=== PATIENT | female | born 1945 | race Caucasian/White ===

== ENCOUNTER → 2023-06-01 11:02 | Outpatient (REF) | payer MEDICARE, SELFPAY ==
[2023-06-01 12:25] LABS: Glycohemoglobin (HgbA1c) 6.4 % (4.0-5.6)
[2023-06-01 12:42] LABS: Microalbumin, Random Urine 5.7 mg/dl (0.6-1.7); Microalbumin/creatinine Ratio 25.1 mg/g
== END ==
LOC: REG 11:02
PROVIDERS: ATTENDING PHYSICIAN Family Medicine
DX: E11.59 Type 2 diabetes mellitus with other circulatory complications (principal)
CPT/HCPCS: 36415; 82043; 82570; 83036

== ENCOUNTER 2023-11-19 11:55 | Inpatient (IN) | payer MEDICARE, SELFPAY ==
[2023-11-16 18:50] VITALS: BP 131/74
[2023-11-16 19:30] LABS: % Basophils 0.7 % (0-2); % Eosinophils 1.2 % (0-6); % Immature Granulocytes 0.3 % (0-0.5); % Lymphocytes 21.2 % (20.5-51.1); % Monocytes 9.8 % (1.7-9.3); % Neutrophils 66.8 % (42.2-75.2); Absolute Basophils 0.1 10^3/uL (0-0.2); Absolute Eosinophils 0.2 10^3/uL (0-0.7); Absolute Lymphocytes 2.6 10^3/uL (1.2-3.4); Absolute Monocytes 1.2 10^3/uL (0.1-0.6); Absolute Neutrophils 8.3 10^3/uL (1.4-6.5); Hematocrit 36.8 % (37.0-47.0); Hemoglobin 12.3 g/dL (12.0-16.0); Mean Corp Hgb Conc. 33.4 g/dL (33.0-37.0); Mean Corpuscular Hgb 27.4 pg (27.0-31.0); Mean Platelet Volume 9.5 fL (7.4-10.4); Nucleated Red Blood Cells % 0 %; Platelet Count 359 10^3/uL (130-400); Red Blood Cell Count 4.49 10^6/uL (4.20-5.40); Red Cell Dist. Width 13.9 % (11.5-14.5); White Blood Cell Count 12.5 10^3/uL (4.8-10.8)
[2023-11-16 19:41] LABS: ALT (SGPT) 20 U/L (0-35); AST (SGOT) 29 U/L (14-36); Albumin 4.6 g/dl (3.5-5.0); Alkaline Phosphatase 91 U/L (38-126); Blood Urea Nitrogen 20 mg/dl (7-17); Calcium 9.8 mg/dl (8.4-10.2); Carbon Dioxide 22 mmol/L (22-30); Chloride 99 mmol/L (98-107); Glucose 183 mg/dl (70-99); Potassium 4.1 mmol/L (3.5-5.1); Sodium 139 mmol/L (135-145); Total Bilirubin 1.1 mg/dl (0.2-1.3); Total Protein 7.7 g/dl (6.3-8.2); eGFR 46.33
[2023-11-16 19:48] LABS: COVID-19 Antigen Negative (Negative)
--- NOTE | 2023-11-16 21:14 | ED.GENMED ---
History of Present Illness
General
Chief Complaint: Weakness
Source: patient and family (Daughter)
Exam Limitations: none
Time Seen by Provider: 11/16/23 21:13
History of Present Illness
History of Present Illness:
Frequent falls the last 4 to 5 days. General weakness. Lied in bed all day today. Unable to get out secondary to weakness. No other specific complaints. Decreased p.o. intake today
Past History
Past History
ED Past Medical History: HTN, Hypercholesterolemia, NIDDM and Other (Parkinson's disease)
ED Past Surgical History: Gynecological
Social History
Tobacco: Former smoker
Alcohol: None
Drug: None
Personal:
Living: with family
Employment: Retired
Family History
Family History: Other
Review of Systems
Review of Systems
All Other Systems: Not applicable
Constitutional: Denies fever or chills
Respiratory: Reports no symptoms
Cardiac: Reports no symptoms
Phy Exam
Physical Exam
Physical Exam:
GENERAL: Alert and oriented in no apparent distress
EYE: Orbits normal.
NECK: Supple, no significant adenopathy.
ENT: Pharynx without erythema
CARDIAC: Regular rate and rhythm without any obvious murmurs.
LUNGS: Clear breath sounds,normal
ABDOMEN: Soft, without focal tenderness or distention
NEUROLOGICAL: Alert and oriented , grossly non-focal. Generally weak. Significant weakness bilateral lower extremities. Able to barely straight leg raise. Patellar reflexes intact but diminished bilaterally.
SKIN: Warm and dry, no rash or lesion, no discoloration, skin intact.
MUSCULOSKELETAL: No edema,no deformity.Good color
PSYCH: Normal and appropriate interaction.
Course
Orders/Labs/Results
Orders:
Orders
11/16/23 18:57
Electrocardiogram (*1) Urgent
Reason for Study: Other
Other Reason for Exam: neck pain
EKG- Treatment ONCE
11/16/23 19:07
COVID-19 Antigen Urgent
Source: Nasal Swab
Complete Blood Count/With Diff Urgent
Comprehensive Metabolic Panel Urgent
TSH Reflex To Free T4 Urgent
Comment: ADDON
11/16/23 21:31
Add On- LAB Urgent
Tests Added?: tsh reflex t4
CT Cervical Spine W/o Iv Contr Urgent
Comment:
Reason For Exam: trauma
CT Head W/o Iv Contrast Urgent
Comment:
Reason For Exam: trauma
Cardiac Monitoring- Treatment ONCE
Straight cath- Treatment ONCE
11/16/23 21:35
CXR2 [CR Chest - 2 Views ] Urgent
Comment:
Reason For Exam: Frequent falls/upper back pain
11/16/23 22:25
Urinalysis Reflex To Culture Urgent
Date Specimen was Collected: 11/16/23
Time Specimen was Collected: 18:56
Urine Microscopic Reflex Cult Urgent
Urine Culture Urgent
DARWIN Source: U
Specimen Description:
Date Specimen was Collected: 11/16/23
Time Specimen was Collected: 18:56
11/16/23 23:39
0.9% Sodium Chloride 500 ml [Nss] 500 ml IV BOLUS
11/17/23 00:10
Admit/Transfer Patient As Directed
Co-Sign Provider:
Level of Care: Observation services
Assign to:: Telemetry
Physician / Group: Timoteo
Diagnosis: Weakness, Falls
Reason for Telemetry: Syncope
Date to Stop Telemetry: 11/19/23
Time to Stop Telemetry: 11:00
PRN Pain Medication Management As Directed
May give lesser potent ordered pain med per pt: Yes
preference::
Protocol:: Medication orders for pain may be administered in a
manner that supports deferring to patient preference
when the pt is:
- Requesting an ordered lesser potent pain medication.
Least to most potent pain medications are defined
as: acetaminophen < NSAID < tramadol < opioids
(morphine, oxycodone, hydromorphone).
- Requesting a lesser dose of the same medication IF
ORDERED.
- Requesting a less intrusive route of administration
if both routes are prescribed by the provider (PO <
IV).
11/17/23 00:12
Code Status As Directed
Resuscitation Status: Do not resuscitate
Reached after discussion with pt or family/Healthcare POA: Yes
11/17/23 00:13
DNR Bracelet Application ONCE
11/17/23 00:40
0.9% Sodium Chloride 1000 ml [Nss] 1,000 ml IV 80 mls/hr
Acetaminophen [Tylenol] 650 mg PO Q4HPRN PRN
Albuterol Nebs [Ventolin Nebules] 2.5 mg INH R Q4HPRN PRN
Dextrose 50%-Water [Dextrose 50% Syringe] 12.5 grams IV [id number] PRN
Glucagon [GlucaGen] 1 mg IM PRN PRN
11/17/23 00:40
Activity As Directed
Activity Level: Ambulate
With Assistance
Bedside Glucose Monitoring As Directed
Frequency: AC&HS
Additional Instructions:: Change to q6h if pt on TPN, tube feeding or not eating
I/O [Intake/ Output] As Directed
Frequency: Per unit guidelines
Neurological Checks As Directed
Frequency: q4h
Orthostatic Vital Signs As Directed
Orthostatic VS Frequency: BID
Pneumatic Compression Sleeves As Directed
Type: Knee high
Vital Signs As Directed
Frequency: Per unit guidelines
Oxygen Therapy [O2 Therapy] [RESP] Routine
Titrate/Wean O2 to maintain O2 sat greater than (%): 94
Ot Eval And Treat Routine
PT Consult [Pt Eval And Treat] Routine
Activity Level: Ambulate
With Assistance
Speech Therapy Eval & Treat Routine
DX Deep Vein Thrombosis Video Routine
11/17/23 Breakfast
2000 calorie (17 carb) Diabetic
At Your Request: Limited, Turnaround Planner Required
Basic Metabolic Panel IN AM
Complete Blood Count/No Diff IN AM
Glycohemoglobin (HgbA1c) IN AM
11/17/23 07:30
Insulin Aspart Corrective Low [Novolog Flexpen-Low Resistance] See Protocol SC AC
11/17/23 08:00
Aspirin Chewable [Low Strength Aspirin] 81 mg PO DAILY
Atorvastatin [Lipitor] 10 mg PO DAILY
Pantoprazole [Protonix] 40 mg PO DAILY
Sertraline HCl [Zoloft] 25 mg PO DAILY
11/19/23 11:00
DC Protocol for Telemetry ONCE
Abnormal Lab Results
11/16/23 11/16/23
19:07 22:25
WBC 12.5 H 10^3/uL
(4.8-10.8)
Hct 36.8 L %
(37.0-47.0)
Absolute Neuts (auto) 8.3 H 10^3/uL
(1.4-6.5)
Absolute Monos (auto) 1.2 H 10^3/uL
(0.1-0.6)
Monocytes % 9.8 H %
(1.7-9.3)
BUN 20 H mg/dl
(7-17)
Creatinine 1.2 H mg/dL
(0.6-1.0)
Glucose 183 H mg/dl
(70-99)
Urine Ketones 3+ A
(Negative)
Urine Nitrite (Reflex) Positive A
(Negative)
Urine Bacteria (Reflex) Moderate A
(Negative)
11/16/23 19:07
11/16/23 19:07
Vital Signs
Initial and Last Documented VS:
Initial Vital Signs
Temp Pulse Resp BP Pulse Ox
97.7 F 93 18 131/74 97
11/16/23 18:50 11/16/23 18:50 11/16/23 18:50 11/16/23 18:50 11/16/23 18:50
Last Documented Vital Signs
Temp Pulse Resp BP Pulse Ox
97.7 F 81 19 140/57 96
11/16/23 18:50 11/17/23 02:15 11/17/23 02:15 11/17/23 02:00 11/17/23 02:15
MDM/Problems Addressed
Differential Diagnosis Includes:
Patient with general weakness petite. Nonfocal. No obvious trauma but with the frequent falls get a head CT and cervical spine. No focal neurologic symptoms. Electrolyte issue infection Parkinson's all in the differential.
*Pulse Oximetry
Patient hypoxic: no
*EKG
Interpreted by ED Provider?: Yes
Interpretation: abnormal
Comparison EKG: no changes
Heart Rate: 100
Rate: tachycardiac
Rhythm: sinus
[place]: normal axis
Interval: normal interval
QRS Pattern: normal QRS
Ischemia: non-specific ST changes
*Critical Care Note
Total Time (30-74mins, 75-104mins- exclusive of procedures): Not Applicable
ED Attending Note
-
Portions of this chart may have been created with voice recognition software.� Occasional wrong word or��sound alike� substitutions may have occurred due to the inherent limitations of voice recognition software.
Discharge Plan
Departure
Patient Disposition: Admit
Date of Disposition: 11/17/23
Time of Disposition: 00:09
Presentation/result/management discussed w/ accepting MD/DO: Hospitalist
Discharge Problem:
General weakness/frequent falls, History of Parkinson's disease, Possible UTI
Interventions
Interventions:
*Risk Screen - Suicide Last Done: 11/16/23 18:50
*General Assessment Last Done: 11/16/23 23:27
*Neglect/Abuse Screening Last Done: 11/16/23 22:33
*ED COVID-19 Vaccine History Last Done: 11/16/23 22:33
ED- Cardiac Assessment Last Done: 11/16/23 22:35
ED- Neurological Assessment Last Done: 11/16/23 22:35
ED- Pulmonary Assessment Last Done: 11/16/23 22:35
[2023-11-16 22:43] LABS: TSH Reflex To Free T4 0.87 uIU/ml (0.47-4.68)
[2023-11-16 22:50] LABS: Urine Albumin Trace (Neg - Trace); Urine Bilirubin Negative (Negative); Urine Character Clear (Clear); Urine Color Yellow; Urine Glucose Negative (Negative); Urine Ketone 3+ (Negative); Urine Leukocyte Negative (Negative); Urine Nitrite Positive (Negative); Urine Occult Blood Negative (Negative); Urine Specific Gravity 1.025 (<1.030); Urine Urobilinogen Negative (Neg - 1+)
[2023-11-16 23:16] LABS: Urine Squamous Cell >30 /LPF (Few)
[2023-11-16 23:17] LABS: Urine Bacteria Moderate (Negative)
[2023-11-16 23:43] VITALS: BMI 24.2
[2023-11-16] MEDS: NSS 500 IV (23:49)
[2023-11-16 23:52] VITALS: BP 133/73
[2023-11-17] VITALS (32 sets, daily range): BP systolic 111–158; BP diastolic 53–106; PULSE 80–104; O2SAT 95–96
--- NOTE | 2023-11-17 00:17 | HPS.HSE ---
Family Physician
-
Family Physician: Keyshawn Torres
Chief Complaint
-
Weakness
History of Present Illness
Patient is a 78y F with PMH significant for Parkinson's disease and DM-II who presents to ED complaining of weakness. Patient states that she had falls on and Wednesday of last week. She describes her legs 'giving out' on and she
fell into the wall. She cannot clearly state whether or not she had syncope / LOC. Patient does state that she was dizzy prior to the fall and notes that she has dizzy spells fairly often. On Wednesday evening, she fell from bed and woke on the
floor. She was able to get back into bed and had no issues thereafter.
Today, patient woke this AM with numbness and tingling in the legs. She felt very weak and was unable to get OOB at all.
She stayed in bed all day until her daughter came to check on her this evening and she was brought to the hospital for evaluation.
Patient complains of L neck stiffness and discomfort and headache posterior / left side of the head.
Patient reports chronic cough. She notes cough / emesis that occurs intermittently with eating / drinking.
Medical History
Past Medical History
Past Medical History: Reports Other
Additional Past Medical History:
Parkinson's Disease
Hypertension
DM-II
Urinary Incontinence
Psoriasis
GERD / Gastric Ulcers
Depression
Past Surgical History: Reports Other
Additional Past Surgical History:
Tubal Ligation
Facial Reconstruction (trauma)
Left Forearm ORIF
Social History
Tobacco: Former Smoker (Quit smoking 10 years ago. Approx 40 pack years total use.)
Alcohol: None
Drug: None
Family History
Family History: Not pertinent
Allergies / Home Medications
Allergies reflects when Allergies were last updated in [employer].
Home Medications with original date entered in [employer]
Allergy/Medication List:
Patient does not know her current medications / doses.
Family will bring in meds / list in the AM.
If medication reconciliation has not been performed, why?: Medication List N/A
Review of Systems
-
History Source: Patient
A 12 point ROS was completed and negative except as noted: Yes
Constitutional: Reports Fatigue; Denies Fever or Chills
EENT: Denies Sore Throat
Respiratory: Reports Cough; Denies Hemoptysis or Trouble Breathing
Cardiac: Denies Chest Pain or Palpitations
Abdomen/GI: Reports Nausea and Vomiting; Denies Abdominal Pain, Diarrhea, Constipated or Anorexia
: Reports Incontinence; Denies Dysuria, Frequency or Flank Pain
Musculoskeletal: Reports Other (Neck Pain); Denies Joint Pain or Edema
Neurological: Reports Dizzy, Headache, Weakness and Numbness
Psych: Denies Depression or Anxiety
Physical Exam
Vital Signs
Vital Signs
Temp Pulse Resp BP Pulse Ox
97.7 F 88 21 133/73 93
11/16/23 18:50 11/16/23 23:45 11/16/23 23:45 11/16/23 23:52 11/16/23 23:45
Physical Exam
General: Other (78y F in no acute distress.)
HEENT: Moist mucous membranes and PERRLA
Respiratory: Clear; No Wheezes, Rales or Rhonchi
Cardiac: S1/S2 and Regular Rhythm; No Murmur
GI: Soft, Non Tender, Non Distended and Normal Bowel Sounds
Musculoskeletal: No Clubbing, No Cyanosis and No Edema
Neuro: Nonfocal/grossly intact and Other (Sensation is intact and symmetric in the LEs. Global weakness, but no appreciated focal deficits.)
Laboratory Results
-
11/16/23 19:07
11/16/23 19:07
Laboratory Results
Total Bilirubin 1.1 mg/dl (0.2-1.3) 11/16/23 19:07
AST 29 U/L (14-36) 11/16/23 19:07
ALT 20 U/L (0-35) 11/16/23 19:07
Alkaline Phosphatase 91 U/L (38-126) 11/16/23 19:07
Impression/Plan
-
A/P: Patient is a 78y F with PMH significant for Parkinson's disease and DM-II who presents to ED complaining of recent weakness, falls, etc.
Generalized Weakness
Falls at Home
- Observe overnight for further evaluation and treatment.
- No objective findings on exam.
- Work-up thus far unremarkable including CT head and cervical spine.
- PT / OT evaluations.
- Follow for any new / worsening symptoms.
Parkinson's Disease
- ? if current symptoms are related to Parkinson's / meds / etc.
- Patient is not aware of her current medications - including any Parkinson's meds.
- Reconcile meds in the AM and restart any Sinemet, etc.
- PT / OT as noted above.
- Follow for any new symptoms.
DM-II
- Stable. Hold PO meds acutely (pt does not know meds in any event).
- Follow glucose and cover with SSI.
- Update A1C.
CKD III
- Stable. SCr is at / near known baseline.
- Follow for any changes.
DVT Prophylaxis: SCDs
Code Status: DNR
[2023-11-17] MEDS: NSS 1000 IV ×2 (02:07→15:42)
[2023-11-17 06:40] LABS: Hematocrit 33.3 % (37.0-47.0); Hemoglobin 11.3 g/dL (12.0-16.0); Mean Corp Hgb Conc. 33.9 g/dL (33.0-37.0); Mean Corpuscular Hgb 28.4 pg (27.0-31.0); Mean Corpuscular Volume 83.7 fL (81.0-99.0); Mean Platelet Volume 9.7 fL (7.4-10.4); Platelet Count 303 10^3/uL (130-400); Red Blood Cell Count 3.98 10^6/uL (4.20-5.40); Red Cell Dist. Width 13.8 % (11.5-14.5); White Blood Cell Count 10.8 10^3/uL (4.8-10.8)
[2023-11-17 06:57] LABS: Blood Urea Nitrogen 19 mg/dl (7-17); Calcium 9.3 mg/dl (8.4-10.2); Carbon Dioxide 20 mmol/L (22-30); Chloride 104 mmol/L (98-107); Estimated Creatinine Clearance 42 ml/min; Glucose 132 mg/dl (70-99); Potassium 3.9 mmol/L (3.5-5.1); Sodium 141 mmol/L (135-145); eGFR 57.66
[2023-11-17 07:34] LABS: Glucose - Point of Care 149 mg/dl (70-99)
[2023-11-17 08:15] LABS: Glycohemoglobin (HgbA1c) 5.9 % (4.0-5.6)
[2023-11-17] MEDS: NOVOLOG FLEXPEN-LOW RESISTANCE SC (08:27)
[2023-11-17] MEDS: LIPITOR 10 MG PO (08:39)
[2023-11-17] MEDS: PROTONIX 40 MG PO (08:39)
[2023-11-17] MEDS: LOW STRENGTH ASPIRIN 81 MG PO (08:39)
[2023-11-17] MEDS: ZOLOFT 25 MG PO (08:40)
--- NOTE | 2023-11-17 08:43 | EDRN ---
Speech is in room to assess patient
[2023-11-17 10:00] LABS: Iron 28 ug/dl (37-170)
[2023-11-17 10:11] LABS: Percent Saturation 8 % (20-50); Total Iron Binding Capacity 332 ug/dl (265-497)
[2023-11-17 10:52] LABS: Ferritin 24.1 ng/ml (11.1-264.0)
--- NOTE | 2023-11-17 10:59 | PTOTSP ---
Speech Therapy Assessment
Oral/pharyngeal swallow deemed within functional limits without gross signs of aspiration or pharygneal stasis during bedside assessment. No esophageal symptoms this date but report of previous emesis with intake this may be related to history of
reflux.
Recommend
1. Continue regular solids and thin liquds
2. Meds with liquid
3. Upright with intake.
4. Reflux precautions.
Skilled ST not indicated.
[2023-11-17 11:24] LABS: Folate > 20.0 ng/ml (2.76-20); Vitamin B12 > 1000 pg/ml (239-931)
--- NOTE | 2023-11-17 12:53 | W.PN.HOSP.TC ---
Addendum entered and electronically signed by Douglas Myrick MD 11/17/23 16:04:
Called daughter, left voicemail
Original Note:
Today's Communication/Plan
-
monitor vitals
see plan
start IV iron
PT/OT
Assessment / Plan
Assessment / Plan
General: Other (78y F in no acute distress.)
HEENT: Moist mucous membranes and PERRLA
Respiratory: Clear; No Wheezes, Rales or Rhonchi
Cardiac: S1/S2 and Regular Rhythm; No Murmur
GI: Soft, Non Tender, Non Distended and Normal Bowel Sounds
Musculoskeletal: No Clubbing, No Cyanosis and No Edema
Neuro: Nonfocal/grossly intact
Generalized Weakness
Falls at Home
- Work-up thus far unremarkable including CT head and cervical spine.
- PT / OT evaluations rec SNF
- Follow for any new / worsening symptoms.
Parkinson's Disease
- ? if current symptoms are related to Parkinson's / meds / etc.
- Patient is not aware of her current medications - including any Parkinson's meds.
not on any parkinson's med
- PT / OT as noted above.
Iron deficiency Anemia
no theresa bleeding
start IV iron
DM-II
- Stable. Hold PO meds acutely (pt does not know meds in any event).
- Follow glucose and cover with SSI.
- A1C 5.9
CKD III
- Stable. SCr is at / near known baseline.
- Follow for any changes.
DVT Prophylaxis: SCDs,lovenox
Code Status: DNR
Anticipated Discharge: Within 24 hours
Subjective/Interval History
-
Date of Service: November 17, 2023
denies pain
Objective Data
-
Labs:
Laboratory Results
11/17/23 11/17/23
06:12 06:13
WBC 10.8
Hgb 11.3 L
Hct 33.3 L
Plt Count 303
Sodium 141
Potassium 3.9
Chloride 104
Carbon Dioxide 20 L
BUN 19 H
Creatinine 1.0
Glucose 132 H
Calcium 9.3
Vital Signs:
Vital Signs
Temp Pulse Resp BP Pulse Ox
98.4 F 78 15 131/72 94
11/17/23 12:05 11/17/23 12:05 11/17/23 12:05 11/17/23 12:05 11/17/23 12:05
[2023-11-17 13:10] LABS: Glucose - Point of Care 196 mg/dl (70-99)
[2023-11-17] MEDS: FERRLECIT 110 MG IV (14:17)
[2023-11-17] MEDS: NOVOLOG FLEXPEN-LOW RESISTANCE 1 UNITS SC (14:17)
--- NOTE | 2023-11-17 15:18 | CM ---
Addendum entered by Sravani Luis RN 11/17/23 15:59:
Patient is agreeable to [facility] and [facility]. Referral sent via [facility].
Original Note:
CM reviewed medical records. Patient lives alone in single floor apartment. Patient has had a history of placement at [facility]. Patient stated that she did not like [facility]. Daughter stated that she believes patient is 'mixing up' facilities and she
actually did like [facility]. Patient is agreeable to placement.
Daughter is arriving to the hospital. CM will discuss further with daughter SNF options.
[2023-11-17] MEDS: NOVOLOG FLEXPEN-LOW RESISTANCE 2 UNITS SC (18:17)
[2023-11-17 18:18] LABS: Glucose - Point of Care 242 mg/dl (70-99)
[2023-11-17] MEDS: LOVENOX 40 MG SC (18:18)
[2023-11-18] VITALS (23 sets, daily range): BP systolic 104–139; BP diastolic 47–107; BMI 24.3
[2023-11-18 05:24] LABS: % Basophils 0.7 % (0-2); % Eosinophils 1.9 % (0-6); % Immature Granulocytes 0.4 % (0-0.5); % Lymphocytes 29.7 % (20.5-51.1); % Monocytes 13.5 % (1.7-9.3); % Neutrophils 53.8 % (42.2-75.2); Absolute Basophils 0.1 10^3/uL (0-0.2); Absolute Eosinophils 0.2 10^3/uL (0-0.7); Absolute Lymphocytes 3.1 10^3/uL (1.2-3.4); Absolute Monocytes 1.4 10^3/uL (0.1-0.6); Absolute Neutrophils 5.7 10^3/uL (1.4-6.5); Hematocrit 29.6 % (37.0-47.0); Hemoglobin 10.2 g/dL (12.0-16.0); Mean Corp Hgb Conc. 34.5 g/dL (33.0-37.0); Mean Corpuscular Hgb 27.9 pg (27.0-31.0); Mean Corpuscular Volume 80.9 fL (81.0-99.0); Mean Platelet Volume 9.4 fL (7.4-10.4); Nucleated Red Blood Cells % 0 %; Platelet Count 280 10^3/uL (130-400); Red Blood Cell Count 3.66 10^6/uL (4.20-5.40); Red Cell Dist. Width 13.9 % (11.5-14.5); White Blood Cell Count 10.6 10^3/uL (4.8-10.8)
[2023-11-18 06:20] LABS: Blood Urea Nitrogen 14 mg/dl (7-17); Carbon Dioxide 21 mmol/L (22-30); Chloride 107 mmol/L (98-107); Estimated Creatinine Clearance 46 ml/min; Glucose 150 mg/dl (70-99); Potassium 3.6 mmol/L (3.5-5.1); Sodium 139 mmol/L (135-145); eGFR > 60.00
[2023-11-18] MEDS: ZOLOFT 25 MG PO (07:53)
[2023-11-18] MEDS: LOW STRENGTH ASPIRIN 81 MG PO (07:53)
[2023-11-18] MEDS: LIPITOR 10 MG PO (07:53)
[2023-11-18] MEDS: PROTONIX 40 MG PO (07:53)
[2023-11-18 07:58] LABS: Glucose - Point of Care 155 mg/dl (70-99)
[2023-11-18] MEDS: NSS IV (09:48)
[2023-11-18] MEDS: NOVOLOG FLEXPEN-LOW RESISTANCE SC ×2 (11:35→17:58)
[2023-11-18 11:40] LABS: Glucose - Point of Care 169 mg/dl (70-99)
[2023-11-18] MEDS: NOVOLOG FLEXPEN-LOW RESISTANCE 1 UNITS SC (11:42)
--- NOTE | 2023-11-18 12:29 | W.PN.HOSP.TC ---
Addendum entered and electronically signed by Douglas Myrick MD 11/18/23 14:25:
urine cx with ecoli; giving her symptoms now will start abx
Original Note:
Today's Communication/Plan
-
monitor vitals
see plan
cw IV iron
dc planning
pt/ot
Assessment / Plan
Assessment / Plan
General: Other (78y F in no acute distress.)
HEENT: Moist mucous membranes and PERRLA
Respiratory: Clear; No Wheezes, Rales or Rhonchi
Cardiac: S1/S2 and Regular Rhythm; No Murmur
GI: Soft, Non Tender, Non Distended and Normal Bowel Sounds
Musculoskeletal: No Clubbing, No Cyanosis and No Edema
Neuro: Nonfocal/grossly intact
Generalized Weakness
Falls at Home
- Work-up thus far unremarkable including CT head and cervical spine.
- PT / OT evaluations rec SNF
- Follow for any new / worsening symptoms.
Parkinson's Disease
- ? if current symptoms are related to Parkinson's / meds / etc.
- Patient is not aware of her current medications - including any Parkinson's meds.
not on any parkinson's med
- PT / OT as noted above.
Iron deficiency Anemia
no theresa bleeding
started IV iron
DM-II
- Stable. Hold PO meds acutely (pt does not know meds in any event).
- Follow glucose and cover with SSI.
- A1C 5.9
CKD III
- Stable. SCr is at / near known baseline.
- Follow for any changes.
DVT Prophylaxis: SCDs,lovenox
Code Status: DNR
Anticipated Discharge: Within 24 hours
Subjective/Interval History
-
Date of Service: November 18, 2023
denies pain
Objective Data
-
Labs:
Laboratory Results
11/18/23
05:05
WBC 10.6
Hgb 10.2 L
Hct 29.6 L
Plt Count 280
Sodium 139
Potassium 3.6
Chloride 107
Carbon Dioxide 21 L
BUN 14
Creatinine 0.9
Glucose 150 H
Calcium 9.0
Vital Signs:
Vital Signs
Temp Pulse Resp BP Pulse Ox
98.7 F 65 18 128/62 94
11/18/23 05:08 11/18/23 08:31 11/18/23 08:31 11/18/23 08:01 11/18/23 08:01
I&O
11/17/23 11/18/23 11/19/23
06:59 06:59 06:59
Intake Total 960 / 960
Balance 960 / 960
[2023-11-18] MEDS: FERRLECIT 110 MG IV (13:31)
--- NOTE | 2023-11-18 13:44 | PTCARENOTE ---
pt drowsy, disoriented to place- states she thought she was at home. incontinent of urine- bed changed. pt did not eat breakfast or lunch, reports poor appetite. hospitalist notified.
[2023-11-18] MEDS: ROCEPHIN 1000 MG IV (14:51)
[2023-11-18] MEDS: STERILE WATER FOR INJECTION 10 ML IV (14:51)
[2023-11-18] MEDS: LOVENOX 40 MG SC (17:53)
[2023-11-18 17:57] LABS: Glucose - Point of Care 134 mg/dl (70-99)
[2023-11-18 19:11] LABS: Transferrin 256 mg/dL (200-360)
[2023-11-18 21:42] LABS: Glucose - Point of Care 239 mg/dl (70-99)
[2023-11-19] VITALS (11 sets, daily range): BP systolic 107–148; BP diastolic 43–62; PULSE 71; O2SAT 99
[2023-11-19 06:37] LABS: % Basophils 0.5 % (0-2); % Eosinophils 1.7 % (0-6); % Immature Granulocytes 0.2 % (0-0.5); % Lymphocytes 15.9 % (20.5-51.1); % Monocytes 11.2 % (1.7-9.3); % Neutrophils 70.5 % (42.2-75.2); Absolute Basophils 0.1 10^3/uL (0-0.2); Absolute Eosinophils 0.2 10^3/uL (0-0.7); Absolute Monocytes 1.4 10^3/uL (0.1-0.6); Hematocrit 31.8 % (37.0-47.0); Hemoglobin 10.9 g/dL (12.0-16.0); Mean Corp Hgb Conc. 34.3 g/dL (33.0-37.0); Mean Corpuscular Volume 81.7 fL (81.0-99.0); Mean Platelet Volume 9.4 fL (7.4-10.4); Nucleated Red Blood Cells % 0 %; Platelet Count 294 10^3/uL (130-400); Red Blood Cell Count 3.89 10^6/uL (4.20-5.40); Red Cell Dist. Width 14.1 % (11.5-14.5); White Blood Cell Count 12.8 10^3/uL (4.8-10.8)
[2023-11-19 07:02] LABS: Blood Urea Nitrogen 14 mg/dl (7-17); Calcium 9.4 mg/dl (8.4-10.2); Carbon Dioxide 21 mmol/L (22-30); Chloride 106 mmol/L (98-107); Estimated Creatinine Clearance 42 ml/min; Glucose 180 mg/dl (70-99); Potassium 3.6 mmol/L (3.5-5.1); Sodium 142 mmol/L (135-145); eGFR 57.66
[2023-11-19] MEDS: ZOLOFT 25 MG PO (08:14)
[2023-11-19] MEDS: LOW STRENGTH ASPIRIN 81 MG PO (08:14)
[2023-11-19] MEDS: LIPITOR 10 MG PO (08:14)
[2023-11-19] MEDS: PROTONIX 40 MG PO (08:15)
[2023-11-19 08:22] LABS: Glucose - Point of Care 168 mg/dl (70-99)
[2023-11-19] MEDS: NOVOLOG FLEXPEN-LOW RESISTANCE 1 UNITS SC (08:22)
--- NOTE | 2023-11-19 11:37 | W.PN.HOSP.TC ---
Today's Communication/Plan
-
Monitor vital signs see plan
Consult neurology
Switch antibiotics to cefdinir
Daughter updated over the phone
Assessment / Plan
Assessment / Plan
General: Other (78y F in no acute distress.)
HEENT: Moist mucous membranes and PERRLA
Respiratory: Clear; No Wheezes, Rales or Rhonchi
Cardiac: S1/S2 and Regular Rhythm; No Murmur
GI: Soft, Non Tender, Non Distended and Normal Bowel Sounds
Musculoskeletal: No Clubbing, No Cyanosis and No Edema
Neuro: Nonfocal/grossly intact
Generalized Weakness
Falls at Home
- Work-up thus far unremarkable including CT head and cervical spine. 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 Patient will follow-up with neurology outpatient. Also suspecting cognitive impairment. Will need full
neurocognitive testing with neurology. Daughter aware
- PT / OT evaluations rec SNF. patient and daughter agreeable
- Follow for any new / worsening symptoms.
Parkinson's Disease
- ? if current symptoms are related to Parkinson's
- Patient is not aware of her current medications - including any Parkinson's meds.
not on any parkinson's med. consult neurology
- PT / OT as noted above.
UTI
pansensitive ecoli; switch to cefdinir
Iron deficiency Anemia
no theresa bleeding
started IV iron
DM-II
- Stable. Hold PO meds acutely (pt does not know meds in any event).
- Follow glucose and cover with SSI.
- A1C 5.9
CKD III
- Stable. SCr is at / near known baseline.
- Follow for any changes.
DVT Prophylaxis: SCDs,lovenox
Code Status: DNR
Anticipated Discharge: 24 - 48 hours
Subjective/Interval History
-
Date of Service: November 19, 2023
denies pain
Objective Data
-
Labs:
Laboratory Results
11/19/23
06:29
WBC 12.8 H
Hgb 10.9 L
Hct 31.8 L
Plt Count 294
Sodium 142
Potassium 3.6
Chloride 106
Carbon Dioxide 21 L
BUN 14
Creatinine 1.0
Glucose 180 H
Calcium 9.4
Vital Signs:
Vital Signs
Temp Pulse Resp BP Pulse Ox
98.2 F 73 15 110/44 96
11/19/23 08:13 11/19/23 08:13 11/19/23 08:13 11/19/23 08:13 11/19/23 09:39
I&O
11/18/23 11/19/23 11/20/23
06:59 06:59 06:59
Intake Total 960 / 960
Balance 960 / 960
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
[2023-11-19 11:59] LABS: Glucose - Point of Care 222 mg/dl (70-99)
[2023-11-19] MEDS: OMNICEF 300 MG PO ×2 (12:36→20:33)
[2023-11-19] MEDS: NOVOLOG FLEXPEN-LOW RESISTANCE 2 UNITS SC ×2 (12:36→18:02)
[2023-11-19] MEDS: FERRLECIT 110 MG IV (14:57)
[2023-11-19 17:46] LABS: Glucose - Point of Care 218 mg/dl (70-99)
[2023-11-19] MEDS: LOVENOX 40 MG SC (18:02)
[2023-11-19 21:36] LABS: Glucose - Point of Care 225 mg/dl (70-99)
[2023-11-20 03:29] VITALS: BP 116/51
[2023-11-20 06:17] VITALS: BMI 23.4
[2023-11-20 07:00] VITALS: BP 120/54
[2023-11-20 08:56] LABS: Glucose - Point of Care 208 mg/dl (70-99)
[2023-11-20] MEDS: NOVOLOG FLEXPEN-LOW RESISTANCE 2 UNITS SC (08:57)
[2023-11-20] MEDS: OMNICEF 300 MG PO ×2 (08:57→20:57)
[2023-11-20] MEDS: PROTONIX 40 MG PO (08:57)
[2023-11-20] MEDS: ZOLOFT 25 MG PO (08:57)
[2023-11-20] MEDS: LIPITOR 10 MG PO (08:58)
[2023-11-20] MEDS: LOW STRENGTH ASPIRIN 81 MG PO (08:58)
[2023-11-20 10:02] LABS: % Basophils 0.8 % (0-2); % Eosinophils 4.5 % (0-6); % Immature Granulocytes 0.4 % (0-0.5); % Lymphocytes 19.3 % (20.5-51.1); % Monocytes 11.7 % (1.7-9.3); % Neutrophils 63.3 % (42.2-75.2); Absolute Basophils 0.1 10^3/uL (0-0.2); Absolute Eosinophils 0.5 10^3/uL (0-0.7); Absolute Monocytes 1.2 10^3/uL (0.1-0.6); Absolute Neutrophils 6.6 10^3/uL (1.4-6.5); Hematocrit 33.1 % (37.0-47.0); Mean Corp Hgb Conc. 33.2 g/dL (33.0-37.0); Mean Corpuscular Hgb 27.4 pg (27.0-31.0); Mean Corpuscular Volume 82.3 fL (81.0-99.0); Mean Platelet Volume 9.8 fL (7.4-10.4); Nucleated Red Blood Cells % 0 %; Platelet Count 297 10^3/uL (130-400); Red Blood Cell Count 4.02 10^6/uL (4.20-5.40); White Blood Cell Count 10.5 10^3/uL (4.8-10.8)
[2023-11-20 10:29] LABS: Blood Urea Nitrogen 15 mg/dl (7-17); Calcium 9.2 mg/dl (8.4-10.2); Carbon Dioxide 21 mmol/L (22-30); Chloride 103 mmol/L (98-107); Estimated Creatinine Clearance 42 ml/min; Glucose 192 mg/dl (70-99); Potassium 3.7 mmol/L (3.5-5.1); Sodium 139 mmol/L (135-145); eGFR 57.66
[2023-11-20 11:00] VITALS: BP 115/82
--- NOTE | 2023-11-20 12:06 | W.PN.HOSP.TC ---
Today's Communication/Plan
-
Monitor vital signs see plan
PT/OT
MRI pending
PT/OT
Continue with aspirin
Neurology following
Assessment / Plan
Assessment / Plan
General: Other (78y F in no acute distress.)
HEENT: Moist mucous membranes and PERRLA
Respiratory: Clear; No Wheezes, Rales or Rhonchi
Cardiac: S1/S2 and Regular Rhythm; No Murmur
GI: Soft, Non Tender, Non Distended and Normal Bowel Sounds
Musculoskeletal: No Clubbing, No Cyanosis and No Edema
Neuro: Nonfocal/grossly intact
Generalized Weakness
Falls at Home
- Work-up thus far unremarkable including CT head and cervical spine. 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 Patient will follow-up with neurology outpatient. Also suspecting cognitive impairment. Will need full
neurocognitive testing with neurology. Daughter aware
- PT / OT evaluations rec SNF. patient and daughter agreeable
- Follow for any new / worsening symptoms.
neurology involved; concerning for extrapyramidal syndrome.MRI pending. Head and neck CTA with no significant vascular occlusion, aneurysm or dissection
Parkinson's Disease
- ? if current symptoms are related to Parkinson's
- Patient is not aware of her current medications - including any Parkinson's meds.
not on any parkinson's med. Neurology following
- PT / OT as noted above.
UTI
pansensitive ecoli; switch to cefdinir to complete course
Iron deficiency Anemia
no theresa bleeding
started IV iron
DM-II
- Stable. Hold PO meds acutely (pt does not know meds in any event).
- Follow glucose and cover with SSI.
- A1C 5.9
CKD III
- Stable. SCr is at / near known baseline.
- Follow for any changes.
DVT Prophylaxis: SCDs,lovenox
Code Status: DNR
Anticipated Discharge: Within 24 hours
Subjective/Interval History
-
Date of Service: November 20, 2023
denies headache
Objective Data
-
Labs:
Laboratory Results
11/20/23
08:03
WBC 10.5
Hgb 11.0 L
Hct 33.1 L
Plt Count 297
Sodium 139
Potassium 3.7
Chloride 103
Carbon Dioxide 21 L
BUN 15
Creatinine 1.0
Glucose 192 H
Calcium 9.2
Vital Signs:
Vital Signs
Temp Pulse Resp BP Pulse Ox
97.8 F 68 12 120/54 97
11/20/23 07:00 11/20/23 07:00 11/20/23 07:00 11/20/23 07:00 11/20/23 07:00
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
[2023-11-20 12:41] LABS: Glucose - Point of Care 162 mg/dl (70-99)
[2023-11-20] MEDS: NOVOLOG FLEXPEN-LOW RESISTANCE 1 UNITS SC ×2 (12:41→17:13)
[2023-11-20] MEDS: FERRLECIT 110 MG IV (13:38)
[2023-11-20 15:00] VITALS: BP 138/56
[2023-11-20 17:11] LABS: Glucose - Point of Care 196 mg/dl (70-99)
[2023-11-20] MEDS: LOVENOX 40 MG SC (17:13)
[2023-11-20] MEDS: ANTIVERT 25 MG PO (17:13)
--- NOTE | 2023-11-20 21:01 | PTCARENOTE ---
Pt refusing BP and glucose checks. She is adamant about leaving AMA, and saying 'I will leave in the AM w/ or w/o getting the MRI done'. RN talked pt into staying the night and at least getting her MRI done tomorrow.
[2023-11-21] MEDS: RISPERDAL M-TAB (ORALLY DISINTEGRATING) 0.5 MG PO (04:25)
[2023-11-21 04:33] LABS: % Basophils 0.9 % (0-2); % Immature Granulocytes 0.6 % (0-0.5); % Lymphocytes 37.1 % (20.5-51.1); % Monocytes 10.9 % (1.7-9.3); % Neutrophils 45.5 % (42.2-75.2); Absolute Basophils 0.1 10^3/uL (0-0.2); Absolute Eosinophils 0.6 10^3/uL (0-0.7); Absolute Immature Granulocytes 0.1 10^3/uL (0-0.05); Absolute Lymphocytes 4.4 10^3/uL (1.2-3.4); Absolute Monocytes 1.3 10^3/uL (0.1-0.6); Absolute Neutrophils 5.4 10^3/uL (1.4-6.5); Hematocrit 35.8 % (37.0-47.0); Hemoglobin 12.1 g/dL (12.0-16.0); Mean Corp Hgb Conc. 33.8 g/dL (33.0-37.0); Mean Corpuscular Hgb 27.9 pg (27.0-31.0); Mean Corpuscular Volume 82.5 fL (81.0-99.0); Mean Platelet Volume 9.6 fL (7.4-10.4); Nucleated Red Blood Cells % 0 %; Platelet Count 395 10^3/uL (130-400); Red Blood Cell Count 4.34 10^6/uL (4.20-5.40)
[2023-11-21 04:54] LABS: Blood Urea Nitrogen 13 mg/dl (7-17); Calcium 9.9 mg/dl (8.4-10.2); Carbon Dioxide 22 mmol/L (22-30); Chloride 103 mmol/L (98-107); Estimated Creatinine Clearance 38 ml/min; Glucose 218 mg/dl (70-99); Potassium 3.5 mmol/L (3.5-5.1); Sodium 143 mmol/L (135-145); eGFR 51.43
[2023-11-21 07:00] VITALS: BP 144/68
[2023-11-21 08:11] LABS: Glucose - Point of Care 249 mg/dl (70-99)
[2023-11-21] MEDS: NOVOLOG FLEXPEN-LOW RESISTANCE 2 UNITS SC ×2 (08:29→14:08)
[2023-11-21] MEDS: PROTONIX 40 MG PO (08:30)
[2023-11-21] MEDS: LOW STRENGTH ASPIRIN 81 MG PO (08:30)
[2023-11-21] MEDS: ZOLOFT 25 MG PO (08:30)
[2023-11-21] MEDS: LIPITOR 10 MG PO (08:30)
[2023-11-21 11:00] VITALS: BP 136/63
--- NOTE | 2023-11-21 11:31 | W.PN.HOSP.TC ---
Today's Communication/Plan
-
monitor vitals
see plan
MRI brain pending
no vertigo complaint by patient
neurology following
pt/ot ; needs SNF
Assessment / Plan
Assessment / Plan
General: Other (78y F in no acute distress.)
HEENT: Moist mucous membranes and PERRLA
Respiratory: Clear; No Wheezes, Rales or Rhonchi
Cardiac: S1/S2 and Regular Rhythm; No Murmur
GI: Soft, Non Tender, Non Distended and Normal Bowel Sounds
Musculoskeletal: No Clubbing, No Cyanosis and No Edema
Neuro: Nonfocal/grossly intact
Generalized Weakness
Falls at Home
- Work-up thus far unremarkable including CT head and cervical spine. 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 Patient will follow-up with neurology outpatient. Also suspecting cognitive impairment. Will need full
neurocognitive testing with neurology. Daughter aware
- PT / OT evaluations rec SNF. patient and daughter agreeable
- Follow for any new / worsening symptoms.
neurology involved; concerning for extrapyramidal syndrome.MRI pending. Head and neck CTA with no significant vascular occlusion, aneurysm or dissection
no signs or complaint of vertigo by patient
Parkinson's Disease
- ? if current symptoms are related to Parkinson's
- Patient is not aware of her current medications - including any Parkinson's meds.
not on any parkinson's med. Neurology following
- PT / OT as noted above.
appears to have agitated overnight and responded well to risperidone; very caml this morning. monitor
UTI
pansensitive ecoli; switch to cefdinir to complete course
Iron deficiency Anemia
no theresa bleeding
started IV iron
DM-II
- Stable. Hold PO meds acutely (pt does not know meds in any event).
- Follow glucose and cover with SSI.
- A1C 5.9
CKD III
- Stable. SCr is at / near known baseline.
- Follow for any changes.
DVT Prophylaxis: SCDs,lovenox
Code Status: DNR
Anticipated Discharge: Within 24 hours
Subjective/Interval History
-
Date of Service: November 21, 2023
denies pain
Objective Data
-
Labs:
Laboratory Results
11/21/23
04:17
WBC 12.0 H
Hgb 12.1
Hct 35.8 L
Plt Count 395 D
Sodium 143
Potassium 3.5
Chloride 103
Carbon Dioxide 22
BUN 13
Creatinine 1.1 H
Glucose 218 H
Calcium 9.9
Vital Signs:
Vital Signs
Temp Pulse Resp BP Pulse Ox
98 F 95 16 144/68 96
11/21/23 07:00 11/21/23 07:00 11/21/23 07:00 11/21/23 07:00 11/21/23 07:00
I&O
11/20/23 11/21/23 11/22/23
06:59 06:59 06:59
Intake Total 480 / 480
Balance 480 / 480
[2023-11-21 14:07] LABS: Glucose - Point of Care 242 mg/dl (70-99)
[2023-11-21] MEDS: FERRLECIT 110 MG IV (14:07)
[2023-11-21] MEDS: ZYPREXA ZYDIS (ORALLY DISINTEGRATING) 5 MG PO (14:07)
[2023-11-21 15:00] VITALS: BP 132/56
[2023-11-21 18:03] LABS: Glucose - Point of Care 291 mg/dl (70-99)
[2023-11-21] MEDS: NOVOLOG FLEXPEN-LOW RESISTANCE 3 UNITS SC (18:03)
[2023-11-21] MEDS: LOVENOX 40 MG SC (18:03)
[2023-11-21 19:45] VITALS: BP 119/66
[2023-11-21] MEDS: AMBIEN 10 MG PO (20:02)
[2023-11-21 21:47] LABS: Glucose - Point of Care 207 mg/dl (70-99)
[2023-11-21 22:41] VITALS: BP 105/51
[2023-11-22 07:00] VITALS: BP 132/58
[2023-11-22 08:14] LABS: Glucose - Point of Care 171 mg/dl (70-99)
[2023-11-22] MEDS: LOW STRENGTH ASPIRIN 81 MG PO (08:16)
[2023-11-22] MEDS: PROTONIX 40 MG PO (08:16)
[2023-11-22] MEDS: ATIVAN 0.5 MG PO (08:16)
[2023-11-22] MEDS: LIPITOR 10 MG PO (08:16)
[2023-11-22] MEDS: ZOLOFT 25 MG PO (08:16)
[2023-11-22] MEDS: NOVOLOG FLEXPEN-LOW RESISTANCE 1 UNITS SC (10:25)
[2023-11-22 10:28] LABS: Glucose - Point of Care 202 mg/dl (70-99)
[2023-11-22 11:22] LABS: Blood Urea Nitrogen 15 mg/dl (7-17); Calcium 9.9 mg/dl (8.4-10.2); Carbon Dioxide 21 mmol/L (22-30); Chloride 107 mmol/L (98-107); Estimated Creatinine Clearance 38 ml/min; Glucose 187 mg/dl (70-99); Potassium 3.9 mmol/L (3.5-5.1); Sodium 142 mmol/L (135-145); eGFR 51.43
[2023-11-22 11:26] LABS: % Basophils 1.3 % (0-2); % Eosinophils 6.1 % (0-6); % Immature Granulocytes 0.4 % (0-0.5); % Lymphocytes 27.8 % (20.5-51.1); % Monocytes 11.3 % (1.7-9.3); % Neutrophils 53.1 % (42.2-75.2); Absolute Basophils 0.1 10^3/uL (0-0.2); Absolute Eosinophils 0.5 10^3/uL (0-0.7); Absolute Lymphocytes 2.2 10^3/uL (1.2-3.4); Absolute Monocytes 0.9 10^3/uL (0.1-0.6); Absolute Neutrophils 4.2 10^3/uL (1.4-6.5); Hematocrit 35.6 % (37.0-47.0); Hemoglobin 12.2 g/dL (12.0-16.0); Mean Corp Hgb Conc. 34.3 g/dL (33.0-37.0); Mean Corpuscular Hgb 27.8 pg (27.0-31.0); Mean Corpuscular Volume 81.1 fL (81.0-99.0); Nucleated Red Blood Cells % 0 %; Red Blood Cell Count 4.39 10^6/uL (4.20-5.40); Red Cell Dist. Width 14.4 % (11.5-14.5); White Blood Cell Count 7.9 10^3/uL (4.8-10.8)
--- NOTE | 2023-11-22 12:01 | W.PN.HOSP.TC ---
Today's Communication/Plan
-
monitor vitals
see plan
neurology to see today
MRI noted
needs SNF on dc; CM aware
daughter updated over the phone
Assessment / Plan
Assessment / Plan
General: Other (78y F in no acute distress.)
HEENT: Moist mucous membranes and PERRLA
Respiratory: Clear; No Wheezes, Rales or Rhonchi
Cardiac: S1/S2 and Regular Rhythm; No Murmur
GI: Soft, Non Tender, Non Distended and Normal Bowel Sounds
Musculoskeletal: Edema
Neuro: Nonfocal/grossly intact
Generalized Weakness
Falls at Home
- Work-up thus far unremarkable including CT head and cervical spine. 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 Patient will follow-up with neurology outpatient. Also suspecting cognitive impairment. Will need full
neurocognitive testing with neurology. Daughter aware
- PT / OT evaluations rec SNF. patient and daughter agreeable
- Follow for any new / worsening symptoms.
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 C4/C5 disc herniation with mild compression.. Head and neck CTA with no significant
vascular occlusion, aneurysm or dissection
no signs or complaint of vertigo by patient
spoke with neurology and they will decide if needed to be started on parkinson's meds or not; then we can start looking for placement
Parkinson's Disease
- ? if current symptoms are related to Parkinson's
- Patient is not aware of her current medications - including any Parkinson's meds.
not on any parkinson's med. Neurology following
- PT / OT as noted above.
appears to have agitated overnight and responded well to risperidone; very caml this morning. monitor
UTI
pansensitive ecoli; switch to cefdinir to complete course; finished abx
Iron deficiency Anemia
no theresa bleeding
started IV iron; finished
DM-II
- Stable. Hold PO meds acutely (pt does not know meds in any event).
- Follow glucose and cover with SSI.
- A1C 5.9
CKD III
- Stable. SCr is at / near known baseline.
- Follow for any changes.
DVT Prophylaxis: SCDs,lovenox
Code Status: DNR
Anticipated Discharge: Within 24 hours
Subjective/Interval History
-
Date of Service: November 22, 2023
denies pain
Objective Data
-
Labs:
Laboratory Results
11/22/23
10:32
WBC 7.9
Hgb 12.2
Hct 35.6 L
Plt Count Pending
Sodium 142
Potassium 3.9
Chloride 107
Carbon Dioxide 21 L
BUN 15
Creatinine 1.1 H
Glucose 187 H
Calcium 9.9
Vital Signs:
Vital Signs
Temp Pulse Resp BP Pulse Ox
97.5 F 52 16 132/58 95
11/22/23 07:00 11/22/23 07:00 11/22/23 07:00 11/22/23 07:00 11/22/23 07:00
I&O
11/21/23 11/22/23 11/23/23
06:59 06:59 06:59
Intake Total 480 / 480 1080 / 1080
Balance 480 / 480 1080 / 1080
[2023-11-22 12:58] VITALS: BP 127/59; PULSE 84; O2SAT 96
[2023-11-22 13:25] LABS: Glucose - Point of Care 270 mg/dl (70-99)
[2023-11-22] MEDS: NOVOLOG FLEXPEN-LOW RESISTANCE 3 UNITS SC (13:27)
[2023-11-22 15:00] VITALS: BP 138/71
--- NOTE | 2023-11-22 15:56 | CM ---
Reviewed chart, [facility] has offered acceptance through [facility]. Placed a call to Kianna in admissions at [place] who confirmed acceptance for patient upon medical clearance.
NPIs for auth [facility] [id number] Dr[facility] [id number]
Will initiate auth in anticipation of discharge.
Plan: Case management will continue to follow and assist with discharge planning. Tentative SNF pending Auth.
[2023-11-22 16:46] LABS: Glucose - Point of Care 216 mg/dl (70-99)
[2023-11-22] MEDS: LOVENOX 40 MG SC (17:39)
[2023-11-22] MEDS: NOVOLOG FLEXPEN-LOW RESISTANCE 2 UNITS SC (17:40)
[2023-11-22] MEDS: AMBIEN 10 MG PO (21:06)
[2023-11-22 22:45] VITALS: BP 131/69
[2023-11-23 05:19] LABS: Glucose - Point of Care 225 mg/dl (70-99)
[2023-11-23 07:08] LABS: Glucose - Point of Care 214 mg/dl (70-99)
[2023-11-23 07:09] VITALS: BP 140/60
[2023-11-23] MEDS: LIPITOR 10 MG PO (07:37)
[2023-11-23] MEDS: PROTONIX 40 MG PO (07:37)
[2023-11-23] MEDS: LOW STRENGTH ASPIRIN 81 MG PO (07:37)
[2023-11-23] MEDS: NOVOLOG FLEXPEN-LOW RESISTANCE 2 UNITS SC ×2 (07:37→17:01)
[2023-11-23 07:38] LABS: Blood Urea Nitrogen 22 mg/dl (7-17); Calcium 9.4 mg/dl (8.4-10.2); Carbon Dioxide 23 mmol/L (22-30); Chloride 103 mmol/L (98-107); Estimated Creatinine Clearance 35 ml/min; Glucose 225 mg/dl (70-99); Potassium 3.4 mmol/L (3.5-5.1); Sodium 141 mmol/L (135-145); eGFR 46.33
[2023-11-23] MEDS: ZOLOFT 25 MG PO (07:38)
[2023-11-23 07:47] LABS: % Basophils 0.7 % (0-2); % Eosinophils 3.8 % (0-6); % Immature Granulocytes 0.3 % (0-0.5); % Lymphocytes 32.4 % (20.5-51.1); % Neutrophils 52.8 % (42.2-75.2); Absolute Basophils 0.1 10^3/uL (0-0.2); Absolute Eosinophils 0.4 10^3/uL (0-0.7); Absolute Lymphocytes 3.4 10^3/uL (1.2-3.4); Absolute Monocytes 1.1 10^3/uL (0.1-0.6); Absolute Neutrophils 5.5 10^3/uL (1.4-6.5); Hematocrit 33.8 % (37.0-47.0); Hemoglobin 11.5 g/dL (12.0-16.0); Mean Corpuscular Volume 85.1 fL (81.0-99.0); Mean Platelet Volume 9.8 fL (7.4-10.4); Nucleated Red Blood Cells % 0 %; Platelet Count 329 10^3/uL (130-400); Red Blood Cell Count 3.97 10^6/uL (4.20-5.40); Red Cell Dist. Width 14.2 % (11.5-14.5); White Blood Cell Count 10.5 10^3/uL (4.8-10.8)
[2023-11-23 08:05] LABS: Magnesium 1.7 mg/dl (1.6-2.3)
[2023-11-23] MEDS: KCL 40 MEQ PO (08:37)
[2023-11-23] MEDS: MAGNESIUM SULFATE 50 IV (09:58)
--- NOTE | 2023-11-23 10:44 | W.PN.NEURO.1 ---
Today's Communication / Plan
-
Transfer to rehab once bed is available
Neuro Assessment/Plan
Assessment
70-year-old lady with history of diabetes hypertension psoriasis renal insufficiency and recurrent falls most likely secondary to peripheral neuropathy. There is no evidence for parkinsonism
Plan
Continue current medical therapies. Continue blood sugar management. Physical therapy/Occupational Therapy. May transfer to rehab
Subjective/Objective
Subjective Data
Date of Service: November 22, 2023
Patient is doing well able to move all 4 extremities without deficit without weakness. No evidence for parkinsonism
Objective Data
Vital Signs
Vital Signs
Temp Pulse Resp BP Pulse Ox
97.5 F 52 16 132/58 95
11/22/23 07:00 11/22/23 07:00 11/22/23 07:00 11/22/23 07:00 11/22/23 07:00
Lab Results
11/23/23 07:02
11/23/23 07:02
Sodium 141 mmol/L (135-145) 11/23/23 07:02
Potassium 3.4 mmol/L (3.5-5.1) L 11/23/23 07:02
BUN 22 mg/dl (7-17) H 11/23/23 07:02
Glucose 225 mg/dl (70-99) H 11/23/23 07:02
Calcium 9.4 mg/dl (8.4-10.2) 11/23/23 07:02
Vitamin B12 > 1000 pg/ml (239-931) H 11/17/23 06:13
Patient Allergies
egg Allergy (Verified 11/16/23 18:49)
Vomiting
Physical Exam
-
General: Well Developed, Well Nourished and No Apparent Distress
Eyes: Able to visualize OU
HEENT: Normocephalic, Atraumatic and Anicteric
Neck: Full Range of Motion
Psych: Unremarkable
Extended Neurological Exam
Mood & Affect: Mood Unremarkable and Affect Unremarkable
Attention Span & Concentration: Awake, Alert, Interactive and No Difficulty with 2 Step Request
Memory: Unremarkable and Able to Recall
Tremor: Hand Tremor Absent and Head Tremor Absent
Involuntary Movement: None
Speech: Quality Unremarkable and Quantity Unremarkable
Cranial Nerve II: Left Eye: Pupillary Reactivity Unremarkable, Pupillary Size Unremarkable and Visual Way Grossly Intact
Cranial Nerve II: Right Eye: Pupillary Reactivity Unremarkable, Pupillary Size Unremarkable and Visual Way Grossly Intact
Cranial Nerves III, IV, : Extraocular Movement: Extraocular Movement Full in all Directions
Cranial Nerve V: Facial Sensation: Intact to Light Touch
Cranial Nerve VII: Facial Symmetry: Normal Facial Symmetry
Cranial Nerve VIII: Hearing: Unremarkable Hearing to Normal Conversational Volume
Cranial Nerves IX, X: Palate Movement: Palate Elevation Symmetric
Cranial Nerve XI: Shoulder Shrug: Unremarkable
Cranial Nerve XII: Tongue Protusion: Midline
Muscle Strength, Overall: Full Throughout
Muscle Bulk & Tone: Bulk Unremarkable and Tone Unremarkable
Pronator Drift: No Drift in Upper Extremities and No Drift in Lower Extremities
Deep Tendon Reflexes: Unremarkable Throughout
Cold Sensation: Unremarkable
Vibration Sensation: Unremarkable
Touch Sensation: Unremarkable
Coordination: Qfcgey-mbdy-mggnpi Testing Unremarkable
Babinski Sign: Absent Bilaterally
Gait & Station: Up from Seated Without Problem
--- NOTE | 2023-11-23 11:15 | CM ---
Placed a call to [facility] to obtain hopeful auth in anticipation of patient getting close to discharge. Spoke with a pharmacy services representative named, Adriana Tapia who stated to fax all clinical to, .
Faxed all clinical requested.
Will f/u for updates.
Plan: Case management will continue to follow and assist with discharge planning. [place] when stable/when auth is received.
[2023-11-23 11:17] LABS: Glucose - Point of Care 262 mg/dl (70-99)
[2023-11-23] MEDS: NOVOLOG FLEXPEN-LOW RESISTANCE 3 UNITS SC (12:38)
--- NOTE | 2023-11-23 13:36 | W.PN.HOSP.TC ---
Today's Communication/Plan
-
for D/C
Assessment / Plan
Assessment / Plan
78yo F with PMHx DM, HTN, peripheral neuropathy came with falls. As per neurology - most likely 2/2 neuropathy. MRI brain showed no acute findings, similar in size menoingiooma. Neurology suggested that there is no signs of Parkinsons, so
nomedication needed. CTA head without significant LVO or carotid stenosis. ALso found cystitis and completed inpatient 5 days of Abx. Ambien stopped as it can precipitate falls Medically stable for d/c
A/P:
#Falls 2/2 neuropathy
#Parkinsons ruled out
Neurology followed: PT/OT
Fall precautions
TSH WNL
#UTI
completed 5 days cephalosporins
#VIKRAM
#DM type 2 with neuropathy
#CKD stage 3
#HLD
#CAD, stable
#GERD
#Insomnia
DM diet, Accuchecks, insulin SS
Stop ambien (can precipitate falls)
#Hypokalemia
#hypomagnesemia
repleted
DVT ppx lovenox
DNR/DNI
I have spent at least 38min reviewing chart, test results, communication with consultants and direct patient care
Anticipated Discharge: Within 24 hours
Subjective/Interval History
-
Date of Service: November 23, 2023
Objective Data
-
Labs:
Laboratory Results
11/23/23
07:02
WBC 10.5
Hgb 11.5 L
Hct 33.8 L
Plt Count 329
Sodium 141
Potassium 3.4 L
Chloride 103
Carbon Dioxide 23
BUN 22 H
Creatinine 1.2 H
Glucose 225 H
Calcium 9.4
Vital Signs:
Vital Signs
Temp Pulse Resp BP Pulse Ox
99.6 F 82 18 140/60 94
11/23/23 07:09 11/23/23 07:09 11/23/23 07:09 11/23/23 07:09 11/23/23 07:09
I&O
11/22/23 11/23/23 11/24/23
06:59 06:59 06:59
Intake Total 1080 / 1080 840 / 840
Balance 1080 / 1080 840 / 840
Review of Systems
-
History Source: Patient
All other systems: Reviewed and negative
Physical Exam
-
General: No Apparent Distress
HEENT: Normocephalic and Atraumatic
Respiratory: Clear to Auscultation
Cardiac: Regular Rhythm
GI: Soft, Nontender and Nondistended
Neuro: Awake, Alert, Oriented and AO x 3
Psych: Calm
--- NOTE | 2023-11-23 13:38 | W.DCSUMMARY ---
Addendum entered and electronically signed by Chris Abbasi MD 11/25/23 11:36:
#Unspecified dementia
#VIKRAM
Date of d/c - 11/25/23
Original Note:
Discharge Summary
Discharge Data
Date of Admission: 11/19/23
Date of Discharge: 11/23/23
-
Pending Results: No
Hospital Course
78yo F with PMHx DM, HTN, peripheral neuropathy came with falls. As per neurology - most likely 2/2 neuropathy. MRI brain showed no acute findings, similar in size menoingiooma. Neurology suggested that there is no signs of Parkinsons, so no
medication needed. CTA head without significant LVO or carotid stenosis. ALso found cystitis and completed inpatient 5 days of Abx. Ambien stopped as it can precipitate falls Medically stable for d/c
I have spent at least 38min discharging the patient
Patient was managed for:
#Falls 2/2 neuropathy
#Parkinsons ruled out
#UTI
#VIKRAM
#DM type 2 with neuropathy
#CKD stage 3
#HLD
#CAD, stable
#GERD
#Insomnia
#Stable small meningioma
#Hypokalemia
#hypomagnesemia
Discharge Plan
-
Patient Disposition: [facility]ci/SNF
Discharge Diagnosis/Procedures: UTI
Diet: Diabetic, Carb Controlled
Activity: No restrictions
Driving Restrictions: As prior to admission
Other Services: PT and OT
Referrals:
Keyshawn Torres DO [Family Provider] -
Eric Buckner MD [Active] - in three to four weeks
Prescriptions:
Continued
cholecalciferol (vitamin D3) [Vitamin D3] 50 mcg (2,000 unit) Tablet
50 mcg PO DAILY
aspirin 81 mg Tablet,Chewable
81 mg PO DAILY
sertraline 25 mg Tablet
25 mg PO DAILY Qty: 30 0RF
glipizide 10 mg Tablet Extended Release 24hr
10 mg PO DAILY
simvastatin [Zocor] 20 mg Tablet
20 mg PO DAILY
omega 7-clq-dql-fish oil [Fish Oil] 1,000 (120-180) mg Capsule
2 cap PO DAILY
acetaminophen [Pain Relief ES (acetaminophen)] 500 mg tablet
1,000 mg PO Q8HPRN PRN (Reason: mild pain)
mirabegron [Myrbetriq] 50 mg Tablet Extended Release 24 Hr
50 mg PO DAILY
metformin 1,000 mg Tablet
1,000 mg PO BID
Discontinued
zolpidem [Ambien] 10 mg Tablet
10 mg PO HS
Discharge Orders:
Discharge Patient (As Directed); Ordered 11/23/23
Ordered By: Chris Abbasi
Discharge Date and Time
Print Language: CHADIAN
[2023-11-23 15:39] VITALS: BP 140/64
[2023-11-23 16:24] LABS: Glucose - Point of Care 223 mg/dl (70-99)
[2023-11-23] MEDS: LOVENOX 40 MG SC (17:02)
[2023-11-23] MEDS: GLUCOTROL XL (EXTENDED RELEASE) 10 MG PO (17:03)
[2023-11-23 21:59] LABS: Glucose - Point of Care 278 mg/dl (70-99)
[2023-11-23 23:22] VITALS: BP 146/66
--- NOTE | 2023-11-24 04:47 | DOWNTIME ---
There was a [employer] Client Derrick Boat Captain Downtime on 11/24/2023 from 0100 to 11/24/2023 at 0355. Downtime documentation of patient's care, including medication administrations, has been reconciled in the electronic record per guidelines. Refer to the
patient's paper chart under the miscellaneous tab to see printed paper medication records and downtime forms.
--- NOTE | 2023-11-24 04:49 | DOWNTIME ---
There was a [employer] Client Sccm Administrator Downtime on 11/24/2023 from 0100 to 11/24/2023 at 0355. Downtime documentation of patient's care, including medication administrations, has been reconciled in the electronic record per guidelines. Refer to the
patient's paper chart under the miscellaneous tab to see printed paper medication records and downtime forms.
[2023-11-24 08:21] VITALS: BP 144/79
[2023-11-24 08:42] LABS: Glucose - Point of Care 237 mg/dl (70-99)
[2023-11-24] MEDS: NOVOLOG FLEXPEN-LOW RESISTANCE 2 UNITS SC ×3 (09:02→18:28)
[2023-11-24] MEDS: LOW STRENGTH ASPIRIN 81 MG PO (09:11)
[2023-11-24] MEDS: GLUCOTROL XL (EXTENDED RELEASE) 10 MG PO (09:11)
[2023-11-24] MEDS: ZOLOFT 25 MG PO (09:11)
[2023-11-24] MEDS: LIPITOR 10 MG PO (09:11)
[2023-11-24] MEDS: PROTONIX 40 MG PO (09:11)
[2023-11-24 09:15] VITALS: O2SAT 96
[2023-11-24 10:22] VITALS: O2SAT 98
--- NOTE | 2023-11-24 10:46 | CM ---
Addendum entered by CONCHITA Olivarez 11/24/23 15:49:
Placed a call to [facility] and spoke with a policy services representative named, Mary who stated that [facility] is having difficulty with their 'system' and instructed to call back.
Original Note:
Placed a call to [facility] and spoke to policy services representative named, Joceline who stated that the request for auth is still pending Ref number [id number]. She requested updated clinical. Faxed to [phone]. Will await determination.
Plan: Case management will continue to follow and assist with discharge planning. SNF when auth is received,
[2023-11-24 12:01] LABS: Glucose - Point of Care 232 mg/dl (70-99)
--- NOTE | 2023-11-24 12:26 | W.PN.HOSP.TC ---
Today's Communication/Plan
-
remains medically stable for d/c pending auth as per CM
Assessment / Plan
Assessment / Plan
78yo F with PMHx DM, HTN, peripheral neuropathy came with falls. As per neurology - most likely 2/2 neuropathy. MRI brain showed no acute findings, similar in size menoingiooma. Neurology suggested that there is no signs of Parkinsons, so no
medication needed. CTA head without significant LVO or carotid stenosis. ALso found cystitis and completed inpatient 5 days of Abx. Ambien stopped as it can precipitate falls Medically stable for d/c
A/P:
#Falls 2/2 neuropathy
#Parkinsons ruled out
Neurology followed: PT/OT
Fall precautions
TSH WNL
#UTI
completed 5 days cephalosporins
#VIKRAM
#DM type 2 with neuropathy
#CKD stage 3
#HLD
#CAD, stable
#GERD
#Insomnia
DM diet, Accuchecks, insulin SS
Stop ambien (can precipitate falls)
#Hypokalemia
#hypomagnesemia
repleted
DVT ppx lovenox
DNR/DNI
I have spent at least 38min reviewing chart, test results, communication with consultants and direct patient care
Anticipated Discharge: Within 24 hours
Subjective/Interval History
-
Date of Service: November 24, 2023
Objective Data
-
Vital Signs:
Vital Signs
Temp Pulse Resp BP Pulse Ox
97.8 F 93 18 144/79 97
11/24/23 08:21 11/24/23 08:21 11/24/23 08:21 11/24/23 08:21 11/24/23 08:21
I&O
11/23/23 11/24/23 11/25/23
06:59 06:59 06:59
Intake Total 840 / 840 720 / 720
Balance 840 / 840 720 / 720
Review of Systems
-
History Source: Patient
All other systems: Reviewed and negative
Physical Exam
-
General: No Apparent Distress
HEENT: Normocephalic
Cardiac: Regular Rhythm
GI: Soft, Nontender and Nondistended
Neuro: Awake, Alert and Oriented
Psych: Apparent Dementia
[2023-11-24] MEDS: ZYPREXA 2.5 MG PO (15:06)
[2023-11-24 15:43] VITALS: BP 116/71
[2023-11-24 18:18] LABS: Glucose - Point of Care 210 mg/dl (70-99)
[2023-11-24] MEDS: LOVENOX 40 MG SC (18:28)
[2023-11-24 23:37] LABS: Glucose - Point of Care 95 mg/dl (70-99)
[2023-11-24 23:56] VITALS: BP 125/54
[2023-11-25 07:40] VITALS: BP 122/50
[2023-11-25 07:55] LABS: Glucose - Point of Care 169 mg/dl (70-99)
[2023-11-25] MEDS: LIPITOR 10 MG PO (09:11)
[2023-11-25] MEDS: GLUCOTROL XL (EXTENDED RELEASE) 10 MG PO (09:11)
[2023-11-25] MEDS: ZOLOFT 25 MG PO (09:12)
[2023-11-25] MEDS: PROTONIX 40 MG PO (09:12)
[2023-11-25] MEDS: LOW STRENGTH ASPIRIN 81 MG PO (09:12)
[2023-11-25] MEDS: NOVOLOG FLEXPEN-LOW RESISTANCE 1 UNITS SC ×2 (09:14→13:35)
--- NOTE | 2023-11-25 10:07 | PN.CDI ---
CDI
- -
CDI:
Physician Documentation Request
Admit Date: 11/19/23 11:55
Dear Doctor Elroy,
Patient admitted with UTI.
ED note, 'Alert and oriented in no apparent distress.'
11/17 PCN ,'...disoriented to place- states she thought she was at home.'
11/19 PCN, 'Pt refusing BP and glucose checks. She is adamant about leaving AMA ,and saying 'I will leave in the AM w/ or w/o getting the MRI done'.'
11/20 PN, 'appears to have agitated overnight and responded well to risperidone; very calm this morning. monitor.'
Based on the above, please clarify in your note which is the most likely etiology of the altered mental status:
Metabolic encephalopathy
Toxic metabolic encephalopathy
Other
Use of terms such as suspected, likely, concern for, or probable (associated with a specific diagnosis that is being evaluated, monitored, or treated as if it exists) are acceptable and can be coded in the inpatient setting, when documented at the
time of discharge.
Thank you,
Judith HOBBS,RN,CCDS
CDI Specialist
Available via tiger text
Please use your independent medical judgment in providing your response.
--- NOTE | 2023-11-25 11:14 | W.PN.HOSP.TC ---
Today's Communication/Plan
-
Discussed with daughter, ok with DC
Assessment / Plan
Assessment / Plan
78yo F with PMHx DM, HTN, peripheral neuropathy came with falls. As per neurology - most likely 2/2 neuropathy. MRI brain showed no acute findings, similar in size menoingiooma. Neurology suggested that there is no signs of Parkinsons, so no
medication needed. CTA head without significant LVO or carotid stenosis. ALso found cystitis and completed inpatient 5 days of Abx. Ambien stopped as it can precipitate falls Remains. medically stable for d/c
A/P:
#Falls 2/2 neuropathy
#Parkinsons ruled out
#Advanced dementia, unspecified
#
Neurology followed: neuropathy-related
PT/OT
MRI brain without acute findings
Fall precautions
TSH WNL
#UTI
completed 5 days cephalosporins
#VIKRAM
#DM type 2 with neuropathy
#CKD stage 3
#HLD
#CAD, stable
#GERD
#Insomnia
DM diet, Accuchecks, insulin SS
Stop ambien (can precipitate falls)
#Hypokalemia
#hypomagnesemia
repleted
DVT ppx lovenox
DNR/DNI
I have spent at least 38min reviewing chart, test results, communication with consultants and direct patient care
Anticipated Discharge: Today
Subjective/Interval History
-
Date of Service: November 25, 2023
Objective Data
-
Vital Signs:
Vital Signs
Temp Pulse Resp BP Pulse Ox
98.1 F 59 17 122/50 97
11/25/23 07:40 11/25/23 07:40 11/25/23 07:40 11/25/23 07:40 11/25/23 07:40
I&O
11/24/23 11/25/23 11/26/23
06:59 06:59 06:59
Intake Total 720 / 720 960 / 960
Balance 720 / 720 960 / 960
Review of Systems
-
Unable to obtain full review of systems at this time due to: Dementia
History Source: Patient
Physical Exam
-
General: No Apparent Distress
HEENT: Normocephalic
Respiratory: Clear to Auscultation
Cardiac: Regular Rhythm
Neuro: Awake, Alert and Oriented (not to tiime)
Psych: Calm and Apparent Dementia
--- NOTE | 2023-11-25 11:52 | PTCARENOTE ---
patient has been cooperative so far this shift, refused breakfast, turning self in bed, vss, will continue to monitor.
--- NOTE | 2023-11-25 11:57 | CM ---
Addendum entered by Amy Mercado 11/25/23 12:18:
CM called [facility] to update auth to reflect [facility]. [facility] for [facility]rea, who was able to update auth and change start date to today, 11/24 with NRD of 11/28
Approved auth # [id number]
Will need ambulance transport. Transport forms on chart.
Transport at 1630
Daughter, hospitalist, Kianna/Kenneth made aware of changes and transport time
IMM reviewed, pt given copy, Copy placed in chart.
Updated clinicals sent to facility via [facility]
[place]
Report #: [phone]

Plan: [place] SNF via
Original Note:
CM called [facility] to receive updates on SNF auth status.
CM spoke w/ Clyde Beyer who confirmed auth has been approved beginning 11/23
Auth # [id number]
CM confirmed w/ hospitalist that pt can d/c today to [facility], however, pt can be accepted @ [place] then transfer to [facility] once bed is available if family approves.
CM called pt daughter re d/c to SNF. Daughter stated she was under the impression pt was being considered for [facility].
CM informed daughter that [facility] was unable to accept, [facility] is willing to accept pending bed availability @ d/c. Daughter requested for CM to check w/ [facility] first and if unable to accept then pt can go to [place].
Daughter requested hospitalist to give her a call. CM made hospitalist aware via TT
CM spoke with Tresa/[facility] who confirmed there are no beds
CM spoke w/ daughter informing [facility] does not have any beds. Daughter agreeable to [place] and transfer to [facility] once bed is available.
CM made Kianna/LIZZN aware daughter is agreeable to [place]
Auth will need to be updated
Kenneth
Report #: [phone]

Plan: [place] SN[facility] via ambulance transport
[2023-11-25 13:20] LABS: Glucose - Point of Care 188 mg/dl (70-99)
[2023-11-25 16:01] VITALS: BP 136/53
== END 2023-11-25 17:07 | DRG 74 ==
LOC: 3 WEST ACU 11:55
PROVIDERS: Emergency Medicine; Internal Medicine; ADMITTING PHYSICIAN Hospitalist; ATTENDING PHYSICIAN Internal Medicine; CONSULT PHYSICIAN Psychiatry & Neurology Neurology; EMERGENCY PHYSICIAN Emergency Medicine; FAMILY PHYSICIAN Family Medicine
DX: E11.42 Type 2 diabetes mellitus with diabetic polyneuropathy (principal); F03.93 Unspecified dementia, unspecified severity, with mood disturbance; N30.90 Cystitis, unspecified without hematuria; E78.00 Pure hypercholesterolemia, unspecified; Z66 Do not resuscitate; N18.30 Chronic kidney disease, stage 3 unspecified; E11.22 Type 2 diabetes mellitus with diabetic chronic kidney disease; I12.9 Hypertensive chronic kidney disease with stage 1 through stage 4 chronic kidney disease, or unspecified chronic kidney disease; N39.498 Other specified urinary incontinence; K21.9 Gastro-esophageal reflux disease without esophagitis; L40.9 Psoriasis, unspecified; D50.9 Iron deficiency anemia, unspecified; B96.20 Unspecified Escherichia coli [E. coli] as the cause of diseases classified elsewhere; R42 Dizziness and giddiness; D32.0 Benign neoplasm of cerebral meninges; M47.892 Other spondylosis, cervical region; R29.6 Repeated falls; E83.42 Hypomagnesemia; E87.6 Hypokalemia; G47.00 Insomnia, unspecified; I25.10 Atherosclerotic heart disease of native coronary artery without angina pectoris; Z87.891 Personal history of nicotine dependence; Z79.82 Long term (current) use of aspirin; Z79.84 Long term (current) use of oral hypoglycemic drugs; Z11.52 Encounter for screening for COVID-19
CPT/HCPCS: 70450; 70496; 70498; 70551; 71046; 72125; 80048; 80053; 81003; 81015; 82607; 82728; 82746; 82962; 83036; 83540; 83550; 83735; 84443; 84466; 85025; 85027; 87077; 87086; 87186; 87811; 92610; 93005; 97116; 97163; 97167; 97530; 97535; J2916; Q9967

== ENCOUNTER 2023-12-23 08:09 | Observation (INO) | payer MEDICARE, SELFPAY ==
[2023-12-23] VITALS (11 sets, daily range): BP systolic 89–115; BP diastolic 45–86; BMI 20.4
--- NOTE | 2023-12-23 06:47 | ED.GENMED ---
History of Present Illness
General
Chief Complaint: Blood Sugar Problem
Source: patient and records
Exam Limitations: none
Time Seen by Provider: 12/23/23 06:40
Nursing documentation reviewed up to this point in time: agreed with
History of Present Illness
History of Present Illness:
Patient is a 78-year-old female who presents to the emergency department via EMS from home with hypoglycemia. Patient's blood sugar was found to be below 40 and was given glucagon and came up to 46. Patient is feeling better now. Patient is
unsure what happened but knows that her daughter called EMS. Patient denies any recent illnesses or injuries. Patient denies chest pain, shortness of breath or palpitations. Patient denies any upper respiratory type symptoms. Patient denies any
GI or symptoms. Patient denies headache or any extremity pain. Patient is on glyburide and metformin. Patient was hospitalized in November for weakness.
Past History
Past History
ED Past Medical History: HTN, Hypercholesterolemia, NIDDM and Other (Parkinson's disease)
ED Past Surgical History: Gynecological
Social History
Tobacco: Former smoker
Alcohol: None
Drug: None
Personal:
Living: with family
Employment: Retired
Family History
Family History: Other
Review of Systems
Review of Systems
All Other Systems: ROS reviewed and negative except as documented in HPI and ROS
Constitutional: Denies fever
EENT: Reports no symptoms
Respiratory: Reports no symptoms
Cardiac: Reports no symptoms
ABD/GI: Reports no symptoms
: Reports no symptoms
Musculoskeletal: Reports no symptoms
Skin: Reports no symptoms
Neurological: Reports no symptoms
Hematologic/Lymphatic: Reports no symptoms
Phy Exam
Physical Exam
Physical Exam:
Physical Exam
General: No apparent distress, alert and appropriate, elderly and frail, dry mucous membranes
HENT: Normocephalic, supple with no lymphadenopathy, no thyromegaly
Eyes: Clear sclera, conjuctiva without injection
Heart: Regular rhythm and rate. No S3, S4. No murmur. No NVD
Lungs: No respiratory distress, no stridor, lung sounds clear and equal bilaterally
Abdomen: Soft, nontender, no organomegaly, BS good
Neuro: Alert and oriented x 3, CN II - XII intact, no motor focality, no cerebellar dysfunction
Skin: no rash
Psychiatric: well kept. interactive and cooperative
Extremities: No edema, cyanosis, tenderness
Course
Orders/Labs/Results
Orders:
Orders
12/23/23 06:56
Electrocardiogram (*1) Urgent
Reason for Study: Fatigue / Weakness
EKG- Treatment ONCE
12/23/23 07:00
Dextrose 5%/0.45%Sodchl 500 ml [D5/0.45%NaCl] 500 ml IV 150 mls/hr
12/23/23 07:12
Complete Blood Count/With Diff Urgent
Comprehensive Metabolic Panel Urgent
Magnesium Urgent
Comment: ADD ON
12/23/23 07:49
Admit/Transfer Patient As Directed
Co-Sign Provider:
Level of Care: Observation services
Assign to:: Medical/Surgical
Physician / Group: Vince
Diagnosis: Hypoglycemia
12/23/23 07:50
PRN Pain Medication Management As Directed
May give lesser potent ordered pain med per pt: Yes
preference::
Protocol:: Medication orders for pain may be administered in a
manner that supports deferring to patient preference
when the pt is:
- Requesting an ordered lesser potent pain medication.
Least to most potent pain medications are defined
as: acetaminophen < NSAID < tramadol < opioids
(morphine, oxycodone, hydromorphone).
- Requesting a lesser dose of the same medication IF
ORDERED.
- Requesting a less intrusive route of administration
if both routes are prescribed by the provider (PO <
IV).
12/23/23 07:53
Code Status As Directed
Resuscitation Status: Do not resuscitate
Reached after discussion with pt or family/Healthcare POA: Yes
DNR Bracelet Application ONCE
12/23/23 07:56
Add On- LAB Routine
Tests Added?: magnesium
Potassium Chloride [KCl] 40 meq PO NOW STA
Abnormal Lab Results
12/23/23 12/23/23
06:52 07:12
RDW 15.4 H %
(11.5-14.5)
Potassium 3.1 L mmol/L
(3.5-5.1)
BUN 27 H mg/dl
(7-17)
Creatinine 1.4 H mg/dL
(0.6-1.0)
Glucose 108 H mg/dl
(70-99)
Magnesium 1.2 L mg/dl
(1.6-2.3)
POC Glucose 106 H mg/dl
(70-99)
12/23/23 07:12
12/23/23 07:12
Vital Signs
Initial and Last Documented VS:
Initial Vital Signs
Temp Pulse Resp BP Pulse Ox
97.6 F 73 18 105/61 97
12/23/23 06:37 12/23/23 06:37 12/23/23 06:37 12/23/23 06:37 12/23/23 06:37
Last Documented Vital Signs
Temp Pulse Resp BP Pulse Ox
97.6 F 80 17 98/68 97
12/23/23 06:37 12/23/23 10:00 12/23/23 09:30 12/23/23 10:00 12/23/23 09:30
*Pulse Oximetry
Patient hypoxic: no
*EKG
Interpreted by ED Provider?: Yes
EKG Intrepretation Date: 12/23/23
EKG Intrepretation Time: 10:38
Interpretation: normal
Comparison EKG: no changes
Heart Rate: 72
Rate: normal
Rhythm: sinus
Wadley: normal axis
Interval: normal interval
QRS Pattern: normal QRS
Ischemia: no ischemia
*Information Technology Security Manager Interpretation
Rate: normal
Interpretation: normal
Heart Rate: 72
Rhythm: sinus
*Critical Care Note
Total Time (30-74mins, 75-104mins- exclusive of procedures): Not Applicable
ED Attending Note
-
Portions of this chart may have been created with voice recognition software.� Occasional wrong word or��sound alike� substitutions may have occurred due to the inherent limitations of voice recognition software.
Discharge Plan
Departure
Patient Disposition: Admit
Date of Disposition: 12/23/23
Time of Disposition: 06:56
Admit to: Telemetry
Admit to doctor: Hospitalist
Presentation/result/management discussed w/ accepting MD/DO: Hospitalist
Condition: Fair
Covid-19: Not Applicable
Discharge Problem:
Hypoglycemia secondary to sulfonylurea
Interventions
Interventions:
*Risk Screen - Suicide Last Done: 12/23/23 06:37
*General Assessment Last Done: 12/23/23 06:37
*Neglect/Abuse Screening Last Done: 12/23/23 06:37
ED- Neurological Assessment Last Done: 12/23/23 07:36
[2023-12-23 06:54] LABS: Glucose - Point of Care 106 mg/dl (70-99)
[2023-12-23] MEDS: D5/0.45%NACL 500 IV ×3 (07:17→17:54)
[2023-12-23 07:29] LABS: % Basophils 0.5 % (0-2); % Eosinophils 3.6 % (0-6); % Immature Granulocytes 0.4 % (0-0.5); % Lymphocytes 28.8 % (20.5-51.1); % Monocytes 6.6 % (1.7-9.3); % Neutrophils 60.1 % (42.2-75.2); Absolute Basophils 0.1 10^3/uL (0-0.2); Absolute Eosinophils 0.3 10^3/uL (0-0.7); Absolute Lymphocytes 2.7 10^3/uL (1.2-3.4); Absolute Monocytes 0.6 10^3/uL (0.1-0.6); Absolute Neutrophils 5.6 10^3/uL (1.4-6.5); Hematocrit 40.2 % (37.0-47.0); Hemoglobin 13.9 g/dL (12.0-16.0); Mean Corp Hgb Conc. 34.6 g/dL (33.0-37.0); Mean Corpuscular Hgb 28.7 pg (27.0-31.0); Mean Corpuscular Volume 83.1 fL (81.0-99.0); Mean Platelet Volume 10.1 fL (7.4-10.4); Nucleated Red Blood Cells % 0 %; Platelet Count 251 10^3/uL (130-400); Red Blood Cell Count 4.84 10^6/uL (4.20-5.40); Red Cell Dist. Width 15.4 % (11.5-14.5); White Blood Cell Count 9.2 10^3/uL (4.8-10.8)
[2023-12-23 07:33] LABS: ALT (SGPT) 23 U/L (0-35); AST (SGOT) 33 U/L (14-36); Albumin 4.1 g/dl (3.5-5.0); Alkaline Phosphatase 82 U/L (38-126); Blood Urea Nitrogen 27 mg/dl (7-17); Calcium 9.4 mg/dl (8.4-10.2); Carbon Dioxide 26 mmol/L (22-30); Chloride 101 mmol/L (98-107); Glucose 108 mg/dl (70-99); Potassium 3.1 mmol/L (3.5-5.1); Sodium 140 mmol/L (135-145); Total Bilirubin 0.5 mg/dl (0.2-1.3); Total Protein 7.1 g/dl (6.3-8.2); eGFR 38.51
--- NOTE | 2023-12-23 07:57 | HPS.HSE ---
Addendum entered and electronically signed by Chris Clarke DO 12/23/23 08:25:
Spoke with daughter on the phone.
She admits to 20 pound weight loss over the past 3 to 4 months.
Daughter admits that her mother only eats about 2 meals a day, usually skips breakfast. Obviously this will contribute to her hypoglycemia.
Discussed with daughter that plan moving forward will be to discharge off all diabetes medications and follow-up closely with primary care doctor. I would rather have her run high sugars than low sugars. No need to routinely check glucoses at home
moving forward given the fact that we will discontinue diabetes meds on discharge.
Original Note:
Family Physician
-
Family Physician: Keyshawn Torres
Chief Complaint
-
Hypoglycemia
History of Present Illness
78-year-old female with multiple medical problems including dementia who presents to the hospital with hypoglycemia from home. She lives with her daughter.
Patient herself is confused and cannot provide history. Tried to reach daughter on phone but got voicemail. Apparently EMS was called for hypoglycemia.
Medical History
Past Medical History
Past Medical History: Reports Other
Additional Past Medical History:
DM2
Diabetic peripheral neuropathy
Ambulatory dysfunction
Dementia
CKD 3A
Meningioma
CAD
hyperlipidemia
Past Surgical History: Reports Other
Additional Past Surgical History:
Tubal ligation
Facial reconstruction
Left forearm ORIF
Social History
Tobacco: Former Smoker
Alcohol: None
Drug: None
Living: With Family
Employment: Not Employed
Family History
Family History: Not pertinent
Allergies / Home Medications
Allergies reflects when Allergies were last updated in [facility].
Home Medications with original date entered in [facility]
Allergy/Medication List:
Allergies
Allergy/AdvReac Type Severity Reaction Status Date / Time
egg Allergy Vomiting Verified 11/16/23 18:49
Home Medications
aspirin 81 mg chewable tablet 81 mg PO DAILY Blood clot prevention/tx 02/15/22
cholecalciferol (vitamin D3) 50 mcg (2,000 unit) tablet (Vitamin D3) 50 mcg PO DAILY Supplement 02/15/22
sertraline 25 mg tablet 25 mg PO DAILY Depression #30 tabs 07/07/22
acetaminophen 500 mg tablet (Pain Relief Extra Strength (acetaminophen)) 1,000 mg PO Q8HPRN PRN mild pain 11/17/23
glipizide 10 mg tablet, extended release 24 hr 10 mg PO DAILY Diabetes 11/17/23
metformin 1,000 mg tablet 1,000 mg PO BID Diabetes 11/17/23
mirabegron 50 mg tablet,extended release 24 hr (Myrbetriq) 50 mg PO DAILY Urinary Issue 11/17/23
omega 1-azx-cfx-fish oil 1,000 mg (120 mg-180 mg) capsule (Fish Oil) 2 cap PO DAILY Supplement 11/17/23
simvastatin 20 mg tablet (Zocor) 20 mg PO DAILY High Cholesterol 11/17/23
ferrous sulfate 325 mg (65 mg iron) tablet,delayed release 325 mg PO DAILY #30 tabs 11/25/23
Review of Systems
-
History Source: Patient
A 12 point ROS was completed and negative except as noted: Yes
Physical Exam
Vital Signs
Vital Signs
Temp Pulse Resp BP Pulse Ox
97.6 F 69 12 103/52 96
12/23/23 06:37 12/23/23 07:00 12/23/23 07:00 12/23/23 07:00 12/23/23 07:00
Physical Exam
General: Well Developed, Well Nourished, No Apparent Distress and Comfortable
HEENT: NormoCephalic and Anicteric; No Moist mucous membranes
Respiratory: Clear
Cardiac: S1/S2 and Regular Rhythm
Breast: Deferred by me
GI: Soft, Non Tender and Non Distended
Genito-urinary: Deferred by me
Musculoskeletal: No Clubbing, No Cyanosis and No Edema
Skin: Warm and Dry
Neuro: Awake and Alert
Hematologic/Lymphatic: No Lymphadenopathy
Psych: Calm
Laboratory Results
-
12/23/23 07:12
12/23/23 07:12
Laboratory Results
Total Bilirubin 0.5 mg/dl (0.2-1.3) 12/23/23 07:12
AST 33 U/L (14-36) 12/23/23 07:12
ALT 23 U/L (0-35) 12/23/23 07:12
Alkaline Phosphatase 82 U/L (38-126) 12/23/23 07:12
Impression/Plan
-
Medication induced hypoglycemia -she denies anorexia but does admit to 40 to 50 pound weight loss over the past year. Unable to verify if this is accurate. She complains about her daughter's cooking, daughter is a vegetarian.
Will permanently discontinue glipizide. Renal function is tenuous and would likely discontinue metformin as well.
Admit to MedSurg for observation overnight, anticipate discharge tomorrow. Glucoses are improving. Currently on IV dextrose.
DM2 with hypoglycemia -hemoglobin A1c 5.9% last month. Not good candidate for sulfonylurea, not good candidate for metformin with tenuous renal function. Recommend dietary modification, prefer to discharge off diabetes meds in light of her high
risk for hypoglycemia due to her age, frailty, renal insufficiency, and dementia.
CKD 3a -stable.
Hypokalemia -check magnesium, replete.
Dementia -likely Alzheimer's type.
Essential hypertension -stable.
Diabetic peripheral neuropathy
Hyperlipidemia -on simvastatin.
DNR
Left a voicemail for patient's daughter Hanny to call me back.
[2023-12-23 08:26] LABS: Magnesium 1.2 mg/dl (1.6-2.3)
[2023-12-23] MEDS: KCL 40 MEQ PO (08:34)
--- NOTE | 2023-12-23 11:48 | CM ---
CM reviewed chart. Patient is here for hypokalemia. K+ is 3.1. Patient lives with her daughter. Her other daughter provides her with transportation. CM explained TOM and patient verbalized understanding and signed. Copy given to patient. She is
independent with a walker. She lives in a multi-level home. 1 step to enter. She has an active PCP and uses the [facility] in [place].
ANTICIPATED DISCHARGE DISPO: Discharge to home with daughter when medically cleared.
[2023-12-23] MEDS: D5/0.45%NACL IV ×2 (15:30→22:28)
[2023-12-23] MEDS: ZOLOFT 25 MG PO (16:15)
[2023-12-23] MEDS: LIPITOR 10 MG PO (16:15)
[2023-12-23] MEDS: HEPARIN 5000 UNITS SC ×2 (16:15→20:01)
[2023-12-23] MEDS: LOW STRENGTH ASPIRIN 81 MG PO (16:15)
--- NOTE | 2023-12-23 16:34 | PTCARENOTE ---
pt presents from ED via stretcher. pt is AAO*2 dis to time. pt denies any pain. pt w/ n&v at arrival on the unit. MD made aware. pt is oriented to the room. call cabrera within the reach. daughter at the bedside update. plan of care ongoing.
[2023-12-23] MEDS: DESENEX/MITRAZOL/ZEASORB 1 APPLIC TOPICAL (20:01)
[2023-12-23] MEDS: KCL 20 MEQ PO (20:02)
[2023-12-23] MEDS: D5/0.45%NACL 1000 IV (22:30)
[2023-12-24 07:23] LABS: Blood Urea Nitrogen 16 mg/dl (7-17); Calcium 8.6 mg/dl (8.4-10.2); Carbon Dioxide 19 mmol/L (22-30); Chloride 104 mmol/L (98-107); Estimated Creatinine Clearance 37 ml/min; Glucose 214 mg/dl (70-99); Potassium 3.8 mmol/L (3.5-5.1); Sodium 137 mmol/L (135-145); eGFR 51.43
[2023-12-24 07:55] VITALS: BP 149/83
[2023-12-24] MEDS: DESENEX/MITRAZOL/ZEASORB 1 APPLIC TOPICAL (08:06)
[2023-12-24] MEDS: D5/0.45%NACL 1000 IV (08:06)
[2023-12-24] MEDS: HEPARIN 5000 UNITS SC (08:07)
[2023-12-24] MEDS: LOW STRENGTH ASPIRIN 81 MG PO (08:08)
[2023-12-24] MEDS: KCL 20 MEQ PO (08:08)
[2023-12-24] MEDS: LIPITOR 10 MG PO (08:08)
[2023-12-24] MEDS: ZOLOFT 25 MG PO (08:08)
[2023-12-24 08:18] LABS: Hepatitis C Antibody Negative (Negative)
--- NOTE | 2023-12-24 08:41 | W.PN.HOSP.TC ---
Today's Communication/Plan
-
Discharge
Assessment / Plan
Assessment / Plan
Gen-awake, alert, NAD
HEENT-NC, AT, anicteric, clear oral mm
Neck-supple
CV-reg, no M, +S1/S2
Lungs-clear B/L
Abd-soft, NT, ND
Ext-no edema
Musculoskeletal-no cyanosis, clubbing
Skin-warm and dry
Neuro-grossly non-focal
Psych-calm, cooperative
Medication induced hypoglycemia -suspect related to glipizide use as well as decreased oral intake. Hypoglycemia resolved.
DM2 with hypoglycemia -hemoglobin A1c 5.9% last month. Permanently stop glipizide as above. Renal function improved, can resume metformin if family wants. Discussed with daughter. Close follow-up with PCP next week in the office.
CKD 3a -stable.
Hypokalemia -improved.
Hypomagnesemia -recheck levels today.
Dementia -likely Alzheimer's type.
Essential hypertension -stable.
Diabetic peripheral neuropathy
Hyperlipidemia -on simvastatin.
DNR
Dispo -medically stable for discharge home today. Discussed with daughter on the phone. Patient already has home PT set up. Follow-up with PCP next week.
33 minutes spent in discharge process.
Anticipated Discharge: Today
Subjective/Interval History
-
Date of Service: December 24, 2023
Patient seen and examined. No complaints currently. Eager to go home.
Objective Data
-
Labs:
Laboratory Results
12/24/23
06:36
Sodium 137
Potassium 3.8
Chloride 104
Carbon Dioxide 19 L
BUN 16
Creatinine 1.1 H
Glucose 214 H
Calcium 8.6
Vital Signs:
Vital Signs
Temp Pulse Resp BP Pulse Ox
98 F 77 18 149/83 97
12/24/23 07:55 12/24/23 07:55 12/24/23 07:55 12/24/23 07:55 12/24/23 07:55
I&O
12/23/23 12/24/23 12/25/23
06:59 06:59 06:59
Intake Total 240 / 240
Balance 240 / 240
Review of Systems
-
History Source: Patient
All other systems: Reviewed and negative
--- NOTE | 2023-12-24 08:50 | W.DS.TRANS ---
DC Summary - Roofing Contractor
-
Discharge Instructions:
Discharge Diagnosis/Procedures Hypoglycemia
Diet Diabetic, Carb Controlled
Activity As tolerated
Driving Restrictions No driving
Bathing Restrictions None
Instructions:
Stand-Alone Forms:
Changes to Home Medications: Yes
Discharge Medications:
DC Medications w/original date entered in [facility]
aspirin 81 mg chewable tablet 81 mg PO DAILY Blood clot prevention/tx 02/15/22
metformin 1,000 mg tablet 1,000 mg PO BID Diabetes 11/17/23
mirabegron 50 mg tablet,extended release 24 hr (Myrbetriq) 50 mg PO DAILY Urinary Issue 11/17/23
omega 8-nka-igs-fish oil 1,000 mg (120 mg-180 mg) capsule (Fish Oil) 2 cap PO DAILY Supplement 11/17/23
simvastatin 20 mg tablet (Zocor) 20 mg PO DAILY High Cholesterol 11/17/23
biotin 10,000 mcg chewable tablet (Hair, Skin and Nails (biotin)) 5,000 mcg PO Q48H Supplement 12/23/23
cholecalciferol (vitamin D3) 25 mcg (1,000 unit) tablet 25 mcg PO DAILY Supplement 12/23/23
cyanocobalamin (vitamin B-12) 500 mcg tablet 500 mcg PO DAILY Supplement 12/23/23
mirtazapine 15 mg tablet 15 mg PO HS insomnia 12/23/23
ondansetron HCl 4 mg tablet 4 mg PO TIDPRN PRN nausea 12/23/23
pantoprazole 20 mg tablet,delayed release 20 mg PO DAILY Gastrointestinal Issue 12/23/23
sertraline 25 mg tablet 25 mg PO DAILY Depression/anxiety 12/23/23
Home Medication Changes
Stop glipizide
Pending Results: No
[2023-12-24 08:53] LABS: Magnesium 1.2 mg/dl (1.6-2.3)
--- NOTE | 2023-12-24 09:48 | VNURNOTE ---
Chart reviewed.� Patient is current with [facility] nursing.� Will continue to follow hospital course and DC plans.
--- NOTE | 2023-12-24 10:39 | CM ---
Patient seen at bedside. Patient is current with [facility] and requested restart of care. CM updated liaison Stephanie Mackey and patient stated that she is for discharge today and daughter is on her way to transport. Patient stated that she had no other concern
at this time. CM will continue to follow for discharge planning needs.
Plan; home with daughter; [facility] to follow
--- NOTE | 2023-12-24 12:46 | PTCARENOTE ---
D/C instructions reviewed with patient. Patient is forgetful. Teach back done, patient verbalized she is to stop Glipizide. 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
[2023-12-24 12:53] VITALS: BP 147/88
== END 2023-12-24 14:20 | disposition home health service (06) ==
LOC: 4 EAST ACU 08:09
PROVIDERS: ADMITTING PHYSICIAN Hospitalist; EMERGENCY PHYSICIAN Emergency Medicine; FAMILY PHYSICIAN Family Medicine
DX: E11.649 Type 2 diabetes mellitus with hypoglycemia without coma (principal); E78.00 Pure hypercholesterolemia, unspecified; N18.31 Chronic kidney disease, stage 3a; I12.9 Hypertensive chronic kidney disease with stage 1 through stage 4 chronic kidney disease, or unspecified chronic kidney disease; G20.A1 Parkinson's disease without dyskinesia, without mention of fluctuations; F02.80 Dementia in other diseases classified elsewhere, unspecified severity, without behavioral disturbance, psychotic disturbance, mood disturbance, and anxiety; E11.22 Type 2 diabetes mellitus with diabetic chronic kidney disease; E11.42 Type 2 diabetes mellitus with diabetic polyneuropathy; R53.1 Weakness; T38.3X5A Adverse effect of insulin and oral hypoglycemic [antidiabetic] drugs, initial encounter; I25.10 Atherosclerotic heart disease of native coronary artery without angina pectoris; E87.6 Hypokalemia; E83.42 Hypomagnesemia; Z66 Do not resuscitate; Z98.51 Tubal ligation status; Z91.012 Allergy to eggs; Z79.84 Long term (current) use of oral hypoglycemic drugs; Z87.891 Personal history of nicotine dependence
CPT/HCPCS: 80048; 80053; 82962; 83735; 85025; 86803; 93005; 99285; G0378

== ENCOUNTER 2024-04-04 18:48 | Inpatient (IN) | payer MEDICARE, SELFPAY ==
[2024-04-04] VITALS (14 sets, daily range): BP systolic 109–140; BP diastolic 52–70; O2SAT 92; BMI 24.0
--- NOTE | 2024-04-04 13:49 | ED.MUSCINJ ---
HPI-Injury
General
Chief Complaint: Fall
Source: patient and family (Daughter at bedside)
Exam Limitations: none
Time Seen by Provider: 04/04/24 13:12
Nursing documentation reviewed up to this point in time: agreed with
History of Present Illness-Injury
Initial Injury comments:
79-year-old female presents with swelling and bruising right orbit, right shoulder pain, multiple abrasions of hands after a fall at 1045 this morning when she was outside to seed cone picker a can off of the sidewalk she bent down, lost her balance and fell
forward striking the orbit on the ground and injuring her right shoulder. She is unsure of her last tetanus immunization. Denies LOC, denies neck pain. Denies headache. Denies change in vision. Denies N/V. Denies chest pain or trouble
breathing, denies abdominal pain.
Past History
Past History
ED Past Medical History: HTN, Hypercholesterolemia, NIDDM and Other (Parkinson's disease)
ED Past Surgical History: Gynecological
Social History
Tobacco: Former smoker
Alcohol: None
Drug: None
Personal:
Living: with family
Employment: Retired
Family History
Family History: Other
Review of Systems
Review of Systems
Allergies reviewed?: Yes
All Other Systems: ROS reviewed and negative except as documented in HPI and ROS
Constitutional: Denies fever or fatigue
EENT: Reports other (Swelling out to her upper right orbit, denies change in vision)
Respiratory: Reports no symptoms
Cardiac: Reports no symptoms
ABD/GI: Denies abdominal pain, nausea, vomiting or diarrhea
: Denies dysuria, frequency, incontinence or difficulty voiding
Musculoskeletal: Reports other (Right shoulder pain); Denies neck pain or back pain
Skin: Reports other (Multiple small deep clean abrasions of hands)
Neurological: Reports no symptoms
Phy Exam
Physical Exam
Physical Exam:
GENERAL: No acute distress. A&Ox3.
CONSTITUTIONAL: Afebrile.
EYES: clear, conjunctivae normal, EOMs intact. Right lateral supraorbital area is tender, ecchymotic and moderately swollen.
ENMT: moist mucus membranes, Pharynx nl
RESPIRATORY: Regular respirations, nonlabored, lungs clear.
CARDIOVASCULAR: Regular rate and rhythm, no murmurs, no rubs.
GI: Soft, nontender, normal BS
MUSCULOSKELETAL: Pain about the right shoulder, distal neurovascular intact. The rest of extremities are moving well with no pain. Moves with ease. Well perfused.
SKIN: Warm, dry, pink, multiple superficial to deep small to tiny abrasions of the hands.
PSYCH: Normal mood and affect. Well kept, interactive and appropriate
NEUROLOGIC: Awake, alert and oriented. Speech clear. Cranial nerves II through XII intact. No focal neurological deficits
Injury Course
Orders/Labs/Results
Orders:
Orders
04/04/24 12:16
CR Shoulder, Trauma - Right Urgent
Comment:
Reason For Exam: pain/fall
04/04/24 13:45
Morphine Sulfate 4 mg IM NOW STA
04/04/24 13:46
Shoulder Immobilizer Right- Tx ONCE
Physical Therapy Consult [Pt Eval And Treat] Urgent
Treatment: ambulate w walker
Activity Level: As Tolerated
04/04/24 13:48
CT Orbits W/o Iv Contrast Urgent
Comment:
Reason For Exam: R orbit injury, fall
04/04/24 13:50
Tetanus/Diphth/Acelpertussis [Adacel] 0.5 ml IM .ONCE ONE
04/04/24 14:08
CT Head W/o Iv Contrast Urgent
Comment:
Reason For Exam: Fall facial injury, not anticoag
04/04/24 14:56
Case Management Consult ONCE
Case Management Consult: Discharge Planning
Comment: Fall, fx humerus, P/T in and pt unsafe to ambulate, need rehab. Labs pending
04/04/24 14:57
Ondansetron Injectable [Zofran] 4 mg IV NOW STA
04/04/24 Dinner
Regular
At Your Request: Limited Participation
Does patient need a safe tray?: No
04/04/24 15:21
Complete Blood Count/With Diff Urgent
Comprehensive Metabolic Panel Urgent
04/04/24 16:35
Electrocardiogram (*1) Urgent
Reason for Study: Chest Pain
EKG- Treatment ONCE
04/04/24 16:47
CR Chest - 2 Views Urgent
Comment:
Reason For Exam: chest pain
04/04/24 16:53
Troponin I Urgent
04/04/24 17:52
Admit/Transfer Patient As Directed
Co-Sign Provider:
Level of Care: Inpatient admission
Assign to:: Medical/Surgical
Physician / Group: gabrielle martinez
Diagnosis: mech fall right humerus fx, hand abrasions, dm hyperglycemia
Reason for Hospitalization: mech fall right humerus fx, hand abrasions, dm hyperglycemia
Expected length of stay greater than two midnights?: Yes
ELOS- Estimated Length of Stay in days: 3
I certify the patient meets the requirements for IP care: Yes
Code Status As Directed
Resuscitation Status: Full Code
04/04/24 17:57
PRN Pain Medication Management As Directed
May give lesser potent ordered pain med per pt: Yes
preference::
Protocol:: Medication orders for pain may be administered in a
manner that supports deferring to patient preference
when the pt is:
- Requesting an ordered lesser potent pain medication.
Least to most potent pain medications are defined
as: acetaminophen < NSAID < tramadol < opioids
(morphine, oxycodone, hydromorphone).
- Requesting a lesser dose of the same medication IF
ORDERED.
- Requesting a less intrusive route of administration
if both routes are prescribed by the provider (PO <
IV).
04/04/24 18:29
Ondansetron Injectable [Zofran] 4 mg IV Q6HPRN PRN
04/04/24 20:34
Acetaminophen [Tylenol] 650 mg PO Q6HPRN PRN
Bisacodyl [Dulcolax] 10 mg RECTAL [id number] PRN
Dextrose 50%-Water [Dextrose 50% Syringe] 12.5 grams IV [id number] PRN
Docusate W/Senna [Senokot-S] 1 tablet PO BIDPRN PRN
Glucagon [GlucaGen] 1 mg IM PRN PRN
HYDROmorphone [Dilaudid] 0.5 mg IV Q4HPRN PRN
Heparin 5,000 units SC Q12
Morphine Sulfate 4 mg IV Q4HPRN PRN
Oxycodone/Acetaminophen [Percocet 5/325] 1 tablet PO Q4HPRN PRN
Polyethylene Glycol Powder [Miralax] 17 grams PO DAILYPRN PRN
04/04/24 20:34
Case Management Consult ONCE
Case Management Consult: Discharge Planning
Comment: snf for Right humerus fx lives alone
Activity As Directed
Activity Level: With Assistance
Bedside Glucose Monitoring As Directed
Frequency: AC&HS
Additional Instructions:: Change to q6h if pt on TPN, tube feeding or not eating
Ice Application [Cold Application] As Directed
Location: right orbit, right humerus
Frequency: Intermittent q2h
Duration of Application: No longer than 20 minutes
Method of Delivery: Ice packs
Precautions As Directed
Type of Precautions: Other
Comment: fall
Vital Signs As Directed
Frequency: Per unit guidelines
Pt Eval And Treat Routine
Activity Level: As Tolerated
DX Deep Vein Thrombosis Video Routine
04/04/24 22:00
Mirtazapine [Remeron] 15 mg PO HS
04/04/24 22:29
Urinalysis Reflex To Culture Urgent
Date Specimen was Collected: 04/04/24
Time Specimen was Collected: 15:03
Urine Microscopic Reflex Cult Urgent
04/04/24 22:34
Troponin I Urgent
04/05/24 05:55
Complete Blood Count/With Diff IN AM
Comprehensive Metabolic Panel IN AM
Glycohemoglobin (HgbA1c) IN AM
04/05/24 07:30
Insulin Aspart Corrective Low [Novolog Flexpen-Low Resistance] See Protocol SC AC
04/05/24 08:00
Aspirin Chewable [Low Strength Aspirin] 81 mg PO DAILY
Atorvastatin [Lipitor] 10 mg PO DAILY
Cholecalciferol (Vitamin D3) [VITAMIN D3 (cholecalciferol)] 25 mcg PO DAILY
Cyanocobalamin [Vitamin B-12] 500 mcg PO DAILY
Mirabegron Extended Release [Myrbetriq Extended Release] 50 mg PO DAILY
Pantoprazole [Protonix] 20 mg PO DAILY
Sertraline HCl [Zoloft] 25 mg PO DAILY
04/06/24 06:30
Complete Blood Count/With Diff IN AM
Comprehensive Metabolic Panel IN AM
04/07/24 07:37
Complete Blood Count/With Diff IN AM
Comprehensive Metabolic Panel IN AM
Abnormal Lab Results
04/04/24
15:21
WBC 16.3 H 10^3/uL
(4.8-10.8)
RBC 3.82 L 10^6/uL
(4.20-5.40)
Hgb 11.0 L g/dL
(12.0-16.0)
Hct 32.5 L %
(37.0-47.0)
Abs Immat Gran (auto) 0.1 H 10^3/uL
(0-0.05)
Absolute Neuts (auto) 14.1 H 10^3/uL
(1.4-6.5)
Absolute Monos (auto) 0.8 H 10^3/uL
(0.1-0.6)
Neutrophils % 86.9 H %
(42.2-75.2)
Lymphocytes % 7.2 L %
(20.5-51.1)
Sodium 131 L mmol/L
(135-145)
Carbon Dioxide 20 L mmol/L
(22-30)
BUN 24 H mg/dl
(7-17)
Creatinine 1.1 H mg/dL
(0.6-1.0)
Glucose 381 H mg/dl
(70-99)
Alkaline Phosphatase 131 H U/L
(38-126)
04/04/24 15:21
04/04/24 15:21
MDM/Problems Addressed
MDM/Problems Addressed:
79-year-old female presents with swelling and bruising right orbit, right shoulder pain, multiple abrasions of hands after a fall at 1045 this morning when she was outside to seed cone picker a can off of the sidewalk she bent down, lost her balance and fell
forward striking the orbit on the ground and injuring her right shoulder. She is unsure of her last tetanus immunization. Denies LOC, denies neck pain. Denies headache. Denies change in vision. Denies N/V. Denies chest pain or trouble
breathing, denies abdominal pain.
2:45 PM:
Physical therapy and and deemed patient unsafe to go home. She needs rehab
Case management consulted
Labs pending
4:10 p.m.
CBC: WBC 16.3 with elevated Neutrophils adn absolute neuts (likely due to trauma)
CMP: Glucose 381 BUN/creat 24/1.1
U/A pending
P/T evaluated, deems pt not safe to go home, too much risk of fall.
Case management cannot get placement today. Will admit.
Hospitalist notified of admission.
Dx: Fall, Fracture right humerus, ambulatory dysfunction
4:30 PM:
Patient complaining of mid nonradiating chest pain
EKG: NSR
Troponin pending
Troponin #2 ordered
CXR pending
Hospitalist notified
Chronic conditions affecting care: HTN
*Critical Care Note
Total Time (30-74mins, 75-104mins- exclusive of procedures): Not Applicable
ED Attending Note
-
Portions of this chart may have been created with voice recognition software.� Occasional wrong word or��sound alike� substitutions may have occurred due to the inherent limitations of voice recognition software.
Discharge Plan
Departure
Patient Disposition: Admit
Date of Disposition: 04/04/24
Time of Disposition: 16:18
Admit to: Med/Surg
Presentation/result/management discussed w/ accepting MD/DO: Hospitalist
Condition: Fair
Discharge Problem:
Fracture of right shoulder, Fall from slip, trip, or stumble, Contusion of right orbit, Ambulatory dysfunction
Interventions
Interventions:
*Risk Screen - Suicide Last Done: 04/04/24 12:12
*General Assessment Last Done: 04/04/24 12:12
*Neglect/Abuse Screening Last Done: 04/04/24 12:12
*ED COVID-19 Vaccine History Last Done: 04/04/24 22:02
*Nursing Disposition Last Done: 04/04/24 20:36
ED-Musculoskeletal Assessment Last Done: 04/04/24 12:30
ED- Neurological Assessment Last Done: 04/04/24 12:30
ED-Skin Assessment Last Done: 04/04/24 12:30
Discharge Date and Time
Discharge Date/Time: 04/04/24 20:37
[2024-04-04] MEDS: MORPHINE SULFATE 4 MG IM (14:02)
[2024-04-04] MEDS: ADACEL 0.5 ML IM (14:04)
[2024-04-04 15:40] LABS: % Basophils 0.4 % (0-2); % Eosinophils 0.1 % (0-6); % Immature Granulocytes 0.4 % (0-0.5); % Lymphocytes 7.2 % (20.5-51.1); % Neutrophils 86.9 % (42.2-75.2); Absolute Basophils 0.1 10^3/uL (0-0.2); Absolute Immature Granulocytes 0.1 10^3/uL (0-0.05); Absolute Lymphocytes 1.2 10^3/uL (1.2-3.4); Absolute Monocytes 0.8 10^3/uL (0.1-0.6); Absolute Neutrophils 14.1 10^3/uL (1.4-6.5); Hematocrit 32.5 % (37.0-47.0); Mean Corp Hgb Conc. 33.8 g/dL (33.0-37.0); Mean Corpuscular Hgb 28.8 pg (27.0-31.0); Mean Corpuscular Volume 85.1 fL (81.0-99.0); Mean Platelet Volume 10.4 fL (7.4-10.4); Nucleated Red Blood Cells % 0 %; Platelet Count 242 10^3/uL (130-400); Red Blood Cell Count 3.82 10^6/uL (4.20-5.40); Red Cell Dist. Width 12.9 % (11.5-14.5); White Blood Cell Count 16.3 10^3/uL (4.8-10.8)
--- NOTE | 2024-04-04 16:01 | CM ---
ED CM consulted for SNF placement
Bedside meeting with pt and dtr/Hanyn (CHAN)
Pt resides with her other dtr/Ann-Marie in a 1st floor apartment, 3STE from parking lot to sidewalk and 1 threshold step
Dtr works out of home during the day and pt is independent with ambulation with use of a WW as she is home alone during the day
Able to self care for her needs throughout the day, dtr assists with bathing and dressing when home
Pt denies financial insecurities
PCP- Keyshawn Torres
Rx- [facility]
PT eval with SNF recs
SNF choices reviewed and [facility] choices
PASRR completed and wide net of referrals sent via [facility] and pending
Pt will require C auth and OT eval
Discharge Disposition- SNF pending auth
[2024-04-04 16:03] LABS: ALT (SGPT) 20 U/L (0-35); AST (SGOT) 28 U/L (14-36); Alkaline Phosphatase 131 U/L (38-126); Blood Urea Nitrogen 24 mg/dl (7-17); Calcium 9.4 mg/dl (8.4-10.2); Carbon Dioxide 20 mmol/L (22-30); Chloride 102 mmol/L (98-107); Glucose 381 mg/dl (70-99); Potassium 4.5 mmol/L (3.5-5.1); Sodium 131 mmol/L (135-145); Total Bilirubin 0.7 mg/dl (0.2-1.3); eGFR 51.11
[2024-04-04 17:23] LABS: Troponin I < 0.012 ng/ml
--- NOTE | 2024-04-04 17:40 | HPS.HSE ---
Addendum entered and electronically signed by SILVER Villa 04/04/24 19:51:
DVT prophylaxis
Subcu heparin not subcu Lovenox
Original Note:
Family Physician
-
Family Physician: Keyshawn Torres
Chief Complaint
-
Fall, contusion right orbit, abrasions right hand at base of second MCP and fifth MCP, right upper humerus pain
History of Present Illness
79-year-old female who was bending down to olive picker a can of the sidewalk when she lost her balance falling forward striking her face/right orbit, right shoulder and hands on the ground. She has a contusion right orbit, abrasions right hand at base
of second MCP and fifth MCP, right upper humerus pain. She currently has a sling in place on her right arm
She denies loss of consciousness, neck pain, headache, blurred vision, nausea, vomiting, chest pain, palpitations, cough, shortness of breath. She was noted to have a fracture of her right humerus in the ER. She lives at her house with her
daughter living nearby daughter is gone the entire day at work. She was evaluated by PT in the ER and is unsafe to ambulate and return to her home at current time she will require SNF. After morphine she has vomited twice in the ER. After
discussion with her and daughter she has tolerated Dilaudid in the past and possibly Percocet. She has history of Parkinson's disease with ambulatory dysfunction, HTN, HLD, DM2, diabetic neuropathy, former smoker, , CKD 3 A, CAD, HLD, meningioma
Medical History
Past Medical History
Past Medical History: Reports Other
Additional Past Medical History:
DM2
Diabetic peripheral neuropathy
Ambulatory dysfunction
Dementia
CKD 3A
Meningioma
CAD
hyperlipidemia
Anxiety
GERD
Insomnia
Past Surgical History: Reports Other
Additional Past Surgical History:
Tubal ligation
Facial reconstruction
Left forearm ORIF
Social History
Tobacco: Former Smoker
Alcohol: None
Drug: None
Living: With Family
Employment: Not Employed
Family History
Family History: Not pertinent
Allergies / Home Medications
Allergies reflects when Allergies were last updated in [facility].
Home Medications with original date entered in [facility]
Allergy/Medication List:
Allergies
Allergy/AdvReac Type Severity Reaction Status Date / Time
egg Allergy Vomiting Verified 04/04/24 12:16
Home Medications
aspirin 81 mg chewable tablet 81 mg PO DAILY Blood clot prevention/tx 02/15/22
mirabegron 50 mg tablet,extended release 24 hr (Myrbetriq) 50 mg PO DAILY Urinary Issue 11/17/23
omega 4-raj-air-fish oil 1,000 mg (120 mg-180 mg) capsule (Fish Oil) 2 cap PO DAILY Supplement 11/17/23
simvastatin 20 mg tablet (Zocor) 20 mg PO DAILY High Cholesterol 11/17/23
biotin 10,000 mcg chewable tablet (Hair, Skin and Nails (biotin)) 5,000 mcg PO Q48H Supplement 12/23/23
cholecalciferol (vitamin D3) 25 mcg (1,000 unit) tablet 25 mcg PO DAILY Supplement 12/23/23
cyanocobalamin (vitamin B-12) 500 mcg tablet 500 mcg PO DAILY Supplement 12/23/23
mirtazapine 15 mg tablet 15 mg PO HS insomnia 12/23/23
ondansetron HCl 4 mg tablet 4 mg PO TIDPRN PRN nausea 12/23/23
pantoprazole 20 mg tablet,delayed release 20 mg PO DAILY Gastrointestinal Issue 12/23/23
sertraline 25 mg tablet 25 mg PO DAILY Depression/anxiety 12/23/23
Review of Systems
-
History Source: Patient and Family (Daughter at bedside)
A 12 point ROS was completed and negative except as noted: Yes
Constitutional: Denies Fever or Fatigue
EENT: Reports Other (Contusion over right orbit); Denies Sore Throat or Runny Nose
Respiratory: Denies Cough or Trouble Breathing
Cardiac: Denies Chest Pain, Diaphoresis, Palpitations or Syncope
Abdomen/GI: Denies Abdominal Pain, Nausea, Vomiting, Diarrhea, Constipated, Bloody Stools or Black Stools
: Denies Dysuria, Frequency, Flank Pain, Incontinence, Difficulty Voiding or Urgency
Musculoskeletal: Reports Joint Swelling (Right upper humerus swelling, tenderness, limited range of motion secondary to fracture); Denies Joint Pain
Skin: Reports Other (Abrasions right hand at base of second finger MCP and fifth finger MCP); Denies Itching or Rash
Neurological: Denies Dizzy, Headache or Weakness
Endocrine: Reports No Symptoms
Hematologic/Lymphatic: Reports No Symptoms
Psych: Reports Calm
Physical Exam
Vital Signs
Vital Signs
Temp Pulse Resp BP Pulse Ox
97.5 F 78 20 124/58 96
04/04/24 12:12 04/04/24 16:35 04/04/24 12:12 04/04/24 16:35 04/04/24 16:35
Physical Exam
General: Comfortable and Conversant; No Fever or Chills
HEENT: NormoCephalic, Anicteric, Moist mucous membranes, PERRLA, [place] Conjunctivae, Neck Nontender and Other (Contusion over right orbit)
Respiratory: Clear; No Wheezes, Rales or Rhonchi
Cardiac: S1/S2 and Regular Rhythm; No Murmur, Rub, Gallop or Peripheral Edema
Breast: Deferred by me
GI: Soft, Non Tender, Non Distended, Normal Bowel Sounds and No Hepatosplenomegaly
Rectal: Deferred by Provider
Genito-urinary: Deferred by me
Musculoskeletal: No Clubbing, No Cyanosis and Edema, Right Upper Extremity (Right upper humerus swelling, tenderness, limited range of motion secondary to fracture); No Edema, Left Upper Extremity, Edema, Left Lower Extremity or Edema, Right Lower
Extremity
Skin: Warm, Dry and Other (Abrasions right hand at base of second finger MCP and fifth finger MCP); No Rash
Neuro: AO x 3, Cranial Nerves Intact, No Sensory Deficits and Other (Right upper humerus swelling, tenderness, limited range of motion secondary to fracture); No Slurred Speech, Facial Droop, Tremors or Sedated
Psych: Calm
Laboratory Results
-
04/04/24 15:21
04/04/24 15:21
Laboratory Results
Total Bilirubin 0.7 mg/dl (0.2-1.3) 04/04/24 15:21
AST 28 U/L (14-36) 04/04/24 15:21
ALT 20 U/L (0-35) 04/04/24 15:21
Alkaline Phosphatase 131 U/L (38-126) H 04/04/24 15:21
Troponin I < 0.012 ng/ml 04/04/24 16:53
Data Reviewed
-
CT Scan: Report Reviewed by me
Lab Data: Labs Reviewed by me
Impression/Plan
-
Impression/plan:
Admit to MedSurg
#Mechanical fall with RIGHT humerus fracture
-Tylenol as needed, oxycodone moderate pain, Dilaudid severe pain , Bowel regimen
-Patient vomited with morphine but has tolerated Dilaudid in the past
- ice
-Sling
-Fall precautions
Troponin <0.012
PT/OT/case management for SNF placement as patient home alone during the day until daughter gets home from work
Shoulder x-ray right: Mildly displaced fracture of the proximal humerus which extends to the greater tuberosity
CXR: No acute cardiopulmonary process
#Mechanical fall with right orbit contusion/bilateral hand abrasions
-Soap and water daily to hand abrasions may wrap with nonstick dressing
-May apply ice to right orbit for pain
-Tylenol as needed pain
-Tetanus diphtheria shot given in ER for bilateral hand abrasions
CT head: No acute intracranial abnormality.
Stable appearance 1 cm known meningioma.
No acute orbital fracture
#Chronic ambulatory dysfunction secondary to Parkinson's/diabetic peripheral neuropathy
-Consult PT/OT
--Fall precautions
#Acute leukocytosis likely reactive due to fall
Afebrile no obvious infectious source, nontoxic-appearing
Will follow CBC
#DM2 uncontrolled with current hyperglycemia
Diabetic peripheral neuropathy
NO MEDS listed in MAR
BS 381
-Accu-Cheks with SSI, check HgbA1c
#CKD 3A
Creat 1.1 appears baseline for patient
-Follow BMP
#CAD
Continue aspirin 81 mg daily, Zocor 20 mg daily
#GERD
-Continue Protonix 20 mg daily
#HLD
-Continue Zocor 20 mg daily
#Vitamin B12 deficiency
-Continue vitamin B12 500 mcg p.o. daily
#Vitamin D3 deficiency
Continue vitamin D3 25 mcg p.o. daily
#Insomnia
-Continue mirtazapine 15 mg at bedtime
#Anxiety
-Continue Zoloft 25 mg daily
Other PMH:
Meningioma
DVT prophylaxis
Subcu Lovenox
Full code
[2024-04-04] MEDS: ZOFRAN 4 MG IV (18:33)
--- NOTE | 2024-04-04 19:55 | W.PN.UPDATE ---
Update Note
Progress Note Update
This is an addendum to the H&P written by Inna Valero on 04/04/2024.� Patient seen examined independent with [employer].
History 79-year-old female past medical history of diabetes, diabetic neuropathy, chronic amatory dysfunction, CKD 3A, meningioma, CAD, hyperlipidemia, anxiety, GERD, insomnia presenting with losing her balance striking her face/right orbit and
right shoulder.� She has periorbital ecchymosis.
Chest x-ray shows no acute process.� CT head shows no acute abnormality apart from prominent right periorbital soft tissue swelling 9 mm soft tissue hematoma.� Shoulder x-ray shows mildly displaced fracture of the proximal humerus which extends to
the greater tuberosity.
Labs show leukocytosis.
Sling placed.� PT/OT, case management.� Monitor hemoglobin.� Leukocytosis seems to be reactive.� UA pending.
She had�chest pain in the ER with improvement with morphine no pain now.� EKG shows normal sinus rhythm.� Troponin negative, second troponin pending.
--- NOTE | 2024-04-04 21:30 | PTCARENOTE ---
Received patient from ED via stretcher. Patient pulled over from stretcher to bed with assistance. Sling to R shoulder intact. AAOx2, patient forgetful with dates. Oriented patient to room and placed call cabrera within reach.
[2024-04-04 21:39] LABS: Glucose - Point of Care 343 mg/dl (70-99)
[2024-04-04] MEDS: HEPARIN 5000 UNITS SC (22:30)
[2024-04-04] MEDS: REMERON 15 MG PO (22:33)
[2024-04-04] MEDS: NOVOLOG FLEXPEN 4 UNITS SC (22:42)
[2024-04-04 22:47] LABS: Urine Albumin 2+ (Neg - Trace); Urine Bilirubin Negative (Negative); Urine Character Clear (Clear); Urine Color Yellow; Urine Glucose 4+ (Negative); Urine Ketone 2+ (Negative); Urine Leukocyte Negative (Negative); Urine Nitrite Negative (Negative); Urine Occult Blood Negative (Negative); Urine Specific Gravity 1.015 (<1.030); Urine Urobilinogen Negative (Neg - 1+)
[2024-04-04 22:57] LABS: Urine Red Blood Cell 0-2 /HPF (0-2); Urine Squamous Cell 0-2 /LPF (Few)
[2024-04-04 22:58] LABS: Urine Bacteria Few (Negative); Urine White Cell 0-2 /HPF (0-5)
[2024-04-04 23:10] LABS: Troponin I < 0.012 ng/ml
[2024-04-05 00:50] LABS: Glucose - Point of Care 283 mg/dl (70-99)
[2024-04-05] MEDS: DILAUDID 0.5 MG IV (05:43)
[2024-04-05 07:00] VITALS: BP 120/59
[2024-04-05 07:00] LABS: % Basophils 0.4 % (0-2); % Immature Granulocytes 0.4 % (0-0.5); % Lymphocytes 11.7 % (20.5-51.1); % Monocytes 9.3 % (1.7-9.3); % Neutrophils 78.2 % (42.2-75.2); Absolute Basophils 0.1 10^3/uL (0-0.2); Absolute Immature Granulocytes 0.1 10^3/uL (0-0.05); Absolute Lymphocytes 1.6 10^3/uL (1.2-3.4); Absolute Monocytes 1.3 10^3/uL (0.1-0.6); Absolute Neutrophils 10.8 10^3/uL (1.4-6.5); Hematocrit 32.4 % (37.0-47.0); Hemoglobin 10.8 g/dL (12.0-16.0); Mean Corp Hgb Conc. 33.3 g/dL (33.0-37.0); Mean Corpuscular Hgb 28.8 pg (27.0-31.0); Mean Corpuscular Volume 86.4 fL (81.0-99.0); Mean Platelet Volume 10.5 fL (7.4-10.4); Nucleated Red Blood Cells % 0 %; Platelet Count 277 10^3/uL (130-400); Red Blood Cell Count 3.75 10^6/uL (4.20-5.40); Red Cell Dist. Width 12.8 % (11.5-14.5); White Blood Cell Count 13.8 10^3/uL (4.8-10.8)
[2024-04-05 07:25] LABS: ALT (SGPT) 19 U/L (0-35); AST (SGOT) 22 U/L (14-36); Alkaline Phosphatase 119 U/L (38-126); Blood Urea Nitrogen 24 mg/dl (7-17); Calcium 9.3 mg/dl (8.4-10.2); Carbon Dioxide 19 mmol/L (22-30); Chloride 102 mmol/L (98-107); Estimated Creatinine Clearance 35 ml/min; Glucose 310 mg/dl (70-99); Potassium 4.5 mmol/L (3.5-5.1); Sodium 135 mmol/L (135-145); Total Bilirubin 1.1 mg/dl (0.2-1.3); Total Protein 7.1 g/dl (6.3-8.2); eGFR 46.05
[2024-04-05 07:54] LABS: Glucose - Point of Care 313 mg/dl (70-99)
[2024-04-05] MEDS: LOW STRENGTH ASPIRIN 81 MG PO (09:31)
[2024-04-05] MEDS: MYRBETRIQ EXTENDED RELEASE 50 MG PO (09:31)
[2024-04-05] MEDS: NOVOLOG FLEXPEN-LOW RESISTANCE 4 UNITS SC (09:31)
[2024-04-05] MEDS: VITAMIN B-12 500 MCG PO (09:32)
[2024-04-05] MEDS: HEPARIN 5000 UNITS SC ×2 (09:32→19:40)
[2024-04-05] MEDS: VITAMIN D3 (cholecalciferol) 25 MCG PO (09:32)
[2024-04-05] MEDS: LIPITOR 10 MG PO (09:32)
[2024-04-05] MEDS: PROTONIX 20 MG PO (09:32)
[2024-04-05] MEDS: ZOLOFT 25 MG PO (09:32)
--- NOTE | 2024-04-05 10:49 | CM ---
CM following re: discharge planning.
Reviewed pt's chart.
Per CM note, SNF level of care recommended and pt preferred [facility] where pt was in the past.
CM spoke to [facility] liaison and she confirmed that pt is accepted for admission to [facility] based on bed availability on the day of discharge. per liaison, there is no bed available today and she advised to check on bed
availability on a daily basis.
D/C plan: [facility] SNF for a short term rehab based on bed availability on the day of discharge.
CM will follow to assist pt with discharger to [facility]F
[2024-04-05 12:18] LABS: Glucose - Point of Care 291 mg/dl (70-99)
--- NOTE | 2024-04-05 12:41 | CON.ORTHO ---
Consultation
-
Date/Time Consultation Requested: Apr 04
Date/Time Consultation Performed: Apr 04
Requesting Provider: Jacy
Performing Provider: Jan for [facility]
Reason for Consultation: Right proximal humerus fracture
Consultation - Orthopedics
History
History of Present Illness-Injury:
79-year-old female presents with swelling and bruising right orbit, right shoulder pain, multiple abrasions of hands after a fall at 1045 the morning of Apr 04. She reports she went outside to shredder picker a can off of the sidewalk she bent down, lost
her balance and fell forward striking the orbit on the ground and injuring her right shoulder. Denies LOC or headstrike. No prodrome. Denies any previous issues with her shoulder. CT of the head was negative. We have been requesting consultation
with regards to her x-ray confirmed proximal humerus fracture. She is currently in a sling.
Past Medical History:
ED Past Medical History: HTN, Hypercholesterolemia, NIDDM and Other (Parkinson's disease)
ED Past Surgical History: Gynecological
Social History
Tobacco: Former smoker
Alcohol: None
Drug: None
Personal:
Living: with family
Employment: Retired
Family History
Not pertinent
Review of Systems:
12 point negative except for those mentioned in the HPI
Allergies / Home Medications
Allergy/AdvReac Type Severity Reaction Status Date / Time
egg Allergy Vomiting Verified 04/04/24 12:16
�Medication �Instructions �Recorded
aspirin 81 mg chewable tablet 81 mg PO DAILY Blood clot 02/15/22
prevention/tx
mirabegron 50 mg tablet,extended 50 mg PO DAILY Urinary Issue 11/17/23
release 24 hr (Myrbetriq)
omega 6-rtk-mhi-fish oil 1,000 mg 2 cap PO DAILY Supplement 11/17/23
(120 mg-180 mg) capsule (Fish Oil)
simvastatin 20 mg tablet (Zocor) 20 mg PO DAILY High Cholesterol 11/17/23
biotin 10,000 mcg chewable tablet 5,000 mcg PO Q48H Supplement 12/23/23
(Hair, Skin and Nails (biotin))
cholecalciferol (vitamin D3) 25 25 mcg PO DAILY Supplement 12/23/23
mcg (1,000 unit) tablet
cyanocobalamin (vitamin B-12) 500 500 mcg PO DAILY Supplement 12/23/23
mcg tablet
mirtazapine 15 mg tablet 15 mg PO HS insomnia 12/23/23
ondansetron HCl 4 mg tablet 4 mg PO TIDPRN PRN nausea 12/23/23
pantoprazole 20 mg tablet,delayed 20 mg PO DAILY Gastrointestinal 12/23/23
release Issue
sertraline 25 mg tablet 25 mg PO DAILY Depression/anxiety 12/23/23
Vital Signs / Lab Results
Temp Pulse Resp BP Pulse Ox
98.3 F 79 16 120/59 88
04/05/24 07:00 04/05/24 07:00 04/05/24 07:00 04/05/24 07:00 04/05/24 07:00
04/05/24 05:55
04/05/24 05:55
Assessment / Plan
PE: In bed. Sling to RUE. significant ecchymosis of the right orbit. Focused exam of the right shoulder reveals skin intact. No obvious or palpable deformities. Some mild edema without ecchymosis. Generalized pain to palpation about the right
proximal humerus. Deferred range of motion due to known fracture. Elbow, wrist, hand all move well. Neurovascularly intact. Is currently in her sling.
Xrays: Minimally displaced right proximal humerus fracture
Impression: PORTER
Plan: I discussed with the patient bedside. Attempted to touch base with her daughter, Hanny, as well, unsuccessfully. Left a message with plan. Patient was a little groggy, but answers questions appropriately. Fortunately her proximal humerus
fracture is minimally displaced and can be managed nonoperatively. Continue with the sling to the RUE. no lifting or weightbearing through the extremity. Gentle elbow, wrist, and hand motion okay by me. Ice to the shoulder for pain control. Pain
medicine as needed. Follow-up outpatient in our office in 1 week for position check x-rays. As long as things heal appropriately will look to initiate some gentle PT in 4 weeks. Any significant displacement may necessitate a surgical discussion,
but I believe we we will avoid that. Discharge plan updated. Orthopaedics To sign off for now. Please reengage with any additional pertinent questions, as necessary
[2024-04-05] MEDS: NOVOLOG FLEXPEN-LOW RESISTANCE 3 UNITS SC ×2 (12:47→23:56)
[2024-04-05 14:12] LABS: Hepatitis C Antibody Negative (Negative)
[2024-04-05 15:34] VITALS: BP 126/61; PULSE 77; O2SAT 97
[2024-04-05 15:37] VITALS: BP 126/81; PULSE 78; O2SAT 96
[2024-04-05 15:50] VITALS: BP 121/48
--- NOTE | 2024-04-05 16:06 | W.PN.HOSP.TC ---
Today's Communication/Plan
-
Assessment / Plan
Assessment / Plan
Gen-somnolent but arousable, NAD
HEENT-large area of ecchymosis right periorbital region, moist mucous membranes
Neck-supple
CV-reg, no M, +S1/S2
Lungs-clear B/L
Abd-soft, NT, ND
Musculoskeletal-no edema, right arm in sling
Skin-warm and dry
Neuro-grossly non-focal, no tremor, somnolent but arousable
Psych-calm, cooperative
Ms. Marie is a 79-year-old female with medical history of ambulatory dysfunction, CKD stage IIIa, meningioma, CAD, and GERD who presented following a mechanical fall with head strike. She landed on her right side hitting the right side of her face
and her right shoulder on the ground. She sustained a right proximal humerus fracture and has a contusion in the right periorbital region with no acute intracranial abnormalities. She is unable to ambulate safely and will require SNF placement.
She has been admitted for further management.
Acute right proximal humerus fracture:
-Nonoperative management as fracture is only minimally displaced
-Ortho recommends immobilization with sling, no lifting or weightbearing
-Ice to shoulder and pain medications as needed, will schedule high-dose Tylenol in order to try and avoid opiate pain medications associated lethargy which could worsen ambulatory dysfunction
-Outpatient Ortho follow-up in 1 week for repeat chest x-rays
Ambulatory dysfunction:
-Chronic with recent fall during which she sustained right humeral fracture
-PT/OT, will need skilled rehab
GERD:
-Continue pantoprazole
CKD stage IIIa:
-Appears to be at baseline renal function
-Will monitor
CODE STATUS: Full code
Anticipated Discharge: 24 - 48 hours
Subjective/Interval History
-
Date of Service: April 05, 2024
Patient was seen and examined at bedside this morning. She is somnolent likely due to pain medications. Remains in right arm sling for acute humeral fracture. Complains of right shoulder pain.
Objective Data
-
Labs:
Laboratory Results
04/05/24
05:55
WBC 13.8 H
Hgb 10.8 L
Hct 32.4 L
Plt Count 277
Sodium 135
Potassium 4.5
Chloride 102
Carbon Dioxide 19 L
BUN 24 H
Creatinine 1.2 H
Glucose 310 H
Calcium 9.3
Total Bilirubin 1.1
AST 22
ALT 19
Alkaline Phosphatase 119
Vital Signs:
Vital Signs
Temp Pulse Resp BP Pulse Ox
98.3 F 79 16 120/59 96
04/05/24 07:00 04/05/24 07:00 04/05/24 07:00 04/05/24 07:00 04/05/24 12:46
Review of Systems
-
History Source: Patient
All other systems: Reviewed and negative
Musculoskeletal: Reports Joint Pain (Right shoulder pain) and Other (Right periorbital pain)
Physical Exam
-
General: No Apparent Distress and Pain
[2024-04-05 16:47] LABS: Glucose - Point of Care 246 mg/dl (70-99)
[2024-04-05] MEDS: NOVOLOG FLEXPEN-LOW RESISTANCE SC (16:52)
[2024-04-05] MEDS: NOVOLOG FLEXPEN-LOW RESISTANCE 2 UNITS SC (16:54)
[2024-04-05] MEDS: D5/0.45%NACL 1000 IV (18:38)
[2024-04-05] MEDS: TYLENOL PO (19:40)
[2024-04-05] MEDS: REMERON PO (21:17)
[2024-04-05 23:12] VITALS: BP 126/55
[2024-04-05 23:55] LABS: Glucose - Point of Care 292 mg/dl (70-99)
[2024-04-06 03:25] VITALS: BP 116/53
[2024-04-06 05:26] LABS: Glucose - Point of Care 280 mg/dl (70-99)
[2024-04-06] MEDS: NOVOLOG FLEXPEN-LOW RESISTANCE 3 UNITS SC (05:29)
[2024-04-06] MEDS: D5/0.45%NACL 1000 IV ×2 (06:14→20:27)
[2024-04-06 07:30] VITALS: BP 126/60
[2024-04-06 07:31] LABS: % Basophils 0.6 % (0-2); % Eosinophils 0.8 % (0-6); % Immature Granulocytes 0.4 % (0-0.5); % Monocytes 12.2 % (1.7-9.3); Absolute Basophils 0.1 10^3/uL (0-0.2); Absolute Eosinophils 0.1 10^3/uL (0-0.7); Absolute Immature Granulocytes 0.1 10^3/uL (0-0.05); Absolute Lymphocytes 2.3 10^3/uL (1.2-3.4); Absolute Monocytes 1.5 10^3/uL (0.1-0.6); Absolute Neutrophils 8.6 10^3/uL (1.4-6.5); Hematocrit 30.4 % (37.0-47.0); Mean Corp Hgb Conc. 32.9 g/dL (33.0-37.0); Mean Corpuscular Hgb 29.2 pg (27.0-31.0); Mean Corpuscular Volume 88.6 fL (81.0-99.0); Mean Platelet Volume 10.6 fL (7.4-10.4); Nucleated Red Blood Cells % 0 %; Platelet Count 233 10^3/uL (130-400); Red Blood Cell Count 3.43 10^6/uL (4.20-5.40); White Blood Cell Count 12.6 10^3/uL (4.8-10.8)
[2024-04-06 08:54] LABS: ALT (SGPT) 16 U/L (0-35); AST (SGOT) 21 U/L (14-36); Albumin 3.6 g/dl (3.5-5.0); Alkaline Phosphatase 97 U/L (38-126); Blood Urea Nitrogen 26 mg/dl (7-17); Carbon Dioxide 22 mmol/L (22-30); Chloride 102 mmol/L (98-107); Estimated Creatinine Clearance 35 ml/min; Glucose 282 mg/dl (70-99); Sodium 134 mmol/L (135-145); Total Protein 6.5 g/dl (6.3-8.2); eGFR 46.05
[2024-04-06] MEDS: HEPARIN 5000 UNITS SC ×2 (10:49→20:44)
--- NOTE | 2024-04-06 11:20 | PTOTSP ---
ST Acute Care Evaluation
Pt exhibits clinical signs of mild oropharyngeal dysphagia characterized by prolonged mastication and reduced bolus formation with solid consistencies, as well as occasional throat clearing and eructation s/p ingestion of thin liquids.
Recommendations:
- Initiate PO diet of soft bite sized solids, thin liquids, meds crushed in puree.
- Aspiration and reflux precautions: HOB upright for all PO intake and for at least 60 minutes after PO intake; small bites/sips; slow intake rate; over-chew foods.
- HUMIDIFIER ATTENDANT to f/u re: diet tolerance, use of compensatory strategies, and to determine if pt would benefit from instrumental swallow study.
[2024-04-06 11:43] LABS: Glucose - Point of Care 322 mg/dl (70-99)
--- NOTE | 2024-04-06 12:14 | PN.CDI ---
CDI
- -
CDI:
Physician Documentation Request
Admit Date: 04/04/24 18:48
Dear Doctor Jacy,
Clinical Indicators:
Patient admitted with Acute right proximal humerus fracture:
PMH includes CKD stage IIIa
Serum bicarbonate levels:
04/04/24 04/05/24
15:21 05:55
Carbon Dioxide 20 L 19 L
Based on the above, could you clarify in the progress notes, the appropriate diagnosis, if significant, that supports the above abnormalities and additional evaluation, monitoring and/or treatment rendered:
Metabolic acidosis
Abnormal lab values, clinically insignificant
Other, please specify
Use of terms such as suspected, likely, concern for, or probable (associated with a specific diagnosis that is being evaluated, monitored, or treated as if it exists) are acceptable and can be coded in the inpatient setting, when documented at the
time of discharge.
Thank you,
Rae Shipley RN BSN
CDI Specialist
available via tiger text
Please use your independent medical judgment in providing your response.
[2024-04-06] MEDS: PROTONIX 20 MG PO (12:55)
[2024-04-06] MEDS: ZOLOFT 25 MG PO (12:55)
[2024-04-06] MEDS: LOW STRENGTH ASPIRIN 81 MG PO (12:55)
[2024-04-06] MEDS: MYRBETRIQ EXTENDED RELEASE 50 MG PO (12:55)
[2024-04-06] MEDS: VITAMIN D3 (cholecalciferol) 25 MCG PO (12:56)
[2024-04-06] MEDS: LIPITOR 10 MG PO (12:56)
[2024-04-06] MEDS: TYLENOL 1000 MG PO ×2 (13:06→20:44)
[2024-04-06] MEDS: NOVOLOG FLEXPEN-LOW RESISTANCE 4 UNITS SC ×2 (13:07→18:18)
[2024-04-06] MEDS: VITAMIN B-12 500 MCG PO (13:10)
[2024-04-06] MEDS: NOVOLOG FLEXPEN-LOW RESISTANCE SC (13:11)
--- NOTE | 2024-04-06 14:15 | CM ---
Addendum entered by Mimi Webster 04/06/24 14:23:
correction; [facility] NPI # [id number]
Original Note:
CM spoke with patient's daughter via phone; explained that pending AUTH approval, [facility] has a bed and accepted SNF referral
[facility] NPI # [id number]
Physician Name and NPI: Augie Menendez # [id number]
[facility] Report # [phone] [id number]
[2024-04-06 14:33] LABS: Glucose - Point of Care 288 mg/dl (70-99)
--- NOTE | 2024-04-06 14:38 | CM ---
Request for skilled rehab initiated with [facility]
Clinicals faxed to [phone]
Pended reference# [id number]
[2024-04-06 15:19] VITALS: BP 119/62; PULSE 86; O2SAT 96
[2024-04-06 15:56] VITALS: BP 119/62; PULSE 86; O2SAT 95
--- NOTE | 2024-04-06 16:18 | W.PN.HOSP.TC ---
Addendum entered and electronically signed by Hernando Louie DO 04/07/24 15:10:
Patient serum bicarb abnormalities were clinically insignificant, do not feel this represents metabolic acidosis.
Her somnolence was likely due to pain medications, do not feel she meets criteria for metabolic encephalopathy.
Original Note:
Today's Communication/Plan
-
Assessment / Plan
Assessment / Plan
Gen-somnolent but arousable, NAD
HEENT-large area of ecchymosis right periorbital region, moist mucous membranes
Neck-supple
CV-reg, no M, +S1/S2
Lungs-clear B/L
Abd-soft, NT, ND
Musculoskeletal-no edema, right arm in sling
Skin-warm and dry
Neuro-grossly non-focal, no tremor, somnolent but arousable
Psych-calm, cooperative
Ms. Marie is a 79-year-old female with medical history of ambulatory dysfunction, CKD stage IIIa, meningioma, CAD, and GERD who presented following a mechanical fall with head strike. She landed on her right side hitting the right side of her face
and her right shoulder on the ground. She sustained a right proximal humerus fracture and has a contusion in the right periorbital region with no acute intracranial abnormalities. She is unable to ambulate safely and will require SNF placement.
She has been admitted for further management.
Acute right proximal humerus fracture:
-Nonoperative management as fracture is only minimally displaced
-Ortho recommends immobilization with sling, no lifting or weightbearing
-Ice to shoulder and pain medications as needed, will schedule high-dose Tylenol in order to try and avoid opiate pain medications associated lethargy which could worsen ambulatory dysfunction
-Outpatient Ortho follow-up in 1 week for repeat chest x-rays
-Medically stable for discharge
Ambulatory dysfunction:
-Chronic with recent fall during which she sustained right humeral fracture
-PT/OT, will need skilled rehab, placement pending
GERD:
-Continue pantoprazole
CKD stage IIIa:
-Appears to be at baseline renal function
-Will monitor
CODE STATUS: Full code
Anticipated Discharge: 24 - 48 hours
Subjective/Interval History
-
Date of Service: April 06, 2024
Patient was seen and examined at bedside this morning. She feels much better today, less pain in her arm and right eye.
Objective Data
-
Labs:
Laboratory Results
04/06/24
06:30
WBC 12.6 H
Hgb 10.0 L
Hct 30.4 L
Plt Count 233
Sodium 134 L
Potassium 4.0
Chloride 102
Carbon Dioxide 22
BUN 26 H
Creatinine 1.2 H
Glucose 282 H
Calcium 9.0
Total Bilirubin 1.0
AST 21
ALT 16
Alkaline Phosphatase 97
Vital Signs:
Vital Signs
Temp Pulse Resp BP Pulse Ox
98.6 F 77 20 126/60 94
04/06/24 07:30 04/06/24 07:30 04/06/24 07:30 04/06/24 07:30 04/06/24 07:30
I&O
04/05/24 04/06/24 04/07/24
06:59 06:59 06:59
Intake Total 900 / 900
Output Total 200 / 200
Balance 700 / 700
Review of Systems
-
History Source: Patient
All other systems: Reviewed and negative
Musculoskeletal: Reports Other (Right shoulder pain)
Physical Exam
-
General: No Apparent Distress
[2024-04-06 18:04] LABS: Glucose - Point of Care 345 mg/dl (70-99)
[2024-04-06] MEDS: REMERON 15 MG PO (20:44)
[2024-04-06 21:26] LABS: Glucose - Point of Care 202 mg/dl (70-99)
[2024-04-06 23:01] VITALS: BP 132/59
[2024-04-07 07:30] VITALS: BP 144/65
[2024-04-07 08:05] LABS: % Basophils 0.9 % (0-2); % Eosinophils 4.6 % (0-6); % Immature Granulocytes 0.4 % (0-0.5); % Lymphocytes 23.1 % (20.5-51.1); % Monocytes 10.9 % (1.7-9.3); % Neutrophils 60.1 % (42.2-75.2); Absolute Basophils 0.1 10^3/uL (0-0.2); Absolute Eosinophils 0.5 10^3/uL (0-0.7); Absolute Lymphocytes 2.3 10^3/uL (1.2-3.4); Absolute Monocytes 1.1 10^3/uL (0.1-0.6); Absolute Neutrophils 6.1 10^3/uL (1.4-6.5); Hematocrit 30.1 % (37.0-47.0); Mean Corp Hgb Conc. 33.2 g/dL (33.0-37.0); Mean Corpuscular Hgb 28.5 pg (27.0-31.0); Mean Corpuscular Volume 85.8 fL (81.0-99.0); Mean Platelet Volume 10.2 fL (7.4-10.4); Nucleated Red Blood Cells % 0 %; Platelet Count 227 10^3/uL (130-400); Red Blood Cell Count 3.51 10^6/uL (4.20-5.40); Red Cell Dist. Width 12.8 % (11.5-14.5); White Blood Cell Count 10.1 10^3/uL (4.8-10.8)
[2024-04-07 08:09] LABS: Glucose - Point of Care 331 mg/dl (70-99)
[2024-04-07 08:43] LABS: ALT (SGPT) 15 U/L (0-35); AST (SGOT) 19 U/L (14-36); Albumin 3.8 g/dl (3.5-5.0); Alkaline Phosphatase 99 U/L (38-126); Blood Urea Nitrogen 21 mg/dl (7-17); Calcium 9.2 mg/dl (8.4-10.2); Carbon Dioxide 21 mmol/L (22-30); Chloride 103 mmol/L (98-107); Estimated Creatinine Clearance 35 ml/min; Glucose 326 mg/dl (70-99); Sodium 134 mmol/L (135-145); Total Bilirubin 1.1 mg/dl (0.2-1.3); Total Protein 6.5 g/dl (6.3-8.2); eGFR 46.05
[2024-04-07] MEDS: NOVOLOG FLEXPEN-LOW RESISTANCE 4 UNITS SC (09:13)
[2024-04-07] MEDS: TYLENOL 1000 MG PO (09:14)
[2024-04-07] MEDS: MYRBETRIQ EXTENDED RELEASE 50 MG PO (09:14)
[2024-04-07] MEDS: VITAMIN D3 (cholecalciferol) 25 MCG PO (09:14)
[2024-04-07] MEDS: PROTONIX 20 MG PO (09:14)
[2024-04-07] MEDS: VITAMIN B-12 500 MCG PO (09:14)
[2024-04-07] MEDS: ZOLOFT 25 MG PO (09:14)
[2024-04-07] MEDS: LOW STRENGTH ASPIRIN 81 MG PO (09:14)
[2024-04-07] MEDS: HEPARIN 5000 UNITS SC (09:15)
[2024-04-07] MEDS: LIPITOR 10 MG PO (09:15)
--- NOTE | 2024-04-07 09:33 | CM ---
Addendum entered by Gris Frederick, BOB 04/07/24 11:34:
Auth information given to Laisha at [facility] . Pt accepted today .
Spoke with dgfunmilayo Gamino she agrees with Dc To SNF and IMM . She requested update for MD . TT request.
Dgt requested ambulance . Medical nec form completed.
[facility]
Report [phone] [id number]

PLAN To [facility] today
Original Note:
TC from Drea at [facility], re skilled authorization request.
Patient approved skilled rehab at [facility]
Reference number [id number],(auth number has not generated yet)
Start date 04/07/24, NRD 04/11/24
[employer] will be Drea cK, fax# [phone]
--- NOTE | 2024-04-07 10:35 | PN.DE.MGMTRT ---
Insulin Management
- -
04/07/2024: Diabetes Management Consult
79 year old female well know to me from prior hospitalization where she was discharged home on basal/bolus insulin.
PMH: HTN T2DM, Ambulatory dysfunction, CKD stage IIIa, meningioma, CAD, and GERD who presented following a mechanical fall with head strike, resulting in an Acute right proximal humerus fracture. A1C 11%, Cr 1.2, eGFR 46.05.
Pt awake, alert, oriented, sitting up in bed, RUE in arm sling, large facial bruise to Right eye, c/o Right wrist pain, able to discuss diabetes management
She is currently not on any diabetes Medications, states her PCP stopped all her diabetes Medications last year when her A1C improved to 5.9%
Pt is noted for hyperglycemia, glucose was 381(V) on admission. 04/06 premeal 288 to 345, requiring 4 units of corrective insulin w/meals. FBG 236(V), 331 POC this AM.
Will start basal/bolus insulin. Start Lantus 12 units in AM, 1st dose NOW. AC NovoLog 4 units, 1st dose with lunch. Change to low corrective AC.
Change diet from 2000 frances to 1800 frances ADA diet
Patient states she has a glucose monitor but cant test because of her RUE injury and Parkinson.
Pt will need diabetes education for Instruction on steps to take insulin, so she can self inject at meals, now is not an ideal time for diabetes education due to the degree of her discomfort. Will attempt to provide diabetes Monitor and insulin
instructions on Wednesday.
Discussed with Nurse and Hospitalist.
Diabetes History
- -
Type of Diabetes: 2 requiring insulin
Pre-Admission Diabetes Regimen
04/07/24
07:37
Creatinine 1.2 H
Lab Results
Hemoglobin A1c 11.0 % (4.0-5.6) H 04/05/24 05:55
Insulin Pump Settings
IP Diabetes Regimen
04/06/24 04/06/24 04/06/24
11:40 14:28 18:02
Glucose
POC Glucose 322 H 288 H 345 H
04/06/24 04/07/24 04/07/24
21:25 07:37 08:05
Glucose 326 H
POC Glucose 202 H 331 H
Meal type: Dinner
Amount consumed: 50%
Patient Education
[2024-04-07 11:48] LABS: Glucose - Point of Care 258 mg/dl (70-99)
[2024-04-07] MEDS: NOVOLOG FLEXPEN-LOW RESISTANCE 3 UNITS SC (12:02)
[2024-04-07] MEDS: NOVOLOG FLEXPEN 5 UNITS SC (12:03)
[2024-04-07] MEDS: LANTUS 0.12 UNITS SC (12:03)
--- NOTE | 2024-04-07 14:53 | PN.CDI ---
CDI
- -
CDI:
Physician Documentation Request
Admit Date: 04/04/24 18:48
Dear Doctor Jacy,
Clinical Indicators:
Patient admitted with acute right proximal humerus fracture
04/04 H &P, Physical Exam Neuro: AO x 3
04/05 PN, 'She is somnolent likely due to pain medications'
Based on the above, which, if any of the following, is the most likely etiology of the confusion/altered mental status.
Toxic metabolic Encephalopathy
Somnolence only
Other
Use of terms such as suspected, likely, concern for, or probable (associated with a specific diagnosis that is being evaluated, monitored, or treated as if it exists) are acceptable and can be coded in the inpatient setting, when documented at the
time of discharge.
Thank you,
Rae Shipley RN BSN
CDI Specialist
available via tiger text
Please use your independent medical judgment in providing your response.
[2024-04-07 15:11] VITALS: BP 128/54
--- NOTE | 2024-04-07 15:25 | W.DCSUMMARY ---
Discharge Summary
Discharge Data
Date of Admission: 04/04/24
Date of Discharge: 04/07/24
-
Pending Results: No
Hospital Course
Ms. Marie is a 79-year-old female with medical history of ambulatory dysfunction, CKD stage IIIa, meningioma, NIDDM, CAD, and GERD who presented following a mechanical fall with head strike. She landed on her right side hitting the right side of
her face and her right shoulder on the ground. She sustained a right proximal humerus fracture and has a contusion in the right periorbital region with no acute intracranial abnormalities. She is unable to ambulate safely and will require SNF
placement. She was admitted for further management of her humeral fracture and ambulatory dysfunction.
She was evaluated by orthopedics who recommended nonoperative management. She should keep her arm immobilized in a sling with no weightbearing to her right upper extremity. She will need outpatient Ortho follow-up in 1 week for repeat x-rays to
monitor for appropriate healing of her humeral fracture. Her right wrist was severely painful after fall however x-ray imaging showed no evidence of fracture but did show subcutaneous edema, severe peripheral atherosclerotic disease, and mild
polyarticular osteoarthritis. She was prescribed diclofenac gel for pain control. She should use a wrist splint for comfort.
She was evaluated by physical therapy and Occupational Therapy who recommended skilled rehab placement after hospital discharge for ongoing therapy.
Of note, she had previously been on metformin for treatment of her diabetes but it had been discontinued by her medical provider due to well-controlled blood sugars. During this hospitalization, her blood glucose became uncontrolled requiring
initiation of an insulin regimen. She was evaluated by our inpatient diabetes management nurse practitioner, and her insulin regimen once adjusted appropriately. She will need ongoing monitoring after discharge of her blood glucose and adjustments
to her diabetic regimen as needed.
She remained hemodynamically stable throughout her hospitalization. She still has significant right periorbital ecchymosis although the swelling and discomfort has dramatically improved. She will be discharged to SNF. She will need close
follow-up with her primary care physician and will also need to follow-up with orthopedics for ongoing management of her humeral fracture and right wrist pain.
Gen-awake and alert, NAD
HEENT-large area of ecchymosis right periorbital region, moist mucous membranes
Neck-supple
CV-reg, no M, +S1/S2
Lungs-clear B/L
Abd-soft, NT, ND
Musculoskeletal-no edema, right arm in sling, significant right wrist TTP
Skin-warm and dry
Neuro-grossly non-focal, no tremor, awake and alert
Psych-calm, cooperative
Discharge Plan
-
Patient Disposition: Skilled Nursing/SNF
Discharge Diagnosis/Procedures: Right humeral fracture, ambulatory dysfunction, hyperglycemia
Diet: Diabetic, Carb Controlled
Activity: Other activity
Additional Activity: Sling to remain RUE. No lifting or WB RUE
Driving Restrictions: No driving
Activity Restrictions/Additional Instructions:
Ms. Marie is a 79-year-old female with medical history of ambulatory dysfunction, CKD stage IIIa, meningioma, NIDDM, CAD, and GERD who presented following a mechanical fall with head strike. She landed on her right side hitting the right side of
her face and her right shoulder on the ground. She sustained a right proximal humerus fracture and has a contusion in the right periorbital region with no acute intracranial abnormalities. She is unable to ambulate safely and will require SNF
placement. She was admitted for further management of her humeral fracture and ambulatory dysfunction.
She was evaluated by orthopedics who recommended nonoperative management. She should keep her arm immobilized in a sling with no weightbearing to her right upper extremity. She will need outpatient Ortho follow-up in 1 week for repeat x-rays to
monitor for appropriate healing of her humeral fracture. Her right wrist was severely painful after fall however x-ray imaging showed no evidence of fracture but did show subcutaneous edema, severe peripheral atherosclerotic disease, and mild
polyarticular osteoarthritis. She was prescribed diclofenac gel for pain control. She should use a wrist splint for comfort.
She was evaluated by physical therapy and Occupational Therapy who recommended skilled rehab placement after hospital discharge for ongoing therapy.
Of note, she had previously been on metformin for treatment of her diabetes but it had been discontinued by her medical provider due to well-controlled blood sugars. During this hospitalization, her blood glucose became uncontrolled requiring
initiation of an insulin regimen. She was evaluated by our inpatient diabetes management nurse practitioner, and her insulin regimen once adjusted appropriately. She will need ongoing monitoring after discharge of her blood glucose and adjustments
to her diabetic regimen as needed.
She remained hemodynamically stable throughout her hospitalization. She still has significant right periorbital ecchymosis although the swelling and discomfort has dramatically improved. She will be discharged to SNF. She will need close
follow-up with her primary care physician and will also need to follow-up with orthopedics for ongoing management of her humeral fracture and right wrist pain.
Referrals:
Marco Montoya PA-C [Specified Professional Personl] - in one week
Keyshawn Torres DO [Family Provider] -
Prescriptions:
New
insulin aspart U-100 100 unit/mL (3 mL) Insulin Pen
5 unit SC AC 30 Days Qty: 4.5 0RF
Insulin Glargine Lantus [Lantus] 12 UNITS
Subcutaneous Insulin Syringe [Syringe-Insulin] 0 UNIT
As Directed mls/hr SC DAILY
Ordered By: Hernando Louie DO
Last Taken: 04/07/24 12:03 0.12 mls
insulin aspart U-100 100 unit/mL (3 mL) insulin pen
1 sliding scale dose SC AC 30 Days Qty: 15 0RF
acetaminophen [Tylenol Extra Strength] 500 mg Tablet
1,000 mg PO Q12 3 Days Qty: 12 0RF
diclofenac sodium 1 % Gel
0 g topical QID 5 Days Qty: 5 0RF
Continued
aspirin 81 mg Tablet,Chewable
81 mg PO DAILY
simvastatin [Zocor] 20 mg Tablet
20 mg PO DAILY
omega 9-iqx-xrw-fish oil [Fish Oil] 1,000 (120-180) mg Capsule
2 cap PO DAILY
mirabegron [Myrbetriq] 50 mg Tablet Extended Release 24 Hr
50 mg PO DAILY
ondansetron HCl 4 mg Tablet
4 mg PO TIDPRN PRN (Reason: nausea)
pantoprazole 20 mg Tablet,Delayed Release (Dr/Ec)
20 mg PO DAILY
cyanocobalamin (vitamin B-12) 500 mcg Tablet
500 mcg PO DAILY
mirtazapine 15 mg Tablet
15 mg PO HS
cholecalciferol (vitamin D3) 25 mcg (1,000 unit) Tablet
25 mcg PO DAILY
Hair, Skin and Nails (biotin) 10,000 mcg Tablet,Chewable
5,000 mcg PO Q48H
sertraline 25 mg tablet
25 mg PO DAILY
Discharge Orders:
Discharge Patient (As Directed); Ordered 04/07/24
Ordered By: Hernando Louie
Discharge Date and Time
Print Language: GUINEAN
[2024-04-07] MEDS: SENOKOT-S 1 TABLET PO (16:26)
[2024-04-07] MEDS: MIRALAX 17 GRAMS PO (16:26)
== END 2024-04-07 16:50 | DRG 563 ==
LOC: 4 EAST ACU 18:48
PROVIDERS: Clinical Nurse Specialist Family Health; Registered Nurse; ADMITTING PHYSICIAN Hospitalist; ATTENDING PHYSICIAN Internal Medicine; CONSULT PHYSICIAN Specialist; EMERGENCY PHYSICIAN Student in an Organized Health Care Education/Training Program; FAMILY PHYSICIAN Family Medicine
DX: S42.201A Unspecified fracture of upper end of right humerus, initial encounter for closed fracture (principal); F02.84 Dementia in other diseases classified elsewhere, unspecified severity, with anxiety; F02.818 Dementia in other diseases classified elsewhere, unspecified severity, with other behavioral disturbance; S00.11XA Contusion of right eyelid and periocular area, initial encounter; W01.0XXA Fall on same level from slipping, tripping and stumbling without subsequent striking against object, initial encounter; I12.9 Hypertensive chronic kidney disease with stage 1 through stage 4 chronic kidney disease, or unspecified chronic kidney disease; E11.22 Type 2 diabetes mellitus with diabetic chronic kidney disease; N18.31 Chronic kidney disease, stage 3a; Z86.011 Personal history of benign neoplasm of the brain; I25.10 Atherosclerotic heart disease of native coronary artery without angina pectoris; K21.9 Gastro-esophageal reflux disease without esophagitis; S60.511A Abrasion of right hand, initial encounter; S60.512A Abrasion of left hand, initial encounter; E78.00 Pure hypercholesterolemia, unspecified; E11.42 Type 2 diabetes mellitus with diabetic polyneuropathy; Z87.891 Personal history of nicotine dependence; G20.A1 Parkinson's disease without dyskinesia, without mention of fluctuations; G47.00 Insomnia, unspecified; Z79.82 Long term (current) use of aspirin; E53.8 Deficiency of other specified B group vitamins; E11.65 Type 2 diabetes mellitus with hyperglycemia; M15.9 Polyosteoarthritis, unspecified; Z79.899 Other long term (current) drug therapy
CPT/HCPCS: 70450; 70480; 71046; 73030; 73110; 80053; 81003; 81015; 82962; 83036; 84484; 85025; 86803; 87070; 90715; 92610; 93005; 97167; 97530; 97535

== ENCOUNTER 2024-07-03 05:23 | Inpatient (IN) | payer MEDICARE, SELFPAY ==
[2024-07-03] VITALS (18 sets, daily range): BP systolic 115–151; BP diastolic 49–75; PULSE 78; O2SAT 96; BMI 24.0
--- NOTE | 2024-07-03 02:42 | ED.MUSCINJ ---
HPI-Injury
<LINH Tadeo - Last Filed: 07/03/24 02:53>
General
Chief Complaint: Fall
Source: patient
Exam Limitations: none
Time Seen by Provider: 07/03/24 02:44
Nursing documentation reviewed up to this point in time: agreed with
History of Present Illness-Injury
Is this injury a work related problem?: No
Is pt an associate of [facility]?: No
Initial Injury comments:
Pt is a 79 yo F with PMH of dementia, HTN, T2DM, ARF, Parkinson's, HLD, GERD, depression, and ambulatory dysfunction who presents to the ER s/p fall c/o r hip pain. Patient explains that she was laying on her couch and had started to nod off. She
figured she should turn off the tv and go to bed, but forgot that she was on the sofa and rolled onto the floor. She complains now of 10/10 pain in the right inguinal region wrapping around to the buttock. She denies hitting her head, denies
dizziness, LOC, nausea, vomiting, vision changes, chest pain, abdominal pain, neck pain, CORTES, or other associated symptoms.
Past History
<LINH Tadeo - Last Filed: 07/03/24 02:53>
Past History
ED Past Medical History: HTN, Hypercholesterolemia, NIDDM and Other (Parkinson's disease)
ED Past Surgical History: Gynecological
Social History
Tobacco: Former smoker
Alcohol: None
Drug: None
Personal:
Living: with family
Employment: Retired
Family History
Family History: Other
Review of Systems
<LINH Tadeo - Last Filed: 07/03/24 02:53>
Review of Systems
All Other Systems: ROS reviewed and negative except as documented in HPI and ROS
Phy Exam
<Matilde Tamez, [facility] - Last Filed: 07/03/24 02:53>
General Physical Exam
General Presentation: mild distress
General age: appears stated age
General Skin: warm and dry
General Habitus: normal
General Mental: alert
Cardiovascular Exam
Cardiovascular Exam: regular rate/rhythm
Heart Sounds: normal
Pulmonary Exam
Pulmonary Exam: lungs clear
Gastrointestinal Exam
Gastrointestinal Exam: normal bowel sounds and non tender
Injury Course
<Matilde Tamez [facility] - Last Filed: 07/03/24 02:53>
Orders/Labs/Results
Orders:
Orders
07/03/24 02:15
ECG [Electrocardiogram (*1)] Urgent
Reason for Study: Other
Other Reason for Exam: fall
07/03/24 02:16
EKG- Treatment ONCE
07/03/24 02:29
Complete Blood Count/With Diff Urgent
Comprehensive Metabolic Panel Urgent
Creatine Phosphokinase Urgent
Comment: ADD ON
07/03/24 02:48
Hip, Right 2-3 Views [CR Hip - RT w/wo Pel 2-3 Vw*] Urgent
Comment:
Reason For Exam: fall right hip pain
Include a pelvis x-ray?: Yes
07/03/24 02:49
CT Head W/o Iv Contrast Urgent
Comment:
Reason For Exam: fall at home confusion
07/03/24 02:52
Morphine Sulfate 2 mg .ROUTE .STK-MED ONE
Morphine Sulfate 2 mg IV NOW STA
07/03/24 03:00
Ondansetron Injectable [Zofran] 4 mg .ROUTE .STK-MED ONE
07/03/24 03:02
Ondansetron Injectable [Zofran] 4 mg IV NOW STA
07/03/24 03:49
Add On- LAB Urgent
Tests Added?: CPK
07/03/24 04:08
Morphine Sulfate 2 mg IV NOW STA
07/03/24 05:00
Flush (0.9% Sodium Chloride) [Flush (Nss)] See Dose Instructions IV PER PROTOCOL
Abnormal Lab Results
07/03/24
02:29
WBC 15.4 H 10^3/uL
(4.8-10.8)
RBC 4.15 L 10^6/uL
(4.20-5.40)
Hgb 11.8 L g/dL
(12.0-16.0)
Hct 35.0 L %
(37.0-47.0)
Abs Immat Gran (auto) 0.1 H 10^3/uL
(0-0.05)
Absolute Neuts (auto) 11.6 H 10^3/uL
(1.4-6.5)
Absolute Monos (auto) 1.1 H 10^3/uL
(0.1-0.6)
Lymphocytes % 14.6 L %
(20.5-51.1)
Carbon Dioxide 20 L mmol/L
(22-30)
BUN 29 H mg/dl
(7-17)
Creatinine 1.1 H mg/dL
(0.6-1.0)
Glucose 310 H mg/dl
(70-99)
Alkaline Phosphatase 155 H U/L
(38-126)
07/03/24 02:29
07/03/24 02:29
Lailalt;Suzette Demarco, DO - Last Filed: 07/03/24 05:04>
Orders/Labs/Results
Orders:
Orders
07/03/24 02:15
ECG [Electrocardiogram (*1)] Urgent
Reason for Study: Other
Other Reason for Exam: fall
07/03/24 02:16
EKG- Treatment ONCE
07/03/24 02:29
Complete Blood Count/With Diff Urgent
Comprehensive Metabolic Panel Urgent
Creatine Phosphokinase Urgent
Comment: ADD ON
07/03/24 02:48
Hip, Right 2-3 Views [CR Hip - RT w/wo Pel 2-3 Vw*] Urgent
Comment:
Reason For Exam: fall right hip pain
Include a pelvis x-ray?: Yes
07/03/24 02:49
CT Head W/o Iv Contrast Urgent
Comment:
Reason For Exam: fall at home confusion
07/03/24 02:52
Morphine Sulfate 2 mg .ROUTE .STK-MED ONE
Morphine Sulfate 2 mg IV NOW STA
07/03/24 03:00
Ondansetron Injectable [Zofran] 4 mg .ROUTE .STK-MED ONE
07/03/24 03:02
Ondansetron Injectable [Zofran] 4 mg IV NOW STA
07/03/24 03:49
Add On- LAB Urgent
Tests Added?: CPK
07/03/24 04:08
Morphine Sulfate 2 mg IV NOW STA
07/03/24 05:00
Flush (0.9% Sodium Chloride) [Flush (Nss)] See Dose Instructions IV PER PROTOCOL
Abnormal Lab Results
07/03/24
02:29
WBC 15.4 H 10^3/uL
(4.8-10.8)
RBC 4.15 L 10^6/uL
(4.20-5.40)
Hgb 11.8 L g/dL
(12.0-16.0)
Hct 35.0 L %
(37.0-47.0)
Abs Immat Gran (auto) 0.1 H 10^3/uL
(0-0.05)
Absolute Neuts (auto) 11.6 H 10^3/uL
(1.4-6.5)
Absolute Monos (auto) 1.1 H 10^3/uL
(0.1-0.6)
Lymphocytes % 14.6 L %
(20.5-51.1)
Carbon Dioxide 20 L mmol/L
(22-30)
BUN 29 H mg/dl
(7-17)
Creatinine 1.1 H mg/dL
(0.6-1.0)
Glucose 310 H mg/dl
(70-99)
Alkaline Phosphatase 155 H U/L
(38-126)
07/03/24 02:29
07/03/24 02:29
<Suzette Demarco DO - Last Filed: 07/03/24 05:04>
*Radiology
Radiology exam reviewed: preliminary read by ED provider (X-ray shows impacted basi-cervical right hip fracture.) and radiology read reviewed
*Pulse Oximetry
Patient hypoxic: no
*EKG
Interpreted by ED Provider?: Yes
Interpretation: normal
Comparison EKG: no changes (Unchanged from previous April 04, 2024)
Rate: normal
Rhythm: sinus
[place]: normal axis
Interval: normal interval
QRS Pattern: normal QRS
Ischemia: no ischemia
*Critical Care Note
Total Time (30-74mins, 75-104mins- exclusive of procedures): Not Applicable
ED Attending Note
<LINH Tadeo - Last Filed: 07/03/24 02:53>
-
Portions of this chart may have been created with voice recognition software.� Occasional wrong word or��sound alike� substitutions may have occurred due to the inherent limitations of voice recognition software.
<DO Maryellen Butler Last Filed: 07/03/24 05:04>
ED Attending Note
Patient seen and examined by attending physician: Yes
I performed the substantive portion of visit, reviewed & personally made and approve the management plan that is documented in note by myself or KINGSLEY.: Yes
ED Attending Note:
This is a 79-year-old woman with history of dementia, Parkinson's disease, hypertension, hyperlipidemia, diabetes who was recently hospitalized March of this year after suffering a mechanical fall with right proximal humerus fracture. Due to
hyperglycemia, was started on insulin at that time but since discharge, insulin has been discontinued due to pt's inability to coordinate accu-checks and self-administration of insulin. Unclear if metformin resumed.
She resides at home with one of her daughter's and patient reports attempting to get up off of the couch, lost her balance and fell and presents via EMS with complaints of right hip pain.
She denies head injury nor loss of consciousness but fall was not witnessed by the daughter who was upstairs asleep.
She takes no anticoagulants save for low-dose aspirin.
She denies neck nor back pain. Denies dizziness nor lightheadedness.
Right lower extremity noted to be slightly shortened and externally rotated as per EMS.
TRAUMA EXAM:
VITAL SIGNS: Vital signs reviewed, cooperative
DISTRESS: Mild distress related to right hip pain. Pleasant and cooperative.
EYES: Pupils reactive, no orbital trauma. The head is normocephalic, atraumatic.
NOSE: No deformity or epistaxis
FACE AND SCALP: No scalp or facial trauma, external canals no blood
NECK: Supple nontender, full range of motion without difficulty nor pain.
BACK: Back nontender, pelvis stable to compression
RESPIRATORY: No distress, breath sounds normal, no tender chest wall
CARDIAC: No murmur, pulses equal and strong
ABDOMEN: Soft nontender bowel sounds normal
SKIN: Skin intact no bleeding, color normal
EXTREMITIES: Right lower extremity is mildly shortened and externally rotated. Moderate tenderness about the right hip, proximal thigh with markedly limited range of motion of right hip related to pain. There is no tenderness to the knee nor lower
leg. Distal pulses are full and equal bilaterally. Distal sensation and strength intact.
NEUROLOGICAL: Alert, oriented, no motor deficits
PSYCH: Mood affect normal
Concern for right hip fracture/right proximal femur fracture.
Due to history of dementia, questionable reliability regarding specifics of fall, concern for occult head injury thus will check CT of the head.
Will medicate for pain with morphine prior to imaging.
Will check labs, EKG.
Patient has history of diabetes, according to records, chronically poorly controlled diabetes. Nothing in history to suggest hypoglycemia and patient currently not on insulin nor sulfonylurea.
Patient's daughter who does not reside with her is now at bedside. There is concern that patient may have been lying on the floor for several hours prior to notifying family. Thus we will check CPK, assess for potential rhabdomyolysis.
04:20
Right hip x-ray shows impacted basicervical fracture.
Awaiting CT result but preliminarily reviewed by myself, no evidence of traumatic findings.
Labs are remarkable for mildly elevated white blood cell count, similar sporadic elevations noted previously.
Moderately elevated random glucose of 310, similar elevations noted during most recent hospitalization in March. No evidence of acidosis. Chronic kidney disease with creatinine of 1.1, similar and unchanged from previous.
CPK is pending.
Case discussed with hospitalist. Will admit to hospitalist service.
Orthopedics notified as well. Hip images sent to orthopedist, Dr Sapp, via [place] text.
Discharge Plan
Departure
Patient Disposition: Admit
Date of Disposition: 07/03/24
Time of Disposition: 04:18
Admit to: Med/Surg
Admit to doctor: Gavin
Presentation/result/management discussed w/ accepting MD/DO: Hospitalist
Condition: Fair
Discharge Problem:
Closed fracture of right hip, Poorly controlled type 2 diabetes mellitus
Prescriptions:
No Action
aspirin 81 mg Tablet,Chewable
81 mg PO DAILY
simvastatin [Zocor] 20 mg Tablet
20 mg PO DAILY
omega 1-qfg-aip-fish oil [Fish Oil] 1,000 (120-180) mg Capsule
2 cap PO DAILY
mirabegron [Myrbetriq] 50 mg Tablet Extended Release 24 Hr
50 mg PO DAILY
ondansetron HCl 4 mg Tablet
4 mg PO TIDPRN PRN (Reason: nausea)
pantoprazole 20 mg Tablet,Delayed Release (Dr/Ec)
20 mg PO DAILY
cyanocobalamin (vitamin B-12) 500 mcg Tablet
500 mcg PO DAILY
mirtazapine 15 mg Tablet
15 mg PO HS
cholecalciferol (vitamin D3) 25 mcg (1,000 unit) Tablet
25 mcg PO DAILY
Hair, Skin and Nails (biotin) 10,000 mcg Tablet,Chewable
5,000 mcg PO Q48H
sertraline 25 mg tablet
25 mg PO DAILY
acetaminophen [Tylenol Extra Strength] 500 mg Tablet
1,000 mg PO Q12 3 Days Qty: 12 0RF
Referrals:
Keyshawn Torres, DO [Family Provider] -
Interventions
Interventions:
*Risk Screen - Suicide Last Done: 07/03/24 02:07
*General Assessment Last Done: 07/03/24 02:07
*Neglect/Abuse Screening Last Done: 07/03/24 02:07
*ED- Fall Risk Assessment Last Done: 07/03/24 02:07
*ED COVID-19 Vaccine History Last Done: 07/03/24 02:25
ED-Musculoskeletal Assessment Last Done: 07/03/24 02:25
ED- Neurological Assessment Last Done: 07/03/24 02:25
ED-Skin Assessment Last Done: 07/03/24 02:25
Discharge Date and Time
Print Language: ESTONIAN
[2024-07-03] MEDS: MORPHINE SULFATE 2 MG IV ×4 (02:54→20:53)
[2024-07-03 02:57] LABS: % Basophils 0.6 % (0-2); % Immature Granulocytes 0.5 % (0-0.5); % Lymphocytes 14.6 % (20.5-51.1); % Monocytes 7.2 % (1.7-9.3); % Neutrophils 75.1 % (42.2-75.2); Absolute Basophils 0.1 10^3/uL (0-0.2); Absolute Eosinophils 0.3 10^3/uL (0-0.7); Absolute Immature Granulocytes 0.1 10^3/uL (0-0.05); Absolute Lymphocytes 2.2 10^3/uL (1.2-3.4); Absolute Monocytes 1.1 10^3/uL (0.1-0.6); Absolute Neutrophils 11.6 10^3/uL (1.4-6.5); Hemoglobin 11.8 g/dL (12.0-16.0); Mean Corp Hgb Conc. 33.7 g/dL (33.0-37.0); Mean Corpuscular Hgb 28.4 pg (27.0-31.0); Mean Corpuscular Volume 84.3 fL (81.0-99.0); Mean Platelet Volume 10.2 fL (7.4-10.4); Nucleated Red Blood Cells % 0 %; Platelet Count 270 10^3/uL (130-400); Red Blood Cell Count 4.15 10^6/uL (4.20-5.40); Red Cell Dist. Width 12.9 % (11.5-14.5); White Blood Cell Count 15.4 10^3/uL (4.8-10.8)
[2024-07-03] MEDS: ZOFRAN 4 MG IV ×3 (03:03→15:25)
[2024-07-03 03:23] LABS: ALT (SGPT) 23 U/L (0-35); AST (SGOT) 31 U/L (14-36); Albumin 4.4 g/dl (3.5-5.0); Alkaline Phosphatase 155 U/L (38-126); Blood Urea Nitrogen 29 mg/dl (7-17); Calcium 9.3 mg/dl (8.4-10.2); Carbon Dioxide 20 mmol/L (22-30); Chloride 105 mmol/L (98-107); Estimated Creatinine Clearance 37 ml/min; Glucose 310 mg/dl (70-99); Potassium 4.6 mmol/L (3.5-5.1); Sodium 136 mmol/L (135-145); Total Bilirubin 0.6 mg/dl (0.2-1.3); Total Protein 7.7 g/dl (6.3-8.2); eGFR 51.11
--- NOTE | 2024-07-03 04:16 | HPS.HSE ---
Family Physician
-
Family Physician: Keyshawn Torres
Chief Complaint
-
Fall
History of Present Illness
This is a 79-year-old female with past medical history significant for dementia, CAD, diabetes, recent mildly displaced fracture of the proximal humerus forearm fracture status post ORIF presenting to the Emergency Department after mechanical fall.
She denied any loss of consciousness. She stated that she was laying on the sofa watching TV when she dozed off. When she arose she rolled off the sofa around fell on the floor. She immediately suffered severe pain as she was laying on the floor.
She was on the floor for about 3 hours. Eventually family members called EMS who brought her to the emergency department.
Patient has ambulatory dysfunction at baseline and family actually thought she fell from a standing height rather than from the sofa. Otherwise patient reports no chest pain, palpitations lightheadedness or dizziness. She denied hitting her head.
She is not on any thinners. In the ED she was found to have right-sided hip fracture.
Patient reports that she has been compliant with metformin 1000 mg twice daily although this was not on her last list of medications. She was discharged on insulin Lantus and aspart. Patient did not take the insulin while she was at rehab but on
arrival home she had trouble with checking blood glucose levels and eventually her PMD transition her to metformin 1000 mg twice daily. A1c was 11 in march.
In the emergency department, she was afebrile, blood pressure was 150/62 with a pulse of 75 satting 98% on room air.
White count was 15.4, hemoglobin and platelets were normal. Electrolytes BUN/creatinine were normal. Glucose was elevated at 310. X-ray of the hip shows right hip fracture. CT of the head was negative for any acute intracranial process.
Medical History
Past Medical History
Past Medical History: Reports Other
Additional Past Medical History:
DM2
Diabetic peripheral neuropathy
Ambulatory dysfunction
Dementia
CKD 3A
Meningioma
CAD
hyperlipidemia
Anxiety
GERD
Insomnia
Past Surgical History: Reports Other
Additional Past Surgical History:
Tubal ligation
Facial reconstruction
Left forearm ORIF
Social History
Tobacco: Former Smoker
Alcohol: None
Drug: None
Living: With Family
Employment: Not Employed
Family History
Family History: Not pertinent
Allergies / Home Medications
Allergies reflects when Allergies were last updated in [facility].
Home Medications with original date entered in [facility]
Allergy/Medication List:
Allergies
Allergy/AdvReac Type Severity Reaction Status Date / Time
egg Allergy Vomiting Verified 04/04/24 12:16
Home Medications
aspirin 81 mg chewable tablet 81 mg PO DAILY Blood clot prevention/tx 02/15/22
mirabegron 50 mg tablet,extended release 24 hr (Myrbetriq) 50 mg PO DAILY Urinary Issue 11/17/23
omega 4-zxl-wcp-fish oil 1,000 mg (120 mg-180 mg) capsule (Fish Oil) 2 cap PO DAILY Supplement 11/17/23
simvastatin 20 mg tablet (Zocor) 20 mg PO DAILY High Cholesterol 11/17/23
biotin 10,000 mcg chewable tablet (Hair, Skin and Nails (biotin)) 5,000 mcg PO Q48H Supplement 12/23/23
cholecalciferol (vitamin D3) 25 mcg (1,000 unit) tablet 25 mcg PO DAILY Supplement 12/23/23
cyanocobalamin (vitamin B-12) 500 mcg tablet 500 mcg PO DAILY Supplement 12/23/23
mirtazapine 15 mg tablet 15 mg PO HS insomnia 12/23/23
ondansetron HCl 4 mg tablet 4 mg PO TIDPRN PRN nausea 12/23/23
pantoprazole 20 mg tablet,delayed release 20 mg PO DAILY Gastrointestinal Issue 12/23/23
sertraline 25 mg tablet 25 mg PO DAILY Depression/anxiety 12/23/23
Review of Systems
-
History Source: Patient and Family (Daughter at bedside)
A 12 point ROS was completed and negative except as noted: Yes
Constitutional: Denies Fever or Fatigue
EENT: Reports Other (Contusion over right orbit); Denies Sore Throat or Runny Nose
Respiratory: Denies Cough or Trouble Breathing
Cardiac: Denies Chest Pain, Diaphoresis, Palpitations or Syncope
Abdomen/GI: Denies Abdominal Pain, Nausea, Vomiting, Diarrhea, Constipated, Bloody Stools or Black Stools
: Denies Dysuria, Frequency, Flank Pain, Incontinence, Difficulty Voiding or Urgency
Musculoskeletal: Reports Joint Pain
Skin: Reports Other (Abrasions right hand at base of second finger MCP and fifth finger MCP); Denies Itching or Rash
Neurological: Denies Dizzy, Headache or Weakness
Endocrine: Reports No Symptoms
Hematologic/Lymphatic: Reports No Symptoms
Psych: Reports Calm
Physical Exam
Vital Signs
Vital Signs
Temp Pulse Resp BP Pulse Ox
98.3 F 75 20 151/62 98
07/03/24 02:07 07/03/24 04:08 07/03/24 04:08 07/03/24 04:08 07/03/24 04:08
Physical Exam
General: Well Developed; No Fever or Chills
HEENT: NormoCephalic, Anicteric, Moist mucous membranes, PERRLA, [place] Conjunctivae, Neck Nontender and Other (Contusion over right orbit)
Respiratory: Clear; No Wheezes, Rales or Rhonchi
Cardiac: S1/S2 and Regular Rhythm; No Murmur, Rub, Gallop or Peripheral Edema
Breast: Deferred by me
GI: Soft, Non Tender, Non Distended, Normal Bowel Sounds and No Hepatosplenomegaly
Rectal: Deferred by Provider
Genito-urinary: Deferred by me
Musculoskeletal: No Clubbing and No Cyanosis
Skin: Warm and Dry; No Rash
Neuro: AO x 3, Cranial Nerves Intact and No Sensory Deficits; No Slurred Speech, Facial Droop, Tremors or Sedated
Psych: Calm
Laboratory Results
-
07/03/24 02:29
07/03/24 02:
Laboratory Results
Total Bilirubin 0.6 mg/dl (0.2-1.3) 07/03/24 02:
AST 31 U/L (14-36) 07/03/24 02:
ALT 23 U/L (0-35) 07/03/24 02:
Alkaline Phosphatase 155 U/L (38-126) H 07/03/24 02:29
Data Reviewed
-
Diagnostic Radiology: Image Personally Visualized and interpreted
CT Scan: Report Reviewed by me
Lab Data: Labs Reviewed by me
Old Records: Reviewed
Impression/Plan
-
IMPRESSION:
79 y.o with mild dementia, diabetes, ambulatory dysfunction, recent humerus fracture s/p ORIF who presents to ED with acute R femoral neck fracture following a mechanical fall. No LOC and fall appears to be from standing or sitting height. Labs
notable for hyperglycemia but otherwise unremarkable.
PLAN:
Right Hip Fracture - Femoral neck fracture, no thinners
- admit to med/surg
- no weight bearing for now
- pain control
- no anticoagulants for now
- ortho notified and patient for OR in am
- npo except meds
Uncontrolled DM II - A1c 11, was on insulin lantus and aspart but now only on metformin and compliance unclear
- npo for now
- sliding scale insulin while npo
- restart insulin lantus with sliding scale therapy which can be continued at rehab but management at home challenging due to dementia and dexterity.
DVT PPX - SCD pending surgery
Code Status - DNR
[2024-07-03 06:00] LABS: Creatine Phosphokinase 27 U/L (30-135)
[2024-07-03] MEDS: FLUSH (NSS) 1 FLUSH IV (06:02)
[2024-07-03] MEDS: NOVOLOG FLEXPEN-LOW RESISTANCE SC (07:04)
--- NOTE | 2024-07-03 07:31 | CON.ORTHO ---
Consultation
-
Date/Time Consultation Requested: July 02
Date/Time Consultation Performed: July 02
Requesting Provider: Gavin
Performing Provider: Jan andrea Sekou
Reason for Consultation: Right hip fracture
Consultation - Orthopedics
History
History of Present Illness:
This is a 79-year-old female with PMH significant for dementia, CAD, diabetes, recent mildly displaced fracture of the proximal humerus forearm fracture status post ORIF presenting to the Emergency Department after mechanical fall. She denies LOC or
headstrike. She stated that she was laying on the sofa watching TV when she dozed off. When she arose, she thought she was in bed, and rolled off the sofa to the floor. She immediately suffered severe pain as she was laying on the floor. She was
on the floor for about 3 hours. Eventually family members called EMS who brought her to the emergency department. She does not take blood thinners. Xrays reveal a right hip fracture, therefore we have been consulted for the consideration of
surgical correction.
Of note, patient reports that she has been compliant with metformin 1000 mg twice daily although this was not on her last list of medications. She was discharged on insulin Lantus and aspart. Patient did not take the insulin while she was at rehab
but on arrival home she had trouble with checking blood glucose levels and eventually her PMD transition her to metformin 1000 mg twice daily. A1c was 11 in March
Past Medical History:
DM2
Diabetic peripheral neuropathy
Ambulatory dysfunction
Dementia
CKD 3A
Meningioma
CAD
hyperlipidemia
Anxiety
GERD
Insomnia
Past Surgical History:
Tubal ligation
Facial reconstruction
Left forearm ORIF
Social History:
Tobacco: Former Smoker
Alcohol: None
Drug: None
Living: With Family
Employment: Not Employed
Family History:
Family History: Not pertinent
Allergies / Home Medications
Allergy/AdvReac Type Severity Reaction Status Date / Time
egg Allergy Vomiting Verified 04/04/24 12:16
�Medication �Instructions �Recorded
aspirin 81 mg chewable tablet 81 mg PO DAILY Blood clot 02/15/22
prevention/tx
mirabegron 50 mg tablet,extended 50 mg PO DAILY Urinary Issue 11/17/23
release 24 hr (Myrbetriq)
omega 3-umr-jqz-fish oil 1,000 mg 2 cap PO DAILY Supplement 11/17/23
(120 mg-180 mg) capsule (Fish Oil)
simvastatin 20 mg tablet (Zocor) 20 mg PO DAILY High Cholesterol 11/17/23
biotin 10,000 mcg chewable tablet 5,000 mcg PO Q48H Supplement 12/23/23
(Hair, Skin and Nails (biotin))
cholecalciferol (vitamin D3) 25 25 mcg PO DAILY Supplement 12/23/23
mcg (1,000 unit) tablet
cyanocobalamin (vitamin B-12) 500 500 mcg PO DAILY Supplement 12/23/23
mcg tablet
mirtazapine 15 mg tablet 15 mg PO HS insomnia 12/23/23
ondansetron HCl 4 mg tablet 4 mg PO TIDPRN PRN nausea 12/23/23
pantoprazole 20 mg tablet,delayed 20 mg PO DAILY Gastrointestinal 12/23/23
release Issue
sertraline 25 mg tablet 25 mg PO DAILY Depression/anxiety 12/23/23
acetaminophen 500 mg tablet 1,000 mg (2 x 500 mg) PO Q12 3 04/07/24
(Tylenol Extra Strength) days #12 tabs
Vital Signs / Lab Results
Temp Pulse Resp BP Pulse Ox
98.3 F 82 16 151/61 95
07/03/24 02:07 07/03/24 07:15 07/03/24 07:15 07/03/24 07:00 07/03/24 07:15
07/03/24 02:29
07/03/24 02:29
Assessment / Plan
PE: ED2. Right hip skin intact. RLE short and ER. Generalized pain to palpation right hip. Deferred ROM due to know fracture. + logroll RLE. Knee nontender. Calf soft, nontender. DNVI RLE
Xrays: RIGHT hip fracture
Impression: PORTER
Plan: Discussed with the patient bedside, as well as her daughter, Hanny via phone. Although history of dementia, patient showed no signs of it this AM on exam. Patient aware that she broke her right hip. We discussed all nonoperative and
operative management, including all the RBAs of each. After accepting all the proposed risks of surgery, she has elected to proceed. We discussed the semi-urgent nature of fixing her hip, but also the fact she is at increased risk overall with her
current diabetic control. Accucheck in ED 310. A1C in March was 11. She understands there is an increased risk of infection, wound healing complications, etc. We will cover her with extra ABX post-op, and possibly po upon D/c. Tentative plan for
surgery will be this AM under the direction of Dr. Sapp for RIGHT hip hemiarthroplasty. Surgical and blood consents have been signed and placed to the patient's chart. Operative site has been marked as the RIGHT hip. Patient is NPO. T&S requested.
ABX and irrigation products are conveyancer. Discussed the post-op course and will appreciate CM assistance with disposition. Again, we will be proceeding shortly to the OR. Will follow.
[2024-07-03] MEDS: TYLENOL PO ×3 (08:00→15:44)
[2024-07-03] MEDS: MYRBETRIQ EXTENDED RELEASE PO (08:00)
[2024-07-03 10:05] LABS: Glucose - Point of Care 414 mg/dl (70-99)
[2024-07-03 10:38] LABS: Glucose 411 mg/dl (70-99)
[2024-07-03] MEDS: NOVOLOG vial 11 UNITS SC (10:44)
[2024-07-03] MEDS: NSS 1000 IV ×2 (11:05→21:38)
--- NOTE | 2024-07-03 11:05 | PTCARENOTE ---
Received patient from PACU, patient s/p R Hip hemiarthroplasty after fall at home. Patient somnolent, arousable to voice. Answers questions briefly before falling back asleep. R Hip dressing with small spot of drainage otherwise CDI. + Pedal Pulse,
Wiggles Toes. Called daughter, Hanny, for assistance in completing admission questions.
[2024-07-03 11:59] LABS: Glucose - Point of Care 446 mg/dl (70-99)
[2024-07-03 12:51] LABS: Blood Urea Nitrogen 27 mg/dl (7-17); Calcium 8.5 mg/dl (8.4-10.2); Carbon Dioxide 21 mmol/L (22-30); Chloride 102 mmol/L (98-107); Estimated Creatinine Clearance 37 ml/min; Glucose 435 mg/dl (70-99); Potassium 5.8 mmol/L (3.5-5.1); Sodium 133 mmol/L (135-145); eGFR 51.11
[2024-07-03] MEDS: NOVOLOG FLEXPEN-LOW RESISTANCE 6 UNITS SC (13:43)
--- NOTE | 2024-07-03 13:45 | PTCARENOTE ---
Patient's fingerstick glucose ran HI (AG&P reads 446). STAT Glucose/BMP drawn. K 5.8, Glucose 435. Dr. Plaza made aware. Okay to continue with low-dose sliding scale at this time, patient will receive 6 Units Aspart. to consider
lantus/recheck of BMP.
--- NOTE | 2024-07-03 14:00 | PTCARENOTE ---
Patient was initially too drowsy to complete swallowing screen. More alert at this time. Passed swallow screen.
--- NOTE | 2024-07-03 15:11 | W.PN.HOSP.TC ---
Today's Communication/Plan
-
recheck labs
start low dose Lantus
Assessment / Plan
Assessment / Plan
79 y.o with mild dementia, diabetes, ambulatory dysfunction, recent humerus fracture s/p ORIF who presents to ED with acute R femoral neck fracture following a mechanical fall. No LOC and fall appears to be from standing or sitting height. Labs
notable for hyperglycemia but otherwise unremarkable.
PLAN:
Right Hip Fracture - Femoral neck fracture, no thinners
- admit to med/surg
- no weight bearing for now
- pain control
- no anticoagulants for now
- patient now post op
- npo until awake
Uncontrolled DM II - A1c 11, was on insulin lantus and aspart but now only on metformin and compliance unclear
- npo for now
- sliding scale insulin while npo
- restart low dose lantus with sliding scale therapy which can be continued at rehab but management at home challenging due to dementia and dexterity.
Hyperkalemia
K went from 4.6 to 5.8 since this morning with no rise in Creat. IVF to be continued, will recheck level. ?hemolysis
consider Kayexelate enema if repeat confirms
DVT PPX - SCD pending surgery
Code Status - DNR
Anticipated Discharge: > 48 hours
Subjective/Interval History
-
Date of Service: July 03, 2024
Patient seen post operative, very lethargic
Objective Data
-
Labs:
Laboratory Results
07/03/24 07/03/24 07/03/24
02:29 10:10 12:16
Sodium 136 133 L
Potassium 4.6 5.8 H D
Chloride 105 102
Carbon Dioxide 20 L 21 L
BUN 29 H 27 H
Creatinine 1.1 H 1.1 H
Glucose 310 H 411 H 435 H
Calcium 9.3 8.5
Total Bilirubin 0.6
AST 31
ALT 23
Alkaline Phosphatase 155 H
Vital Signs:
Vital Signs
Temp Pulse Resp BP Pulse Ox
98.5 F 83 18 145/75 97
07/03/24 13:55 07/03/24 13:55 07/03/24 13:55 07/03/24 13:55 07/03/24 13:55
I&O
07/02/24 07/03/24 07/04/24
06:59 06:59 06:59
Intake Total 100 / 100
Balance 100 / 100
Review of Systems
-
History Source: Coordinated Provider
Constitutional: Denies Fever
EENT: Reports No Symptoms Reported
Respiratory: Reports No Symptoms
Abdomen/GI: Reports No Symptoms
Physical Exam
-
General: Well Developed, Well Nourished, No Apparent Distress, Comfortable and Other (lethargic)
HEENT: Normocephalic, Atraumatic and Moist Mucous Membranes
Respiratory: Clear to Auscultation; Negative Wheezes, Rales or Rhonchi
Cardiac: Regular Rhythm and S1/S2
GI: Soft, Nontender and Nondistended
Musculoskeletal: No Clubbing, No Cyanosis and No Edema
Skin: Warm, Dry and Rash
Neuro: Negative Alert (lethargic)
[2024-07-03] MEDS: ANCEF 5 IV ×2 (15:26→23:23)
[2024-07-03 17:12] LABS: Glucose - Point of Care 306 mg/dl (70-99)
[2024-07-03] MEDS: ASPIRIN 325 MG PO (17:22)
[2024-07-03] MEDS: LIPITOR 10 MG PO (17:22)
[2024-07-03] MEDS: NOVOLOG FLEXPEN-LOW RESISTANCE 4 UNITS SC (17:22)
[2024-07-03 17:57] LABS: Blood Urea Nitrogen 23 mg/dl (7-17); Calcium 6.4 mg/dl (8.4-10.2); Carbon Dioxide 19 mmol/L (22-30); Chloride 114 mmol/L (98-107); Estimated Creatinine Clearance 46 ml/min; Glucose 227 mg/dl (70-99); Potassium 4.1 mmol/L (3.5-5.1); Sodium 140 mmol/L (135-145); eGFR > 60.00
--- NOTE | 2024-07-03 18:20 | PTCARENOTE ---
Repeat BMP with Critical Calcium 6.4. Notified Dr. Plaza via TT. Dr. Plaza called RN and had conversation over phone and relayed verbal order for 4mg IV Clacium Gluconate x 1 over one hour now.
[2024-07-03] MEDS: CALCIUM GLUCONATE 10% INJECTION 290 MG IV (18:46)
[2024-07-03] MEDS: TYLENOL 650 MG PO ×2 (19:39→23:23)
[2024-07-03] MEDS: SENOKOT 17.2 MG PO (19:39)
[2024-07-03] MEDS: COLACE 100 MG PO (19:39)
[2024-07-03 20:10] LABS: Glucose - Point of Care 222 mg/dl (70-99)
[2024-07-03] MEDS: REMERON 15 MG PO (21:37)
[2024-07-03] MEDS: LANTUS 0.1 UNITS SC (21:38)
[2024-07-03 23:27] LABS: Glucose - Point of Care 239 mg/dl (70-99)
[2024-07-03] MEDS: NOVOLOG FLEXPEN-LOW RESISTANCE 2 UNITS SC (23:27)
[2024-07-04 03:05] VITALS: BP 126/52
[2024-07-04] MEDS: MORPHINE SULFATE 2 MG IV ×2 (03:13→08:49)
[2024-07-04] MEDS: TYLENOL 650 MG PO ×6 (04:10→23:14)
[2024-07-04 06:20] LABS: Glucose - Point of Care 201 mg/dl (70-99)
[2024-07-04] MEDS: NOVOLOG FLEXPEN-LOW RESISTANCE 2 UNITS SC (06:22)
[2024-07-04] MEDS: ZOFRAN 4 MG IV ×2 (06:36→21:47)
--- NOTE | 2024-07-04 06:52 | W.PN.ORTHO ---
Today's Communication / Plan
-
PT/OT
Weightbearing as tolerated with walker
Aspirin for DVT prophylaxis
Posterior hip precautions
Cefadroxil 500 mg twice daily for 7 days
Skin clip removal 2 weeks postop
Follow-up orthopedics 4 weeks postop
[facility] facility once medically stable
Assessment
.
Distal Motor Intact: Yes
Dressing:
Clean, dry and intact.
Plan
.
Surgery / Date: R hip hemiarthroplasty 07/03 [facility]
DVT Prophylaxis: Aspirin
Activity:
Out of bed.
PT/OT
Discharge Plan: SNF
Subjective
.
.:
Patient resting comfortably.
Vital Signs and Labs
.
Vital Signs and Labs:
Lab Results
07/03/24 02:29
Temp Pulse Resp BP Pulse Ox
98.2 F 94 17 126/52 98
07/04/24 03:05 07/04/24 03:05 07/04/24 03:05 07/04/24 03:05 07/04/24 03:05
Non-invasive Hgb result: 11.6
[2024-07-04 07:35] VITALS: BP 110/44
[2024-07-04 08:17] LABS: Blood Urea Nitrogen 28 mg/dl (7-17); Carbon Dioxide 21 mmol/L (22-30); Chloride 108 mmol/L (98-107); Estimated Creatinine Clearance 32 ml/min; Glucose 191 mg/dl (70-99); Potassium 4.3 mmol/L (3.5-5.1); Sodium 137 mmol/L (135-145); eGFR 41.83
[2024-07-04] MEDS: COLACE 100 MG PO ×2 (08:20→20:02)
[2024-07-04] MEDS: ASPIRIN 325 MG PO (08:20)
[2024-07-04] MEDS: ZOLOFT 25 MG PO (08:20)
[2024-07-04] MEDS: ANCEF 5 IV ×3 (08:20→23:14)
[2024-07-04] MEDS: SENOKOT 17.2 MG PO ×2 (08:20→20:02)
[2024-07-04] MEDS: MYRBETRIQ EXTENDED RELEASE 50 MG PO (08:21)
[2024-07-04 08:39] LABS: Hepatitis C Antibody Negative (Negative)
[2024-07-04 09:25] VITALS: BP 114/62; BP 133/60; PULSE 96; O2SAT 92
--- NOTE | 2024-07-04 09:26 | CM ---
Addendum entered by Sravani Luis RN 07/05/24 16:35:
CM is still awaiting authorization.
[facility]
Report
[phone]

Addendum entered by Sravani Luis RN 07/05/24 13:17:
CM received call from Laisha at [facility]. She is unable to reach daughter. CM left message for patient's daughter to encourage her to call Laisha back.
Addendum entered by Sravani Luis RN 07/05/24 13:08:
CM sent SNF authorization request to [facility]. Reference number [id number].
Addendum entered by Sravani Luis RN 07/05/24 10:39:
CM spoke with daughter to update on discharge plan.
Addendum entered by Sravani Luis RN 07/05/24 08:46:
CM spoke with [facility] admission coordinator and she is able to accept patient 07/06. CM will medically clearance for authorization.
Original Note:
Eliu reviewed medical records. CM was updated by PT/OT. Patient has been recommended for SNF. CM spoke with patient's daughter who stated that patient has been to [facility] and [facility]. Patient's daughter is agreeable to referrals. Patient's
first choice would be [facility]. CM confirmed that patient does lives with her daughter. Patient is active with her PCP.
CM sent referral.
PLAN: SNF to [facility] vs. [facility].
[2024-07-04 10:03] VITALS: BP 114/62; BP 133/60; PULSE 100; O2SAT 92
--- NOTE | 2024-07-04 10:39 | W.PN.HOSP.TC ---
Today's Communication/Plan
-
recheck labs
continue IVF
continue current Morphine dose
will need clarification as to whether pt taking Metformin, though will probably be dc to SNF on insulin
Assessment / Plan
Assessment / Plan
79 y.o with mild dementia, diabetes, ambulatory dysfunction, recent humerus fracture s/p ORIF who presents to ED with acute R femoral neck fracture following a mechanical fall. No LOC and fall appears to be from standing or sitting height. Labs
notable for hyperglycemia but otherwise unremarkable. Much more alert and conversant. Still with significant post op pain. Discussed with CHAN Gamino dgt, and lives with other dgt July, as per dgt was Metformin bid (needs to check dose) and
whether pt was really taking.
Right Hip Fracture - Femoral neck fracture, no thinners
- admit to med/surg
- PT as per ortho
- pain control, still with pain, but need to avoid excess lethargy from narcotics
- no anticoagulants for now
- patient now post op
Uncontrolled DM II - A1c 11, was on insulin lantus and aspart but now only on metformin and compliance unclear
as per dgt, has been a diabetic for years. Pt has been eating, but with vomiting , will be very cautious on increasing insulin for now.
due to vomiting, will continue IVF for now
Will use Zofran for nausea control, would avoid phenothiazine antiemetics due to concern for tardive dyskinesia, especially in pt with mild Parkinsonism
- sliding scale insulin
- restart low dose lantus with sliding scale therapy which can be continued at rehab but management at home challenging due to dementia and dexterity.
Parkinsonism
mild. consider addition of Parkinson medications as outpt
Hyperkalemia
K went from 4.6 to 5.8, repeated and was 4.1 later that afternoon, today 4.3, thus not an issue and was probably elevated due to hemolysis
Calcium was 6.4 yesterday on later lab draw, given IV Calcium, today 9.0
will hold off on further supplements, and repeat tomorrow
DVT PPX - SCD pending surgery
reviewed multiple aspects with Hanny julio on phone 07/04, >15 minutes
Pt was apparently living in apartment
Code Status - DNR
Anticipated Discharge: > 48 hours
Subjective/Interval History
-
Date of Service: July 04, 2024
Still with pain, episode of vomiting today
Objective Data
-
Labs:
Laboratory Results
07/04/24
06:49
Sodium 137
Potassium 4.3
Chloride 108 H
Carbon Dioxide 21 L
BUN 28 H
Creatinine 1.3 H
Glucose 191 H
Calcium 9.0 D
Vital Signs:
Vital Signs
Temp Pulse Resp BP Pulse Ox
98.9 F 93 18 110/44 92
07/04/24 07:35 07/04/24 07:35 07/04/24 07:35 07/04/24 07:35 07/04/24 07:35
I&O
07/03/24 07/04/24 07/05/24
06:59 06:59 06:59
Intake Total 1120 / 1120
Balance 1120 / 1120
Review of Systems
-
History Source: Patient and Coordinated Provider (BOB Muhammad)
Constitutional: Denies Fever
EENT: Reports No Symptoms Reported
Respiratory: Reports No Symptoms
Abdomen/GI: Reports No Symptoms
Physical Exam
-
General: Well Developed, Well Nourished, No Apparent Distress, Comfortable and Other (lethargy resolved, much more interactive today)
HEENT: Normocephalic, Atraumatic and Moist Mucous Membranes
Respiratory: Clear to Auscultation; Negative Wheezes, Rales or Rhonchi
Cardiac: Regular Rhythm and S1/S2
GI: Soft, Nontender and Nondistended
Musculoskeletal: No Clubbing, No Cyanosis and No Edema
Skin: Warm, Dry and Rash
Neuro: Awake, Alert (much more awake, alert today), Oriented (mild cognitive impairment) and Tremors (mild cogwheel changes)
[2024-07-04 11:54] LABS: Glucose - Point of Care 289 mg/dl (70-99)
[2024-07-04] MEDS: NOVOLOG FLEXPEN-LOW RESISTANCE 3 UNITS SC ×2 (12:03→17:13)
[2024-07-04] MEDS: NSS 1000 IV (15:05)
[2024-07-04 15:15] VITALS: BP 115/74
[2024-07-04] MEDS: LIPITOR 10 MG PO (17:09)
[2024-07-04 17:11] LABS: Glucose - Point of Care 269 mg/dl (70-99)
[2024-07-04 21:25] LABS: Glucose - Point of Care 211 mg/dl (70-99)
[2024-07-04] MEDS: REMERON 15 MG PO (21:31)
[2024-07-04] MEDS: LANTUS 0.1 UNITS SC (21:31)
[2024-07-04] MEDS: ROXICODONE 5 MG PO (21:45)
[2024-07-04 23:00] VITALS: BP 139/53
[2024-07-05] MEDS: TYLENOL PO ×3 (03:50→16:06)
[2024-07-05] MEDS: NSS 1000 IV ×2 (03:51→18:03)
[2024-07-05 07:13] VITALS: BP 140/70
--- NOTE | 2024-07-05 07:35 | W.PN.UPDATE ---
Update Note
Progress Note Update
Ms. Marie is POD2 following her right hip hemiarthroplasty performed by Dr. Sapp. She is resting comfortably in bed this morning, but does endorse aching pain about the hip. She reports her pain is controlled with her current medication regimen.
Directed exam of the right hip reveals slight strikethrough of dried blood on dressing, otherwise CDI. Thigh soft and compressible. Calf soft and nontender. Neurovascularly intact distally.
Hgb pending this AM.
79 yo F POD2 right hip hemiarthroplasty under the direction of Dr. Sapp.
--WBAT with walker. Posterior THPs x6-8 weeks. We appreciate the assistance of PT/OT.
--Recommend Aspirin for DVT prophylaxis.
--Cefadroxil 500 mg twice daily for 7 days.
--Maintain surgical dressing until7-10 days post-op. May reinforce of change as needed. Skin clip removal 2 weeks postop.
--[facility] once medically [facility].
--Patient is stable post-operatively from an orthopedic standpoint. Orthopedics will sign off for now. Follow-up orthopedics 4 weeks postop.
[2024-07-05] MEDS: ANCEF 5 IV ×2 (08:13→23:11)
[2024-07-05] MEDS: MYRBETRIQ EXTENDED RELEASE 50 MG PO (08:18)
[2024-07-05] MEDS: ZOLOFT 25 MG PO (08:18)
[2024-07-05] MEDS: SENOKOT 17.2 MG PO ×2 (08:18→21:08)
[2024-07-05] MEDS: TYLENOL 650 MG PO ×2 (08:18→21:08)
[2024-07-05] MEDS: COLACE 100 MG PO ×2 (08:18→21:08)
[2024-07-05] MEDS: ASPIRIN 325 MG PO (08:18)
[2024-07-05 08:23] LABS: Blood Urea Nitrogen 25 mg/dl (7-17); Calcium 8.6 mg/dl (8.4-10.2); Carbon Dioxide 20 mmol/L (22-30); Chloride 110 mmol/L (98-107); Estimated Creatinine Clearance 37 ml/min; Glucose 200 mg/dl (70-99); Potassium 3.9 mmol/L (3.5-5.1); Sodium 138 mmol/L (135-145); eGFR 51.11
[2024-07-05 08:37] LABS: % Basophils 0.6 % (0-2); % Eosinophils 3.4 % (0-6); % Immature Granulocytes 0.4 % (0-0.5); % Lymphocytes 21.3 % (20.5-51.1); % Monocytes 11.6 % (1.7-9.3); % Neutrophils 62.7 % (42.2-75.2); Absolute Basophils 0.1 10^3/uL (0-0.2); Absolute Eosinophils 0.4 10^3/uL (0-0.7); Absolute Immature Granulocytes 0.1 10^3/uL (0-0.05); Absolute Lymphocytes 2.7 10^3/uL (1.2-3.4); Absolute Monocytes 1.4 10^3/uL (0.1-0.6); Absolute Neutrophils 7.8 10^3/uL (1.4-6.5); Hematocrit 24.1 % (37.0-47.0); Mean Corp Hgb Conc. 33.2 g/dL (33.0-37.0); Mean Corpuscular Hgb 28.4 pg (27.0-31.0); Mean Corpuscular Volume 85.5 fL (81.0-99.0); Mean Platelet Volume 10.5 fL (7.4-10.4); Nucleated Red Blood Cells % 0 %; Platelet Count 210 10^3/uL (130-400); Red Blood Cell Count 2.82 10^6/uL (4.20-5.40); White Blood Cell Count 12.5 10^3/uL (4.8-10.8)
[2024-07-05 08:50] LABS: Glucose - Point of Care 238 mg/dl (70-99)
[2024-07-05] MEDS: NOVOLOG FLEXPEN-LOW RESISTANCE 2 UNITS SC ×2 (08:50→17:39)
--- NOTE | 2024-07-05 10:37 | W.PN.HOSP.TC ---
Addendum entered and electronically signed by Micheal Plaza MD 07/05/24 10:54:
perioperative blood loss 11.8-->8.0, will recheck in AM
Original Note:
Today's Communication/Plan
-
continue IVF
dgt states she likes vanilla boost as a supplement
Will plan on dc to SNF once off IVF
Assessment / Plan
Assessment / Plan
79 y.o with mild dementia, diabetes, ambulatory dysfunction, recent humerus fracture s/p ORIF who presents to ED with acute R femoral neck fracture following a mechanical fall. No LOC and fall appears to be from standing or sitting height. Labs
notable for hyperglycemia but otherwise unremarkable. Much more alert and conversant. Still with significant post op pain. Discussed with CHAN Gamino dgt, and lives with other dgt July, as per dgt was Metformin bid (needs to check dose) and
whether pt was really taking.
Right Hip Fracture - Femoral neck fracture, no thinners
- admit to med/surg
- PT as per ortho
- pain control, still with pain, but need to avoid excess lethargy from narcotics
- no anticoagulants for now
- patient now post op
Uncontrolled DM II - A1c 11, was suppose to be on insulin lantus and aspart, not taking, but was suppose to be only on metformin 1000 mg bid and was not taking
as per dgt, has been a diabetic for years. Pt has been not eating well, but vomiting has stopped, will be very cautious on increasing insulin for now.
due to vomiting, will continue IVF for now. With marginal oral intake, will continue Lantus at low dose of 10 units daily with sliding scale
Will use Zofran for nausea control, would avoid phenothiazine antiemetics due to concern for tardive dyskinesia, especially in pt with mild Parkinsonism
- sliding scale insulin
- restart low dose lantus with sliding scale therapy which can be continued at rehab but management at home challenging due to dementia and dexterity.
Parkinsonism
mild. consider addition of Parkinson medications as outpt
Hyperkalemia
K went from 4.6 to 5.8, repeated and was 4.1 later that afternoon, today 3.9, thus not an issue and was probably elevated due to hemolysis
Calcium was 6.4 on 07/03 on later lab draw, given IV Calcium, today 9.0, 07/05 8.6
will hold off on further supplements, and repeat tomorrow
DVT PPX - SCD pending surgery
reviewed multiple aspects with Hanny julio) on phone 07/05, >15 minutes. As per , he passed 2 years ago
Pt was apparently living in apartment with [facility], July. Plan is to dc to [facility] for rehab.
Reviewed with BOB Belle and CM
time50 minutes
Code Status - DNR
Anticipated Discharge: 24 - 48 hours
Subjective/Interval History
-
Date of Service: July 05, 2024
Much more alert, answering basic questions
Objective Data
-
Labs:
Laboratory Results
07/05/24
06:27
WBC 12.5 H
Hgb 8.0 L D
Hct 24.1 L
Plt Count 210 D
Sodium 138
Potassium 3.9
Chloride 110 H
Carbon Dioxide 20 L
BUN 25 H
Creatinine 1.1 H
Glucose 200 H
Calcium 8.6
Vital Signs:
Vital Signs
Temp Pulse Resp BP Pulse Ox
98.5 F 88 18 140/70 95
07/05/24 07:13 07/05/24 07:13 07/05/24 07:13 07/05/24 07:13 07/05/24 07:13
I&O
07/04/24 07/05/24 07/06/24
06:59 06:59 06:59
Intake Total 1120 / 1120 2160 / 2160
Balance 1120 1119
Review of Systems
-
History Source: Patient and Coordinated Provider (BOB Belle)
Constitutional: Denies Fever
EENT: Reports No Symptoms Reported
Respiratory: Reports No Symptoms
Abdomen/GI: Reports No Symptoms and Anorexia (poor oral intake); Denies Nausea (resolved)
Physical Exam
-
General: Well Developed, Well Nourished, No Apparent Distress, Comfortable and Other (lethargy resolved, much more interactive today)
HEENT: Normocephalic, Atraumatic and Moist Mucous Membranes
Respiratory: Clear to Auscultation; Negative Wheezes, Rales or Rhonchi
Cardiac: Regular Rhythm and S1/S2
GI: Soft, Nontender and Nondistended
Musculoskeletal: No Clubbing, No Cyanosis and No Edema
Skin: Warm, Dry and Rash
Neuro: Awake, Alert (much more awake, alert today), Oriented (mild cognitive impairment) and Tremors (mild cogwheel changes)
[2024-07-05 11:21] VITALS: BP 103/68; BP 136/65; PULSE 96; O2SAT 91
[2024-07-05 11:26] VITALS: BP 136/65; BP 153/63; PULSE 96; O2SAT 91
[2024-07-05 12:58] LABS: Glucose - Point of Care 236 mg/dl (70-99)
[2024-07-05 15:00] VITALS: BP 113/66
[2024-07-05] MEDS: NSS IV (15:54)
[2024-07-05] MEDS: NOVOLOG FLEXPEN-LOW RESISTANCE SC (15:54)
[2024-07-05] MEDS: ANCEF IV (16:06)
[2024-07-05] MEDS: LIPITOR 10 MG PO (17:03)
[2024-07-05] MEDS: ROXICODONE 5 MG PO (17:09)
[2024-07-05 17:38] LABS: Glucose - Point of Care 240 mg/dl (70-99)
--- NOTE | 2024-07-05 17:43 | DOWNTIME ---
There was a [employer] Client [employer] Downtime on 07/05/2024 from 1230 to 07/05/2024 at 1550. Downtime documentation of patient's care, including medication administrations, has been reconciled in the electronic record per guidelines. Refer to the
patient's paper chart under the miscellaneous tab to see printed paper medication records and downtime forms.
[2024-07-05] MEDS: REMERON 15 MG PO (21:08)
[2024-07-05 21:27] LABS: Glucose - Point of Care 259 mg/dl (70-99)
[2024-07-05] MEDS: LANTUS 0.1 UNITS SC (22:22)
[2024-07-05 23:24] VITALS: BP 142/60
[2024-07-06] MEDS: TYLENOL 650 MG PO ×5 (00:04→23:42)
[2024-07-06] MEDS: TYLENOL PO ×2 (05:10→12:43)
[2024-07-06] MEDS: NSS 1000 IV ×2 (06:01→15:27)
[2024-07-06 07:05] VITALS: BP 139/67
--- NOTE | 2024-07-06 07:53 | PN.CDI ---
CDI
- -
CDI:
Physician Documentation Request
Admit Date: 07/03/24 05:23
Dear Doctor Mela,
Please review the following and provide your response in the progress notes.
Clinical Indicators:
Pt admitted with right femoral enck fracture s/p Hemiarthroplasty
Progress note 07/05,' perioperative blood loss 11.8-->8.0, will recheck in AM.
Trended HGB/ Hematocrits below/ESBL surgery 100 ml
07/03/24
02:29
Hgb 11.8 L
Hct 35.0 L
07/05/24
06:27
Hgb 8.0 L D
Hct 24.1 L
Please provide a diagnosis for the above labs/findings:
Acute blood loss anemia
perioperative blood loss- only
Other ( please specify)
Use of terms such as suspected, likely, concern for, or probable (associated with a specific diagnosis that is being evaluated, monitored, or treated as if it exists) are acceptable and can be coded in the inpatient setting, when documented at the
time of discharge.
Thank you,
Elicia Carrera RN
CDI Specialist
[place] [employer]
Please use your independent medical judgment in providing your response.
--- NOTE | 2024-07-06 08:34 | W.PN.HOSP.TC ---
Today's Communication/Plan
-
redraw labs
Assessment / Plan
Assessment / Plan
79 y.o with mild dementia, diabetes, ambulatory dysfunction, recent humerus fracture s/p ORIF who presents to ED with acute R femoral neck fracture following a mechanical fall. No LOC and fall appears to be from standing or sitting height. Labs
notable for hyperglycemia but otherwise unremarkable. Much more alert and conversant. Still with significant post op pain. Discussed with CHAN Gamino dgt, and lives with other dgt July, as per dgt was Metformin bid (needs to check dose) and
whether pt was really taking.
Right Hip Fracture - Femoral neck fracture, no thinners
- admit to med/surg
- PT as per ortho
- pain control, still with pain, but need to avoid excess lethargy from narcotics
- no anticoagulants for now
- patient post op, starting to eat more and reasonably alert and conversant
Uncontrolled DM II - A1c 11, was suppose to be on insulin lantus and aspart, not taking, and was suppose to be only on metformin 1000 mg bid and was not taking
as per dgt, has been a diabetic for years. Will be very cautious on increasing insulin for now, due to marginal appetite
no further vomiting, will stop IVF. With marginal oral intake, will cautiously raise Lantus at low dose to 20 units daily with sliding scale
Will use Zofran for nausea control, would avoid phenothiazine antiemetics due to concern for tardive dyskinesia, especially in pt with mild Parkinsonism
- sliding scale insulin
- restart low dose lantus with sliding scale therapy which can be continued at rehab but management at home challenging due to dementia and dexterity.
glu [phone]
Parkinsonism
mild. consider addition of Parkinson medications as outpt
Hyperkalemia
K went from 4.6 to 5.8, repeated and was 4.1 later that afternoon, 07/05 3.9, thus not an issue and was probably elevated due to hemolysis. Lab draw 07/06 clotted, will be redrawn
Calcium was 6.4 on 07/03 on later lab draw, given IV Calcium, today 9.0, 07/05 8.6
will hold off on further supplements, and await repeat labs
DVT PPX - SCD pending surgery
reviewed multiple aspects with Hanny julio) on phone 07/05, >15 minutes. As per Hanny, pt's passed 2 years ago
Pt was apparently living in apartment with t, July. Plan is to dc to [facility] for rehab, as per nursing, potential tomorrow
Reviewed with BOB Maldonado
Code Status - DNR
Anticipated Discharge: 24 - 48 hours
Subjective/Interval History
-
Date of Service: July 06, 2024
Awake, alert
Objective Data
-
Labs:
Laboratory Results
07/06/24
07:36
WBC Pending
Hgb Pending
Hct Pending
Plt Count Pending
Sodium Pending
Potassium Pending
Chloride Pending
Carbon Dioxide Pending
BUN Pending
Creatinine Pending
Glucose Pending
Calcium Pending
Vital Signs:
Vital Signs
Temp Pulse Resp BP Pulse Ox
98.5 F 88 16 139/67 95
07/06/24 07:05 07/06/24 07:05 07/06/24 07:05 07/06/24 07:05 07/06/24 07:05
I&O
07/05/24 07/06/24 07/07/24
06:59 06:59 06:59
Intake Total 2159 1500 / 1500
Balance 2159 1500 / 1500
Review of Systems
-
History Source: Patient and Coordinated Provider (BOB Maldonado)
Constitutional: Denies Fever
EENT: Reports No Symptoms Reported
Respiratory: Reports No Symptoms
Abdomen/GI: Reports No Symptoms and Anorexia (poor oral intake); Denies Nausea (resolved)
Physical Exam
-
General: Well Developed, Well Nourished, No Apparent Distress, Comfortable and Other (lethargy resolved, much more interactive today)
HEENT: Normocephalic, Atraumatic and Moist Mucous Membranes
Respiratory: Clear to Auscultation; Negative Wheezes, Rales or Rhonchi
Cardiac: Regular Rhythm and S1/S2
GI: Soft, Nontender and Nondistended
Musculoskeletal: No Clubbing, No Cyanosis and No Edema
Skin: Warm, Dry and Rash
Neuro: Awake, Alert (remains much more awake, alert today than when seen by be initially), Oriented (mild cognitive impairment) and Tremors (mild cogwheel changes, mild resting tremor)
[2024-07-06 09:05] LABS: Glucose - Point of Care 173 mg/dl (70-99)
[2024-07-06] MEDS: MYRBETRIQ EXTENDED RELEASE 50 MG PO (09:06)
[2024-07-06] MEDS: ZOLOFT 25 MG PO (09:06)
[2024-07-06] MEDS: SENOKOT 17.2 MG PO (09:06)
[2024-07-06] MEDS: ASPIRIN 325 MG PO (09:06)
[2024-07-06] MEDS: COLACE 100 MG PO (09:06)
[2024-07-06] MEDS: ANCEF 5 IV ×3 (09:08→23:42)
[2024-07-06] MEDS: NOVOLOG FLEXPEN-LOW RESISTANCE 1 UNITS SC ×2 (09:09→17:46)
[2024-07-06 09:30] LABS: % Basophils 0.6 % (0-2); % Immature Granulocytes 0.3 % (0-0.5); % Lymphocytes 25.6 % (20.5-51.1); % Monocytes 9.6 % (1.7-9.3); % Neutrophils 56.9 % (42.2-75.2); Absolute Basophils 0.1 10^3/uL (0-0.2); Absolute Eosinophils 0.7 10^3/uL (0-0.7); Absolute Lymphocytes 2.7 10^3/uL (1.2-3.4); Hematocrit 23.8 % (37.0-47.0); Mean Corp Hgb Conc. 33.6 g/dL (33.0-37.0); Mean Corpuscular Volume 86.2 fL (81.0-99.0); Mean Platelet Volume 9.9 fL (7.4-10.4); Nucleated Red Blood Cells % 0 %; Platelet Count 241 10^3/uL (130-400); Red Blood Cell Count 2.76 10^6/uL (4.20-5.40); Red Cell Dist. Width 13.2 % (11.5-14.5); White Blood Cell Count 10.6 10^3/uL (4.8-10.8)
[2024-07-06 09:41] LABS: Blood Urea Nitrogen 19 mg/dl (7-17); Calcium 8.2 mg/dl (8.4-10.2); Carbon Dioxide 22 mmol/L (22-30); Chloride 114 mmol/L (98-107); Estimated Creatinine Clearance 41 ml/min; Glucose 150 mg/dl (70-99); Potassium 3.8 mmol/L (3.5-5.1); Sodium 140 mmol/L (135-145); eGFR 57.31
[2024-07-06 12:00] LABS: Glucose - Point of Care 273 mg/dl (70-99)
--- NOTE | 2024-07-06 12:40 | CM ---
Received insurance auth for [facility] SN[facility]: Approved for SNF from 07/06/24 through to and including 07/08/24. LCD is 07/08/24. NRD is 07/08/24. Reference# [id number], Auth # [id number]. Nurse reviewer is Tejal Dye RN. No phone reviews. Fax
updates to Tejal at [phone].
Message with above details left for Julia CALABRESE @ [facility]. Dr. Plaza aware and patient will not be discharged today, most likely tomorrow.
Report # to [facility]: [phone]
Fax # at [facility]: [phone]
[2024-07-06] MEDS: NOVOLOG FLEXPEN-LOW RESISTANCE 3 UNITS SC (12:42)
--- NOTE | 2024-07-06 12:49 | CM ---
Received insurance auth for [facility] SN[facility]: Approved for SNF from 07/06/24 through to and including 07/08/24. LCD is 07/08/24. NRD is 07/08/24. Reference# [id number], Auth # [id number]. Nurse reviewer is Tejal Dye RN. No phone reviews. Fax
updates to Tejal at [phone].
Message with above details left for Julia CALABRESE @ [facility]. Dr. Plaza aware and patient will not be discharged today, most likely tomorrow.
Report # to [facility]: [phone]
Fax # at [facility]: [phone]
[2024-07-06 14:52] VITALS: BP 124/52; BP 149/63; PULSE 100; O2SAT 95
[2024-07-06] MEDS: MILK OF MAGNESIA 30 ML PO (15:26)
[2024-07-06 15:36] VITALS: BP 149/63; BP 88/53; PULSE 84; O2SAT 94
[2024-07-06 17:26] LABS: Glucose - Point of Care 168 mg/dl (70-99)
[2024-07-06] MEDS: LIPITOR 10 MG PO (17:47)
[2024-07-06] MEDS: SENOKOT PO ×2 (20:05→20:34)
[2024-07-06] MEDS: COLACE PO ×2 (20:05→20:34)
[2024-07-06 20:58] LABS: Glucose - Point of Care 215 mg/dl (70-99)
[2024-07-06] MEDS: REMERON 15 MG PO (21:21)
[2024-07-06] MEDS: LANTUS 0.2 UNITS SC (21:21)
[2024-07-06 23:00] VITALS: BP 122/54
[2024-07-07] VITALS (7 sets, daily range): BP systolic 91–139; BP diastolic 47–60; PULSE 81; O2SAT 96
[2024-07-07] MEDS: TYLENOL PO (05:01)
[2024-07-07 07:31] LABS: % Basophils 0.7 % (0-2); % Eosinophils 8.2 % (0-6); % Immature Granulocytes 0.5 % (0-0.5); % Lymphocytes 25.2 % (20.5-51.1); % Monocytes 10.3 % (1.7-9.3); % Neutrophils 55.1 % (42.2-75.2); Absolute Basophils 0.1 10^3/uL (0-0.2); Absolute Eosinophils 0.8 10^3/uL (0-0.7); Absolute Immature Granulocytes 0.1 10^3/uL (0-0.05); Absolute Lymphocytes 2.6 10^3/uL (1.2-3.4); Absolute Monocytes 1.1 10^3/uL (0.1-0.6); Absolute Neutrophils 5.7 10^3/uL (1.4-6.5); Hematocrit 23.1 % (37.0-47.0); Hemoglobin 7.5 g/dL (12.0-16.0); Mean Corp Hgb Conc. 32.5 g/dL (33.0-37.0); Mean Corpuscular Hgb 28.6 pg (27.0-31.0); Mean Corpuscular Volume 88.2 fL (81.0-99.0); Mean Platelet Volume 10.1 fL (7.4-10.4); Nucleated Red Blood Cells % 0 %; Platelet Count 269 10^3/uL (130-400); Red Blood Cell Count 2.62 10^6/uL (4.20-5.40); Red Cell Dist. Width 13.1 % (11.5-14.5); White Blood Cell Count 10.3 10^3/uL (4.8-10.8)
[2024-07-07 08:02] LABS: Glucose - Point of Care 123 mg/dl (70-99)
[2024-07-07] MEDS: NOVOLOG FLEXPEN-LOW RESISTANCE SC ×3 (08:11→17:55)
[2024-07-07 08:18] LABS: Blood Urea Nitrogen 20 mg/dl (7-17); Calcium 8.3 mg/dl (8.4-10.2); Carbon Dioxide 23 mmol/L (22-30); Chloride 115 mmol/L (98-107); Estimated Creatinine Clearance 41 ml/min; Glucose 107 mg/dl (70-99); Potassium 3.8 mmol/L (3.5-5.1); Sodium 142 mmol/L (135-145); eGFR 57.31
[2024-07-07] MEDS: ASPIRIN 325 MG PO (08:50)
[2024-07-07] MEDS: ZOLOFT 25 MG PO (08:50)
[2024-07-07] MEDS: COLACE PO (08:50)
[2024-07-07] MEDS: MYRBETRIQ EXTENDED RELEASE 50 MG PO (08:50)
[2024-07-07] MEDS: TYLENOL 650 MG PO ×4 (08:50→20:26)
[2024-07-07] MEDS: ANCEF 5 IV (08:50)
[2024-07-07] MEDS: SENOKOT PO (08:50)
--- NOTE | 2024-07-07 09:15 | W.PN.HOSP.TC ---
Today's Communication/Plan
-
transfuse 1 unit today, recheck HGB in AM. As per CM, insurance prior auth would still be good tomorrow if I clear pt for dc
Assessment / Plan
Assessment / Plan
79 y.o with mild dementia, diabetes, ambulatory dysfunction, recent humerus fracture s/p ORIF who presents to ED with acute R femoral neck fracture following a mechanical fall. No LOC and fall appears to be from standing or sitting height. Labs
notable for hyperglycemia but otherwise unremarkable. Much more alert and conversant. Still with significant post op pain. Discussed with CHAN Gamino dgt, and lives with other dgt July, as per dgt was Metformin bid (needs to check dose) and
whether pt was really taking.
Right Hip Fracture - Femoral neck fracture, no thinners
- admit to med/surg
- PT as per ortho
- pain control, still with pain, but need to avoid excess lethargy from narcotics
- no anticoagulants for now
- patient post op, starting to eat more and reasonably alert and conversant
Uncontrolled DM II - A1c 11, was suppose to be on insulin lantus and aspart, not taking, and was suppose to be only on metformin 1000 mg bid and was not taking
as per dgt, has been a diabetic for years. Will be very cautious on increasing insulin for now, due to marginal appetite
no further vomiting, will stop IVF. With marginal oral intake, will cautiously raise Lantus at low dose to 20 units daily with sliding scale. Much improved today
Will use Zofran for nausea control, would avoid phenothiazine antiemetics due to concern for tardive dyskinesia, especially in pt with mild Parkinsonism
- sliding scale insulin
- restart low dose lantus with sliding scale therapy which can be continued at rehab but management at home challenging due to dementia and dexterity.
glu [id number]
Parkinsonism
mild. consider addition of Parkinson medications as outpt
Acute blood loss anemia - probably from a combination of fall with acute fx and perioperative. Hgb was holding steady at 8, today dropped to 7.5. Will transfuse 1 unit and hold on dc. Call placed and updated dgt, then updated case management
Hyperkalemia
K 3.8, elevated K on 07/03 probable lab error/hemolysis
Calcium was 6.4 on 07/03 on later lab draw, given IV Calcium, today 8.3
DVT PPX - SCD pending surgery
reviewed multiple aspects with Hanny julio) on phone 07/07, >15 minutes. As per Hanny, pt's passed 2 years ago
Pt was apparently living in apartment with dgt, July. Plan is to dc to [facility] for rehab, as per nursing, cancel planned dc and transfuse 1 unit today, post T&X
Reviewed with BOB Solis
Code Status - DNR
Anticipated Discharge: 24 - 48 hours
Subjective/Interval History
-
Date of Service: July 07, 2024
Awake, alert, denies sob or cp
Objective Data
-
Labs:
Laboratory Results
07/07/24
07:12
WBC 10.3
Hgb 7.5 L
Hct 23.1 L
Plt Count 269
Sodium 142
Potassium 3.8
Chloride 115 H
Carbon Dioxide 23
BUN 20 H
Creatinine 1.0
Glucose 107 H
Calcium 8.3 L
Vital Signs:
Vital Signs
Temp Pulse Resp BP Pulse Ox
97.9 F 79 17 128/52 95
07/07/24 07:00 07/07/24 07:00 07/07/24 07:00 07/07/24 07:00 07/07/24 07:00
I&O
07/06/24 07/07/24 07/08/24
06:59 06:59 06:59
Intake Total 1500 / 1500 360 / 360
Balance 1500 / 1500 360 / 360
Review of Systems
-
History Source: Patient and Coordinated Provider (BOB Solis)
Constitutional: Denies Fever
EENT: Reports No Symptoms Reported
Respiratory: Reports No Symptoms
Abdomen/GI: Reports No Symptoms and Anorexia (poor oral intake genreally as per dgt, today doing a little better); Denies Nausea (resolved)
Physical Exam
-
General: Well Developed, Well Nourished, No Apparent Distress, Comfortable and Other (lethargy resolved, much more interactive today)
HEENT: Normocephalic, Atraumatic and Moist Mucous Membranes
Respiratory: Clear to Auscultation; Negative Wheezes, Rales or Rhonchi
Cardiac: Regular Rhythm and S1/S2
GI: Soft, Nontender and Nondistended
Musculoskeletal: No Clubbing, No Cyanosis and No Edema
Skin: Warm, Dry and Rash
Neuro: Awake, Alert (remains much more awake, alert today than when seen by be initially), Oriented (mild cognitive impairment) and Tremors (mild cogwheel changes, mild resting tremor)
[2024-07-07 13:13] LABS: Glucose - Point of Care 130 mg/dl (70-99)
--- NOTE | 2024-07-07 14:51 | CM ---
Received insurance auth on 07/06/24..good through and including 07/08/24. See previous note for auth info. Patient has not been medically cleared. Em Mcclendon notified. This CM also left detailed message for daughter, Hanny. Attending also
spoke with daughter. Anticipating discharge on
07/08/24.
[2024-07-07] MEDS: LIPITOR 10 MG PO (17:55)
[2024-07-07 18:02] LABS: Glucose - Point of Care 106 mg/dl (70-99)
[2024-07-07] MEDS: SENOKOT 17.2 MG PO (20:27)
[2024-07-07] MEDS: COLACE 100 MG PO (20:27)
[2024-07-07 21:24] LABS: Glucose - Point of Care 150 mg/dl (70-99)
[2024-07-07] MEDS: REMERON 15 MG PO (21:40)
[2024-07-07] MEDS: LANTUS 0.2 UNITS SC (21:40)
[2024-07-08] MEDS: TYLENOL PO ×2 (01:18→05:15)
[2024-07-08 07:00] VITALS: BP 138/54
[2024-07-08 07:24] LABS: % Basophils 0.6 % (0-2); % Eosinophils 7.9 % (0-6); % Immature Granulocytes 0.5 % (0-0.5); % Lymphocytes 29.1 % (20.5-51.1); % Monocytes 9.9 % (1.7-9.3); Absolute Basophils 0.1 10^3/uL (0-0.2); Absolute Eosinophils 0.9 10^3/uL (0-0.7); Absolute Immature Granulocytes 0.1 10^3/uL (0-0.05); Absolute Lymphocytes 3.2 10^3/uL (1.2-3.4); Absolute Monocytes 1.1 10^3/uL (0.1-0.6); Absolute Neutrophils 5.7 10^3/uL (1.4-6.5); Hematocrit 29.2 % (37.0-47.0); Hemoglobin 9.4 g/dL (12.0-16.0); Mean Corp Hgb Conc. 32.2 g/dL (33.0-37.0); Mean Corpuscular Hgb 28.2 pg (27.0-31.0); Mean Corpuscular Volume 87.7 fL (81.0-99.0); Nucleated Red Blood Cells % 0 %; Platelet Count 324 10^3/uL (130-400); Red Blood Cell Count 3.33 10^6/uL (4.20-5.40); Red Cell Dist. Width 13.2 % (11.5-14.5)
[2024-07-08] MEDS: MYRBETRIQ EXTENDED RELEASE 50 MG PO (07:28)
[2024-07-08] MEDS: TYLENOL 650 MG PO ×2 (07:29→12:24)
[2024-07-08] MEDS: COLACE 100 MG PO (07:29)
[2024-07-08] MEDS: ASPIRIN 325 MG PO (07:29)
[2024-07-08] MEDS: ZOLOFT 25 MG PO (07:29)
[2024-07-08] MEDS: SENOKOT 17.2 MG PO (07:29)
[2024-07-08 08:25] LABS: Glucose - Point of Care 118 mg/dl (70-99)
[2024-07-08] MEDS: NOVOLOG FLEXPEN-LOW RESISTANCE SC (08:28)
--- NOTE | 2024-07-08 10:41 | W.PN.HOSP.TC ---
Today's Communication/Plan
-
dc to SNF
Assessment / Plan
Assessment / Plan
79 y.o with mild dementia, diabetes, ambulatory dysfunction, recent humerus fracture s/p ORIF who presents to ED with acute R femoral neck fracture following a mechanical fall. No LOC and fall appears to be from standing or sitting height. Labs
notable for hyperglycemia but otherwise unremarkable. Much more alert and conversant. Still with significant post op pain. Discussed with CHAN Gamino dgt, and lives with other dgt July, as per dgt was Metformin bid (needs to check dose) and
whether pt was really taking.
Right Hip Fracture - Femoral neck fracture, no thinners
- admit to med/surg
- PT as per ortho
- pain control, still with pain, but need to avoid excess lethargy from narcotics
- no anticoagulants for now
- patient post op, starting to eat more and reasonably alert and conversant
Uncontrolled DM II - A1c 11, was suppose to be on insulin lantus and aspart, not taking, and was suppose to be only on metformin 1000 mg bid and was not taking
as per dgt, has been a diabetic for years. Will be very cautious on increasing insulin for now, due to marginal appetite
no further vomiting, will stop IVF. With marginal oral intake, cautiously raised Lantus at low dose to 20 units daily with sliding scale, at time of dc will lower dose slightly. Much improved today
Will use Zofran for nausea control, would avoid phenothiazine antiemetics due to concern for tardive dyskinesia, especially in pt with mild Parkinsonism
- sliding scale insulin
- restart low dose lantus with sliding scale therapy which can be continued at rehab but management at home challenging due to dementia and dexterity.
glu [id number]
Parkinsonism
mild. consider addition of Parkinson medications as outpt
Acute blood loss anemia - probably from a combination of fall with acute fx and perioperative. Hgb was holding steady at 8, today dropped to 7.5. transfused 1 unit and Hgb .
Hyperkalemia
K 3.8, elevated K on 07/03 probable lab error/hemolysis
Calcium was 6.4 on 07/03 on later lab draw, given IV Calcium, today 8.3
DVT PPX - SCD pending surgery
reviewed multiple aspects with dgt, Hanny CARRANZA) on phone 07/08, >15 minutes, reviewed hospital course. As per Hanny, pt's passed 2 years ago
Pt was apparently living in apartment with dgt, July. Plan is to dc to [facility] for rehab, cancel planned dc, post transfuse 1 unit given, post T&X, hgb better
Code Status - DNR
Anticipated Discharge: Today
Subjective/Interval History
-
Date of Service: July 08, 2024
Looks better today
Objective Data
-
Labs:
Laboratory Results
07/08/24
05:35
WBC 11.0 H
Hgb 9.4 L D
Hct 29.2 L
Plt Count 324 D
Vital Signs:
Vital Signs
Temp Pulse Resp BP Pulse Ox
97.9 F 67 16 138/54 98
07/08/24 07:00 07/08/24 07:00 07/08/24 07:00 07/08/24 07:00 07/08/24 07:00
I&O
07/07/24 07/08/24 07/09/24
06:59 06:59 06:59
Intake Total 360 / 360 250 / 250
Balance 360 / 360 250 / 250
Review of Systems
-
History Source: Patient and Coordinated Provider (BOB Ellis)
Constitutional: Denies Fever
EENT: Reports No Symptoms Reported
Respiratory: Reports No Symptoms
Abdomen/GI: Reports No Symptoms and Anorexia (poor oral intake genreally as per dgt, today doing a little better); Denies Nausea (resolved)
Physical Exam
-
General: Well Developed, Well Nourished, No Apparent Distress, Comfortable and Other (lethargy resolved, much more interactive today)
HEENT: Normocephalic, Atraumatic and Moist Mucous Membranes
Respiratory: Clear to Auscultation; Negative Wheezes, Rales or Rhonchi
Cardiac: Regular Rhythm and S1/S2
GI: Soft, Nontender and Nondistended
Musculoskeletal: No Clubbing, No Cyanosis and No Edema
Skin: Warm, Dry and Rash
Neuro: Awake, Alert (remains much more awake, alert today than when seen by be initially), Oriented (mild cognitive impairment) and Tremors (mild cogwheel changes, mild resting tremor)
--- NOTE | 2024-07-08 11:02 | CM ---
Pt cleared for discharge to [facility] today; insurance authorization approved. Confirmed with Lola, director of teenage activities, that pt will be discharged today. IMM reviewed verbally with pt's daughter; agreeable to discharge/transfer.
Plan: Transfer to [facility] via ambulance today
Report # to [facility]: [phone]
Fax # at [facility]: [phone]
--- NOTE | 2024-07-08 11:45 | W.DS.TRANS ---
DC Summary - Diet Attendant
-
Discharge Instructions:
Discharge Diagnosis/Procedures Right hip hemiarthroplasty
Diet Diabetic, Carb Controlled
Activity With assistance
Driving Restrictions No driving
Bathing Restrictions None
Others Tests CBC, CMP, UA with culture in 1-2 weeks
Instructions:
Stand-Alone Forms:
Changes to Home Medications: Yes
Discharge Medications:
DC Medications w/original date entered in [employer]
aspirin 81 mg chewable tablet 81 mg PO DAILY Blood clot prevention/tx 02/15/22
mirabegron 50 mg tablet,extended release 24 hr (Myrbetriq) 50 mg PO DAILY Urinary Issue 11/17/23
omega 0-zzn-vwp-fish oil 1,000 mg (120 mg-180 mg) capsule (Fish Oil) 2 cap PO DAILY Supplement 11/17/23
simvastatin 20 mg tablet (Zocor) 20 mg PO DAILY High Cholesterol 11/17/23
biotin 10,000 mcg chewable tablet (Hair, Skin and Nails (biotin)) 5,000 mcg PO Q48H Supplement 12/23/23
cholecalciferol (vitamin D3) 25 mcg (1,000 unit) tablet 25 mcg PO DAILY Supplement 12/23/23
cyanocobalamin (vitamin B-12) 500 mcg tablet 500 mcg PO DAILY Supplement 12/23/23
mirtazapine 15 mg tablet 15 mg PO HS insomnia 12/23/23
pantoprazole 20 mg tablet,delayed release 20 mg PO DAILY Gastrointestinal Issue 12/23/23
sertraline 25 mg tablet 25 mg PO DAILY Depression/anxiety 12/23/23
Insulin Glargine Lantus [Lantus] 16 units As Directed mls/hr SC HS 07/08/24
acetaminophen 325 mg tablet 650 mg (2 x 325 mg) PO Q4HWA #30 tabs 07/08/24
aluminum-mag hydroxide-simethicone 200 mg-200 mg-20 mg/5 mL oral susp (Mag-Al Plus) 30 ml PO Q4HPRN PRN indigestion #3,000 mL 07/08/24
cefadroxil 500 mg capsule 500 mg PO BID #14 caps 07/08/24
docusate sodium 100 mg capsule 100 mg PO BID #60 caps 07/08/24
magnesium hydroxide 400 mg/5 mL oral suspension (Milk of Magnesia) 30 ml PO DAILYPRN PRN constipation #355 mL 07/08/24
polyethylene glycol 3350 17 gram oral powder packet 17 g PO DAILYPRN PRN constipation #30 ea 07/08/24
Home Medication Changes
short term Cefadroxil
Lantus 16 units added
stop Metformin
Pending Results: No
[2024-07-08 11:52] LABS: Glucose - Point of Care 180 mg/dl (70-99)
[2024-07-08] MEDS: NOVOLOG FLEXPEN-LOW RESISTANCE 1 UNITS SC (12:23)
[2024-07-08 15:00] VITALS: BP 118/56
== END 2024-07-08 16:25 | DRG 522 ==
LOC: 2 SOUTH 05:23
PROVIDERS: Physician Assistant Surgical; ADMITTING PHYSICIAN Internal Medicine; ATTENDING PHYSICIAN Internal Medicine; CONSULT PHYSICIAN Specialist; EMERGENCY PHYSICIAN Emergency Medicine; FAMILY PHYSICIAN Family Medicine
PROC: 0SRR0J9 Replacement of Right Hip Joint, Femoral Surface with Synthetic Substitute, Cemented, Open Approach (ICD-10-PCS; 2024-07-03)
PROC: 30233N1 Transfusion of Nonautologous Red Blood Cells into Peripheral Vein, Percutaneous Approach (ICD-10-PCS; 2024-07-07)
DX: S72.011A Unspecified intracapsular fracture of right femur, initial encounter for closed fracture (principal); D62 Acute posthemorrhagic anemia; F02.A4 Dementia in other diseases classified elsewhere, mild, with anxiety; F02.A18 Dementia in other diseases classified elsewhere, mild, with other behavioral disturbance; I12.9 Hypertensive chronic kidney disease with stage 1 through stage 4 chronic kidney disease, or unspecified chronic kidney disease; N18.31 Chronic kidney disease, stage 3a; G20.A1 Parkinson's disease without dyskinesia, without mention of fluctuations; K21.9 Gastro-esophageal reflux disease without esophagitis; E78.00 Pure hypercholesterolemia, unspecified; R26.2 Difficulty in walking, not elsewhere classified; G47.00 Insomnia, unspecified; E87.5 Hyperkalemia; D32.9 Benign neoplasm of meninges, unspecified; E11.22 Type 2 diabetes mellitus with diabetic chronic kidney disease; I25.10 Atherosclerotic heart disease of native coronary artery without angina pectoris; D72.829 Elevated white blood cell count, unspecified; F32.A Depression, unspecified; E11.42 Type 2 diabetes mellitus with diabetic polyneuropathy; E11.65 Type 2 diabetes mellitus with hyperglycemia; W08.XXXA Fall from other furniture, initial encounter; Y93.89 Activity, other specified; Y92.008 Other place in unspecified non-institutional (private) residence as the place of occurrence of the external cause; Z66 Do not resuscitate; Z87.891 Personal history of nicotine dependence; Z79.82 Long term (current) use of aspirin; Z79.84 Long term (current) use of oral hypoglycemic drugs; Z91.148 Patient's other noncompliance with medication regimen for other reason; Z91.012 Allergy to eggs
CPT/HCPCS: 70450; 73502; 80048; 80053; 82550; 82947; 82962; 85025; 86803; 86850; 86900; 86901; 86920; 93005; 96374; 96375; 96376; 97110; 97116; 97163; 97167; 97530; 97535; 99285; C1713; C1776; P9016

== ENCOUNTER 2024-12-06 20:24 | Observation (INO) | payer MEDICARE, SELFPAY ==
[2024-12-06] VITALS (7 sets, daily range): BP systolic 124–160; BP diastolic 52–112; BMI 22.0
--- NOTE | 2024-12-06 17:33 | ED.GENMED ---
History of Present Illness
General
Chief Complaint: Generalized Pain
Source: patient and ambulance crew
Exam Limitations: none
Time Seen by Provider: 12/06/24 17:30
Nursing documentation reviewed up to this point in time: agreed with
History of Present Illness
History of Present Illness:
79-year-old female with history of Parkinson's, HTN, HLD, NIDDM, depression presents for right groin and hip area pains since getting up in the middle of the night to go to the bathroom. She states she walked to the bathroom, sat on the toilet and
had a bowel movement and as she was getting up developed severe pain in the right groin area. The pain was so bad she had to crawl back to her bed, lay beside bed for about an hour and then eventually was able to get herself back up into the bed.
She presents now with pain in the areas.
She denies any recent trauma. She states her legs feel 'heavy.' She denies loss of control of bowel or bladder. She denies abdominal pain, chest pain or shortness of breath. She denies painful urination or frequency or urgency.
Past History
Past History
ED Past Medical History: HTN, Hypercholesterolemia, NIDDM and Other (Parkinson's disease)
ED Past Surgical History: Gynecological
Social History
Tobacco: Former smoker
Alcohol: None
Drug: None
Personal:
Living: with family
Employment: Retired
Family History
Family History: Other
Review of Systems
Review of Systems
Allergies reviewed?: Yes
All Other Systems: ROS reviewed and negative except as documented in HPI and ROS
Phy Exam
Physical Exam
Physical Exam:
GENERAL: No acute distress. A&Ox3.
CONSTITUTIONAL: Afebrile.
EYES: clear, conjunctivae normal
ENMT: moist mucus membranes, Pharynx nl
RESPIRATORY: Regular respirations, nonlabored, lungs clear.
CARDIOVASCULAR: Regular rate and rhythm, no murmurs, no rubs.
GI: Soft, nontender, normal BS
MUSCULOSKELETAL: No spinal bony tenderness. Tender to palpation about the right hip, pelvic rock with pain in right hip and groin areas. Limited ability to SLR bilaterally due to pain in the backs of her knees and thighs, limited but adequate
ability to flex knees to about 45 degrees. No swelling, normal pedal pulses, feet warm. Sensation to tough is equal both legs. Strength 5/5 to plantar and dorsiflexion. Well perfused.
SKIN: Warm, dry, pink
PSYCH: Normal mood and affect. Well kept, interactive and appropriate
NEUROLOGIC: Awake, alert and oriented. No focal neurological deficits
Course
Orders/Labs/Results
Orders:
Orders
12/06/24 17:32
Ketorolac [Toradol] 15 mg IV NOW STA
Hip, Right 2-3 Views [CR Hip - RT w/wo Pel 2-3 Vw*] Urgent
Comment:
Reason For Exam: pain, no recent trauma
Include a pelvis x-ray?: Yes
12/06/24 17:57
CPK Isoenzyme Urgent
CRP [C-Reactive Protein] Urgent
Complete Blood Count/With Diff Urgent
Comprehensive Metabolic Panel Urgent
Sed Rate [Erythrocyte Sed Rate] Urgent
12/06/24 19:58
Admit/Transfer Patient As Directed
Co-Sign Provider:
Level of Care: Observation services
Assign to:: Medical/Surgical
Physician / Group: Shama Alonso
Diagnosis: right groin pain, ambulatory dysfunction
PRN Pain Medication Management As Directed
May give lesser potent ordered pain med per pt: Yes
preference::
Protocol:: Medication orders for pain may be administered in a
manner that supports deferring to patient preference
when the pt is:
- Requesting an ordered lesser potent pain medication.
Least to most potent pain medications are defined
as: acetaminophen < NSAID < tramadol < opioids
(morphine, oxycodone, hydromorphone).
- Requesting a lesser dose of the same medication IF
ORDERED.
- Requesting a less intrusive route of administration
if both routes are prescribed by the provider (PO <
IV).
12/06/24 19:59
Code Status As Directed
Resuscitation Status: Do not resuscitate
Reached after discussion with pt or family/Healthcare POA: Yes
Decision communicated with: patient
12/06/24 20:00
DNR Bracelet Application ONCE
12/06/24 21:10
Acetaminophen [Tylenol] 650 mg PO Q4HPRN PRN
Bisacodyl [Dulcolax] 10 mg RECTAL [id number] PRN
Dextrose 50%-Water [Dextrose 50% Syringe] 12.5 grams IV [id number] PRN
Docusate W/Senna [Senokot-S] 1 tablet PO BIDPRN PRN
Glucagon [GlucaGen] 1 mg IM PRN PRN
Ketorolac [Toradol] 10 mg IV Q6HPRN PRN
Mirtazapine [Remeron] 15 mg PO HSPRN PRN sleep
Polyethylene Glycol Powder [Miralax] 17 grams PO DAILYPRN PRN
12/06/24 21:10
Case Management Consult ONCE
Case Management Consult: Discharge Planning
Activity As Directed
Activity Level: As Tolerated
Bedside Glucose Monitoring As Directed
Frequency: AC&HS
Additional Instructions:: Change to q6h if pt on TPN, tube feeding or not eating
Vital Signs As Directed
Frequency: Per unit guidelines
Weight As Directed
Frequency: Once
Comment: on admission
Pt Eval And Treat Routine
Activity Level: As Tolerated
DX Deep Vein Thrombosis Video Routine
12/07/24 00:00
Heparin 5,000 units SC Q8
12/07/24 Breakfast
1800 calorie (15 carb) Diabetic
At Your Request: Limited Participation
Does patient need a safe tray?: No
Basic Metabolic Panel IN AM
Glycohemoglobin (HgbA1c) IN AM
12/07/24 07:30
Insulin Aspart Corrective Low [Novolog Flexpen-Low Resistance] See Protocol SC AC
12/07/24 08:00
Aspirin Chewable [Low Strength Aspirin] 81 mg PO DAILY
Atorvastatin [Lipitor] 20 mg PO DAILY
Cholecalciferol (Vitamin D3) [VITAMIN D3 (cholecalciferol)] 25 mcg PO DAILY
Mirabegron Extended Release [Myrbetriq Extended Release] 50 mg PO DAILY
Pantoprazole [Protonix] 20 mg PO DAILY
Sertraline HCl [Zoloft] 25 mg PO DAILY
Abnormal Lab Results
12/06/24
17:57
RBC 4.15 L 10^6/uL
(4.20-5.40)
Hgb 11.4 L g/dL
(12.0-16.0)
Hct 36.2 L %
(37.0-47.0)
MCHC 31.5 L g/dL
(33.0-37.0)
Absolute Monos (auto) 0.9 H 10^3/uL
(0.1-0.6)
Monocytes % 10.5 H %
(1.7-9.3)
ESR 24 H mm/hour
(0-20)
Carbon Dioxide 21 L mmol/L
(22-30)
BUN 23 H mg/dl
(7-17)
Creatinine 1.2 H mg/dL
(0.6-1.0)
Glucose 135 H mg/dl
(70-99)
Total Bilirubin 1.6 H mg/dl
(0.2-1.3)
12/06/24 17:57
12/06/24 17:57
Vital Signs
Initial and Last Documented VS:
Initial Vital Signs
Pulse Resp BP Pulse Ox
76 16 128/112 85
12/06/24 17:14 12/06/24 17:14 12/06/24 17:14 12/06/24 17:14
Last Documented Vital Signs
Temp Pulse Resp BP Pulse Ox
98.1 F 65 18 126/52 96
12/06/24 23:14 12/06/24 23:14 12/06/24 23:14 12/06/24 23:14 12/06/24 23:14
MDM/Problems Addressed
Differential Diagnosis Includes:
Inguinal strain, fracture hip, thigh muscle strain
MDM/Problems Addressed:
79-year-old female with history of Parkinson's, HTN, HLD, NIDDM, depression presents for right groin and hip area pains since getting up in the middle of the night to go to the bathroom. She states she walked to the bathroom, sat on the toilet and
had a bowel movement and as she was getting up developed severe pain in the right groin area. The pain was so bad she had to crawl back to her bed, lay beside bed for about an hour and then eventually was able to get herself back up into the bed.
She presents now with pain in the areas.
She denies any recent trauma. She states her legs feel 'heavy.' She denies loss of control of bowel or bladder. She denies abdominal pain, chest pain or shortness of breath. She denies painful urination or frequency or urgency.
In to re evaluate. She now has pain posterior aspects of both thighs with movement of her legs, limited ability to SLR due to this pain, limited but adequate ability to flex knees to about 45 degrees. No swelling, normal pedal pulses, feet warm.
Sensation to tough is equal both legs. Strength 5/5 to planatar and dorsiflexion.
CBC, CMP with no clinically significant abnormality ESR
Unremarkable
CRP normal
X-ray right hip radiology report read: FINDINGS/impression:
Right hip prosthesis intact. No hardware failure. No dislocation.
Regional osseous structures are intact. No fracture.
Stable severe narrowing and sclerosis of the symphysis.
Unsuccessful attempt to get patient out of bed to walk with a walker. She can barely sit up without significant pain and when we stood her she could not bear weight on the right leg to walk.
Plan: Admit: Intractable pain and ambulatory dysfunction due to pain.
Hospitalist notified of admission
*Pulse Oximetry
SaO2: 98
Oxygen Mode of Delivery: Room air
Patient hypoxic: no
*Critical Care Note
Total Time (30-74mins, 75-104mins- exclusive of procedures): Not Applicable
ED Attending Note
-
Portions of this chart may have been created with voice recognition software.� Occasional wrong word or��sound alike� substitutions may have occurred due to the inherent limitations of voice recognition software.
Discharge Plan
Departure
Patient Disposition: Admit
Date of Disposition: 12/06/24
Time of Disposition: 19:13
Admit to: Med/Surg
Presentation/result/management discussed w/ accepting MD/DO: Hospitalist
Condition: Fair
Discharge Problem:
Ambulatory dysfunction, Right groin pain
Interventions
Interventions:
*Risk Screen - Suicide Last Done: 12/06/24 17:22
*General Assessment Last Done: 12/06/24 17:21
*Neglect/Abuse Screening Last Done: 12/06/24 17:22
*ED COVID-19 Vaccine History Last Done: 12/06/24 17:24
*ED Influenza Vaccine History Last Done: 12/06/24 17:24
*Nursing Disposition Last Done: 12/06/24 21:08
Discharge Date and Time
Discharge Date/Time: 12/06/24 21:09
[2024-12-06] MEDS: TORADOL 15 MG IV (17:59)
[2024-12-06 18:11] LABS: Hematocrit 36.2 % (37.0-47.0); Hemoglobin 11.4 g/dL (12.0-16.0); Mean Corp Hgb Conc. 31.5 g/dL (33.0-37.0); Mean Corpuscular Volume 87.2 fL (81.0-99.0); Nucleated Red Blood Cells % 0 %; Platelet Count 307 10^3/uL (130-400); Red Cell Dist. Width 13.8 % (11.5-14.5)
[2024-12-06 18:28] LABS: ALT (SGPT) 14 U/L (0-35); AST (SGOT) 23 U/L (14-36); Albumin 4.8 g/dl (3.5-5.0); Alkaline Phosphatase 94 U/L (38-126); Blood Urea Nitrogen 23 mg/dl (7-17); Calcium 9.9 mg/dl (8.4-10.2); Carbon Dioxide 21 mmol/L (22-30); Chloride 106 mmol/L (98-107); Glucose 135 mg/dl (70-99); Potassium 4.1 mmol/L (3.5-5.1); Sodium 138 mmol/L (135-145); Total Protein 8.2 g/dl (6.3-8.2); eGFR 46.05
[2024-12-06 18:29] LABS: C-Reactive Protein < 5.00 mg/L (0.0-10.00)
--- NOTE | 2024-12-06 19:18 | HPS.HSE ---
Family Physician
-
Family Physician: Keyshawn Torres
Chief Complaint
-
right groin pain
History of Present Illness
Patient is a 79-year-old female with past medical history significant for type 2 diabetes, diabetic peripheral neuropathy, ambulatory dysfunction, dementia, chronic kidney disease 3A, meningioma, CAD, hyperlipidemia, anxiety, GERD and insomnia who
presented to [facility] ED for evaluation of right groin pain. Patient reports getting up in the middle of the night to use restroom, when she was done she was unable to stand on right leg, explaining that her leg felt like pins and needles and she had
pain to right groin area. She was able to lower herself to floor, and bear crawl like back to bed. Her daughter whom she lives with went to check on her around 3pm, approximately 12 hours after she was unable to get up and patient reported she was
unable to bear weight. EMS called and patient transported to ED for evaluation. Patient denies any falls or injury to this area. She reports she normally uses walker for ambulation.
Medical History
Past Medical History
Past Medical History: Reports Other
Additional Past Medical History:
type 2 diabetes
diabetic peripheral neuropathy
ambulatory dysfunction
dementia
chronic kidney disease 3A
meningioma
CAD
hyperlipidemia
anxiety
GERD
insomnia
Past Surgical History: Reports Other
Additional Past Surgical History:
Tubal ligation
Facial reconstruction
Left forearm ORIF
Social History
Tobacco: Former Smoker
Alcohol: None
Drug: None
Living: With Family
Employment: Not Employed
Family History
Family History: Not pertinent
Allergies / Home Medications
Allergies reflects when Allergies were last updated in [employer].
Home Medications with original date entered in [employer]
Allergy/Medication List:
Allergies
Allergy/AdvReac Type Severity Reaction Status Date / Time
egg Allergy Vomiting Verified 04/04/24 12:16
Home Medications
aspirin 81 mg chewable tablet 81 mg PO DAILY Blood clot prevention/tx 02/15/22
mirabegron 50 mg tablet,extended release 24 hr (Myrbetriq) 50 mg PO DAILY Urinary Issue 11/17/23
simvastatin 20 mg tablet (Zocor) 20 mg PO DAILY High Cholesterol 11/17/23
biotin 10,000 mcg chewable tablet (Hair, Skin and Nails (biotin)) 5,000 mcg PO Q48H Supplement 12/23/23
cholecalciferol (vitamin D3) 25 mcg (1,000 unit) tablet 25 mcg PO DAILY Supplement 12/23/23
cyanocobalamin (vitamin B-12) 500 mcg tablet 500 mcg PO DAILY Supplement 12/23/23
mirtazapine 15 mg tablet 15 mg PO HSPRN PRN sleep 12/23/23
pantoprazole 20 mg tablet,delayed release 20 mg PO DAILY Gastrointestinal Issue 12/23/23
sertraline 25 mg tablet 25 mg PO DAILY Depression/anxiety 12/23/23
metformin 1,000 mg tablet 1,000 mg PO BID 12/06/24
Review of Systems
-
History Source: Patient
Constitutional: Denies Fever or Chills
EENT: Denies Sore Throat
Respiratory: Denies Cough or Trouble Breathing
Cardiac: Denies Chest Pain, Diaphoresis, Palpitations or Syncope
Abdomen/GI: Denies Abdominal Pain, Nausea, Vomiting or Diarrhea
: Denies Dysuria, Frequency or Urgency
Musculoskeletal: Reports Other (right groin pain)
Skin: Denies Rash
Neurological: Reports Weakness; Denies Dizzy, Headache or Numbness
Physical Exam
Vital Signs
Vital Signs
Temp Pulse Resp BP Pulse Ox
98.5 F 59 18 124/64 97
12/06/24 17:18 12/06/24 18:15 12/06/24 18:15 12/06/24 18:00 12/06/24 19:15
Physical Exam
General: Well Developed, Well Nourished, No Apparent Distress and Conversant
HEENT: NormoCephalic, Moist mucous membranes, PERRLA, Nose Appears Normal and Ears Appear Normal
Respiratory: Clear, Non Labored Respirations and Decreased Breath Sounds
Cardiac: S1/S2 and Regular Rhythm; No Murmur, Rub, Gallop or Peripheral Edema
GI: Soft, Non Tender, Non Distended and Normal Bowel Sounds
Musculoskeletal: No Clubbing, No Cyanosis, No Edema and Other (right groin tenderness with palpation, limited ROM to RLE related to discomfort)
Skin: Warm and IV/Catheter Site
Neuro: Awake and AO x 3
Psych: Calm
Laboratory Results
-
12/06/24 17:57
12/06/24 17:57
Laboratory Results
Total Bilirubin 1.6 mg/dl (0.2-1.3) H 12/06/24 17:57
AST 23 U/L (14-36) 12/06/24 17:57
ALT 14 U/L (0-35) 12/06/24 17:57
Alkaline Phosphatase 94 U/L (38-126) 12/06/24 17:57
Data Reviewed
-
Diagnostic Radiology: Report Reviewed by me (right hip: Right hip prosthesis intact. No hardware failure. No dislocation. Regional osseous structures are intact. No fracture. Stable severe narrowing and sclerosis of the symphysis.)
Lab Data: Labs Reviewed by me (BUN 23, Creat 1.2, eGFR 46.05)
Impression/Plan
-
IMPRESSION/PLAN:
#right groin pain
#ambulatory dysfunction
right hip x-ray: Right hip prosthesis intact. No hardware failure. No dislocation.
Regional osseous structures are intact. No fracture.
Stable severe narrowing and sclerosis of the symphysis.
- Admit to med/surg
- Consult PT
- Consult case management
- pain regimen
#type 2 diabetes
- AccuCheck AC & HS
- SSI
- hold metformin
#dementia
#insomnia
- continue mirtazapine
#chronic kidney disease 3A
BUN 23, Creat 1.2, eGFR 46.05
- appears stable
- monitor BMP
#CAD
- continue aspirin
#hyperlipidemia
- continue atorvastatin
#anxiety
- continue sertraline
#GERD
- continue pantoprazole
#meningioma
#diabetic peripheral neuropathy
Code status: DNR
DVT prophylaxis: heparin sq
--- NOTE | 2024-12-06 20:20 | W.PN.UPDATE ---
Update Note
Progress Note Update
Patient seen in conjunction with nurse practitioner. I agree with the findings and physical. I concur with assessment and plan.
Briefly, this is a 79-year-old who has past medical history of osteoarthritis with right total hip arthroplasty earlier this year, Parkinson disease, [id number] diabetes, hyperlipidemia, GERD, dementia, anxiety overactive bladder
presenting to the emergency department with right hip/groin pain.
Patient reported that she was in her usual state of health up until yesterday when she started on a commode. For a while she started noticing some pins and needle sensation in her thigh. When she got up she had pain but she was able to crawl
herself to a bed. She has been in bed since then. Daughter called this afternoon to find out what has been going on and was concerned. EMS was called and patient was brought into the emergency department.
Patient denies any falls. She denies any loss of sensation in distal lower extremities. Patient denies any incontinence of the bladder or bowel. She denies any urinary symptoms. She denies any diarrhea.
In the emergency department she was afebrile, blood pressure was 124/60 with a pulse of 59 and she was satting 98% on room air. X-ray of the hip shows the right hip prosthesis is in place without any fracture or dislocation. There is arthritis and
narrowing of the pubic symphysis.
CBC was unremarkable. Electrolytes BUN and creatinine were all in the normal range.
Assessment and plan
Is a 79-year-old coming to the emergency department with right-sided groin pain, no trauma, no fractures or dislocation. No alarm signs on exam. She is able to externally rotate. She says she still has some mild numbness but pain has subsided
significantly. Assessment mild-impingement and muscle strain.
- Admit to MedSurg observation
- Analgesia with Tylenol and short term toradol
- PT consult
DM II
- continue her metformin
- sliding scale insulin
Dementia
- continue her mirtazepine and sertraline
DVT PPX - SCDs
Code status - DNR
[2024-12-06] MEDS: REMERON 15 MG PO (21:56)
[2024-12-06] MEDS: ZOFRAN 4 MG IV (21:56)
[2024-12-06] MEDS: TYLENOL 650 MG PO (21:57)
--- NOTE | 2024-12-06 22:50 | PTCARENOTE ---
AX3 CURRENTLY- DAUGHTER SAYS SHE GETS FORGETFUL AND SAYS STRANGE THINGS AT NIGHT. BEDALARM FOR SAFETY. PT UNABLE TO BEAR WEIGHT ON RIGHT LEG . SEVERE PAIN WHILE TURNING- INC OF LARGE AMT OF URINE- RED SCARUM. PUREWICK PLACED. BARRIER OINTMENT TO
SACRUM. VITALS POX WNL- AFEBRILE- WAS VERY UPSET ABOUT HER ADMISSION CRYING AND THREW UP . DAUGHTER SAID SHE DOES THAT WHEN ANXIOUS. ZOFRAN AND REMERON GIVEN . PT CURRENTLY CALM
[2024-12-07] MEDS: HEPARIN 5000 UNITS SC ×3 (00:27→16:51)
[2024-12-07] MEDS: TORADOL 10 MG IV (00:28)
--- NOTE | 2024-12-07 00:36 | PTCARENOTE ---
pt turns self in bed - no need for turn schedule at this time
[2024-12-07 07:38] VITALS: BP 115/48
[2024-12-07 08:14] LABS: Glucose - Point of Care 101 mg/dl (70-99)
[2024-12-07 08:58] LABS: Blood Urea Nitrogen 27 mg/dl (7-17); Calcium 9.5 mg/dl (8.4-10.2); Carbon Dioxide 22 mmol/L (22-30); Chloride 107 mmol/L (98-107); Estimated Creatinine Clearance 27 ml/min; Glucose 99 mg/dl (70-99); Potassium 3.9 mmol/L (3.5-5.1); Sodium 140 mmol/L (135-145); eGFR 35.23
--- NOTE | 2024-12-07 09:01 | W.PN.HOSP.TC ---
Today's Communication/Plan
-
c/w PT
Bladder scan protocol
c/w Tylenol TID
Monitor for confusion
Assessment / Plan
Assessment / Plan
Physical Exam
General: Sitting in chair no Apparent Distress and Conversant
HEENT: Normocephalic, Moist mucous membranes, PERRLA, Nose Appears Normal and Ears Appear Normal
Respiratory: Clear, Non Labored Respirations and Decreased Breath Sounds
Cardiac: S1/S2 and Regular Rhythm; No Murmur, Rub, Gallop or Peripheral Edema
GI: Soft, Non Tender, Non Distended and Normal Bowel Sounds
Musculoskeletal: N Clubbing, No Cyanosis, No Edema and no tenderness in right hip area
Skin: Warm and IV/Catheter Site
Neuro: Awake, oriented to surroundings, forgetful, she followed commands.
Psych: Calm
A/P
79-year-old coming to the emergency department with right-sided groin pain, no trauma, no fractures or dislocation. No alarm signs on exam.
# Right groin pain
She reports no pain today? she is forgetful . Pt reported she needed help to get up and start ambulating.
X ray normal
ordered CT pelvis: no fracture, prosthetic is well-seated.
Likely pain related to mild-impingement and muscle strain.
Change to Tylenol 1 gm TID
- Add OT consult
PT consult
# Acute on chronic kidney disease stage IIIa
Patient denies renal colic, dysuria or hematuria
No urine retention
Avoid nephrotoxic including
Will monitor and repeat BMP
#DM II
-Hold metformin
- sliding scale insulin
# History of progressive dementia, likely Alzheimer type without behavioral changes.
- continue her mirtazapine and sertraline
#Anemia of chronic disease
DVT PPX - SCDs
Code status - DNR
Total time spent to see the patient, examine the patient, review data and lab results, discuss treatment plan with patient, daughter, nursing staff around 55 minutes
Anticipated Discharge: 24 - 48 hours
Subjective/Interval History
-
Date of Service: December 07, 2024
No chest pain
No abdominal pain
Objective Data
-
Labs:
Laboratory Results
12/07/24
08:03
Sodium 140
Potassium 3.9
Chloride 107
Carbon Dioxide 22
BUN 27 H
Creatinine 1.5 H
Glucose 99
Calcium 9.5
Vital Signs:
Vital Signs
Temp Pulse Resp BP Pulse Ox
97.6 F 59 16 115/48 97
12/07/24 07:38 12/07/24 07:38 12/07/24 07:38 12/07/24 07:38 12/07/24 07:38
[2024-12-07 09:12] LABS: Glycohemoglobin (HgbA1c) 7.4 % (4.0-5.9)
[2024-12-07] MEDS: NOVOLOG FLEXPEN-LOW RESISTANCE SC ×2 (09:53→16:49)
[2024-12-07] MEDS: TYLENOL 1000 MG PO ×3 (09:54→21:17)
[2024-12-07] MEDS: VITAMIN D3 (cholecalciferol) 25 MCG PO (09:54)
[2024-12-07] MEDS: PROTONIX 20 MG PO (09:54)
[2024-12-07] MEDS: ZOLOFT 25 MG PO (09:54)
[2024-12-07] MEDS: LIPITOR 20 MG PO (09:54)
[2024-12-07] MEDS: LOW STRENGTH ASPIRIN 81 MG PO (09:54)
[2024-12-07] MEDS: MYRBETRIQ EXTENDED RELEASE 50 MG PO (09:54)
[2024-12-07 11:42] VITALS: BP 132/66; PULSE 69
[2024-12-07 12:19] LABS: Glucose - Point of Care 198 mg/dl (70-99)
[2024-12-07] MEDS: NOVOLOG FLEXPEN-LOW RESISTANCE 1 UNITS SC (12:38)
--- NOTE | 2024-12-07 14:04 | CM ---
CM reviewed chart, patient seen bedside, initial assessment completed.
Patient is a 79-year-old female with past medical history significant for type 2 diabetes, diabetic peripheral neuropathy, ambulatory dysfunction, dementia, chronic kidney disease 3A, meningioma, CAD, hyperlipidemia, anxiety, GERD and insomnia who
presented to [facility] ED for evaluation of right groin pain.
Patient resides with her daughter in a one story home, one step to enter.
Patient ambulatory with a RW, has a cane at home but does not use.
Patient reports VN in past, denies SNF.
PT ordered, will watch for recommendations.
PC[facility]hawn Torres, [facility]
CM spoke with daughter, Hanny, to review TOM form, placed on chart.
Daughter inquiring about Advance Directive- placed in patients room for when daughter visits.
Dtr reports pt has been to SNF in past- [facility].
CM will continue to follow for all d/c planning needs.
Plan; home with daughter, PT evals to determine VN/SNF
[2024-12-07 15:24] VITALS: BP 127/53
[2024-12-07 15:40] VITALS: BP 127/51; BP 149/62; PULSE 74; O2SAT 98
[2024-12-07 16:40] LABS: Glucose - Point of Care 146 mg/dl (70-99)
[2024-12-07 16:55] LABS: Hepatitis C Antibody Negative (Negative)
[2024-12-07] MEDS: NSS 1000 IV (18:22)
[2024-12-07 21:41] LABS: Glucose - Point of Care 154 mg/dl (70-99)
[2024-12-07 23:18] VITALS: BP 118/49
[2024-12-08] MEDS: HEPARIN 5000 UNITS SC ×2 (00:09→09:09)
[2024-12-08 07:34] VITALS: BP 128/56
[2024-12-08 07:42] LABS: Glucose - Point of Care 133 mg/dl (70-99)
[2024-12-08 08:14] LABS: Blood Urea Nitrogen 27 mg/dl (7-17); Calcium 8.8 mg/dl (8.4-10.2); Carbon Dioxide 21 mmol/L (22-30); Chloride 108 mmol/L (98-107); Estimated Creatinine Clearance 32 ml/min; Glucose 130 mg/dl (70-99); Potassium 3.6 mmol/L (3.5-5.1); Sodium 135 mmol/L (135-145); eGFR 41.83
[2024-12-08] MEDS: NOVOLOG FLEXPEN-LOW RESISTANCE SC ×2 (09:08→12:00)
[2024-12-08] MEDS: LOW STRENGTH ASPIRIN 81 MG PO (09:10)
[2024-12-08] MEDS: VITAMIN D3 (cholecalciferol) 25 MCG PO (09:10)
[2024-12-08] MEDS: MYRBETRIQ EXTENDED RELEASE 50 MG PO (09:10)
[2024-12-08] MEDS: PROTONIX 20 MG PO (09:10)
[2024-12-08] MEDS: FLUSH (NSS) 1 FLUSH IV (09:11)
[2024-12-08] MEDS: TYLENOL 1000 MG PO (09:11)
[2024-12-08] MEDS: LIPITOR 20 MG PO (09:11)
[2024-12-08] MEDS: ZOLOFT 25 MG PO (09:11)
--- NOTE | 2024-12-08 09:32 | W.PN.HOSP.TC ---
Today's Communication/Plan
-
dc
Assessment / Plan
Assessment / Plan
Physical Exam
General: Sitting in chair no Apparent Distress and Conversant
HEENT: Normocephalic, Moist mucous membranes, PERRLA, Nose Appears Normal and Ears Appear Normal
Respiratory: Clear, Non Labored Respirations and Decreased Breath Sounds
Cardiac: S1/S2 and Regular Rhythm; No Murmur, Rub, Gallop or Peripheral Edema
GI: Soft, Non Tender, Non Distended and Normal Bowel Sounds
Musculoskeletal: N Clubbing, No Cyanosis, No Edema and no tenderness in right hip area
Skin: Warm and IV/Catheter Site
Neuro: Awake, oriented to surroundings, forgetful, she followed commands.
Psych: Calm
A/P
79-year-old coming to the emergency department with right-sided groin pain, no trauma, no fractures or dislocation. No alarm signs on exam.
# Right groin pain
She denies pain .
X ray normal
ordered CT pelvis: no fracture, prosthetic is well-seated.
Likely pain related to mild-impingement and muscle strain.
Changed to Tylenol 1 gm TID
- Add OT consult
PT consult ed
# Acute on chronic kidney disease stage IIIa
Patient denies renal colic, dysuria or hematuria
No urine retention
Back to baseline
s/p IVF
#DM II
-Hold metformin, can resume upon dc since GFR back to baseline
- sliding scale insulin
# History of progressive dementia, likely Alzheimer type without behavioral changes.
- continue her mirtazapine and sertraline
#Anemia of chronic disease
DVT PPX - SCDs
Code status - DNR
Total dc time spent to see the patient, examine the patient, review data and lab results, discuss discharge plan with patient, daughter, nursing staff around 65 minutes
Anticipated Discharge: Today
Subjective/Interval History
-
Date of Service: December 08, 2024
No chest pain, no abdominal pain
No sob
No fever
Objective Data
-
Labs:
Laboratory Results
12/08/24
06:53
Sodium 135
Potassium 3.6
Chloride 108 H
Carbon Dioxide 21 L
BUN 27 H
Creatinine 1.3 H
Glucose 130 H
Calcium 8.8
Vital Signs:
Vital Signs
Temp Pulse Resp BP Pulse Ox
97.2 F 68 16 128/56 93
12/08/24 07:34 12/08/24 07:34 12/08/24 07:34 12/08/24 07:34 12/08/24 09:04
I&O
12/07/24 12/08/24 12/09/24
06:59 06:59 06:59
Intake Total 900 / 900
Balance 900 / 900
[2024-12-08 11:16] VITALS: BP 131/59
[2024-12-08 11:48] LABS: Glucose - Point of Care 164 mg/dl (70-99)
[2024-12-08 12:23] VITALS: BP 145/67; PULSE 65; O2SAT 97
--- NOTE | 2024-12-08 13:17 | CM ---
Pt is discharged
Resources for VN given to pt: [employer] 5-star program. Pt wishes to choose VN agency at home, Pt instructed to call PCP once they make a selection and obtain a Rx.
Plan: Home with VN of her choice.
--- NOTE | 2024-12-09 09:39 | W.DCSUMMARY ---
Discharge Summary
Discharge Data
Date of Admission: 12/06/24
Date of Discharge: 12/08/24
-
Pending Results: No
Hospital Course
79 years old female presented with right groin pain. Imaging studies did not show acute fracture. No history of traumatic injury. She had a scan of the pelvis that showed well-seated prosthetic right hip with no evidence of fracture. Patient was
noted to have acute kidney injury. She was given intravenous fluid with good improvement. She has chronic kidney disease stage IIIa-b. Patient was evaluated by physical therapy. Recommendation to do home health services. Patient has history of
dementia and she did not have agitation. No evidence of acute infection with no fever or leukocytosis. Patient remained hemodynamically stable and was discharged in a stable condition.
Discharge Plan
-
Patient Disposition: Home with Home Care
Discharge Diagnosis/Procedures: Right hip pain status post imaging studies with no fracture. Likely musculoskeletal consult. Continue with Tylenol as needed
Diet: As tolerated
Blood Work: BMP in 5 days
Referrals:
Keyshawn Torres, DO [Family Provider, Family Practice] - in one to two weeks
Prescriptions:
New
acetaminophen [Tylenol Extra Strength] 500 mg Tablet
1,000 mg PO Q6HPRN PRN (Reason: Pain) Qty: 20 0RF
Continued
aspirin 81 mg Tablet,Chewable
81 mg PO DAILY
simvastatin [Zocor] 20 mg Tablet
20 mg PO DAILY
mirabegron [Myrbetriq] 50 mg Tablet Extended Release 24 Hr
50 mg PO DAILY
pantoprazole 20 mg Tablet,Delayed Release (Dr/Ec)
20 mg PO DAILY
cyanocobalamin (vitamin B-12) 500 mcg Tablet
500 mcg PO DAILY
mirtazapine 15 mg Tablet
15 mg PO HSPRN PRN (Reason: sleep)
cholecalciferol (vitamin D3) 25 mcg (1,000 unit) Tablet
25 mcg PO DAILY
Hair, Skin and Nails (biotin) 10,000 mcg Tablet,Chewable
5,000 mcg PO Q48H
sertraline 25 mg tablet
50 mg PO DAILY
metformin 1,000 mg Tablet
1,000 mg PO BID
Discharge Orders:
Discharge Patient (As Directed); Ordered 12/08/24
Ordered By: Alee Thakur
Discharge Date and Time
Discharge Date/Time: 12/08/24 13:13
Print Language: YORUBA
== END 2024-12-08 13:13 | disposition home health service (06) ==
LOC: 4 EAST ACU 20:24
PROVIDERS: Nurse Practitioner Family; Registered Nurse; ADMITTING PHYSICIAN Internal Medicine; ATTENDING PHYSICIAN Internal Medicine; EMERGENCY PHYSICIAN Student in an Organized Health Care Education/Training Program; FAMILY PHYSICIAN Family Medicine
DX: M25.551 Pain in right hip (principal); R10.31 Right lower quadrant pain; F32.A Depression, unspecified; N18.31 Chronic kidney disease, stage 3a; I12.9 Hypertensive chronic kidney disease with stage 1 through stage 4 chronic kidney disease, or unspecified chronic kidney disease; N17.9 Acute kidney failure, unspecified; D63.8 Anemia in other chronic diseases classified elsewhere; M47.898 Other spondylosis, sacral and sacrococcygeal region; G20.A1 Parkinson's disease without dyskinesia, without mention of fluctuations; E11.22 Type 2 diabetes mellitus with diabetic chronic kidney disease; E11.42 Type 2 diabetes mellitus with diabetic polyneuropathy; F02.84 Dementia in other diseases classified elsewhere, unspecified severity, with anxiety; F02.818 Dementia in other diseases classified elsewhere, unspecified severity, with other behavioral disturbance; F02.83 Dementia in other diseases classified elsewhere, unspecified severity, with mood disturbance; I25.10 Atherosclerotic heart disease of native coronary artery without angina pectoris; G47.00 Insomnia, unspecified; E78.00 Pure hypercholesterolemia, unspecified; R26.2 Difficulty in walking, not elsewhere classified; K21.9 Gastro-esophageal reflux disease without esophagitis; Z87.891 Personal history of nicotine dependence; Z66 Do not resuscitate; Z96.641 Presence of right artificial hip joint; Z86.011 Personal history of benign neoplasm of the brain; Z91.0120 Allergy to eggs, unspecified; Z79.84 Long term (current) use of oral hypoglycemic drugs; Z79.82 Long term (current) use of aspirin; Z79.899 Other long term (current) drug therapy; Z98.51 Tubal ligation status
CPT/HCPCS: 72192; 73502; 80048; 80053; 82550; 82962; 83036; 85025; 85652; 86140; 86803; 96374; 97116; 97163; 97166; 97530; 99285; G0378

== ENCOUNTER 2024-12-21 07:29 | Emergency (ER) | payer MEDICARE, SELFPAY ==
[2024-12-21] VITALS (11 sets, daily range): BP systolic 113–138; BP diastolic 45–59; BMI 21.8
--- NOTE | 2024-12-21 07:32 | ED.GENMED ---
History of Present Illness
General
Chief Complaint: Change in Mental Status
Time Seen by Provider: 12/21/24 07:32
History of Present Illness
History of Present Illness:
FOCUSED PAST MEDICAL HISTORY
- Dementia
REVIEW OF OLD RECORDS
- I reviewed records, the patient was seen here 2 weeks ago with right groin pain with unremarkable imaging but was found to have TOM upon CKD. She was seen by PT and discharged to home with home care.
Note:
CHIEF COMPLAINT(S)
Found down by daughter
HISTORY OF PRESENT ILLNESS
The patient is a 79-year-old female with a known history of dementia who was found by her daughter this morning on a concrete floor covered by an outdoor rug. This occurred after she was last seen by her daughter at 8 p.m. the previous evening at
home. The patient lives alone but receives visits from her daughter. The patient has recently experienced an increase in hallucinations. She denies recollection of falling and is currently unable to accurately identify the current month, although
she correctly stated her age and birthdate. EMS reported initial low temperature however rectally here she was 36.1 Celsius.
PAST MEDICAL AND SURGICAL HISTORY
The patient has been previously diagnosed with dementia and was recently seen in the emergency department a couple of weeks ago for acute kidney injury (TOM).
ADDITIONAL HISTORY OBTAINED FROM SOURCES OTHER THAN THE PATIENT
According to the patient�s daughter, she was discovered this morning on the floor. There was no recollection of a fall from the patient.
CHRONIC MEDICAL CONDITIONS SIGNIFICANTLY AFFECTING CARE
Dementia.
SOCIAL DETERMINANTS AFFECTING HEALTH
The patient lives alone, which may be a factor in her current condition and the delay in receiving assistance.
SOCIAL HISTORY
The patient lives alone but is visited by her daughter.
REVIEW OF SYSTEMS
- Neurological: Increased hallucinations noted. Disorientation with regard to the current month.
- Psychiatric: Confusion aligned with dementia history.
PHYSICAL EXAM
-General: Appears in no distress, rectal temp 36.1 �C, appears to be cold but rapidly improved with warm blankets
-Head: No evidence of craniofacial trauma
-HEENT: Moist oral mucosa
-Cardiovascular: Regular rate and rhythm
-Pulmonary: No respiratory distress, breathing is nonlabored, equal and clear breath sounds
-Abdomen: Soft and nontender with no peritoneal signs
-Neurologic: The patient has evidence of dementia, she thinks it is September but knows she is 79 years old, strength is equal in all extremities
-Extremities: Moves all extremities equally, no tenderness, no edema
-Psychiatric: Very limited historian, poor insight and judgment
PROBLEM LIST
Acute:
- Hypothermia
- Increased confusion
Chronic:
- Dementia
DIFFERENTIAL DIAGNOSIS
The Differential Diagnosis includes, in no particular order and is not limited to:
- Progression of dementia
- Urinary tract infection
- Medication side effects
- Acute kidney injury
- Hypoglycemia or hyperglycemia
- Electrolyte imbalance
- Subdural hematoma
- Stroke
- Infection (e.g., pneumonia)
- Dehydration
RADIOLOGY
- CAT scan of the brain shows no acute abnormality
EKG
- sinus 61 on the monitor
LABS
- White count 15.2, creatinine 1.4 which is similar to prior, CK 66
- Cath urine shows no sign of infection but 1+ ketones noted�she was given IV fluids
UPDATE
-Discussed case w/ Dr. Leach: 'Lives with a daughter at their apartment. Was found on ground; came in by EMS. Head CT neg. Labs unremarkable. [place] to have dementia, but on no medication like Aricept. I spoke to other daughter, Hanny,
[phone]. Hanny says she is concerned that she has been hallucinating more recently; seeing kittens, talking about dogs, asking about her to visit. She does not appear to be hallucinating now; can state her age, but thinks it's
September. Hanny is requesting that we start her on something for her dementia, but has not seen psych/neuro and is awaiting to see PMD.'
SUMMARY OF ENCOUNTER
The patient, a 79-year-old female with a known history of dementia, was seen in the emergency department for evaluation of hypothermia and confusion. She was found on a concrete floor covered by an outdoor rug, likely leading to her hypothermia.
Management in the emergency department focused on patient safety and stabilization of her condition, including the reassessment of her vital signs which were stable upon reevaluation. The patient was alert but confused, presenting with increased
hallucinations and disorientation, particularly with respect to the current month.
DISPOSITION
Discharge
MEDICAL DECISION MAKING
-Complexity of Data Reviewed: Chronic conditions affecting care include dementia. Differential diagnosis considerations included progression of dementia, urinary tract infection, medication side effects, acute kidney injury, hypoglycemia or
hyperglycemia, electrolyte imbalance, subdural hematoma, stroke, infection, and dehydration.
-Data:
Category 2
Clinical information was obtained from an independent historian, the patients daughter, who provided additional context regarding the patients recent condition.
-Risk:
Consideration of Admission/Observation: Escalation of care including admission/observation was considered given the complexity and risk of the patients presenting complaint, exam findings, and her underlying comorbidities. However, ultimately it was
decided that the patient is safe for outpatient management with close follow-up. Reasoning included work-up reassuring, which did not reveal any acute life/organ threatening processes, the patients symptoms were well controlled upon reevaluation,
reexamination was reassuring, vitals were stable, and the patient was agreeable with discharge and reliable for follow-up.
Care significantly affected by Social Determinants of Health: The patient lives alone, which may contribute to her current condition and delay in receiving medical assistance.
DIAGNOSIS
- Unspecified dementia with behavioral disturbance, ICD-10: F03.91
Past History
Past History
ED Past Medical History: HTN, Hypercholesterolemia, NIDDM and Other (Parkinson's disease)
ED Past Surgical History: Gynecological
Social History
Tobacco: Former smoker
Alcohol: None
Drug: None
Personal:
Living: with family
Employment: Retired
Family History
Family History: Other
Phy Exam
Physical Exam
Physical Exam:
See HPI
Course
Orders/Labs/Results
Orders:
Orders
12/21/24 07:46
CT Head W/o Iv Contrast Urgent
Comment:
Reason For Exam: found on ground dementia
0.9% Sodium Chloride 500 ml [Nss] 500 ml IV BOLUS
12/21/24 07:49
Complete Blood Count/With Diff Urgent
12/21/24 07:50
Comprehensive Metabolic Panel Urgent
Folate Urgent
Comment: ADD ON
Total CK [Creatine Phosphokinase] Urgent
Vitamin B12 Urgent
Comment: ADD ON
12/21/24 07:54
TSH Reflex To Free T4 Urgent
12/21/24 08:43
Straight cath- Treatment ONCE
12/21/24 09:11
Urinalysis Reflex To Culture Urgent
Date Specimen was Collected: 12/21/24
Time Specimen was Collected: 08:45
Urine Microscopic Reflex Cult Urgent
12/21/24 11:27
Electrocardiogram (*1) Urgent
Reason for Study: Syncope
EKG- Treatment ONCE
12/21/24 11:28
Add On- LAB Urgent
Tests Added?: b12 folate
Abnormal Lab Results
12/21/24 12/21/24 12/21/24
07:49 07:50 09:11
WBC 15.2 H 10^3/uL
(4.8-10.8)
RBC 4.07 L 10^6/uL
(4.20-5.40)
Hgb 11.3 L g/dL
(12.0-16.0)
Hct 34.2 L %
(37.0-47.0)
RDW 14.6 H %
(11.5-14.5)
Abs Immat Gran (auto) 0.1 H 10^3/uL
(0-0.05)
Absolute Neuts (auto) 11.7 H 10^3/uL
(1.4-6.5)
Absolute Monos (auto) 1.3 H 10^3/uL
(0.1-0.6)
Neutrophils % 76.8 H %
(42.2-75.2)
Lymphocytes % 12.6 L %
(20.5-51.1)
BUN 33 H mg/dl
(7-17)
Creatinine 1.4 H mg/dL
(0.6-1.0)
Glucose 136 H mg/dl
(70-99)
Urine Ketones 1+ A
(Negative)
Urine Bacteria (Reflex) Few A
(Negative)
Urine Albumin (Reflex) 2+ A
(Neg - Trace)
12/21/24 07:49
12/21/24 07:50
Vital Signs
Initial and Last Documented VS:
Initial Vital Signs
Temp Pulse Resp BP Pulse Ox
36.1 C L 65 16 138/59 98
12/21/24 07:32 12/21/24 07:32 12/21/24 07:32 12/21/24 07:32 12/21/24 07:32
Last Documented Vital Signs
Temp Pulse Resp BP Pulse Ox
36.6 C 62 16 120/52 95
12/21/24 11:54 12/21/24 11:00 12/21/24 11:00 12/21/24 11:00 12/21/24 11:00
*Pulse Oximetry
Patient hypoxic: no
*Critical Care Note
Total Time (30-74mins, 75-104mins- exclusive of procedures): Not Applicable
ED Attending Note
-
Portions of this chart may have been created with voice recognition software.� Occasional wrong word or��sound alike� substitutions may have occurred due to the inherent limitations of voice recognition software.
Discharge Plan
Departure
Patient Disposition: Home (Routine Discharge)
Date of Disposition: 12/21/24
Time of Disposition: 11:45
Patient with high blood pressure during this ER visit?: Yes
Discharge Problem:
Dementia
Instructions: Dementia (DC), BLOOD PRESSURE
Prescriptions:
New
donepezil [Aricept] 5 mg tablet
5 mg PO DAILY Qty: 30 0RF
No Action
aspirin 81 mg Tablet,Chewable
81 mg PO DAILY
simvastatin [Zocor] 20 mg Tablet
20 mg PO DAILY
mirabegron [Myrbetriq] 50 mg Tablet Extended Release 24 Hr
50 mg PO DAILY
pantoprazole 20 mg Tablet,Delayed Release (Dr/Ec)
20 mg PO DAILY
cyanocobalamin (vitamin B-12) 500 mcg Tablet
500 mcg PO DAILY
mirtazapine 15 mg Tablet
15 mg PO HSPRN PRN (Reason: sleep)
cholecalciferol (vitamin D3) 25 mcg (1,000 unit) Tablet
25 mcg PO DAILY
Hair, Skin and Nails (biotin) 10,000 mcg Tablet,Chewable
5,000 mcg PO Q48H
sertraline 25 mg tablet
50 mg PO DAILY
metformin 1,000 mg Tablet
1,000 mg PO BID
acetaminophen [Tylenol Extra Strength] 500 mg Tablet
1,000 mg PO Q6HPRN PRN (Reason: Pain) Qty: 20 0RF
omega 6-cxn-mof-fish oil [Fish Oil] 1,000 (120-180) mg Capsule
1 cap PO DAILY
Referrals:
Licha Johnson MD [Non-Admitting Privileges, Neurology]
Eric Buckner MD [Active, Neurology]
UNKNOWN - PT DOES,NOT KNOW [Family Provider]
Activity Restrictions/Additional Instructions:
I have given you the contact information for 2 different neurologists, Dr. Johnson who is also a psychiatrist and Dr. Buckner. I did speak to our on-call psychiatrist today, Dr. Leach who states that we can start Aricept at a low dose at 5 mg and
then could be titrated upward in a few weeks. She also suggested that maybe Namenda could be added in the future as well. Follow-up with neurology. CAT scan of the brain shows no acute abnormality there is no sign of urinary tract infection.
Thyroid testing is normal. White count is slightly elevated but there is no fever or any other signs of infection.
Interventions
Interventions:
*Risk Screen - Suicide Last Done: 12/21/24 07:43
*General Assessment Last Done: 12/21/24 07:43
*Neglect/Abuse Screening Last Done: 12/21/24 07:43
*ED- Fall Risk Assessment Last Done: 12/21/24 07:43
*ED COVID-19 Vaccine History Last Done: 12/21/24 07:43
*ED Influenza Vaccine History Last Done: 12/21/24 07:43
ED- Pulmonary Assessment Last Done: 12/21/24 08:09
ED-Psychological Assessment Last Done: 12/21/24 08:09
ED- Neurological Assessment Last Done: 12/21/24 07:43
ED- Cardiac Assessment Last Done: 12/21/24 08:09
ED Swallowing Screen Last Done: 12/21/24 08:08
Discharge Date and Time
Print Language: ZAMBIAN
[2024-12-21 07:59] LABS: Hematocrit 34.2 % (37.0-47.0); Hemoglobin 11.3 g/dL (12.0-16.0); Mean Corp Hgb Conc. 33.0 g/dL (33.0-37.0); Mean Corpuscular Volume 84.0 fL (81.0-99.0); Nucleated Red Blood Cells % 0 %; Platelet Count 310 10^3/uL (130-400); Red Cell Dist. Width 14.6 % (11.5-14.5)
[2024-12-21] MEDS: NSS 500 IV (08:13)
[2024-12-21 08:17] LABS: ALT (SGPT) 14 U/L (0-35); AST (SGOT) 25 U/L (14-36); Albumin 4.8 g/dl (3.5-5.0); Alkaline Phosphatase 81 U/L (38-126); Blood Urea Nitrogen 33 mg/dl (7-17); Calcium 9.4 mg/dl (8.4-10.2); Carbon Dioxide 22 mmol/L (22-30); Chloride 105 mmol/L (98-107); Estimated Creatinine Clearance 29 ml/min; Glucose 136 mg/dl (70-99); Potassium 4.6 mmol/L (3.5-5.1); Sodium 136 mmol/L (135-145); Total Protein 8.2 g/dl (6.3-8.2); eGFR 38.27
[2024-12-21 09:38] LABS: Urine Character Clear (Clear)
[2024-12-21 10:15] LABS: Urine Squamous Cell >30 /LPF (Few); Urine Urothelial Cell 0-2 /LPF (FEW)
[2024-12-21 10:17] LABS: Urine Red Blood Cell 0-2 /HPF (0-2)
[2024-12-21 13:30] LABS: Folate 10.6 ng/ml (2.76-20); Vitamin B12 667 pg/ml (239-931)
== END 2024-12-21 16:30 | disposition home or self-care (01) ==
LOC: EMR 07:29
PROVIDERS: EMERGENCY PHYSICIAN Emergency Medicine
DX: G20.A1 Parkinson's disease without dyskinesia, without mention of fluctuations (principal); F02.82 Dementia in other diseases classified elsewhere, unspecified severity, with psychotic disturbance; E11.22 Type 2 diabetes mellitus with diabetic chronic kidney disease; I12.9 Hypertensive chronic kidney disease with stage 1 through stage 4 chronic kidney disease, or unspecified chronic kidney disease; N18.9 Chronic kidney disease, unspecified; E78.00 Pure hypercholesterolemia, unspecified; Z87.891 Personal history of nicotine dependence
CPT/HCPCS: 96360; 99284; 70450; 80053; 81003; 81015; 82550; 82607; 82746; 84443; 85025; 93005

== ENCOUNTER 2025-01-21 23:51 | Inpatient (IN) | payer MEDICARE, SELFPAY ==
[2025-01-21] VITALS (10 sets, daily range): BP systolic 96–138; BP diastolic 50–102; BMI 19.3
[2025-01-21] MEDS: NSS 1000 IV ×2 (15:52→21:06)
[2025-01-21 16:01] LABS: Hematocrit 46.2 % (37.0-47.0); Hemoglobin 15.6 g/dL (12.0-16.0); Mean Corp Hgb Conc. 33.8 g/dL (33.0-37.0); Mean Corpuscular Volume 83.7 fL (81.0-99.0); Nucleated Red Blood Cells % 0 %; Platelet Count 336 10^3/uL (130-400); Red Cell Dist. Width 13.8 % (11.5-14.5)
[2025-01-21 16:17] LABS: COVID-19 Antigen Negative (Negative)
[2025-01-21 16:23] LABS: ALT (SGPT) 23 U/L (0-35); AST (SGOT) 32 U/L (14-36); Albumin 5.2 g/dl (3.5-5.0); Alkaline Phosphatase 97 U/L (38-126); Blood Urea Nitrogen 33 mg/dl (7-17); Calcium 10.7 mg/dl (8.4-10.2); Carbon Dioxide 23 mmol/L (22-30); Chloride 100 mmol/L (98-107); Estimated Creatinine Clearance 27 ml/min; Glucose 183 mg/dl (70-99); Lipase 362 U/L (23-300); Potassium 4.4 mmol/L (3.5-5.1); Sodium 140 mmol/L (135-145); Total Protein 9.0 g/dl (6.3-8.2); eGFR 38.27
--- NOTE | 2025-01-21 17:45 | ED.GENMED ---
History of Present Illness
<Edda Walsh PA-C - Last Filed: 01/24/25 14:06>
General
Chief Complaint: Abdominal Pain
Time Seen by Provider: 01/21/25 16:20
History of Present Illness
History of Present Illness:
Drea is a 79-year-old female with past medical history of heart conditions dementia, high blood pressure, nausea who presents with several weeks of nausea vomiting diarrhea. Was previously seen her primary care physician's office and diagnosed
with gastroenteritis. However symptoms are not improving and she has been unable to tolerate any p.o. intake over the last several days. Nausea is not improved with Zofran. She also reports left knee pain and swelling.
Past History
<Edda Walsh PA-C - Last Filed: 01/24/25 14:06>
Past History
ED Past Medical History: HTN, Hypercholesterolemia, NIDDM and Other (Parkinson's disease)
ED Past Surgical History: Gynecological
Social History
Tobacco: Former smoker
Alcohol: None
Drug: None
Personal:
Living: with family
Employment: Retired
Family History
Family History: Other
Phy Exam
<Edda Walsh PA-C - Last Filed: 01/24/25 14:06>
General Physical Exam
General Presentation: well appearing and no apparent distress
General Skin: warm and dry
General Habitus: normal
General Mental: alert
General Hydration: appears well hydrated
ENT Exam
ENT Exam: EOMI, pharynx normal, neck supple and normocephalic
Eye Exam
Eye Exam: PERRL, cornea clear and conjunctiva normal
Cardiovascular Exam
Cardiovascular Exam: regular rate/rhythm, no edema, no murmur and normal peripheral pulses
Pulmonary Exam
Pulmonary Exam: lungs clear, no respiratory distress, no rales, no crackles, no rhonchi, no stridor, no wheezing and no cough
Gastrointestinal Exam
Gastrointestinal Exam: normal bowel sounds, non tender, soft, no organomegaly, no pulsatile mass and non distended
Palpation: left upper quadrant: Mild tenderness
Neurological Exam
Neurological Exam: alert, oriented x3, no motor deficits and speech normal
Musculoskeletal Exam
Musculoskeletal Exam: full ROM, no edema, joint swelling and other (Left knee pain)
Skin Exam
Skin Exam: normal color, warm/dry, no rash and no petechia
Psychiatric Exam
Psychiatric Exam: normal mood/affect
Course
<Edda Walsh PA-C - Last Filed: 01/24/25 14:06>
Orders/Labs/Results
Orders:
Orders
01/21/25 15:46
COVID-19 Antigen Urgent
Source: Nasal Swab
Complete Blood Count/With Diff Urgent
Comprehensive Metabolic Panel Urgent
Lipase Urgent
Influenza A+B Rapid Molecular Urgent
DARWIN Source: Nasal Swab
Specimen Description:
01/21/25 15:52
0.9% Sodium Chloride 1000 ml [Nss] 1,000 ml IV BOLUS
01/21/25 17:19
CT Abd/pelvis W Iv Cont Urgent
Comment:
Reason For Exam: nausa vomiting, LUQ pain
01/21/25 18:30
Ondansetron Injectable [Zofran] 4 mg IV NOW STA
01/21/25 20:41
US Abdomen Complete/Upper Urgent
Comment:
Reason For Exam: RUQ pain
01/21/25 20:50
0.9% Sodium Chloride 1000 ml [Nss] 1,000 ml IV BOLUS
Morphine Sulfate 4 mg IV NOW STA
Ondansetron Injectable [Zofran] 4 mg IV NOW STA
Piperacillin/Tazo 3.375 Gram [Zosyn] 3.375 gram in 50 ml IV NOW
01/21/25 23:36
SURGICAL CONSULT Routine
Consulting Provider: Patrick Lucero
Was physician already notified: Yes
Reason for consult: Symptomatic cholelithiasis
01/21/25 23:37
Consult Notification Routine
Specialty to Notify: Gastroenterology
Date consulting provider notified: 01/22/25
Time consulting provider notified: 07:49
Notified:: Provider
01/21/25 23:38
Admit/Transfer Patient As Directed
Co-Sign Provider:
Level of Care: Inpatient admission
Assign to:: Medical/Surgical
Physician / Group: nicholas meraz
Diagnosis: Symptomatic cholelithiasis intract vomiting
Reason for Hospitalization: Symptomatic cholelithiasis intract vomiting
Expected length of stay greater than two midnights?: Yes
ELOS- Estimated Length of Stay in days: 3
I certify the patient meets the requirements for IP care: Yes
Code Status As Directed
Resuscitation Status: Do not resuscitate
Reached after discussion with pt or family/Healthcare POA: Yes
Decision communicated with: per pt and review of previous records
01/21/25 23:39
DNR Bracelet Application ONCE
01/21/25 23:41
PRN Pain Medication Management As Directed
May give lesser potent ordered pain med per pt: Yes
preference::
Protocol:: Medication orders for pain may be administered in a
manner that supports deferring to patient preference
when the pt is:
- Requesting an ordered lesser potent pain medication.
Least to most potent pain medications are defined
as: acetaminophen < NSAID < tramadol < opioids
(morphine, oxycodone, hydromorphone).
- Requesting a lesser dose of the same medication IF
ORDERED.
- Requesting a less intrusive route of administration
if both routes are prescribed by the provider (PO <
IV).
01/22/25 00:34
0.9% Sodium Chloride 1000 ml [Nss] 1,000 ml IV 60 mls/hr
Acetaminophen [Tylenol] 650 mg PO Q4HPRN PRN
Mirtazapine [Remeron] 15 mg PO HSPRN PRN sleep
Morphine Sulfate 2 mg IV Q4HPRN PRN
Morphine Sulfate 4 mg IV Q4HPRN PRN
Ondansetron Injectable [Zofran] 4 mg IV Q6HPRN PRN
01/22/25 00:34
Activity As Directed
Activity Level: With Assistance
Pneumatic Compression Sleeves As Directed
Type: Knee high
Vital Signs As Directed
Frequency: Per unit guidelines
Pt Eval And Treat Routine
Activity Level: With Assistance
DX Deep Vein Thrombosis Video Routine
01/22/25 04:00
Piperacillin/Tazo 2.25 Gram [Zosyn] 2.25 grams in 50 ml IV Q6H
01/22/25 04:54
Cardiovascular Evaluation IN AM
Complete Blood Count/With Diff IN AM
Comprehensive Metabolic Panel IN AM
01/22/25 08:00
Donepezil [Aricept] 5 mg PO DAILY
Pantoprazole [Protonix IV] 40 mg IV DAILY
Sertraline HCl [Zoloft] 50 mg PO DAILY
01/22/25 Dinner
NPO
Allow oral meds: Yes
Allow clear liquids: No
NPO with Ice Chips: No
01/23/25 06:41
Complete Blood Count/With Diff IN AM
Comprehensive Metabolic Panel IN AM
01/24/25 07:25
Complete Blood Count/With Diff IN AM
Comprehensive Metabolic Panel IN AM
Abnormal Lab Results
01/21/25
15:46
RBC 5.52 H 10^6/uL
(4.20-5.40)
MPV 10.8 H fL
(7.4-10.4)
Absolute Monos (auto) 0.7 H 10^3/uL
(0.1-0.6)
BUN 33 H mg/dl
(7-17)
Creatinine 1.4 H mg/dL
(0.6-1.0)
Glucose 183 H mg/dl
(70-99)
Calcium 10.7 H mg/dl
(8.4-10.2)
Total Protein 9.0 H g/dl
(6.3-8.2)
Albumin 5.2 H g/dl
(3.5-5.0)
Lipase 362 H U/L
(23-300)
01/21/25 15:46
01/21/25 15:46
Vital Signs
Initial and Last Documented VS:
Initial Vital Signs
BP Pulse Ox
114/102 98
01/21/25 15:40 01/21/25 15:40
Last Documented Vital Signs
Temp Pulse Resp BP Pulse Ox
36.8 C 61 16 120/51 97
01/24/25 07:00 01/24/25 07:00 01/24/25 07:00 01/24/25 07:00 01/24/25 07:00
<Pepe Chacon, DO - Last Filed: 01/21/25 22:22>
Orders/Labs/Results
Orders:
Orders
01/21/25 15:46
COVID-19 Antigen Urgent
Source: Nasal Swab
Complete Blood Count/With Diff Urgent
Comprehensive Metabolic Panel Urgent
Lipase Urgent
Influenza A+B Rapid Molecular Urgent
DARWIN Source: Nasal Swab
Specimen Description:
01/21/25 15:52
0.9% Sodium Chloride 1000 ml [Nss] 1,000 ml IV BOLUS
01/21/25 17:19
CT Abd/pelvis W Iv Cont Urgent
Comment:
Reason For Exam: nausa vomiting, LUQ pain
01/21/25 18:30
Ondansetron Injectable [Zofran] 4 mg IV NOW STA
01/21/25 20:41
US Abdomen Complete/Upper Urgent
Comment:
Reason For Exam: RUQ pain
01/21/25 20:50
0.9% Sodium Chloride 1000 ml [Nss] 1,000 ml IV BOLUS
Morphine Sulfate 4 mg IV NOW STA
Ondansetron Injectable [Zofran] 4 mg IV NOW STA
Piperacillin/Tazo 3.375 Gram [Zosyn] 3.375 gram in 50 ml IV NOW
01/21/25 23:36
SURGICAL CONSULT Routine
Consulting Provider: Patrick Lucero
Was physician already notified: Yes
Reason for consult: Symptomatic cholelithiasis
01/21/25 23:37
Consult Notification Routine
Specialty to Notify: Gastroenterology
Date consulting provider notified: 01/22/25
Time consulting provider notified: 07:49
Notified:: Provider
01/21/25 23:38
Admit/Transfer Patient As Directed
Co-Sign Provider:
Level of Care: Inpatient admission
Assign to:: Medical/Surgical
Physician / Group: nicholas meraz
Diagnosis: Symptomatic cholelithiasis intract vomiting
Reason for Hospitalization: Symptomatic cholelithiasis intract vomiting
Expected length of stay greater than two midnights?: Yes
ELOS- Estimated Length of Stay in days: 3
I certify the patient meets the requirements for IP care: Yes
Code Status As Directed
Resuscitation Status: Do not resuscitate
Reached after discussion with pt or family/Healthcare POA: Yes
Decision communicated with: per pt and review of previous records
01/21/25 23:39
DNR Bracelet Application ONCE
12/14/25 23:41
PRN Pain Medication Management As Directed
May give lesser potent ordered pain med per pt: Yes
preference::
Protocol:: Medication orders for pain may be administered in a
manner that supports deferring to patient preference
when the pt is:
- Requesting an ordered lesser potent pain medication.
Least to most potent pain medications are defined
as: acetaminophen < NSAID < tramadol < opioids
(morphine, oxycodone, hydromorphone).
- Requesting a lesser dose of the same medication IF
ORDERED.
- Requesting a less intrusive route of administration
if both routes are prescribed by the provider (PO <
IV).
01/22/25 00:34
0.9% Sodium Chloride 1000 ml [Nss] 1,000 ml IV 60 mls/hr
Acetaminophen [Tylenol] 650 mg PO Q4HPRN PRN
Mirtazapine [Remeron] 15 mg PO HSPRN PRN sleep
Morphine Sulfate 2 mg IV Q4HPRN PRN
Morphine Sulfate 4 mg IV Q4HPRN PRN
Ondansetron Injectable [Zofran] 4 mg IV Q6HPRN PRN
01/22/25 00:34
Activity As Directed
Activity Level: With Assistance
Pneumatic Compression Sleeves As Directed
Type: Knee high
Vital Signs As Directed
Frequency: Per unit guidelines
Pt Eval And Treat Routine
Activity Level: With Assistance
DX Deep Vein Thrombosis Video Routine
01/22/25 04:00
Piperacillin/Tazo 2.25 Gram [Zosyn] 2.25 grams in 50 ml IV Q6H
01/22/25 04:54
Cardiovascular Evaluation IN AM
Complete Blood Count/With Diff IN AM
Comprehensive Metabolic Panel IN AM
01/22/25 08:00
Donepezil [Aricept] 5 mg PO DAILY
Pantoprazole [Protonix IV] 40 mg IV DAILY
Sertraline HCl [Zoloft] 50 mg PO DAILY
01/22/25 Dinner
NPO
Allow oral meds: Yes
Allow clear liquids: No
NPO with Ice Chips: No
01/23/25 06:41
Complete Blood Count/With Diff IN AM
Comprehensive Metabolic Panel IN AM
01/24/25 07:25
Complete Blood Count/With Diff IN AM
Comprehensive Metabolic Panel IN AM
Abnormal Lab Results
01/21/25
15:46
RBC 5.52 H 10^6/uL
(4.20-5.40)
MPV 10.8 H fL
(7.4-10.4)
Absolute Monos (auto) 0.7 H 10^3/uL
(0.1-0.6)
BUN 33 H mg/dl
(7-17)
Creatinine 1.4 H mg/dL
(0.6-1.0)
Glucose 183 H mg/dl
(70-99)
Calcium 10.7 H mg/dl
(8.4-10.2)
Total Protein 9.0 H g/dl
(6.3-8.2)
Albumin 5.2 H g/dl
(3.5-5.0)
Lipase 362 H U/L
(23-300)
01/21/25 15:46
01/21/25 15:46
Vital Signs
Initial and Last Documented VS:
Initial Vital Signs
BP Pulse Ox
114/102 98
01/21/25 15:40 01/21/25 15:40
Last Documented Vital Signs
Temp Pulse Resp BP Pulse Ox
36.8 C 61 16 120/51 97
01/24/25 07:00 01/24/25 07:00 01/24/25 07:00 01/24/25 07:00 01/24/25 07:00
<Edda Walsh PA-C - Last Filed: 01/24/25 14:06>
MDM/Problems Addressed
Differential Diagnosis Includes:
CBC obtained and reviewed. No leukocytosis. CMP with creatinine elevated 1.4.
<Edda Walsh PA-C - Last Filed: 01/24/25 14:06>
*Pulse Oximetry
SaO2: 97
Oxygen Mode of Delivery: Room air
Patient hypoxic: no
*Critical Care Note
Total Time (30-74mins, 75-104mins- exclusive of procedures): Not Applicable
ED Attending Note
<Edda Walsh PA-C - Last Filed: 01/24/25 14:06>
-
Portions of this chart may have been created with voice recognition software.� Occasional wrong word or��sound alike� substitutions may have occurred due to the inherent limitations of voice recognition software.
<Pepe Chacon DO - Last Filed: 01/21/25 22:22>
ED Attending Note
Patient seen and examined by attending physician: Yes
I performed the substantive portion of visit, reviewed & personally made and approve the management plan that is documented in note by myself or KINGSLEY.: Yes
ED Attending Note:
I have seen and evaluated the patient with a [id number] encounter. I have spoken to the advance practicer provider and involved in the medical history, the physical exam, medical decision making.
Evaluation and management service: agree unless noted differently below.
Results interpretation: agree unless noted differently below.
Focused HPI: 79-year-old female presenting with nausea, vomiting and abdominal pain. Symptoms are worse with food intake. Patient now complaining of of generalized weakness and fatigue
Physical exam: Generalized tenderness in the abdomen that is worse in the right upper quadrant. Evidence of dry mucous membranes
Medical Decision Making: CT was performed prior to my assessment which does show concern for enlarged gallbladder with gallstones. Will obtain ultrasound rule out acute cholecystitis. Will give a dose of Zosyn and ultimately admit
Ultrasound shows evidence of cholelithiasis without evidence of acute cholecystitis
Discharge Plan
Departure
Patient Disposition: Admit
Date of Disposition: 01/21/25
Time of Disposition: 22:21
Admit to: Med/Surg
Presentation/result/management discussed w/ accepting MD/DO: Hospitalist
Discharge Problem:
Symptomatic cholelithiasis
Interventions
Interventions:
*Risk Screen - Suicide Last Done: 01/21/25 15:50
*General Assessment Last Done: 01/21/25 15:53
*Neglect/Abuse Screening Last Done: 01/21/25 15:50
*ED COVID-19 Vaccine History Last Done: 01/21/25 15:53
*ED Influenza Vaccine History Last Done: 01/21/25 15:53
*Nursing Disposition Last Done: 01/22/25 11:50
JS-Rsibmr-Ozbtsqqhzi Assessment Last Done: 01/21/25 15:50
Discharge Date and Time
Discharge Date/Time: 01/22/25 11:50
[2025-01-21] MEDS: ZOFRAN 4 MG IV ×2 (18:36→21:07)
[2025-01-21] MEDS: ZOSYN 50 IV (21:07)
[2025-01-21] MEDS: MORPHINE SULFATE 4 MG IV (21:07)
--- NOTE | 2025-01-21 23:17 | HPS.HSE ---
Addendum entered and electronically signed by Isaac Mahmood DO 01/22/25 00:28:
Patient seen and examined independently. Agree with findings and plan as set forth by SILVER Villa.
Patient is a 79y F with PMH significant for Parkinson's, DM-II and CKD who presents to ED complaining of N/V x 2 weeks. Patient states that her symptoms started around January first. She notes intolerance to nearly any PO intake - with N/V
developing after even water. Patient denies any abdominal pain. She received medications from her PCP 'to help stop vomiting' - but with no relief in her symptoms.
Patient reports marked amount of weight loss (80lbs) which she states has occurred in that two week time period.
Ass:
Symptomatic Cholelithiasis +/- Cholecystitis
Intractable N/V
Parkinson's Disease with Dementia
DM-II
CKD III
OAB
Anxiety / Depression
Plan:
Admit for further evaluation and treatment.
Imaging thus far shows gallstones without evidence for acute cholecystitis or ductal dilation.
NPO, IVF support, pain control and antiemetics.
Will continue with Zosyn for now given symptoms - but no radiographic evidence at present for cholecystitis.
GI and Surgery evaluations for additional recommendations.
Hold metformin. Follow glucose and cover with SSI.
Reported weight loss per patient seems excessive in 2 week period.
Original Note:
Family Physician
-
Family Physician: Keyshawn Torres
Chief Complaint
-
Epigastric pain nausea, vomiting, diarrhea
History of Present Illness
79-year-old female complaining of several weeks of nausea, vomiting and diarrhea. She was seen previously by her PCP diagnosed a gastroenteritis however symptoms have not been improving. She has been unable to tolerate any p.o. intake over the
past several days. She has been attempting to use Zofran without any relief of her nausea and vomiting. She has history of dementia however is oriented to name, place, year, president but not some of history. She denies fever, chills, chest pain,
palpitations, cough, shortness of breath, rash, urinary symptoms. She was given IV fluids, IV Zofran and morphine in ER which helped her abdominal pain and nausea she states.
She has past medical history DM2, diabetic neuropathy, chronic ambulatory dysfunction, Dementia, Parkinson's, CKD 3A, meningioma, CAD, HLD, GERD, anxiety, insomnia, former smoker
Medical History
Past Medical History
Past Medical History: Reports Other
Additional Past Medical History:
type 2 diabetes
diabetic peripheral neuropathy
ambulatory dysfunction
dementia
chronic kidney disease 3A
meningioma
CAD
hyperlipidemia
anxiety
GERD
insomnia
Past Surgical History: Reports Other
Additional Past Surgical History:
Tubal ligation
Facial reconstruction
Left forearm ORIF
Social History
Tobacco: Former Smoker
Alcohol: None
Drug: None
Living: With Family
Employment: Not Employed
Family History
Family History: Not pertinent
Allergies / Home Medications
Allergies reflects when Allergies were last updated in [facility].
Home Medications with original date entered in [facility]
Allergy/Medication List:
Allergies
Allergy/AdvReac Type Severity Reaction Status Date / Time
egg Allergy Vomiting Verified 01/21/25 15:50
Home Medications
aspirin 81 mg chewable tablet 81 mg PO DAILY Blood clot prevention/tx 02/15/22
mirabegron 50 mg tablet,extended release 24 hr (Myrbetriq) 50 mg PO DAILY Urinary Issue 11/17/23
simvastatin 20 mg tablet (Zocor) 20 mg PO DAILY High Cholesterol 11/17/23
biotin 10,000 mcg chewable tablet (Hair, Skin and Nails (biotin)) 5,000 mcg PO Q48H Supplement 12/23/23
cyanocobalamin (vitamin B-12) 500 mcg tablet 500 mcg PO DAILY Supplement 12/23/23
mirtazapine 15 mg tablet 15 mg PO HSPRN PRN sleep 12/23/23
pantoprazole 20 mg tablet,delayed release 20 mg PO DAILY Gastrointestinal Issue 12/23/23
sertraline 25 mg tablet 50 mg PO DAILY Depression/anxiety 12/23/23
metformin 1,000 mg tablet 1,000 mg PO BID Diabetes 12/06/24
donepezil 5 mg tablet (Aricept) 5 mg PO DAILY #30 tabs 12/21/24
omega 2-vti-mye-fish oil 1,000 mg (120 mg-180 mg) capsule (Fish Oil) 1 cap PO DAILY Supplement 12/21/24
Review of Systems
-
History Source: Patient and Other (ER record)
A 12 point ROS was completed and negative except as noted: Yes
Constitutional: Denies Fever or Chills
EENT: Reports Other (Dry oral mucosa); Denies Sore Throat
Respiratory: Denies Cough or Trouble Breathing
Cardiac: Denies Chest Pain, Diaphoresis or Palpitations
Abdomen/GI: Reports Abdominal Pain (Right upper quadrant), Nausea and Vomiting
: Denies Dysuria, Frequency, Flank Pain or Incontinence
Musculoskeletal: Denies Joint Pain or Joint Swelling
Skin: Denies Itching or Rash
Neurological: Denies Dizzy, Headache or Weakness
Endocrine: Reports No Symptoms
Hematologic/Lymphatic: Reports No Symptoms
Psych: Reports Calm
Physical Exam
Vital Signs
Vital Signs
Temp Pulse Resp BP Pulse Ox
97.6 F 80 10 96/58 97
01/21/25 15:53 01/21/25 22:45 01/21/25 22:30 01/21/25 22:28 01/21/25 22:28
Physical Exam
General: Comfortable and Conversant; No Fever or Chills
HEENT: NormoCephalic, Anicteric, PERRLA, [place] Conjunctivae, No Ptosis and Other (Dry oral mucosa and lips)
Respiratory: Clear; No Wheezes, Rales or Rhonchi
Cardiac: S1/S2 and Regular Rhythm; No Murmur, Rub, Gallop or Peripheral Edema
Breast: Deferred by me
GI: Soft, Non Distended, Normal Bowel Sounds and Tender (Right upper quadrant)
Rectal: Deferred by Provider
Genito-urinary: Deferred by me
Musculoskeletal: No Clubbing, No Cyanosis and No Edema
Skin: Warm and Dry; No Rash
Neuro: AO x 3 (Name, place, year, president but not some of history), No Motor Deficits, Cranial Nerves Intact and No Sensory Deficits; No Slurred Speech, Facial Droop, Tremors or Sedated
Psych: Calm
Laboratory Results
-
01/21/25 15:46
01/21/25 15:46
Laboratory Results
Total Bilirubin 1.1 mg/dl (0.2-1.3) 01/21/25 15:46
AST 32 U/L (14-36) 01/21/25 15:46
ALT 23 U/L (0-35) 01/21/25 15:46
Alkaline Phosphatase 97 U/L (38-126) 01/21/25 15:46
Lipase 362 U/L (23-300) H 01/21/25 15:46
Data Reviewed
-
CT Scan: Report Reviewed by me
Ultrasound: Report Reviewed by me
Lab Data: Labs Reviewed by me
Impression/Plan
-
Impression/plan:
Admit to MedSurg
#Intractable abdominal pain with vomiting secondary to cholelithiasis
- Unable to tolerate oral liquids
- Patient given 2 L IV NSS in ER
- cont IV NSS 60 cc an hour
- IV Zofran as needed
-IV morphine as needed relieved pain in ER
- Patient given IV Zosyn in ER continue IV Zosyn renal dose
- Consult GI
- Consult general surgery
- CBC, CMP
CT abdomen pelvis with IV contrast:
1. No definitive acute pathology of the abdomen or pelvis identified.
2. Distended gallbladder with gallstones. Acute cholecystitis cannot be excluded.
This would better be evaluated by abdominal ultrasound. Gallstones stable. Distention new.
3. Bilateral too small to characterize hypodense renal lesions likely benign cysts.
4. Moderate atherosclerotic vascular disease. Stable
Ultrasound: Cholelithiasis without acute cholecystitis
#History dementia
Patient is oriented to name, place, president, year but not all of history
#History of Parkinson's per homeless
#CKD stage IIIb
Creat 1.4 appears baseline
follow bmp
#DM2
Accu-Cheks with SSI check HgbA1c
-Hold metformin 1000 mg twice daily
#HLD
Hold Zocor 20 mg daily
#GERD
Continue Protonix 20 mg at bedtime
#Anxiety
continue Zoloft
#Overactive bladder
Hold Myrbetriq
#History of fall with radius and ulna fracture repair June 2022
#Chronic ambulatory dysfunction uses rollator at baseline
VTE prophylaxis
SCDs
Dnr
[2025-01-22] VITALS (20 sets, daily range): BP systolic 113–162; BP diastolic 44–83; BMI 19.1
[2025-01-22] MEDS: NSS 1000 IV (02:08)
[2025-01-22] MEDS: ZOSYN 50 IV ×4 (04:42→21:43)
[2025-01-22 05:21] LABS: ALT (SGPT) 18 U/L (0-35); AST (SGOT) 25 U/L (14-36); Albumin 3.7 g/dl (3.5-5.0); Alkaline Phosphatase 71 U/L (38-126); Blood Urea Nitrogen 27 mg/dl (7-17); Calcium 8.9 mg/dl (8.4-10.2); Carbon Dioxide 21 mmol/L (22-30); Chloride 110 mmol/L (98-107); Estimated Creatinine Clearance 32 ml/min; Glucose 114 mg/dl (70-99); HDL Cholesterol 28 mg/dl; LDL Cholesterol, Calculated 57 mg/dl; Potassium 3.5 mmol/L (3.5-5.1); Sodium 140 mmol/L (135-145); Total Protein 6.7 g/dl (6.3-8.2); Very Low Density Lipoprotein 34 mg/dl (0-30); eGFR 46.05
[2025-01-22 05:31] LABS: Hematocrit 35.3 % (37.0-47.0); Hemoglobin 12.0 g/dL (12.0-16.0); Mean Corp Hgb Conc. 34.0 g/dL (33.0-37.0); Mean Corpuscular Volume 84.9 fL (81.0-99.0); Nucleated Red Blood Cells % 0 %; Platelet Count 246 10^3/uL (130-400); Red Cell Dist. Width 13.8 % (11.5-14.5)
[2025-01-22] MEDS: MORPHINE SULFATE 2 MG IV (07:16)
--- NOTE | 2025-01-22 08:15 | W.SUR.PREOP ---
Pre-Operative Surgical Note
-
I have examined this patient prior to the performance of the scheduled procedure.
The patient's condition is unchanged from the time of the current History and
Physical and the patient is able to undergo the scheduled procedure.
--- NOTE | 2025-01-22 08:18 | CON.GS ---
Addendum entered and electronically signed by Patrick Lucero MD 01/22/25 14:02:
I saw and examined the patient independently.
The Butcher Scullion's note was reviewed and I agree with the note, assessment and plan except where noted below.
Comment: This is a 79-year-old female with a medical history below including dementia, DNR who presents with nausea vomiting and diarrhea for several weeks. CT scan here shows a dilated gallbladder with significant stone burden. She is tender to
palpation in the right upper quadrant.
After discussion with patient and daughter, we will move forward with a laparoscopic cholecystectomy and cholangiogram.
N.p.o., IV fluids, IV antibiotics.
Risks/Benefits/Alternatives, expected postoperative course and possible complications (bleeding, infection, injury to surrounding structures, acute/chronic pain) discussed at length. Patient wishes to proceed with surgery. All questions answered.
Consent obtained.
I spent 70 minutes in total for the care of this patient today including direct patient care and counseling, reviewing labs, imaging, coordination of care, as well as documentation.
Original Note:
Consultation
-
Date/Time Consultation Performed: 01/22/25 8482
Medical History
-
Chief Complaint: n/v 'feel like hell'
History of Present Illness:
Ms Marie is a 79 yo female with a h/o Parkinson's with dementia, DM, CKD, CAD, HLD, and prior tubal ligation who presents with recurrent nausea vomiting and diarrhea for several weeks. She has been following with her PCP and utilizing zofran but
without much benefit. She presented with her daughter through the ED as she has been unable to tolerate PO intake over the last several days. She is overall a poor historian and notes she doesn't remember much of her medical history but does note
that the last time she comfortably ate was on January 08. She denies abdominal pain; however, on exam was markedly tender to the RUQ. Her daughter Hanny was contacted via telephone to assist with HPI.
Past Medical History
Past Medical History: CAD, GERD, HTN, Hypercholesterolemia, NIDDM and Other (Parkinsons with dementia, CKD III, OAB, insomnia)
Past Surgical History: Gynecological (tubal ligation), Orthopedic (left arm ORIF) and Other (facial reconstruction)
Social History
Tobacco: Former Smoker
Alcohol: None
Living: With Family (daughter)
Employment: Retired
Family History
Family History: Reviewed & Not Pertinent
Allergies / Home Medications
Allergy/AdvReac Type Severity Reaction Status Date / Time
egg Allergy Vomiting Verified 01/21/25 15:50
�Medication �Instructions �Recorded �Confirmed �Type
aspirin 81 mg chewable tablet 81 mg PO DAILY Blood clot 02/15/22 01/22/25 History
prevention/tx
mirabegron 50 mg tablet,extended 50 mg PO DAILY Urinary Issue 11/17/23 01/22/25 History
release 24 hr (Myrbetriq)
simvastatin 20 mg tablet (Zocor) 20 mg PO DAILY High Cholesterol 11/17/23 01/22/25 History
cyanocobalamin (vitamin B-12) 500 500 mcg PO DAILY Supplement 12/23/23 01/22/25 History
mcg tablet
mirtazapine 15 mg tablet 15 mg PO HSPRN PRN sleep 12/23/23 01/22/25 History
pantoprazole 20 mg tablet,delayed 20 mg PO DAILY Gastrointestinal 12/23/23 01/22/25 History
release Issue
sertraline 25 mg tablet 50 mg PO DAILY Depression/anxiety 12/23/23 01/22/25 History
metformin 1,000 mg tablet 1,000 mg PO BID Diabetes 12/06/24 01/22/25 History
donepezil 5 mg tablet (Aricept) 5 mg PO DAILY #30 tabs 12/21/24 01/22/25 Rx
omega 6-wkv-oek-fish oil 1,000 mg 1 cap PO DAILY Supplement 12/21/24 01/22/25 History
(120 mg-180 mg) capsule (Fish Oil)
ascorbic acid (vitamin C) 500 mg 500 mg PO DAILY 01/22/25 01/22/25 History
tablet (Vitamin C)
biotin 5,000 mcg chewable tablet 5,000 mcg PO DAILY 01/22/25 01/22/25 History
ondansetron 8 mg disintegrating 8 mg PO Q8HPRN PRN nausea 01/22/25 01/22/25 History
tablet
Review of Systems
-
History Source: Patient and Family
All other systems: Negative unless noted
A 10 point review of systems was completed, and was negative except as per HPI.
Physical Exam
Vital Signs
Temp Pulse Resp BP Pulse Ox
98.0 F 71 17 155/62 95
01/22/25 07:28 01/22/25 07:28 01/22/25 07:28 01/22/25 07:28 01/22/25 07:28
01/21/25 01/22/25 01/23/25
06:59 06:59 06:59
Actual Weight 52.7 kg
Body Mass Index (BMI) 19.3
Lab Results
01/22/25 04:54
01/22/25 04:54
WBC 10.0 10^3/uL (4.8-10.8) 01/22/25 04:54
Hgb 12.0 g/dL (12.0-16.0) D 01/22/25 04:54
Hct 35.3 % (37.0-47.0) L 01/22/25 04:54
Plt Count 246 10^3/uL (130-400) D 01/22/25 04:54
Abs Immat Gran (auto) 0.0 10^3/uL (0-0.05) 01/22/25 04:54
Neutrophils % 58.2 % (42.2-75.2) 01/22/25 04:54
Physical Exam
General: Well Developed and Well Nourished
HEENT: Normocephalic and Moist Mucous Membranes
Respiratory: Non Labored Respirations
GI: Soft, Non Tender and Tender (severe to RUQ)
Skin: Warm
Neuro: Awake, Alert and Other (ox2)
Psych: Calm
Assessment / Plan
-
79 yo female h/o Parkinson's with dementia, DM, CKD, CAD, HLD, and prior tubal ligation who presents with recurrent nausea vomiting and diarrhea for several weeks. She has been following with her PCP and utilizing zofran but without much benefit.
She presented with her daughter through the ED as she has been unable to tolerate PO intake over the last several days. RUQ tenderness present on exam with CT imaging with gallbladder distention and gallstones noted. US in follow up again with
cholelithiasis. Given ongoing symtpoms and RUQ tenderness on exam, suspect acute calculous cholecystitis. No leukocytosis present. Lipase mildly elevated, LFT's normal. Afebrile. VSS.
Plan:
Continue with IV zosyn which was initiated in the ED
Keep NPO
OR planned later today for laparoscopic cholecystectomy
Analgesics/antiemetics prn
Medical management as per primary team
[2025-01-22] MEDS: NSS (PRESERVATIVE FREE) 10 ML IV (09:20)
[2025-01-22] MEDS: PROTONIX IV 40 MG IV (09:20)
[2025-01-22] MEDS: ZOLOFT 50 MG PO (09:20)
[2025-01-22] MEDS: ARICEPT 5 MG PO (09:29)
--- NOTE | 2025-01-22 11:23 | CM ---
Chart reviewed. Spoke with patient at ED bedside
Oriented to person, per ED RN pt is pleasantly confused
Spoke with dtr Hanny on the phone
She lives with dtr July in 1 [address] with no steps
Needs assistance with ADLs and ambulation
DME RW and cane
PCP Keyshawn Torres
[facility] in [place]
no hx of VN
hx of Em Mcclendon and [facility]
DCP is to go home with services if indicated?
CM will continue to follow up for any dcp needs
--- NOTE | 2025-01-22 11:27 | PTCARENOTE ---
attempted a call to the patient's primary contact (daughter Hanny) to complete patient's admission, call went to a voicemail, left a message. patient unable to provide history due to Hx Dementia
--- NOTE | 2025-01-22 13:22 | W.PN.HOSP.TC ---
Today's Communication/Plan
-
79F with Parkinson's, DM2, CKD, p/w N/V x 2 weeks.
Intractable abdominal pain with vomiting secondary to cholelithiasis
CT, ultrasound both show cholelithiasis.
Evaluated by general surgery, concern for acute calculous cholecystitis
TG elevated, lipase mildly elevated
Plan for OR today
N.p.o.
IVF
IV Zofran PRN
IV pain medication PRN
Parkinson's dementia
Continue donepezil
CKD stage IIIb
Creatinine at baseline, trend
DM2
Hold metformin
check A1c
Ordered SSI/Accu-Cheks
HLD
Hold statin
GERD
Continue Protonix
Anxiety
continue sertraline and mirtazapine
Overactive bladder
Hold Myrbetriq
DVT PPx
SCDs
Assessment / Plan
Assessment / Plan
Anticipated Discharge: 24 - 48 hours
Subjective/Interval History
-
Date of Service: January 22, 2025
Patient states she is feeling lousy, pain is controlled with pain meds. Discussed with RN
Objective Data
-
Labs:
Laboratory Results
01/22/25
04:54
WBC 10.0
Hgb 12.0 D
Hct 35.3 L
Plt Count 246 D
Sodium 140
Potassium 3.5
Chloride 110 H
Carbon Dioxide 21 L
BUN 27 H
Creatinine 1.2 H
Glucose 114 H
Calcium 8.9 D
Total Bilirubin 0.9
AST 25
ALT 18
Alkaline Phosphatase 71
Vital Signs:
Vital Signs
Temp Pulse Resp BP Pulse Ox
97.9 F 64 16 142/63 98
01/22/25 11:57 01/22/25 11:57 01/22/25 11:57 01/22/25 11:57 01/22/25 11:57
Review of Systems
-
History Source: Patient
All other systems: Reviewed and negative
Physical Exam
-
General: No Apparent Distress
HEENT: Moist Mucous Membranes, Anicteric and PERRLA
Respiratory: Clear to Auscultation; Negative Wheezes, Rales or Rhonchi
Cardiac: Regular Rhythm and S1/S2; Negative Murmur, Rub or Gallop
GI: Soft, Nondistended, Normal Bowel Sounds and Tender
Musculoskeletal: No Edema
Skin: Warm and Dry; Negative Rash, Ulcers or Lesions
Neuro: Awake and AO x 3
Hematologic / Lymphatic: No Lymphadenopathy
Psych: Calm
Data Reviewed
-
CT Scan: Report Reviewed by me and Discussed with Patient
Ultrasound: Report Reviewed by me and Discussed with Patient
Labs: Labs Reviewed by me and Discussed with Patient
[2025-01-22 13:54] LABS: Glucose - Point of Care 137 mg/dl (70-99)
[2025-01-22] MEDS: ZOFRAN 4 MG IV (16:14)
[2025-01-22] MEDS: NOVOLOG FLEXPEN-LOW RESISTANCE SC (16:47)
[2025-01-22] MEDS: NSS IV (18:19)
--- NOTE | 2025-01-22 18:30 | W.IMMPOSTOP ---
Surgical Immed Post Op Note
-
Primary Surgeon: Patrick Lucero MD
Assisting Surgeon: None
Pre-op Diagnosis: Acute cholecystitis
Post-op Diagnosis: Chronic cholecystitis
Procedure Performed: Laparoscopic cholecystectomy with cholangiogram
Anesthesia Type: General
Specimen / Cultures: Gallbladder and contents
Estimated Blood Loss: 3 cc
Complications: None
Operative Findings: Distended and chronically inflamed gallbladder. Adhesions over the anterior surface were lysed with electrocautery and blunt dissection. Critical view of safety obtained prior to cholangiogram which demonstrated normal biliary
anatomy and no distal filling defects. The duct was ligated with a clip followed by 0 PDS Endoloop.
POST OP PLAN:
Imaging: None
Labs: Routine AM
Diet: Clear liquids, will advance as tolerated tomorrow
Analgesia: Tylenol 650mg q6 Allyson, Dilaudid 0.5mg q2h PRN
Neuro/vascular checks: Per unit protocol
AC/AP: Hold Therapeutic AC, Ok for DVT PPx
Activity: Ad Marianne
Wound/Incisions/Drains: Routine
Abx: 24 hours antibiotics.
Dispo: RNF
Intraoperative findings discussed with daughter over the phone.
--- NOTE | 2025-01-22 18:33 | OR.RPT ---
Operative Report
Operative Report
Patient Name: Sarah Marie
: 1945
Date of Operation: 01/22/2025
Preoperative Diagnosis: Acute cholecystitis
Postoperative Diagnosis: Chronic cholecystitis
Procedure(s):
Laparoscopic Cholecystectomy with Cholangiogram
Surgeon(s):
Dr. Lucero
[employer](s):
None
Anesthesia: General
Estimated Blood Loss: 3 cc
Urine Output: None
Drains/Lines/Implants: None
Specimens:
1. Gallbladder and contents
HPI/Surgical Indications:
This is a 79-year-old female with a history of chronic nausea and vomiting, often postprandial with tenderness in the right upper quadrant and imaging concerning for cholecystitis. Exam, labs and imaging are consistent with acute cholecystitis.
Risks/Benefits/Alternatives were discussed at length, and the patient and daughter consented to proceed with surgery.
Operative Findings: Distended and chronically inflamed gallbladder. Adhesions over the anterior surface were lysed with electrocautery and blunt dissection. Critical view of safety obtained prior to cholangiogram which demonstrated normal biliary
anatomy and no distal filling defects. The duct was ligated with a clip followed by 0 PDS Endoloop.
Procedure Description:
The patient was brought to the Operating Room and placed in the supine position with one arm tucked. Following uneventful induction of general endotracheal anesthesia, an orogastric tube was placed. The abdomen was prepped and draped in the usual
sterile fashion. A timeout was performed confirming the procedure, consent, and that IV antibiotics were infused and sequential compression devices were confirmed to be on. The abdomen was entered using a left subcostal Veress technique which
required a single pass followed by a 5 mm right upper quadrant Optiview trocar. Pneumoperitoneum to 15 mmHg pressure was obtained without difficulty and we confirmed that no injury had occurred during our entry. The patient was positioned in
reverse Trendelenberg and rotated with the right side up slightly. Two 5 mm trocars were then placed along the right subcostal margin, followed by a 12 mm port in the epigastrium. The gallbladder was emptied using a decompressing needle through
the fundus of the gallbladder with evacuation of hydrops before A locking grasping forceps was placed on the fundus of the gallbladder where it was then retracted cephalad and to the right. Using appropriate grasping instruments, the peritoneum
overlying the triangle of Calot was incised and extended superiorly on both the anterior and posterior gallbladder perea. The lower third of the gallbladder was dissected off the cystic plate. The cystic triangle was dissected until 2 and only 2
structures were seen entering the gallbladder, thus a critical view of safety was achieved. The cystic artery was clipped with 5 mm titanium clips and divided. The cystic duct was clipped high on the gallbladder. A ductotomy was made and a
cholangiocatheter on an Hidalgo clamp was inserted into the cystic duct. A C-arm was draped and brought into the field. An intra-operative cholangiogram was performed and was noted to have:
No filling defects in the biliary tree
No significant biliary dilation
Brisk flow of contrast into the duodenum
Normal biliary anatomy
The catheter was then removed and the cystic duct was controlled with a clip followed by 0 PDS Endoloop. After ensuring both the artery and duct were divided, the gallbladder was freed from the liver using electrocautery. There was some spillage
of bile from our ductotomy, but no spillage of stones. The gallbladder bed was inspected and excellent hemostasis was obtained. The gallbladder was extracted through the 12 mm trocar site using an endocatch bag without dilating the port site.
Several Black oxalate gallstones were removed. The abdomen was again irrigated and excellent hemostasis was assured. All remaining trocars were then removed and the pneumoperitoneum was evacuated. The 12 mm trocar site was closed using 0 PDS
suture. All trocar sites were closed at the skin level using 4-0 Monocryl followed by Dermabond. Overall, the patient tolerated the procedure well and was taken to the Recovery Room postoperatively in stable condition.
I was the attending physician and performed the procedure without assistance and was present for all portions of the case.
Patrick Lucero MD
[2025-01-22] MEDS: DILAUDID 0.25 MG IV (18:58)
[2025-01-22 19:01] LABS: Glucose - Point of Care 184 mg/dl (70-99)
[2025-01-23 03:00] VITALS: BP 113/47
[2025-01-23] MEDS: ZOSYN 50 IV ×2 (04:11→09:31)
[2025-01-23] MEDS: ZOFRAN 4 MG IV ×2 (04:30→10:40)
[2025-01-23 07:03] VITALS: BP 139/58
[2025-01-23 07:23] LABS: Hematocrit 35.6 % (37.0-47.0); Hemoglobin 11.7 g/dL (12.0-16.0); Mean Corp Hgb Conc. 32.9 g/dL (33.0-37.0); Mean Corpuscular Volume 85.2 fL (81.0-99.0); Nucleated Red Blood Cells % 0 %; Platelet Count 246 10^3/uL (130-400); Red Cell Dist. Width 14.1 % (11.5-14.5)
[2025-01-23 07:48] LABS: ALT (SGPT) 27 U/L (0-35); AST (SGOT) 38 U/L (14-36); Albumin 3.8 g/dl (3.5-5.0); Alkaline Phosphatase 69 U/L (38-126); Blood Urea Nitrogen 18 mg/dl (7-17); Calcium 9.0 mg/dl (8.4-10.2); Carbon Dioxide 22 mmol/L (22-30); Chloride 108 mmol/L (98-107); Estimated Creatinine Clearance 31 ml/min; Glucose 99 mg/dl (70-99); Potassium 3.8 mmol/L (3.5-5.1); Sodium 141 mmol/L (135-145); Total Protein 6.7 g/dl (6.3-8.2); eGFR 46.05
[2025-01-23 08:37] LABS: Glucose - Point of Care 97 mg/dl (70-99)
[2025-01-23] MEDS: NOVOLOG FLEXPEN-LOW RESISTANCE SC ×3 (08:45→17:22)
[2025-01-23 08:52] LABS: Glycohemoglobin (HgbA1c) 6.7 % (4.0-5.9)
[2025-01-23] MEDS: PROTONIX IV 40 MG IV (09:25)
[2025-01-23] MEDS: ZOLOFT 50 MG PO (09:25)
[2025-01-23] MEDS: ARICEPT 5 MG PO (09:25)
[2025-01-23] MEDS: NSS (PRESERVATIVE FREE) 10 ML IV (09:26)
--- NOTE | 2025-01-23 10:57 | W.PN.HOSP.TC ---
Today's Communication/Plan
-
Trial CLD today and tx nausea
Assessment / Plan
Assessment / Plan
79F with Parkinson's, DM2, CKD, p/w N/V x 2 weeks.
Intractable abdominal pain with vomiting secondary to cholelithiasis
CT, ultrasound both show cholelithiasis.
Evaluated by general surgery, concern for acute calculous cholecystitis
TG elevated, lipase mildly elevated
s/p lap nadira 01/22
IVF
CLD
IV Zofran PRN
IV pain medication PRN
Parkinson's dementia
Continue donepezil
CKD stage IIIb
Creatinine at baseline, trend
DM2
Hold metformin
A1c 6.7%
Ordered SSI/Accu-Cheks
HLD
Hold statin
GERD
Continue Protonix
Anxiety
continue sertraline and mirtazapine
Overactive bladder
Hold Myrbetriq
DVT PPx
SCDs
Anticipated Discharge: 24 - 48 hours
Subjective/Interval History
-
Date of Service: January 23, 2025
Patient feeling nauseous, production machine tender in abdomen. Has only tried ice water so far. RN at bedside
Objective Data
-
Labs:
Laboratory Results
01/23/25
06:41
WBC 12.3 H
Hgb 11.7 L
Hct 35.6 L
Plt Count 246
Sodium 141
Potassium 3.8
Chloride 108 H
Carbon Dioxide 22
BUN 18 H
Creatinine 1.2 H
Glucose 99
Calcium 9.0
Total Bilirubin 0.8
AST 38 H
ALT 27
Alkaline Phosphatase 69
Vital Signs:
Vital Signs
Temp Pulse Resp BP Pulse Ox
97.8 F 65 16 139/58 99
01/23/25 07:03 01/23/25 07:03 01/23/25 07:03 01/23/25 07:03 01/23/25 07:03
I&O
01/22/25 01/23/25 01/24/25
06:59 06:59 06:59
Intake Total 240 / 240
Balance 240 / 240
Review of Systems
-
History Source: Patient
All other systems: Reviewed and negative
Physical Exam
-
General: Appears in Distress (nausea)
HEENT: Moist Mucous Membranes, Anicteric and PERRLA
Respiratory: Clear to Auscultation; Negative Wheezes, Rales or Rhonchi
Cardiac: Regular Rhythm and S1/S2; Negative Murmur, Rub or Gallop
GI: Soft, Nondistended, Normal Bowel Sounds, Tender and Other (Laparoscopic incisions C/D/I)
Musculoskeletal: No Edema
Skin: Warm and Dry; Negative Rash, Ulcers or Lesions
Neuro: Awake, Alert and Oriented (2)
Hematologic / Lymphatic: No Lymphadenopathy
Psych: Calm and Apparent Dementia
Data Reviewed
-
CT Scan: Report Reviewed by me and Discussed with Patient
Ultrasound: Report Reviewed by me and Discussed with Patient
Labs: Labs Reviewed by me and Discussed with Patient
[2025-01-23 11:00] VITALS: BP 131/84
[2025-01-23 12:07] LABS: Glucose - Point of Care 103 mg/dl (70-99)
--- NOTE | 2025-01-23 14:53 | CM ---
POD #1: Sybil. IV/Zosyn. Discharge POC: Awaiting therapy eval and recs.
[2025-01-23 15:00] VITALS: BP 107/56
--- NOTE | 2025-01-23 16:12 | W.PN.GS2 ---
Today's Communication / Plan
-
Study Reglan
Assessment / Plan
-
This is a 79-year-old female who presents with right upper quadrant abdominal pain and longstanding nausea and vomiting. Postoperative day 1 from a laparoscopic cholecystectomy for chronic cholecystitis.
There could be a component of gastroparesis to her nausea, will stop Compazine and start Reglan.
Continue Zofran.
Pain control.
Discharge instructions updated. General Surgery will follow peripherally, please call with questions or concerns.
Time Spent
Total Time Spent with Patient (in minutes): 20
Subjective Data
-
Date of Service: January 23, 2025
Interval Events:
No acute events overnight. Still with significant nausea and dry heaves.
Objective Data
-
Intake and Output
01/22/25 01/23/25 01/24/25
06:59 06:59 06:59
Intake Total 240 / 240
Balance 240 / 240
Intake:
Oral fluids 240 / 240
Other:
How many times incontinent 3
MODERATE amount urine
Vital Signs
Temp Pulse Resp BP Pulse Ox
98.3 F 68 16 131/84 99
01/23/25 11:00 01/23/25 11:00 01/23/25 11:00 01/23/25 11:00 01/23/25 11:00
Lab Results
01/23/25 06:41
01/23/25 06:41
Calcium 9.0 mg/dl (8.4-10.2) 01/23/25 06:41
Total Bilirubin 0.8 mg/dl (0.2-1.3) 01/23/25 06:41
AST 38 U/L (14-36) H 01/23/25 06:41
ALT 27 U/L (0-35) 01/23/25 06:41
Alkaline Phosphatase 69 U/L (38-126) 01/23/25 06:41
Total Protein 6.7 g/dl (6.3-8.2) 01/23/25 06:41
Albumin 3.8 g/dl (3.5-5.0) 01/23/25 06:41
Physical Exam
-
GENERAL/NEURO: Awake, Alert, no distress
CHEST: Unlabored breathing on RA
ABDOMEN: Soft, Non-Tender, Non-Distended, incisions clean dry and intact.
Patient has a bach catheter: No
Patient has a central line: No
[2025-01-23] MEDS: ZOSYN IV (16:43)
[2025-01-23] MEDS: REGLAN 5 MG IV (16:48)
[2025-01-23 17:18] LABS: Glucose - Point of Care 114 mg/dl (70-99)
[2025-01-23 19:32] VITALS: BP 115/53
[2025-01-23 21:35] LABS: Glucose - Point of Care 114 mg/dl (70-99)
[2025-01-23 22:20] VITALS: BP 114/41
[2025-01-24] MEDS: ZOFRAN 4 MG IV (03:49)
[2025-01-24 03:51] VITALS: BP 128/54
[2025-01-24 07:00] VITALS: BP 120/51
[2025-01-24 07:58] LABS: Glucose - Point of Care 111 mg/dl (70-99)
[2025-01-24] MEDS: NOVOLOG FLEXPEN-LOW RESISTANCE SC ×3 (08:05→17:26)
[2025-01-24] MEDS: PROTONIX IV 40 MG IV (08:06)
[2025-01-24] MEDS: ARICEPT 5 MG PO (08:06)
[2025-01-24] MEDS: ZOLOFT 50 MG PO (08:06)
[2025-01-24] MEDS: NSS (PRESERVATIVE FREE) 10 ML IV (08:07)
[2025-01-24 08:55] LABS: Hematocrit 34.1 % (37.0-47.0); Hemoglobin 11.3 g/dL (12.0-16.0); Mean Corp Hgb Conc. 33.1 g/dL (33.0-37.0); Mean Corpuscular Volume 84.2 fL (81.0-99.0); Nucleated Red Blood Cells % 0 %; Platelet Count 229 10^3/uL (130-400); Red Cell Dist. Width 14.3 % (11.5-14.5)
[2025-01-24 10:11] LABS: ALT (SGPT) 23 U/L (0-35); AST (SGOT) 31 U/L (14-36); Albumin 3.6 g/dl (3.5-5.0); Alkaline Phosphatase 70 U/L (38-126); Blood Urea Nitrogen 13 mg/dl (7-17); Calcium 9.0 mg/dl (8.4-10.2); Carbon Dioxide 21 mmol/L (22-30); Chloride 107 mmol/L (98-107); Estimated Creatinine Clearance 34 ml/min; Glucose 82 mg/dl (70-99); Potassium 3.3 mmol/L (3.5-5.1); Sodium 139 mmol/L (135-145); Total Protein 6.4 g/dl (6.3-8.2); eGFR 51.11
[2025-01-24] MEDS: KCL 1020 MEQ IV ×2 (10:34→22:11)
--- NOTE | 2025-01-24 11:51 | PN.CDI ---
CDI
- -
CDI:
Physician Documentation Request
Admit Date: 01/21/25 23:51
Dear Doctor Terrance,
Please review the following and provide your response in the progress notes.
Clinical Indicators:
Pt admitted with acute on chronic cholecystitis cholelithiasis/p lap paresh on 01/22
Documented per nutrition consult 01/22, ' Patient unavailable during RD rounds. Patient experiencing N/V/D for the past several weeks. Unable to take p.o. over the past several days. Current BW: (01/22) 114 lbs 14.4 oz BMI: 19.1 (normal). Weight
history (07/03/24) 144 lbs. This is a 20.9% BW loss over 7 months (significant).Patient meets AND and ASPEN criteria for severe protein calorie malnutrition of chronic disease due to a loss of more than 10% BW loss over 6 months and less than 75% of
estimated nutrition needs met for more than 1 month....'
Based on the above information and your assessment, which of the following most accurately represents the patient's nutritional status?
Severe Protein Calorie Malnutrition
Other (please specify)
[place] Criteria (ACP Hospitalist 2017)
2 or more criteria must be present for either
non severe or severe malnutrition
Note that the criteria differs related to the
presence of an acute or chronic illness
Acute Illness Chronic Illness
Energy Intake Non Severe: <75% for >7 days Non Severe: <75% for >1 month
Severe: <50% for >5 days Severe: <75% for >1 month
Weight Loss Non Severe: 1-2% over 1 week Non Severe: 5% over 1 month
5% over 1 month 7.5% over 3 months
7.5% over 3 months 10% over 6 months
1 year N/A 20% over 1 year
Severe: >2% over 1 week Severe: >5% over 1 month
>5% over 1 month >7.5% over 3 months
>7.5% over 3 months >10% over 6 months
1 year N/A >20% over 1 year
Body Fat Non Severe: Mild Decrease Non Severe: Mild Loss
Severe: Moderate Decrease Severe: Severe Loss
Muscle Mass Non Severe: Mild Decrease Non Severe: Mild Loss
Severe: Moderate Decrease Severe: Severe Loss
Fluid Accumulation Non Severe: Mild Accumulation Non Severe: Mild Accumulation
Severe: Moderate to severe Severe: Moderate to severe
accumulation accumulation
Reduced [employer] Strength Non Severe: N/A Non Severe: N/A
Severe: Measurably reduced Severe: Measurably reduced
Use of terms such as suspected, likely, concern for, or probable (associated with a specific diagnosis that is being evaluated, monitored, or treated as if it exists) are acceptable and can be coded in the inpatient setting, when documented at the
time of discharge.
Thank you,
Elicia Carrera RN
CDI Specialist
[facility]
Please use your independent medical judgment in providing your response.
[2025-01-24 12:19] LABS: Glucose - Point of Care 144 mg/dl (70-99)
--- NOTE | 2025-01-24 12:40 | W.PN.HOSP.TC ---
Today's Communication/Plan
-
Trial CLD today and tx nausea continue reglan
Assessment / Plan
Assessment / Plan
79F with Parkinson's, DM2, CKD, p/w N/V x 2 weeks.
Intractable abdominal pain with vomiting secondary to cholelithiasis
CT, ultrasound both show cholelithiasis.
Evaluated by general surgery, concern for acute calculous cholecystitis
TG elevated, lipase mildly elevated
s/p lap nadira 01/22
IVF
CLD
IV Zofran PRN
Still nauseous so Reglan started for possible gastroparesis
IV pain medication PRN
Hypokalemia
Replete with IV potassium
Parkinson's dementia
Continue donepezil
CKD stage IIIb
Creatinine at baseline, trend
DM2
Hold metformin
A1c 6.7%
BG control SSI/Accu-Cheks
HLD
Hold statin
GERD
Continue Protonix
Anxiety
continue sertraline and mirtazapine
Overactive bladder
Hold Myrbetriq
DVT PPx
Lovenox
Anticipated Discharge: 24 - 48 hours
Subjective/Interval History
-
Date of Service: January 24, 2025
Patient still feels nauseous, denies abdominal pain, wants to try eating this morning
Objective Data
-
Labs:
Laboratory Results
01/24/25
07:25
WBC 9.8
Hgb 11.3 L
Hct 34.1 L
Plt Count 229
Sodium 139
Potassium 3.3 L
Chloride 107
Carbon Dioxide 21 L
BUN 13
Creatinine 1.1 H
Glucose 82
Calcium 9.0
Total Bilirubin 0.7
AST 31
ALT 23
Alkaline Phosphatase 70
Vital Signs:
Vital Signs
Temp Pulse Resp BP Pulse Ox
98.2 F 61 16 120/51 97
01/24/25 07:00 01/24/25 07:00 01/24/25 07:00 01/24/25 07:00 01/24/25 07:00
I&O
01/23/25 01/24/25 01/25/25
06:59 06:59 06:59
Intake Total 240 / 240 720 / 720
Balance 240 / 240 720 / 720
Review of Systems
-
History Source: Patient
All other systems: Reviewed and negative
Physical Exam
-
General: No Apparent Distress
HEENT: Moist Mucous Membranes, Anicteric and PERRLA
Respiratory: Clear to Auscultation; Negative Wheezes, Rales or Rhonchi
Cardiac: Regular Rhythm and S1/S2; Negative Murmur, Rub or Gallop
GI: Soft, Nondistended, Normal Bowel Sounds, Tender and Other (Laparoscopic incisions C/D/I)
Musculoskeletal: No Edema
Skin: Warm and Dry; Negative Rash, Ulcers or Lesions
Neuro: Awake, Alert and Oriented (2)
Hematologic / Lymphatic: No Lymphadenopathy
Psych: Calm and Apparent Dementia
Data Reviewed
-
CT Scan: Report Reviewed by me and Discussed with Patient
Ultrasound: Report Reviewed by me and Discussed with Patient
Labs: Labs Reviewed by me and Discussed with Patient
[2025-01-24 15:35] VITALS: BP 140/57
[2025-01-24] MEDS: LOVENOX 40 MG SC (17:09)
[2025-01-24] MEDS: REGLAN 5 MG IV ×2 (17:09→23:17)
[2025-01-24 17:19] LABS: Glucose - Point of Care 105 mg/dl (70-99)
[2025-01-24 21:21] LABS: Glucose - Point of Care 115 mg/dl (70-99)
[2025-01-24] MEDS: TYLENOL 650 MG PO (21:45)
[2025-01-24 23:21] VITALS: BP 127/56
[2025-01-25 07:54] VITALS: BP 149/59
[2025-01-25] MEDS: KCL 1020 MEQ IV (08:27)
[2025-01-25] MEDS: PROTONIX IV 40 MG IV (08:27)
[2025-01-25] MEDS: ARICEPT 5 MG PO (08:27)
[2025-01-25] MEDS: ZOLOFT 50 MG PO (08:27)
[2025-01-25 08:28] LABS: Glucose - Point of Care 84 mg/dl (70-99)
[2025-01-25] MEDS: NOVOLOG FLEXPEN-LOW RESISTANCE SC ×3 (08:28→17:06)
[2025-01-25] MEDS: NSS (PRESERVATIVE FREE) 10 ML IV (08:28)
[2025-01-25] MEDS: REGLAN 5 MG IV ×3 (08:28→23:03)
[2025-01-25 08:43] LABS: Hematocrit 33.1 % (37.0-47.0); Hemoglobin 11.1 g/dL (12.0-16.0); Mean Corp Hgb Conc. 33.5 g/dL (33.0-37.0); Mean Corpuscular Volume 85.3 fL (81.0-99.0); Nucleated Red Blood Cells % 0 %; Platelet Count 209 10^3/uL (130-400); Red Cell Dist. Width 14.3 % (11.5-14.5)
[2025-01-25 09:41] LABS: ALT (SGPT) 18 U/L (0-35); AST (SGOT) 25 U/L (14-36); Albumin 3.3 g/dl (3.5-5.0); Alkaline Phosphatase 63 U/L (38-126); Blood Urea Nitrogen 12 mg/dl (7-17); Calcium 8.9 mg/dl (8.4-10.2); Carbon Dioxide 21 mmol/L (22-30); Chloride 107 mmol/L (98-107); Estimated Creatinine Clearance 38 ml/min; Glucose 78 mg/dl (70-99); Potassium 4.4 mmol/L (3.5-5.1); Sodium 137 mmol/L (135-145); Total Protein 6.0 g/dl (6.3-8.2); eGFR 57.31
--- NOTE | 2025-01-25 11:22 | W.PN.HOSP.TC ---
Addendum entered and electronically signed by Lalitha Carlos MD 01/25/25 14:50:
cdi: Severe Protein Calorie Malnutrition
Original Note:
Today's Communication/Plan
-
ADAT
pain control and nausea control meds
Assessment / Plan
Assessment / Plan
79F with Parkinson's, DM2, CKD, p/w N/V x 2 weeks.
Intractable abdominal pain with vomiting secondary to cholelithiasis
CT, ultrasound both show cholelithiasis.
Evaluated by general surgery, concern for acute calculous cholecystitis
TG elevated, lipase mildly elevated
s/p lap nadira 01/22
IVF stopped
CLD, ADAT
IV Zofran PRN
Still nauseous so IV Reglan started for possible gastroparesis
IV pain medication PRN changed to dilaudid, added oral oxycodone prn
Thrush
nystatin swish and swallow
Hypokalemia - resolved
Repleted with IV potassium
Parkinson's dementia
Continue donepezil
CKD stage IIIb
Creatinine at baseline, trend
DM2
Hold metformin
A1c 6.7%
BG control SSI/Accu-Cheks
HLD
Hold statin
GERD
Continue Protonix
Anxiety
continue sertraline and mirtazapine
Overactive bladder
Hold Myrbetriq
DVT PPx
Lovenox
Anticipated Discharge: 24 - 48 hours
Subjective/Interval History
-
Date of Service: January 25, 2025
Patient says she is feeling not good, states nausea, had water, water ice, I advised she try to eat again and see if she can advance diet. Also having pain at incision site. Not having BMs yet.
Objective Data
-
Labs:
Laboratory Results
01/25/25
07:33
WBC 8.3
Hgb 11.1 L
Hct 33.1 L
Plt Count 209
Sodium 137
Potassium 4.4 D
Chloride 107
Carbon Dioxide 21 L
BUN 12
Creatinine 1.0
Glucose 78
Calcium 8.9
Total Bilirubin 0.6
AST 25
ALT 18
Alkaline Phosphatase 63
Vital Signs:
Vital Signs
Temp Pulse Resp BP Pulse Ox
98.2 F 57 16 149/59 98
01/25/25 07:54 01/25/25 07:54 01/25/25 07:54 01/25/25 07:54 01/25/25 07:54
I&O
01/24/25 01/25/25 01/26/25
06:59 06:59 06:59
Intake Total 720 / 720 480 / 480
Balance 720 / 720 480 / 480
Review of Systems
-
History Source: Patient
All other systems: Reviewed and negative
Physical Exam
-
General: No Apparent Distress
HEENT: Moist Mucous Membranes, Anicteric and PERRLA
Respiratory: Clear to Auscultation; Negative Wheezes, Rales or Rhonchi
Cardiac: Regular Rhythm and S1/S2; Negative Murmur, Rub or Gallop
GI: Soft, Nontender, Nondistended, Normal Bowel Sounds and Other (Laparoscopic incisions C/D/I)
Musculoskeletal: No Edema
Skin: Warm and Dry; Negative Rash, Ulcers or Lesions
Neuro: Awake, Alert and Oriented (2)
Hematologic / Lymphatic: No Lymphadenopathy
Psych: Calm and Apparent Dementia
Data Reviewed
-
CT Scan: Report Reviewed by me and Discussed with Patient
Ultrasound: Report Reviewed by me and Discussed with Patient
Labs: Labs Reviewed by me and Discussed with Patient
[2025-01-25 11:32] LABS: Glucose - Point of Care 125 mg/dl (70-99)
[2025-01-25] MEDS: SENOKOT-S 1 TABLET PO ×2 (12:24→20:56)
[2025-01-25] MEDS: MIRALAX 17 GRAMS PO (12:24)
[2025-01-25] MEDS: MYCOSTATIN ORAL SUSPENSION 5 ML PO ×3 (12:24→20:56)
[2025-01-25] MEDS: TYLENOL 650 MG PO ×3 (12:24→23:03)
[2025-01-25] MEDS: ZOFRAN 4 MG IV (12:30)
[2025-01-25] MEDS: DILAUDID 0.25 MG IV (14:52)
[2025-01-25 15:22] VITALS: BP 114/43
[2025-01-25] MEDS: TYLENOL PO (16:16)
[2025-01-25] MEDS: LOVENOX 40 MG SC (17:05)
[2025-01-25 17:10] LABS: Glucose - Point of Care 98 mg/dl (70-99)
[2025-01-25 21:38] LABS: Glucose - Point of Care 126 mg/dl (70-99)
[2025-01-25 23:00] VITALS: BP 121/48
[2025-01-26] MEDS: TYLENOL PO ×4 (03:31→13:13)
[2025-01-26 07:45] LABS: Hematocrit 32.1 % (37.0-47.0); Hemoglobin 10.8 g/dL (12.0-16.0); Mean Corp Hgb Conc. 33.6 g/dL (33.0-37.0); Mean Corpuscular Volume 82.9 fL (81.0-99.0); Nucleated Red Blood Cells % 0 %; Platelet Count 190 10^3/uL (130-400); Red Cell Dist. Width 14.2 % (11.5-14.5)
[2025-01-26 07:59] VITALS: BP 121/53
[2025-01-26] MEDS: MYCOSTATIN ORAL SUSPENSION PO ×3 (08:25→13:13)
[2025-01-26] MEDS: ARICEPT PO ×2 (08:25→08:57)
[2025-01-26] MEDS: ZOLOFT PO ×2 (08:25→08:57)
[2025-01-26] MEDS: MIRALAX PO ×2 (08:25→08:56)
[2025-01-26] MEDS: SENOKOT-S PO ×3 (08:25→19:50)
[2025-01-26] MEDS: REGLAN 5 MG IV ×2 (08:26→15:55)
[2025-01-26 08:35] LABS: ALT (SGPT) 17 U/L (0-35); AST (SGOT) 25 U/L (14-36); Albumin 3.1 g/dl (3.5-5.0); Alkaline Phosphatase 65 U/L (38-126); Blood Urea Nitrogen 10 mg/dl (7-17); Calcium 8.6 mg/dl (8.4-10.2); Carbon Dioxide 22 mmol/L (22-30); Chloride 102 mmol/L (98-107); Estimated Creatinine Clearance 38 ml/min; Glucose 79 mg/dl (70-99); Potassium 3.9 mmol/L (3.5-5.1); Sodium 132 mmol/L (135-145); Total Protein 5.7 g/dl (6.3-8.2); eGFR 57.31
[2025-01-26 08:51] LABS: Glucose - Point of Care 95 mg/dl (70-99)
[2025-01-26] MEDS: NOVOLOG FLEXPEN-LOW RESISTANCE SC ×3 (08:54→18:05)
[2025-01-26] MEDS: D5LR 1000 IV ×2 (10:07→19:51)
[2025-01-26 13:15] LABS: Glucose - Point of Care 130 mg/dl (70-99)
--- NOTE | 2025-01-26 13:56 | CON.GI ---
Addendum entered and electronically signed by Delphine Cornelius MD 01/26/25 17:20:
Qtc [phone]
Original Note:
Consultation
-
Date/Time Consultation Requested: 01/26/2025, 11:33 am
Date/Time Consultation Performed: 01/26/2025 2pm
Requesting Provider: Dr. Carlos
Performing Provider: Dr. Cornelius
Reason for Consultation: n/v
Medical History
Chief Complaint / HPI
Chief Complaint: n/v
History of Present Illness:
79-year-old female past medical history of dementia, Parkinson's, diabetes, CKD presenting on 01/21 with nausea, vomiting, diarrhea who had a CT scan on admission which shows distended gallbladder with gallstones, cannot rule out acute
cholecystitis. Moderate atherosclerotic vascular disease which was stable. She underwent ultrasound afterwards which again showed gallstones without evidence of acute cholecystitis. Her labs were significant for normal white blood cell count,
normal LFTs. It was felt she likely had acute cholecystitis and underwent a cholecystectomy with Dr. Lucero on 01/22 and had chronic cholecystitis. She had ongoing nausea and vomiting after the surgery and it was thought she perhaps had
gastroparesis so her Compazine was stopped and she was started on Reglan. She was also on Zofran. She continued to have nausea so GI was consulted. She is also on remeron 15 mg qhs.
On discussion with the patient, she has been having nausea since January 08. Initially it started with diarrhea as well. She had the diarrhea, she had a bowel movement every time that she ate. No nocturnal bowel movements, no incontinence, no
blood in the stool. Her nausea was so significant that she stopped eating and lost a significant amount of weight. She had no appetite. She denies any sick contacts, recent antibiotic use. Diarrhea since being admitted has stopped. However the
nausea has persisted. On discussion with her nurse, she notes when she moved the patient out for she will vomit bile.
Past Medical History
Past Medical History: CAD, GERD, HTN, Hypercholesterolemia, NIDDM and Other (Parkinsons with dementia, CKD III, OAB, insomnia)
Past Surgical History: Gynecological, Orthopedic and Other (facial reconstruction)
Social History
Tobacco: Former Smoker
Alcohol: None
Drug: None
Allergies / Home Medications
Allergy/AdvReac Type Severity Reaction Status Date / Time
egg Allergy Vomiting Verified 01/21/25 15:50
�Medication �Instructions �Recorded
aspirin 81 mg chewable tablet 81 mg PO DAILY Blood clot 02/15/22
prevention/tx
mirabegron 50 mg tablet,extended 50 mg PO DAILY Urinary Issue 11/17/23
release 24 hr (Myrbetriq)
simvastatin 20 mg tablet (Zocor) 20 mg PO DAILY High Cholesterol 11/17/23
cyanocobalamin (vitamin B-12) 500 500 mcg PO DAILY Supplement 12/23/23
mcg tablet
mirtazapine 15 mg tablet 15 mg PO HSPRN PRN sleep 12/23/23
pantoprazole 20 mg tablet,delayed 20 mg PO DAILY Gastrointestinal 12/23/23
release Issue
sertraline 25 mg tablet 50 mg PO DAILY Depression/anxiety 12/23/23
metformin 1,000 mg tablet 1,000 mg PO BID Diabetes 12/06/24
donepezil 5 mg tablet (Aricept) 5 mg PO DAILY #30 tabs 12/21/24
omega [id number]-ubz-mdy-fish oil 1,000 mg 1 cap PO DAILY Supplement 12/21/24
(120 mg-180 mg) capsule (Fish Oil)
ascorbic acid (vitamin C) 500 mg 500 mg PO DAILY 01/22/25
tablet (Vitamin C)
biotin 5,000 mcg chewable tablet 5,000 mcg PO DAILY 01/22/25
ondansetron 8 mg disintegrating 8 mg PO Q8HPRN PRN nausea 01/22/25
tablet
Review of Systems
-
All other systems: A 12 pt ROS was Negative except as stated above in HPI
Vital Signs
Temp Pulse Resp BP Pulse Ox
98.2 F 57 18 121/53 97
01/26/25 07:59 01/26/25 07:59 01/26/25 07:59 01/26/25 07:59 01/26/25 07:59
Physical Exam
Exam
General: Well Developed
HEENT: Normocephalic
Respiratory: Clear
Cardiac: S1/S2 and Regular Rhythm
GI: Non Distended and Tender (near surgical site)
Genito-urinary: No Costovertebral Tender
Musculoskeletal: No Clubbing
Skin: Warm
Neuro: AO x 3
Results
WBC 8.2 10^3/uL (4.8-10.8) 01/26/25 07:01
Hgb 10.8 g/dL (12.0-16.0) L 01/26/25 07:01
Hct 32.1 % (37.0-47.0) L 01/26/25 07:01
MCV 82.9 fL (81.0-99.0) 01/26/25 07:01
Plt Count 190 10^3/uL (130-400) 01/26/25 07:01
Absolute Neuts (auto) 5.4 10^3/uL (1.4-6.5) 01/26/25 07:01
Sodium 132 mmol/L (135-145) L 01/26/25 07:01
Potassium 3.9 mmol/L (3.5-5.1) 01/26/25 07:01
Chloride 102 mmol/L (98-107) 01/26/25 07:01
Carbon Dioxide 22 mmol/L (22-30) 01/26/25 07:01
BUN 10 mg/dl (7-17) 01/26/25 07:01
Creatinine 1.0 mg/dL (0.6-1.0) 01/26/25 07:01
Calcium 8.6 mg/dl (8.4-10.2) 01/26/25 07:01
Total Bilirubin 0.6 mg/dl (0.2-1.3) 01/26/25 07:01
AST 25 U/L (14-36) 01/26/25 07:01
ALT 17 U/L (0-35) 01/26/25 07:01
Alkaline Phosphatase 65 U/L (38-126) 01/26/25 07:01
Lipase 362 U/L (23-300) H 01/21/25 15:46
Diagnostic Image Results:
Prior GI Procedures:
EGD:
Colonoscopy:
Assessment / Plan
-
79-year-old female past medical history of Parkinson's, dementia although able to answer questions appropriately, reflux presenting with nausea, vomiting, diarrhea. Possibly could have had an infectious gastroenteritis and her symptoms may have
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 There was concern that she had cholecystitis leading to her symptoms and she had a cholecystectomy done although her symptoms have not improved. She is on Reglan 5 mg every 8 with no improvement as
well. She does have a history of reflux as well which could be playing a role. She also have motility issues given the fact that she has Parkinson's. Her diarrhea has resolved.
At this time, I recommend adding on Protonix to see if that helps with the reflux aspect. She may benefit from increasing her Remeron which she is currently only on as needed. I will change it to nightly. I will check an EKG given the fact that
she is on Reglan and Remeron and Zofran Which can all prolong the QTc. If she is not improved by Wednesday, she may benefit from an upper endoscopy. We discussed the risk, benefits, and alternatives to upper endoscopy. The risks include bleeding,
infection, perforation, missed lesion, and cardiopulmonary complications from anesthesia.
Further recommendations pending clinical course.
-
-
Thank you for consultation and allowing me to participate in the patient's care. Please call the [facility] physician during the after hours with any questions or concerns.
--- NOTE | 2025-01-26 14:26 | W.PN.HOSP.TC ---
Today's Communication/Plan
-
still nauseous and not eating
consulted GI
Assessment / Plan
Assessment / Plan
79F with Parkinson's, DM2, CKD, p/w N/V x 2 weeks.
Intractable abdominal pain with vomiting secondary to cholelithiasis
CT, ultrasound both show cholelithiasis.
Evaluated by general surgery, concern for acute calculous cholecystitis
TG elevated, lipase mildly elevated
s/p lap nadira 01/22
IVF started again
CLD, ADAT
IV Zofran PRN
Still nauseous so IV Reglan started for possible gastroparesis
IV pain medication PRN changed to dilaudid, added oral oxycodone prn
check lipase
Consulted GI and GS
Thrush
nystatin swish and swallow
Hypokalemia - resolved
Repleted with IV potassium
Parkinson's dementia
Continue donepezil
CKD stage IIIb
Creatinine at baseline, trend
DM2
Hold metformin
A1c 6.7%
BG control SSI/Accu-Cheks
low BG, start D5LR
HLD
Hold statin
GERD
Continue Protonix
Anxiety
continue sertraline and mirtazapine
Overactive bladder
Hold Myrbetriq
DVT PPx
Lovenox
Anticipated Discharge: 24 - 48 hours
Subjective/Interval History
-
Date of Service: January 26, 2025
Patient states she is very nauseous and cannot eat. Denies abdominal pain.
Objective Data
-
Labs:
Laboratory Results
01/26/25
07:01
WBC 8.2
Hgb 10.8 L
Hct 32.1 L
Plt Count 190
Sodium 132 L
Potassium 3.9
Chloride 102
Carbon Dioxide 22
BUN 10
Creatinine 1.0
Glucose 79
Calcium 8.6
Total Bilirubin 0.6
AST 25
ALT 17
Alkaline Phosphatase 65
Vital Signs:
Vital Signs
Temp Pulse Resp BP Pulse Ox
98.2 F 57 18 121/53 97
01/26/25 07:59 01/26/25 07:59 01/26/25 07:59 01/26/25 07:59 01/26/25 07:59
I&O
01/25/25 01/26/25 01/27/25
06:59 06:59 06:59
Intake Total 480 / 480 2220 / 2220
Balance 480 / 480 2220 / 2220
Review of Systems
-
History Source: Patient
All other systems: Reviewed and negative
Physical Exam
-
General: No Apparent Distress
HEENT: Moist Mucous Membranes, Anicteric and PERRLA
Respiratory: Clear to Auscultation; Negative Wheezes, Rales or Rhonchi
Cardiac: Regular Rhythm and S1/S2; Negative Murmur, Rub or Gallop
GI: Soft, Nontender, Nondistended, Normal Bowel Sounds and Other (Laparoscopic incisions C/D/I)
Musculoskeletal: No Edema
Skin: Warm and Dry; Negative Rash, Ulcers or Lesions
Neuro: Awake, Alert and Oriented (2)
Hematologic / Lymphatic: No Lymphadenopathy
Psych: Calm and Apparent Dementia
Data Reviewed
-
CT Scan: Report Reviewed by me and Discussed with Patient
Ultrasound: Report Reviewed by me and Discussed with Patient
Labs: Labs Reviewed by me and Discussed with Patient
[2025-01-26 15:52] VITALS: BP 121/66
[2025-01-26] MEDS: TYLENOL 650 MG PO ×2 (15:56→19:50)
--- NOTE | 2025-01-26 16:26 | W.PN.GS2 ---
Today's Communication / Plan
-
GI eval appreciated
Assessment / Plan
-
This is a 79-year-old female who presents with right upper quadrant abdominal pain and longstanding nausea and vomiting
POD #4 laparoscopic cholecystectomy for chronic cholecystitis with negative IOC
Unfortunately, n/v which was present preop has persisted post op as well.
Gastroenterology consulted to continue to work up additional causes.
Plan:
Management of nausea/diet as per GI
Post op pain control, minimize narcs. Has been doing well with just tylenol for pain
General Surgery will follow peripherally, please call with questions or concerns.
Subjective Data
-
Date of Service: January 26, 2025
Pt seen and examined at bedside. Resting comfortable. No active nausea currently but per nursing has had intermittent n/v.
Objective Data
-
Intake and Output
01/25/25 01/26/25 01/27/25
06:59 06:59 06:59
Intake Total 480 / 480 2220 / 2220
Balance 480 / 480 2220 / 2220
Intake:
Oral fluids 480 / 480 1020 / 1020
IV fluids (Total) 1200 / 1200
Other:
How many times incontinent 2 1 2
SATURATED amount urine
Number of immeasurable emeses? 1
Vital Signs
Temp Pulse Resp BP Pulse Ox
97.3 F 62 18 121/66 98
01/26/25 15:52 01/26/25 15:52 01/26/25 15:52 01/26/25 15:52 01/26/25 15:52
Lab Results
01/26/25 07:01
01/26/25 07:01
Calcium 8.6 mg/dl (8.4-10.2) 01/26/25 07:01
Total Bilirubin 0.6 mg/dl (0.2-1.3) 01/26/25 07:01
AST 25 U/L (14-36) 01/26/25 07:01
ALT 17 U/L (0-35) 01/26/25 07:01
Alkaline Phosphatase 65 U/L (38-126) 01/26/25 07:01
Total Protein 5.7 g/dl (6.3-8.2) L 01/26/25 07:01
Albumin 3.1 g/dl (3.5-5.0) L 01/26/25 07:01
Physical Exam
-
GENERAL/NEURO: Awake, Alert, no distress
CHEST: Unlabored breathing on RA
ABDOMEN: Soft, Non-Tender, Non-Distended, incisions clean dry and intact.
Patient has a bach catheter: No
Patient has a central line: No
[2025-01-26 16:28] LABS: Lipase 456 U/L (23-300)
--- NOTE | 2025-01-26 16:55 | CM ---
POD #4 lap nadira. Continues with nausea and poor appetite. GI following. Discharge POC: Therapy rec for SNF. [employer] list provided and requested at least 4 preferences.
[2025-01-26] MEDS: MYCOSTATIN ORAL SUSPENSION 5 ML PO ×2 (17:37→21:53)
[2025-01-26] MEDS: LOVENOX 40 MG SC (17:39)
[2025-01-26 17:59] LABS: Glucose - Point of Care 145 mg/dl (70-99)
[2025-01-26] MEDS: REMERON 15 MG PO (21:53)
[2025-01-26 21:55] LABS: Glucose - Point of Care 125 mg/dl (70-99)
[2025-01-26 23:16] VITALS: BP 112/53
[2025-01-27] MEDS: REGLAN 5 MG IV ×3 (00:41→15:56)
[2025-01-27] MEDS: TYLENOL 650 MG PO ×5 (00:41→21:54)
[2025-01-27] MEDS: D5LR 1000 IV ×2 (06:07→15:50)
--- NOTE | 2025-01-27 06:23 | W.PN.GI.CBS2 ---
Today's Communication / Plan
-
Still with minimal p.o intake and ongoing nausea. Agree with IV PPI, standing Reglan, Remeron, and additional anti-emetics as needed. Minimize opioids as much as possible. To consider EGD early next week. Rest of care as outlined below.
Assessment / Plan
-
#Nausea/Vomiting
#Generalized Abdominal Pain
#Cholelithiasis (s/p lap nadira 01/22)
#Hx of Parkinson's Disease
79-year-old female past medical history of Parkinson's, dementia although able to answer questions appropriately, reflux presenting with nausea, vomiting, diarrhea. Possibly could have had an infectious gastroenteritis and her symptoms may have
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 There was concern that she had cholecystitis leading to her symptoms and she had a cholecystectomy done although her symptoms have not improved. She is on Reglan 5 mg every 8 with no improvement as
well. She does have a history of reflux as well which could be playing a role. She also have motility issues given the fact that she has Parkinson's. Her diarrhea has resolved.
Impression: Still with ongoing refractory nausea/vomiting and suspect she may have underlying gastroparesis as she has not had any improvement since her surgery. Would benefit from an eventual EGD particularly if symptoms continue to remain
refractory despite ongoing PPI and anti-emetics.
Recommendations:
- Continue full liquid as tolerated, would defer from advancing
- Empiric IV PPI 40 mg BiD
- Agree with standing IV Reglan q 8 hrs
- If symptoms continue to remain refractory, will plan for EGD on 01/29/25
- Continue Remeron 15 mg qhs
- Increase Miralax 17 gm BiD if related to constipation
- Minimize opioids as much as possible to reduce bowel dysmotility
- Pain control and anti-emetics PRN
- Agree with ongoing supportive care as per primary team
GI will continue to follow.
Subjective
Subjective
Date of Service: January 27, 2025
- Started on Protonix due to persistent nausea/vomiting and remains on Reglan 5 mg q 8hrs
- Lipase mildly elevated however not 3x ULN
- Otherwise, no acute events overnight
Resting comfortably, still with ongoing nausea and poor p.o intake. Minimal appetite and unable to eat anything last evening. Remains on full liquids. Otherwise, denies any abdominal aside from slight tenderness near her incisions. Discussed
possibility of pursuing EGD if symptoms remain refractory early next week and amenable in regards to this.
Objective
Data Reviewed
Laboratory Data:
Laboratory Results
Total Bilirubin 0.6 mg/dl (0.2-1.3) 01/26/25 07:01
AST 25 U/L (14-36) 01/26/25 07:01
ALT 17 U/L (0-35) 01/26/25 07:01
Alkaline Phosphatase 65 U/L (38-126) 01/26/25 07:01
Lipase 456 U/L (23-300) H 01/26/25 07:01
Vital Signs and I&O:
Vital Signs
Temp Pulse Resp BP Pulse Ox
97.5 F 55 18 112/53 98
01/26/25 23:16 01/26/25 23:16 01/26/25 23:16 01/26/25 23:16 01/26/25 23:16
I&O
01/25/25 01/26/25 01/27/25
06:59 06:59 06:59
Intake Total 480 / 480 2220 / 2220 1000 / 1000
Balance 480 / 480 2220 / 2220 1000 / 1000
Physical Exam
Physical Exam
HEENT: Anicteric and Moist mucous membranes
Pulmonary: Other (Normal WOB on room air)
GI: Soft, Non Distended and Non Tender
Neuro: Non Focal
[2025-01-27 07:53] VITALS: BP 146/65
[2025-01-27 07:57] LABS: Glucose - Point of Care 143 mg/dl (70-99)
[2025-01-27 08:20] LABS: Hematocrit 37.4 % (37.0-47.0); Hemoglobin 12.5 g/dL (12.0-16.0); Mean Corp Hgb Conc. 33.4 g/dL (33.0-37.0); Mean Corpuscular Volume 82.4 fL (81.0-99.0); Nucleated Red Blood Cells % 0 %; Platelet Count 215 10^3/uL (130-400); Red Cell Dist. Width 14.0 % (11.5-14.5)
[2025-01-27] MEDS: NOVOLOG FLEXPEN-LOW RESISTANCE SC (09:42)
[2025-01-27] MEDS: SENOKOT-S 1 TABLET PO (09:43)
[2025-01-27] MEDS: MYCOSTATIN ORAL SUSPENSION 5 ML PO ×4 (09:43→21:55)
[2025-01-27] MEDS: ZOLOFT 50 MG PO (09:44)
[2025-01-27] MEDS: ARICEPT 5 MG PO (09:44)
[2025-01-27] MEDS: FLUSH (NSS) 2 FLUSH IV ×3 (09:46→15:57)
[2025-01-27 10:24] LABS: ALT (SGPT) 18 U/L (0-35); AST (SGOT) 28 U/L (14-36); Albumin 3.1 g/dl (3.5-5.0); Alkaline Phosphatase 67 U/L (38-126); Blood Urea Nitrogen 9 mg/dl (7-17); Calcium 8.6 mg/dl (8.4-10.2); Carbon Dioxide 27 mmol/L (22-30); Chloride 101 mmol/L (98-107); Estimated Creatinine Clearance 42 ml/min; Glucose 113 mg/dl (70-99); Potassium 3.3 mmol/L (3.5-5.1); Sodium 134 mmol/L (135-145); Total Protein 5.9 g/dl (6.3-8.2); eGFR > 60.00
--- NOTE | 2025-01-27 10:35 | W.PN.HOSP.TC ---
Today's Communication/Plan
-
still nauseous and not eating
cont IVF
IV PPI BID
possible EGD Wednesday
Assessment / Plan
Assessment / Plan
79F with Parkinson's, DM2, CKD, p/w N/V x 2 weeks.
Intractable abdominal pain with vomiting secondary to cholelithiasis
CT, ultrasound both show cholelithiasis.
Evaluated by general surgery, concern for acute calculous cholecystitis
TG elevated, lipase mildly elevated
s/p lap nadira 01/22
IVF started again
CLD, advanced to full
IV Zofran PRN
Still nauseous so IV Reglan started for possible gastroparesis
IV pain medication PRN changed to dilaudid, added oral oxycodone prn
checked lipase elevated at 456
Consulted GI and GS - plan for possible EGD Wednesday
IV PPI BID
Thrush
nystatin swish and swallow
Hypokalemia - resolved
Repleted with IV potassium
Parkinson's dementia
Continue donepezil
CKD stage IIIb
Creatinine at baseline, trend
DM2
Hold metformin
A1c 6.7%
BG control SSI/Accu-Cheks
low BG, started D5LR
HLD
Hold statin
GERD
Continue Protonix
Anxiety
continue sertraline and mirtazapine
Overactive bladder
Hold Myrbetriq
DVT PPx
Lovenox
Anticipated Discharge: > 48 hours
Subjective/Interval History
-
Date of Service: January 27, 2025
Patient still feeling very nauseous, denies abdominal pain
Objective Data
-
Labs:
Laboratory Results
01/27/25
07:47
WBC 6.3
Hgb 12.5
Hct 37.4
Plt Count 215
Sodium 134 L
Potassium 3.3 L
Chloride 101
Carbon Dioxide 27
BUN 9
Creatinine 0.9
Glucose 113 H
Calcium 8.6
Total Bilirubin 0.6
AST 28
ALT 18
Alkaline Phosphatase 67
Vital Signs:
Vital Signs
Temp Pulse Resp BP Pulse Ox
97.7 F 56 16 146/65 98
01/27/25 07:53 01/27/25 07:53 01/27/25 07:53 01/27/25 07:53 01/27/25 07:53
I&O
01/26/25 01/27/25 01/28/25
06:59 06:59 06:59
Intake Total 2220 / 2220 1000 / 1000
Balance 2220 / 2220 1000 / 1000
Review of Systems
-
History Source: Patient
All other systems: Reviewed and negative
Physical Exam
-
General: Appears in Distress (nausea)
HEENT: Moist Mucous Membranes, Anicteric and PERRLA
Respiratory: Clear to Auscultation; Negative Wheezes, Rales or Rhonchi
Cardiac: Regular Rhythm and S1/S2; Negative Murmur, Rub or Gallop
GI: Soft, Nontender, Nondistended, Normal Bowel Sounds and Other (Laparoscopic incisions C/D/I)
Musculoskeletal: No Edema
Skin: Warm and Dry; Negative Rash, Ulcers or Lesions
Neuro: Awake, Alert and Oriented (2)
Hematologic / Lymphatic: No Lymphadenopathy
Psych: Calm and Apparent Dementia
Data Reviewed
-
CT Scan: Report Reviewed by me and Discussed with Patient
Ultrasound: Report Reviewed by me and Discussed with Patient
Labs: Labs Reviewed by me, Discussed with Physician and Discussed with Patient
[2025-01-27] MEDS: PROTONIX IV 40 MG IV ×2 (12:19→21:54)
[2025-01-27] MEDS: NSS (PRESERVATIVE FREE) 10 ML IV ×2 (12:19→21:55)
[2025-01-27 12:21] LABS: Glucose - Point of Care 172 mg/dl (70-99)
[2025-01-27] MEDS: NOVOLOG FLEXPEN-LOW RESISTANCE 1 UNITS SC (12:51)
[2025-01-27] MEDS: MIRALAX PO ×2 (13:16→21:53)
[2025-01-27 15:26] VITALS: BP 118/46
[2025-01-27] MEDS: TYLENOL PO (15:52)
[2025-01-27 17:40] LABS: Glucose - Point of Care 223 mg/dl (70-99)
[2025-01-27] MEDS: NOVOLOG FLEXPEN-LOW RESISTANCE 2 UNITS SC (17:42)
[2025-01-27] MEDS: LOVENOX 40 MG SC (17:43)
[2025-01-27 21:52] LABS: Glucose - Point of Care 163 mg/dl (70-99)
[2025-01-27] MEDS: SENOKOT-S PO (21:54)
[2025-01-27] MEDS: REMERON 15 MG PO (21:55)
[2025-01-27 23:15] VITALS: BP 126/58
[2025-01-28] MEDS: REGLAN 5 MG IV ×2 (00:52→10:28)
[2025-01-28] MEDS: TYLENOL PO ×3 (00:59→11:42)
[2025-01-28] MEDS: D5LR 1000 IV ×2 (02:21→11:37)
--- NOTE | 2025-01-28 06:12 | W.PN.GI.CBS2 ---
Addendum entered and electronically signed by Scott Stewart, DO 01/28/25 11:32:
Attempted to reach patient's daughterHanny, yesterday afternoon and again this morning around 11 AM. Unable to reach patient's daughter and left voicemail this morning regarding her ongoing symptoms and potentially pursuing a diagnostic EGD
for further evaluation. Given patient's dementia need to obtain consent from family member. Again left voicemail advising her to contact patient's nurse and can reattempt to reach patient's daughter later this afternoon. Updated patient's primary
internal medicine team. Still favor keeping NPO at [place] with plans to tentatively plan for EGD tomorrow, 01/29, once family has been contacted/consented.
Original Note:
Today's Communication / Plan
-
Still with minimal improvement and ongoing poor p.o intake. Plan for EGD tomorrow, 01/29/25, for further evaluation. Defer from advancing diet and keep NPO at [place]. Will need to d/w daughter later this afternoon. Rest as below.
Assessment / Plan
-
#Nausea/Vomiting
#Generalized Abdominal Pain
#Cholelithiasis (s/p lap nadira 01/22)
#Hx of Parkinson's Disease
79-year-old female past medical history of Parkinson's, dementia although able to answer questions appropriately, reflux presenting with nausea, vomiting, diarrhea. Possibly could have had an infectious gastroenteritis and her symptoms may have
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 There was concern that she had cholecystitis leading to her symptoms and she had a cholecystectomy done although her symptoms have not improved. She is on Reglan 5 mg every 8 with no improvement as
well. She does have a history of reflux as well which could be playing a role. She also have motility issues given the fact that she has Parkinson's. Her diarrhea has resolved.
Impression: Despite ongoing acid suppression with PPI along with antiemetics with Reglan still having ongoing nausea and poor p.o. intake over weekend. Does report some mild improvement of symptoms however seems largely unchanged with poor p.o
intake. Suspect she may have underlying gastroparesis and likely exacerbated from her recent surgery/anesthesia and underlying Parkinson's disease. However, still favor proceeding with an EGD for further evaluation given her refractory symptoms and
minimal improvement despite maximal supportive care.
Recommendations:
- Continue full liquid as tolerated, would defer from advancing. Keep NPO at [place]
- IV PPI 40 mg BiD
- Continue standing IV Reglan q 8 hrs
- As symptoms remain refractory will plan for EGD tomorrow, 01/29/25, for further evaluation. Discussed benefits and risks this AM, agreeable to procedure
- Will need to discuss with daughter as well later this afternoon regarding EGD given her dementia
- Continue Remeron 15 mg qhs
- Miralax 17 gm BiD for bowel regimen but doubt related to constipation
- Minimize opioids as much as possible to reduce bowel dysmotility
- Pain control and anti-emetics PRN
- Agree with ongoing supportive care as per primary team
GI will continue to follow.
Subjective
Subjective
Date of Service: January 28, 2025
- No acute events overnight
Reports mild improvement in regards to her nausea although still with vague abdominal discomfort and poor p.o intake despite full liquid diet. Discussed pursuing EGD tomorrow and patient is amenable in regards to proceeding with this.
Objective
Data Reviewed
Laboratory Data:
Laboratory Results
Total Bilirubin 0.6 mg/dl (0.2-1.3) 01/27/25 07:47
AST 28 U/L (14-36) 01/27/25 07:47
ALT 18 U/L (0-35) 01/27/25 07:47
Alkaline Phosphatase 67 U/L (38-126) 01/27/25 07:47
Lipase 456 U/L (23-300) H 01/26/25 07:01
Vital Signs and I&O:
Vital Signs
Temp Pulse Resp BP Pulse Ox
97.5 F 56 18 126/58 93
01/27/25 23:15 01/27/25 23:15 01/27/25 23:15 01/27/25 23:15 01/27/25 23:15
I&O
01/26/25 01/27/25 01/28/25
06:59 06:59 06:59
Intake Total 2220 / 2220 1000 / 1000 900 / 900
Balance 2220 / 2220 1000 / 1000 900 / 900
Physical Exam
Physical Exam
HEENT: Anicteric and Moist mucous membranes
Pulmonary: Other (Normal WOB on room air)
GI: Soft, Non Distended and Non Tender
Extremities: No Edema
Neuro: Non Focal
[2025-01-28 07:09] LABS: Hematocrit 37.2 % (37.0-47.0); Hemoglobin 12.8 g/dL (12.0-16.0); Mean Corp Hgb Conc. 34.4 g/dL (33.0-37.0); Mean Corpuscular Volume 80.9 fL (81.0-99.0); Platelet Count 218 10^3/uL (130-400); Red Cell Dist. Width 14.2 % (11.5-14.5)
[2025-01-28 07:38] VITALS: BP 120/63
[2025-01-28 07:39] LABS: Glucose - Point of Care 140 mg/dl (70-99)
[2025-01-28] MEDS: NOVOLOG FLEXPEN-LOW RESISTANCE SC ×2 (07:43→18:25)
[2025-01-28 07:49] LABS: ALT (SGPT) 495 U/L (0-35); Albumin 3.0 g/dl (3.5-5.0); Alkaline Phosphatase 76 U/L (38-126); Blood Urea Nitrogen 9 mg/dl (7-17); Calcium 8.5 mg/dl (8.4-10.2); Carbon Dioxide 27 mmol/L (22-30); Chloride 103 mmol/L (98-107); Estimated Creatinine Clearance 42 ml/min; Glucose 131 mg/dl (70-99); Potassium 3.4 mmol/L (3.5-5.1); Sodium 136 mmol/L (135-145); Total Protein 5.7 g/dl (6.3-8.2); eGFR > 60.00
[2025-01-28 08:00] LABS: AST (SGOT) 928 U/L (14-36)
[2025-01-28] MEDS: PROTONIX IV 40 MG IV (10:27)
[2025-01-28] MEDS: MIRALAX PO ×2 (10:27→21:02)
[2025-01-28] MEDS: NSS (PRESERVATIVE FREE) 10 ML IV (10:27)
[2025-01-28] MEDS: ZOLOFT 50 MG PO (10:28)
[2025-01-28] MEDS: SENOKOT-S PO ×2 (10:28→21:03)
[2025-01-28] MEDS: ARICEPT 5 MG PO (10:28)
[2025-01-28] MEDS: MYCOSTATIN ORAL SUSPENSION 5 ML PO ×4 (10:28→22:12)
[2025-01-28] MEDS: TYLENOL 650 MG PO (10:30)
[2025-01-28] MEDS: FLUSH (NSS) 2 FLUSH IV ×2 (10:31→14:31)
[2025-01-28 12:35] LABS: Glucose - Point of Care 191 mg/dl (70-99)
[2025-01-28 13:16] LABS: Albumin 3.2 g/dl (3.5-5.0); Alkaline Phosphatase 98 U/L (38-126); Total Protein 5.9 g/dl (6.3-8.2)
[2025-01-28 14:07] LABS: ALT (SGPT) 2453 U/L (0-35)
[2025-01-28] MEDS: NOVOLOG FLEXPEN-LOW RESISTANCE 1 UNITS SC (14:13)
[2025-01-28 14:26] LABS: AST (SGOT) 5087 U/L (14-36)
[2025-01-28] MEDS: DILAUDID 0.5 MG IV (14:31)
[2025-01-28 15:05] VITALS: BP 106/56
--- NOTE | 2025-01-28 15:17 | W.PN.HOSP.TC ---
Today's Communication/Plan
-
Workup for acute transaminitis, see below.
Assessment / Plan
Assessment / Plan
79F with Parkinson's, DM2, CKD, p/w N/V x 2 weeks.
Acute transaminitis
Dramatic increase in AST, ALT today. Prior to today, WNL. Repeat STAT labs ordered were cancelled by LAB and not reported to me mortarman. Repeat STAT labs again ordered and now resulted with even higher AST, ALT.
AST 28-->928-->5087
ALT 18-->495-->2453
Tbili, Dbili, AlkP also going up mildly but still WNL
Stat CT a/p with IV
d/w GI
ischemic pattern but no hypotensive episodes
check INR
stop standing tylenol. check tylenol level. Reviewed APR, tylenol daily dose has been under limit
check viral hep panel
stop reglan, PPI
reviewed OR meds administered and other meds given, don't seem to be any that would lead to DILI
stop d5Lr (change to NS) and check LA
Intractable abdominal pain with vomiting secondary to cholelithiasis
CT, ultrasound both show cholelithiasis.
Evaluated by general surgery, concern for acute calculous cholecystitis
TG elevated, lipase mildly elevated
s/p lap nadira 01/22
IVF started again change to NS as above
CLD, advanced to full
IV Zofran PRN
Still nauseous so IV Reglan started for possible gastroparesis
IV pain medication PRN changed to dilaudid, added oral oxycodone prn
checked lipase elevated at 456
Consulted GI and GS - plan for possible EGD Wednesday (currently plan on hold due to acute transaminitis w/u)
IV PPI BID on hold
Thrush
nystatin swish and swallow
Hypokalemia - resolved
Repleted with IV potassium
Parkinson's dementia
Continue donepezil
keep CHAN Gamino updated
CKD stage IIIb
Creatinine at baseline, trend
DM2
Hold metformin
A1c 6.7%
BG control SSI/Accu-Cheks
low BG, started D5LR, change to NS as above
HLD
Hold statin
GERD
holding Protonix as above
Anxiety
continue sertraline and mirtazapine
Overactive bladder
Hold Myrbetriq
DVT PPx
Lovenox
Anticipated Discharge: > 48 hours
Subjective/Interval History
-
Date of Service: January 28, 2025
Denies any change, she still nauseous, denies abdominal pain. Discussed with RN at bedside. Called and updated daughter Hanny by phone, she is agreeable to EGD. Discussed case in detail with RADHA Wilkerson.
Objective Data
-
Labs:
Laboratory Results
01/28/25 01/28/25 01/28/25
06:34 08:34 11:48
WBC 8.1
Hgb 12.8
Hct 37.2
Plt Count 218
PT
INR
Sodium 136
Potassium 3.4 L
Chloride 103
Carbon Dioxide 27
BUN 9
Creatinine 0.9
Glucose 131 H
Calcium 8.5
Total Bilirubin 0.8 Cancelled 1.1
AST 928 H* Cancelled 5087 H*
ALT 495 H Cancelled 2453 H*
Alkaline Phosphatase 76 Cancelled 98
01/28/25
15:07
WBC
Hgb
Hct
Plt Count
PT Pending
INR Pending
Sodium
Potassium
Chloride
Carbon Dioxide
BUN
Creatinine
Glucose
Calcium
Total Bilirubin
AST
ALT
Alkaline Phosphatase
Vital Signs:
Vital Signs
Temp Pulse Resp BP Pulse Ox
97.7 F 67 16 106/56 92
01/28/25 15:05 01/28/25 15:05 01/28/25 15:05 01/28/25 15:05 01/28/25 15:05
I&O
01/27/25 01/28/25 01/29/25
06:59 06:59 06:59
Intake Total 1000 / 1000 900 / 900
Balance 1000 / 1000 900 / 900
Review of Systems
-
History Source: Patient
All other systems: Reviewed and negative
Physical Exam
-
General: No Apparent Distress
HEENT: Moist Mucous Membranes, Anicteric and PERRLA
Respiratory: Clear to Auscultation; Negative Wheezes, Rales or Rhonchi
Cardiac: Regular Rhythm and S1/S2; Negative Murmur, Rub or Gallop
GI: Soft, Nontender, Nondistended, Normal Bowel Sounds and Other (Laparoscopic incisions C/D/I)
Musculoskeletal: No Edema
Skin: Warm and Dry; Negative Rash, Ulcers or Lesions
Neuro: Awake, Alert and Oriented (2)
Hematologic / Lymphatic: No Lymphadenopathy
Psych: Calm and Apparent Dementia
Data Reviewed
-
CT Scan: Report Reviewed by me, Discussed with Physician, Discussed with Patient and Discussed with Family
Ultrasound: Report Reviewed by me, Discussed with Physician, Discussed with Patient and Discussed with Family
Labs: Labs Reviewed by me, Discussed with Physician, Discussed with Nurse, Discussed with Patient and Discussed with Family
--- NOTE | 2025-01-28 15:37 | CM ---
Spoke with patients daughter Hanny, via phone; explained that PT recommended SNF when patient is stable for discharge
Daughter is agreeable. Referrals sent to facilities in the [facility] network located in [facility]
Plan: Discharge to SNF when medically stable; pending bed availability and authorization approval
[2025-01-28] MEDS: NSS 1000 IV (16:16)
[2025-01-28 17:53] LABS: Glucose - Point of Care 145 mg/dl (70-99)
[2025-01-28] MEDS: LOVENOX 40 MG SC (18:26)
[2025-01-28] MEDS: NSS (PRESERVATIVE FREE) IV (21:02)
[2025-01-28 21:37] LABS: INR 3.31; PT 33.9 Sec (11.4-14.6)
[2025-01-28 21:41] LABS: Acetaminophen 12 ug/ml (10-30)
[2025-01-28] MEDS: REMERON 15 MG PO (22:12)
[2025-01-28 22:14] LABS: Albumin 3.3 g/dl (3.5-5.0); Alkaline Phosphatase 106 U/L (38-126); Blood Urea Nitrogen 11 mg/dl (7-17); Calcium 8.8 mg/dl (8.4-10.2); Carbon Dioxide 30 mmol/L (22-30); Chloride 101 mmol/L (98-107); Estimated Creatinine Clearance 38 ml/min; Glucose 121 mg/dl (70-99); Potassium 3.6 mmol/L (3.5-5.1); Sodium 136 mmol/L (135-145); Total Protein 6.3 g/dl (6.3-8.2); eGFR 57.31
[2025-01-28 22:36] LABS: ALT (SGPT) 3411 U/L (0-35); AST (SGOT) 5577 U/L (14-36)
[2025-01-28 22:52] VITALS: BP 144/58
[2025-01-29] VITALS (7 sets, daily range): BP systolic 94–138; BP diastolic 50–112; BMI 20.2
--- NOTE | 2025-01-29 01:32 | PTCARENOTE ---
received patient from [address] [place] [address]. patient transferred without issue. new purewick placed. VSS. NS running at 75 ml/hr. repeat lactic acid sukhjinder upon arrival. call cabrera in reach.
--- NOTE | 2025-01-29 01:37 | W.PN.UPDATE ---
Update Note
Progress Note Update
lab results AST is 5577 ALT 3411 Alk Phos 106, lactic acid 3.0 PT 33.9 INR 3.31. US Doppler abdomen done, results noted. Patient seen and evaluated. Ox3 at present, baseline confusion. reports nausea, denies any abdomen pain. +BS 4 quad, soft non
tender.
GI DrCarole made aware of the above results. Transferred patient to IMU.
advised to trend LFT's. No other interventions at present.
[2025-01-29 05:32] LABS: Hematocrit 35.3 % (37.0-47.0); Hemoglobin 12.0 g/dL (12.0-16.0); Mean Corp Hgb Conc. 34.0 g/dL (33.0-37.0); Mean Corpuscular Volume 81.7 fL (81.0-99.0); Platelet Count 188 10^3/uL (130-400); Red Cell Dist. Width 14.5 % (11.5-14.5)
[2025-01-29 06:13] LABS: Albumin 2.8 g/dl (3.5-5.0); Alkaline Phosphatase 104 U/L (38-126); Blood Urea Nitrogen 11 mg/dl (7-17); Calcium 8.2 mg/dl (8.4-10.2); Carbon Dioxide 25 mmol/L (22-30); Chloride 107 mmol/L (98-107); Estimated Creatinine Clearance 50 ml/min; Glucose 97 mg/dl (70-99); Potassium 3.5 mmol/L (3.5-5.1); Sodium 136 mmol/L (135-145); Total Protein 5.5 g/dl (6.3-8.2); eGFR > 60.00
--- NOTE | 2025-01-29 06:19 | W.PN.GI.CBS2 ---
Today's Communication / Plan
-
Transaminases peaked and most consistent with ischemic hepatitis / shock liver given pattern of injury. Mentating appropriately without signs of MCFP. Start IV NAC gtt and oral vitamin K if component of malnutrition given INR. Close monitoring of
mental status. Rest of care as outlined below.
Assessment / Plan
-
#Acute Hepatocellular Liver Injury
#Transaminases in 1000s (AST > ALT)
#Coagulopathy
Impression: Patient's course complicated by acute rise in transaminases noted on 01/28/2025 and previously normal on admission. Initially found to have an AST of 928 and ALT 495 which was initially concerning for a lab error as without any prior
LFTs since her admission. Repeat transaminases with marked rise in AST/ALT in the thousands later on in afternoon on 01/28. Specifically, AST 928 -> 5087 -> 5577 and ALT 495 -> 2453 -> 3411 with normal T Bili and ALP. INR 3.31. Clinically,
etiology seems most suspicious for ischemic hepatitis/shock liver although she was without any periods of documented hypotension on the floor. Recent CT imaging and ultrasound Doppler ruled out any PVT, Budd-Chiari, or other vascular abnormalities
along with patent hepatic artery given her recent lap andira. No other concern for APAP-induced liver injury and seems much less likely related to viral hepatitis as prior LFTs were wnl. Would not be consistent with DILI. Her INR is elevated however
could be component of malnutrition given her poor p.o. intake and previous concern for weight loss. Currently, she is mentating appropriately without any asterixis or other concern for MCFP. Furthermore, her transaminases have peaked which is
reassuring and still suspect underlying ischemic hepatitis given pattern of injury (AST > ALT) although the overall clinical picture given her poor p.o intake, nausea/vomiting and suspect she may have had transient hypotension on floors.
- Acute rise in transaminases found on 01/28 with AST 928 -> 5087 -> 5577 and ALT 495 -> 2453 -> 3411 with normal T Bili and ALP. INR 3.31
- CT Abd/pelvis 01/28 (given c/f elevated LFTs) with intraperitoneal free air s/p recet lap-nadira and foci of gas in anterior abd wall, patent hepatic vasculature, mild ascites and non-specific bowel wall thickening of ascending and transverse colon
- US Dopplers 01/28/25 with normal liver with patent hepatic and portal vasculature with normal flows, (-) PVT/Budd-Chiari, and patent hepatic artery
Recommendations:
- Trend LFTs and INR q daily
- Start IV NAC gtt 01/29- for three days
- Ordered oral Vitamin K challenge if component of malnutrition
- Await viral hepatitis serologies along with limited serologic w/u with AIH testing- although less likely
- Recommend obtaining TTE
- Monitor mental status with q 4 hr neuro checks, notify GI if any concern for changes in mental status
- Will defer pursuing an EGD at this time in light of these recent findings
- Continue to maintain MAPs > 65, avoid periods of hypotension
- Avoid all hepatotoxic medications
#Nausea/Vomiting
#Poor PO Intake
#Generalized Abd Discomfort
#Cholecystitis (s/p lap nadira 01/22)
Impression: 79-year-old female past medical history of Parkinson's, dementia although able to answer questions appropriately, reflux presenting with nausea, vomiting, diarrhea. Possibly could have had an infectious gastroenteritis and her symptoms
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 There was concern that she had cholecystitis leading to her symptoms and she had a cholecystectomy done although her symptoms have not improved. She is on Reglan 5 mg every 8 with no
improvement as well. She does have a history of reflux as well which could be playing a role. She also have motility issues given the fact that she has Parkinson's. Her diarrhea has resolved. Despite ongoing acid suppression with PPI along with
antiemetics with Reglan still having ongoing nausea and poor p.o. intake over weekend. Does report some mild improvement of symptoms however seems largely unchanged with poor p.o intake. Suspect she may have underlying gastroparesis and likely
exacerbated from her recent surgery/anesthesia and underlying Parkinson's disease. Recent CT imaging performed on 01/28 with evidence of pneumoperitoneum however without any peritoneal signs or leukocytosis and suspect related to prior lap nadira.
However, would still hold off on EGD given her marked elevated transaminases as above.
Recommendations:
- Okay for full liquid diet, may ADAT
- IV PPI 40 mg BiD
- Continue standing IV Reglan q 8 hrs
- Defer pursuing EGD at this time given her acute liver injury as would want to avoid anesthesia as not to confound clinical picture
- Could eventually consider pending clinical course if symptoms persist later this admission. Previously left VM for daughter regarding EGD given her dementia
- Miralax 17 gm BiD for bowel regimen but doubt related to constipation
- Minimize opioids as much as possible to reduce bowel dysmotility
- Pain control and anti-emetics PRN
- Agree with ongoing supportive care as per primary team
Discussed with primary internal medicine team and surgery this AM. GI will continue to follow.
Subjective
Subjective
Date of Service: January 29, 2025
- Acute rise in transaminases found on 01/28 with AST 928 -> 5087 -> 5577 and ALT 495 -> 2453 -> 3411 with normal T Bili and ALP. INR 3.31
- CT Abd/pelvis 01/28 (given c/f elevated LFTs) with intraperitoneal free air s/p recet lap-nadira and foci of gas in anterior abd wall, patent hepatic vasculature, mild ascites and non-specific bowel wall thickening of ascending and transverse colon
- US Dopplers 01/28/25 with normal liver with patent hepatic and portal vasculature with normal flows, (-) PVT/Budd-Chiari, and patent hepatic artery
- Stepped up to IMU given rising transaminases, repeat LFTs this AM with AST 5577 -> 3270 and ALT 3411 -> 2760
Resting comfortably, continues to admit mild right-sided abdominal discomfort although unchanged from prior over the past several days. No other confusion and continues to mentate appropriately and conversant this AM. AAOx4 and without asterixis.
Denies any prior history of abnormal LFTs in the past. Discussed holding off on EGD at this time. Discussed with general surgery last evening and again early this AM with Dr. Gonzalez.
Objective
Data Reviewed
Laboratory Data:
Laboratory Results
01/29/25 05:18
01/29/25 05:18
Laboratory Results
PT 33.9 Sec (11.4-14.6) H 01/28/25 20:08
INR 3.31 01/28/25 20:08
Total Bilirubin 1.2 mg/dl (0.2-1.3) 01/29/25 05:18
AST 5577 U/L (14-36) H* 01/28/25 20:08
ALT 3411 U/L (0-35) H* 01/28/25 20:08
Alkaline Phosphatase 104 U/L (38-126) 01/29/25 05:18
Lipase 456 U/L (23-300) H 01/26/25 07:01
Vital Signs and I&O:
Vital Signs
Temp Pulse Resp BP Pulse Ox
97.6 F 57 15 116/53 94
01/29/25 03:03 01/29/25 05:00 01/29/25 05:00 01/29/25 04:00 01/29/25 05:00
I&O
01/27/25 01/28/25 01/29/25
06:59 06:59 06:59
Intake Total 1000 / 1000 900 / 900 180 / 180
Balance 1000 / 1000 900 / 900 180 / 180
Physical Exam
Physical Exam
HEENT: Anicteric and Moist mucous membranes
Cardiology: Other (RR on tele)
Pulmonary: Other (Normal WOB on room air)
GI: Soft, Non Distended, Tender (Mild TTP in RUQ, unchanged from prior) and Other (No involuntary guarding or rebound tenderness; no hepatosplenomegaly)
Extremities: No Edema
Neuro: Non Focal and Other (AAOx4, no asterixis)
[2025-01-29 07:03] LABS: ALT (SGPT) 2760 U/L (0-35); AST (SGOT) 3270 U/L (14-36)
[2025-01-29 07:36] LABS: Glucose - Point of Care 92 mg/dl (70-99)
[2025-01-29] MEDS: NOVOLOG FLEXPEN-LOW RESISTANCE SC ×3 (07:43→17:07)
[2025-01-29] MEDS: NSS 1000 IV ×2 (08:30→21:11)
[2025-01-29] MEDS: SENOKOT-S 1 TABLET PO (08:31)
[2025-01-29] MEDS: ZOLOFT 50 MG PO (08:31)
[2025-01-29] MEDS: NSS (PRESERVATIVE FREE) IV (08:31)
[2025-01-29] MEDS: ARICEPT 5 MG PO (08:31)
[2025-01-29] MEDS: MYCOSTATIN ORAL SUSPENSION 5 ML PO ×3 (08:31→21:11)
[2025-01-29] MEDS: ACETADOTE 241.3 MG IV (08:32)
[2025-01-29 08:44] LABS: INR 3.47; PT 35.2 Sec (11.4-14.6)
[2025-01-29] MEDS: ZOFRAN 4 MG IV (09:14)
[2025-01-29 10:39] LABS: LDH 4899 U/L (120-246)
[2025-01-29] MEDS: ACETADOTE 513.8 MG IV (12:33)
--- NOTE | 2025-01-29 13:09 | W.PN.GS2 ---
Today's Communication / Plan
-
No acute surgical intervention.
Defer workup to primary and GI.
Assessment / Plan
-
This is a 79-year-old female who presents with right upper quadrant abdominal pain and longstanding nausea and vomiting
POD #7 laparoscopic cholecystectomy for chronic cholecystitis with negative IOC
Unfortunately, n/v which was present preop has persisted post op as well.
Gastroenterology consulted to continue to work up additional causes.
Has now developed significant transaminitis with normal bilirubin and normal postoperative imaging
Plan:
No acute surgical intervention warranted at this time.
No concern for bile leak or postoperative complication, her pneumoperitoneum is likely residual from her surgery and will dissipate with time.
Unclear source of her transaminitis. She is currently being given NAC, however Tylenol level was within normal limits. Will defer to GI for workup.
Post op pain control, minimize narcs. Has been doing well with just tylenol for pain
General Surgery will follow peripherally, please call with questions or concerns.
Time Spent
Total Time Spent with Patient (in minutes): 20
Subjective Data
-
Date of Service: January 29, 2025
Patient with elevated transaminitis, normal bilirubin. CT scan obtained yesterday which showed some residual pneumoperitoneum and subcutaneous emphysema. Ultrasound of the liver also unremarkable
Objective Data
-
Intake and Output
01/28/25 01/29/25 01/30/25
06:59 06:59 06:59
Intake Total 900 / 900 180 / 180
Balance 900 / 900 180 / 180
Intake:
Oral fluids 180 / 180
IV fluids (Total) 900 / 900
Other:
How many times incontinent 1
MODERATE amount urine
How many times incontinent 3 5
SATURATED amount urine
Vital Signs
Temp Pulse Resp BP Pulse Ox
98.0 F 57 15 116/53 94
01/29/25 11:18 01/29/25 05:00 01/29/25 05:00 01/29/25 04:00 01/29/25 05:00
Lab Results
01/29/25 05:18
01/29/25 05:18
Calcium 8.2 mg/dl (8.4-10.2) L 01/29/25 05:18
Total Bilirubin 1.2 mg/dl (0.2-1.3) 01/29/25 05:18
Direct Bilirubin 0.5 mg/dl (0.0-0.4) H 01/28/25 11:48
AST 3270 U/L (14-36) H* 01/29/25 05:18
ALT 2760 U/L (0-35) H* 01/29/25 05:18
Alkaline Phosphatase 104 U/L (38-126) 01/29/25 05:18
Total Protein 5.5 g/dl (6.3-8.2) L 01/29/25 05:18
Albumin 2.8 g/dl (3.5-5.0) L 01/29/25 05:18
Physical Exam
-
GENERAL/NEURO: Awake, Alert, no distress
CHEST: Unlabored breathing on RA
ABDOMEN: Soft, mild tenderness in the right upper quadrant over the liver, nondistended.
Patient has a bach catheter: No
Patient has a central line: No
[2025-01-29] MEDS: MIRALAX PO ×2 (13:46→21:12)
[2025-01-29] MEDS: MYCOSTATIN ORAL SUSPENSION PO (13:47)
[2025-01-29 13:50] LABS: Glucose - Point of Care 147 mg/dl (70-99)
[2025-01-29] MEDS: MEPHYTON 5 MG PO (14:59)
--- NOTE | 2025-01-29 15:21 | W.PN.HOSP.TC ---
Today's Communication/Plan
-
follow labs
Assessment / Plan
Assessment / Plan
79yo F with PMHX of dementia, HLD, CAD, DM, GERD, overactive bladder, Parkinsons came with persistent nausea and vomiting, found secondary to cholelithiasis, s/p cholecystectomy on 01/22/25, however symptoms persisted but to less degree, found
rapidly worsened transaminitis, concerning for hepatic hypoperfusion.
A/P:
#Transaminitis, most likely ischemic hepatitis
#Coagulopathy 2/2 transaminitis
LLQ abd tenderness - no significant abnormalities on CT in LLQ. However ascending and transverse mild colitis - will discuss with GI
S/P vit K
Acetylcysteine as per GI
CT and/pelvs with no obvious source for hepatitis
US portal with no signs of PVT
Echo pending
Acute hepatitis panel, autoimmune hepatitis w/u
LDH elevated pointing to direct hepatic cell damage
follow INR
Unlikely DILI
#Persistent nausea/vomiting
#Cholelithiasis
s/p cholecytectomy
PPI
Reglan
Might eventually need EGD, now deferred with transaminitis
#Thrush
Nistatin
#DM type 2 with nephropathy
DM diet, accuchecks and Insulin SS
#HLD
#Parkinson with dementia
#CKD stage 3b
#Anxiety
#Overactive bladder
hold statin, myrbetriq
DVT ppx SCDs
DNR/DNI
I have spnt at least 59min cof critical care time reviewing hcart, test results, communication with consultants and providing direct patient care. Daughter updated over the phone
Anticipated Discharge: > 48 hours
Subjective/Interval History
-
Date of Service: January 29, 2025
Objective Data
-
Labs:
Laboratory Results
01/29/25 01/29/25
05:18 08:25
WBC 9.0
Hgb 12.0
Hct 35.3 L
Plt Count 188
PT 35.2 H
INR 3.47
Sodium 136
Potassium 3.5
Chloride 107
Carbon Dioxide 25
BUN 11
Creatinine 0.8
Glucose 97
Calcium 8.2 L
Total Bilirubin 1.2
AST 3270 H*
ALT 2760 H*
Alkaline Phosphatase 104
Vital Signs:
Vital Signs
Temp Pulse Resp BP Pulse Ox
98.0 F 57 15 116/53 94
01/29/25 11:18 01/29/25 05:00 01/29/25 05:00 01/29/25 04:00 01/29/25 05:00
I&O
01/28/25 01/29/25 01/30/25
06:59 06:59 06:59
Intake Total 900 / 900 180 / 180
Balance 900 / 900 180 / 180
Review of Systems
-
History Source: Patient
All other systems: Reviewed and negative
Abdomen/GI: Reports Abdominal Pain (LLQ) and Nausea
Physical Exam
-
General: Comfortable
HEENT: Normocephalic
Respiratory: Clear to Auscultation
GI: Soft, Nondistended and Tender (llq)
Musculoskeletal: No Clubbing, No Cyanosis and No Edema
Neuro: Awake and Alert
Psych: Calm and Apparent Dementia
[2025-01-29 17:05] LABS: Glucose - Point of Care 136 mg/dl (70-99)
[2025-01-29] MEDS: ACETADOTE 1038.6 MG IV (17:24)
[2025-01-29 18:18] LABS: Albumin 2.9 g/dl (3.5-5.0); Alkaline Phosphatase 98 U/L (38-126); Blood Urea Nitrogen 12 mg/dl (7-17); Calcium 7.7 mg/dl (8.4-10.2); Carbon Dioxide 23 mmol/L (22-30); Chloride 102 mmol/L (98-107); Estimated Creatinine Clearance 50 ml/min; Glucose 122 mg/dl (70-99); Potassium 3.4 mmol/L (3.5-5.1); Sodium 134 mmol/L (135-145); Total Protein 5.6 g/dl (6.3-8.2); eGFR > 60.00
[2025-01-29 18:37] LABS: Hepatitis B Surface Antigen Negative (Negative)
[2025-01-29 18:43] LABS: ALT (SGPT) 2739 U/L (0-35); AST (SGOT) 2413 U/L (14-36)
[2025-01-29 18:54] LABS: Hepatitis C Antibody Negative (Negative)
[2025-01-29] MEDS: REMERON 15 MG PO (21:12)
[2025-01-29] MEDS: SENOKOT-S PO (21:12)
[2025-01-29 21:30] LABS: Glucose - Point of Care 99 mg/dl (70-99)
--- NOTE | 2025-01-29 22:37 | PTCARENOTE ---
Received patient in bed at change of shift. AAOx2-3. Pleasantly confused. Bed alarm on. No signs of distress noted. Acetadote infusing without issues. Call cabrera within reach.
[2025-01-30] VITALS (13 sets, daily range): BP systolic 111–137; BP diastolic 45–107
[2025-01-30 05:31] LABS: INR 1.75; PT 20.6 Sec (11.4-14.6)
[2025-01-30 05:48] LABS: Albumin 2.6 g/dl (3.5-5.0); Alkaline Phosphatase 91 U/L (38-126); Blood Urea Nitrogen 11 mg/dl (7-17); Calcium 7.6 mg/dl (8.4-10.2); Carbon Dioxide 21 mmol/L (22-30); Chloride 104 mmol/L (98-107); Estimated Creatinine Clearance 50 ml/min; Glucose 69 mg/dl (70-99); Potassium 3.0 mmol/L (3.5-5.1); Sodium 134 mmol/L (135-145); Total Protein 5.2 g/dl (6.3-8.2); eGFR > 60.00
[2025-01-30 06:00] LABS: AST (SGOT) 1250 U/L (14-36)
[2025-01-30 06:11] LABS: ALT (SGPT) 1897 U/L (0-35)
[2025-01-30 06:14] LABS: Glucose - Point of Care 87 mg/dl (70-99)
[2025-01-30 06:24] LABS: Hematocrit 29.4 % (37.0-47.0); Hemoglobin 10.1 g/dL (12.0-16.0); Mean Corp Hgb Conc. 34.4 g/dL (33.0-37.0); Mean Corpuscular Volume 80.3 fL (81.0-99.0); Nucleated Red Blood Cells % 0 %; Platelet Count 150 10^3/uL (130-400); Red Cell Dist. Width 14.5 % (11.5-14.5)
[2025-01-30] MEDS: KCL 270 MEQ IV ×2 (06:59→22:44)
[2025-01-30 07:25] LABS: Magnesium 1.1 mg/dl (1.6-2.3)
[2025-01-30] MEDS: NOVOLOG FLEXPEN-LOW RESISTANCE SC ×2 (08:19→11:55)
[2025-01-30 08:20] LABS: Glucose - Point of Care 84 mg/dl (70-99)
[2025-01-30] MEDS: SENOKOT-S PO (09:05)
[2025-01-30] MEDS: MYCOSTATIN ORAL SUSPENSION 5 ML PO ×2 (09:05→21:01)
[2025-01-30] MEDS: MIRALAX PO (09:06)
[2025-01-30] MEDS: ARICEPT 5 MG PO (09:08)
[2025-01-30] MEDS: MAGNESIUM SULFATE 100 IV (09:08)
[2025-01-30] MEDS: ZOLOFT 50 MG PO (09:08)
[2025-01-30] MEDS: ASPIR LOW (ENTERIC COATED) 81 MG PO (09:19)
--- NOTE | 2025-01-30 10:47 | W.PN.HOSP.TC ---
Today's Communication/Plan
-
trial of low residue diet
LFT and INR improving - keep following
PT/OT
Assessment / Plan
Assessment / Plan
79yo F with PMHX of dementia, HLD, CAD, DM, GERD, overactive bladder, Parkinson came with persistent nausea and vomiting, found secondary to cholelithiasis, s/p cholecystectomy on 01/22/25, however symptoms persisted but to less degree, found
rapidly worsened transaminitis, concerning for hepatic hypoperfusion.
A/P:
#Transaminitis, most likely ischemic hepatitis
#Coagulopathy 2/2 transaminitis
LLQ abd tenderness - no significant abnormalities on CT in LLQ. However ascending and transverse mild colitis - will discuss with GI
S/P vit K
Acetylcysteine as per GI
CT and/pelvs with no obvious source for hepatitis
US portal with no signs of PVT
Echo pending
Acute hepatitis panel, autoimmune hepatitis w/u
LDH elevated pointing to direct hepatic cell damage
follow INR
Unlikely DILI
#Persistent nausea/vomiting
#Cholelithiasis
s/p cholecystectomy
PPI
Reglan
Might eventually need EGD, now deferred with transaminitis, sill advised duering this admision
#Thrush
Nistatin
#DM type 2 with nephropathy
DM diet, accuchecks and Insulin SS
#HLD
#Parkinson with dementia
#CKD stage 3b
#Anxiety
#Overactive bladder
hold statin, myrbetriq
DVT ppx SCDs
DNR/DNI
I have spent at least 51min reviewing chart, test results, communication with consultants, family and providing direct patient care. Daughter updated over the phone
Anticipated Discharge: > 48 hours
Subjective/Interval History
-
Date of Service: January 30, 2025
Objective Data
-
Labs:
Laboratory Results
01/30/25
04:38
WBC 8.5
Hgb 10.1 L
Hct 29.4 L
Plt Count 150 D
PT 20.6 H
INR 1.75
Sodium 134 L
Potassium 3.0 L
Chloride 104
Carbon Dioxide 21 L
BUN 11
Creatinine 0.8
Glucose 69 L
Calcium 7.6 L
Total Bilirubin 1.6 H
AST 1250 H*
ALT 1897 H*
Alkaline Phosphatase 91
Vital Signs:
Vital Signs
Temp Pulse Resp BP Pulse Ox
98.2 F 60 16 114/46 96
01/30/25 07:45 01/30/25 06:00 01/30/25 06:00 01/30/25 06:00 01/30/25 06:00
I&O
01/29/25 01/30/25 01/31/25
06:59 06:59 06:59
Intake Total 180 / 180 1895
Balance 180 / 180 1895
Review of Systems
-
History Source: Patient
All other systems: Reviewed and negative
Physical Exam
-
General: No Apparent Distress
HEENT: Normocephalic
Respiratory: Clear to Auscultation
GI: Soft, Nontender and Nondistended
Neuro: Awake, Alert, Oriented and AO x 3
Psych: Calm
[2025-01-30] MEDS: SODIUM PHOSPHATE 255 MEQ IV (11:14)
--- NOTE | 2025-01-30 11:28 | W.PN.GI.CBS2 ---
Addendum entered and electronically signed by Alley Felton MD 01/30/25 15:57:
I saw and examined the patient.
The DATA COMMUNICATIONS TECHNICIAN's note was reviewed and I agree with the note.
Comment: LFTs have markedly improved. Imaging so far is negative for any bile leak or CBD stone and also abdominal vasculature is patent and no evidence of portal vein thrombosis. Most likely is ischemic injury with probable shock liver pattern.
Continue NAC and trend LFTs, INR is trending down. no evidence of hepatic encephalopathy currently
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 Continue Zofran and PPI. She also has oral thrush and is currently on nystatin and if symptoms do not improve may
need to consider endoscopy tomorrow to rule out possible Bernadine esophagitis causing her symptoms. Encouraged to increase her oral intake.
Original Note:
Today's Communication / Plan
-
Etiology of onset of nausea with nadira done 01/22 then Acute liver injury unclear -- pt with also noted ascending and transverse colitis on imaging
today with recurrent nausea and difficulty with eating and refusing some medications
imaging reviewed noted with ascending and transverse colitis
Pt remains on NAC protocol
hepatitis neg other liver serology pending
may need eventual EGD if nausea continues when liver process improved with noted thrush to rule out further bernadine esophagitis
pt on bowel regiment but has been declining many medicaTIONS
Trend LFTs and INR q daily
vitamin K x 3 days
Continue to maintain MAPs > 65, avoid periods of hypotension
Avoid all hepatotoxic medications
repeat electrolytes
cont nystatin for oral thrush
Assessment / Plan
-
Pt is a 79yo with hx dementia, Parkinson's, diabetes, CKD presenting on 01/21 with nausea, vomiting, diarrhea who had a CT scan on admission which shows distended gallbladder with gallstones, cannot rule out acute cholecystitis. Moderate
atherosclerotic vascular disease which was stable. She underwent ultrasound afterwards which again showed gallstones without evidence of acute cholecystitis. She was noted normal WBC and LFT's aon admission. It was felt she likely had acute
cholecystitis and underwent a cholecystectomy with Dr. Lucero on 01/22 and had chronic cholecystitis. She had ongoing nausea and vomiting noted prior to and after surgery and it was thought she perhaps had gastroparesis and initially consulted for
nausea. After consult pt had acute rise in transaminase with peak 01/28 AST 5577 and ALT 3411 and INR up to 3.47 with concern for ischemic hepatitis/shock liver although she was without any periods of documented hypotension on the floor. Recent
CT imaging and ultrasound Doppler ruled out any PVT, Budd-Chiari, or other vascular abnormalities along with patent hepatic artery given her recent lap nadira also noted non specific ascending and transverse colitis. . No other concern for
APAP-induced liver injury and seems much less likely related to viral hepatitis as prior LFTs were wnl. Would not be consistent with DILI.
#Acute Hepatocellular Liver Injury
#Transaminases in 1000s (AST > ALT)
# nausea/poor oral intakes ongoing since prior to admission
#Coagulopathy
#Cholecystitis (s/p lap nadira 01/22)
# electrolyte imbalance
#thrush
# CT 01/28 with non specific ascending and transverse colitis
other med problems:
dementia, Parkinson's, diabetes, CKD
- CT Abd/pelvis 01/28 (given c/f elevated LFTs) with intraperitoneal free air s/p recet lap-nadira and foci of gas in anterior abd wall, patent hepatic vasculature, mild ascites and non-specific bowel wall thickening of ascending and transverse colon
- US Doppler 01/28/25 with normal liver with patent hepatic and portal vasculature with normal flows, (-) PVT/Budd-Chiari, and patent hepatic artery
01/29/25 ECHO
1. Normal biventricular size and systolic function, with no regional wall motion abnormalities. Estimated LVEF 60-65%.
2. Mild/moderate aortic regurgitation.
3. No prior study for comparison.
Recommendations:
Etiology of onset of nausea with nadira done 01/22 then Acute liver injury unclear -- pt with also noted ascending and transverse colitis on imaging
today with recurrent nausea and difficulty with eating and refusing some medications
imaging reviewed noted with ascending and transverse colitis
Pt remains on NAC protocol
hepatitis neg other liver serology pending
may need eventual EGD if nausea continues when liver process improved with noted thrush to rule out further bernadine esophagitis
pt on bowel regiment but has been declining many medicaTIONS
Trend LFTs and INR q daily
vitamin K x 3 days
Continue to maintain MAPs > 65, avoid periods of hypotension
Avoid all hepatotoxic medications
repeat electrolytes
cont nystatin for oral thrush
Subjective
Subjective
Date of Service: January 30, 2025
01/27 large liquid stool on low residue diet -- pt was feeling better this am now with recurrent of nausea and vomiting
Objective
Data Reviewed
Laboratory Data:
Laboratory Results
01/30/25 04:38
01/30/25 04:38
Laboratory Results
PT 20.6 Sec (11.4-14.6) H 01/30/25 04:38
INR 1.75 01/30/25 04:38
Phosphorus 1.8 mg/dl (2.5-4.5) L 01/30/25 04:38
Magnesium 1.1 mg/dl (1.6-2.3) L 01/30/25 04:38
Total Bilirubin 1.6 mg/dl (0.2-1.3) H 01/30/25 04:38
AST 1250 U/L (14-36) H* 01/30/25 04:38
ALT 1897 U/L (0-35) H* 01/30/25 04:38
Alkaline Phosphatase 91 U/L (38-126) 01/30/25 04:38
Lipase 456 U/L (23-300) H 01/26/25 07:01
Vital Signs and I&O:
Vital Signs
Temp Pulse Resp BP Pulse Ox
98.0 F 60 16 114/46 96
01/30/25 11:19 01/30/25 06:00 01/30/25 06:00 01/30/25 06:00 01/30/25 06:00
I&O
01/29/25 01/30/25 01/31/25
06:59 06:59 06:59
Intake Total 180 / 180 1895
Balance 180 / 180 1895
Physical Exam
Physical Exam
HEENT: Anicteric and Moist mucous membranes
Cardiology: Normal Sinus Rhythm
Pulmonary: Clear
GI: Soft, Non Distended and Tender (diffuse worse upper abdomen )
Extremities: No Edema
Neuro: Non Focal (slightly anxious )
[2025-01-30 11:53] LABS: Glucose - Point of Care 95 mg/dl (70-99)
--- NOTE | 2025-01-30 12:07 | CM ---
F/U: Patient was sent to [facility] IMU on 01/28. Patient now will start low residue diet, INR/ LFT are improving, and PT/OT will evaluate again. Referrals were sent for SNF already, Case Management to follow up when patient is closer to [place]. PLAN: SNF when
ready.
[2025-01-30] MEDS: MYCOSTATIN ORAL SUSPENSION PO ×2 (13:20→18:41)
--- NOTE | 2025-01-30 14:57 | PTCARENOTE ---
Addendum entered by Sanjeev Bonilla RN 01/30/25 17:43:
Patient confused, calm, pulled out all IVs, having visual hallucinations of a person in her room. Reoriented patient. MD notified, labs ordered. VSS. Bed alarm on. Curtains opened, will closely monitor.
Original Note:
Patients mental and emotional status labile, mostly AAOx3 and calm but with periods of confusion, hand tremors, profound anxiety and agitation where patients gets so worked up she vomits (small amount of bile) x2. Bed alarm on for safety. Patient
reports that she passes out a lot at home with these anxious episodes... Relayed this info to MD, see MAR. Patient with poor appetite, only sips intake so far today, continuing to encourage, IV fluids changed by MD. NSB-NST on monitor. Thrush in
mouth. Patient incontinent today. Attempted to get patient OOB but she could barely hopd her body upright sitting on edge of bed and got anxious and spit up some bile. MD made aware, PT deferred for today. Will continue to closely monitor patient.
[2025-01-30 14:59] LABS: Lipase 450 U/L (23-300)
[2025-01-30] MEDS: NSS IV (15:07)
[2025-01-30] MEDS: D5LR 1000 IV (15:14)
[2025-01-30] MEDS: MEPHYTON PO (16:35)
[2025-01-30] MEDS: ACETADOTE 1038.6 MG IV (17:01)
[2025-01-30 18:10] LABS: Glucose - Point of Care 172 mg/dl (70-99)
[2025-01-30 18:34] LABS: AST (SGOT) 690 U/L (14-36); Albumin 3.2 g/dl (3.5-5.0); Alkaline Phosphatase 109 U/L (38-126); Blood Urea Nitrogen 8 mg/dl (7-17); Calcium 7.8 mg/dl (8.4-10.2); Carbon Dioxide 19 mmol/L (22-30); Chloride 103 mmol/L (98-107); Estimated Creatinine Clearance 50 ml/min; Glucose 161 mg/dl (70-99); Potassium 3.4 mmol/L (3.5-5.1); Sodium 134 mmol/L (135-145); Total Protein 6.0 g/dl (6.3-8.2); Uric Acid 4.1 mg/dl (2.5-6.2); eGFR > 60.00
[2025-01-30] MEDS: NOVOLOG FLEXPEN-LOW RESISTANCE 1 UNITS SC (18:41)
[2025-01-30 18:54] LABS: ALT (SGPT) 1666 U/L (0-35)
[2025-01-30 19:28] LABS: Ammonia < 9 umol/L (9-30)
[2025-01-30] MEDS: MIRALAX 17 GRAMS PO (21:00)
[2025-01-30] MEDS: NSS (PRESERVATIVE FREE) 10 ML IV (21:01)
[2025-01-30] MEDS: XANAX 0.25 MG PO (21:01)
[2025-01-30] MEDS: CALCIUM GLUCONATE 100 IV (21:01)
[2025-01-30] MEDS: SENOKOT-S 1 TABLET PO (21:01)
[2025-01-30] MEDS: PROTONIX IV 40 MG IV (21:01)
[2025-01-30] MEDS: REMERON 15 MG PO (21:07)
[2025-01-30 21:36] LABS: Glucose - Point of Care 204 mg/dl (70-99)
[2025-01-31] VITALS (9 sets, daily range): BP systolic 98–145; BP diastolic 47–92; BMI 20.9
--- NOTE | 2025-01-31 00:44 | PTCARENOTE ---
Assumed care of patient from daysnyft RN. Pt aaox1 (to self), tremulous, anxious, and restless. PRN Xanax administered. Pt denies any pain. NSR on the tele monitor. SpO2 99% on RA. IVF and acetylcysteine gtt infusing per orders (see MAR). Pt refused
to take PO KCl. PRODUCTION PATTERN MAKER made aware and order for IV KCl received. Hygiene completed and pt currently resting in bed with bed alarm on and call cabrera in reach.
[2025-01-31 04:56] LABS: INR 1.30; PT 16.3 Sec (11.4-14.6)
[2025-01-31 05:07] LABS: AST (SGOT) 441 U/L (14-36); Albumin 3.1 g/dl (3.5-5.0); Alkaline Phosphatase 97 U/L (38-126); Blood Urea Nitrogen 7 mg/dl (7-17); Calcium 8.1 mg/dl (8.4-10.2); Carbon Dioxide 18 mmol/L (22-30); Chloride 105 mmol/L (98-107); Estimated Creatinine Clearance 59 ml/min; Glucose 109 mg/dl (70-99); Magnesium 1.7 mg/dl (1.6-2.3); Potassium 3.3 mmol/L (3.5-5.1); Sodium 134 mmol/L (135-145); Total Protein 5.9 g/dl (6.3-8.2); eGFR > 60.00
[2025-01-31 05:10] LABS: Hematocrit 31.3 % (37.0-47.0); Hemoglobin 10.9 g/dL (12.0-16.0); Mean Corp Hgb Conc. 34.8 g/dL (33.0-37.0); Mean Corpuscular Volume 82.8 fL (81.0-99.0); Nucleated Red Blood Cells % 0 %; Platelet Count 183 10^3/uL (130-400); Red Cell Dist. Width 14.5 % (11.5-14.5)
[2025-01-31 05:18] LABS: ALT (SGPT) 1264 U/L (0-35)
[2025-01-31] MEDS: ATIVAN 0.25 MG IV (06:22)
[2025-01-31] MEDS: NSS (PRESERVATIVE FREE) 0.125 ML IV (06:23)
[2025-01-31] MEDS: D5LR 1000 IV (06:23)
[2025-01-31] MEDS: POTASSIUM PHOSPHATE IV (06:42)
[2025-01-31] MEDS: MAGNESIUM SULFATE 50 IV (06:43)
[2025-01-31 07:08] LABS: Glucose - Point of Care 146 mg/dl (70-99)
[2025-01-31] MEDS: NOVOLOG FLEXPEN-LOW RESISTANCE SC ×3 (07:09→18:24)
--- NOTE | 2025-01-31 07:14 | PTCARENOTE ---
Patient agitated and repeatedly attempting to get OOB. PHARM TECH made aware and Rx received for IV Ativan.
morning labs resulted and PHARM TECH made aware. Rx received for IV medications for repletion (see MAR).
--- NOTE | 2025-01-31 07:50 | PTCARENOTE ---
Patient received from shift superintendent caustic cresylate. Patient agitated pulling at the IV lines and attempting to climb out of bed and did pull out an IV overnight. Patient is also extremely confused and hallucinating. B/L soft wrist restraints ordered. AAO mostly
to self, VSS. No complaints of pain at this time. D5LR through IV as well as Acedote. Magnesium and potassium repletion to be given. Holding off on endoscopy given mental status, per GI GOLD LEAF PRINTER at bedside this AM. No other testing at this time.
Call cabrera in reach.
--- NOTE | 2025-01-31 08:11 | W.PN.GI.CBS2 ---
Addendum entered and electronically signed by Alley Felton MD 01/31/25 09:02:
I saw and examined the patient.
The RESEARCH & INSIGHTS EXECUTIVE's note was reviewed and I agree with the note.
Comment: LFTs markedly improved and INR is also improved. She is more confused today and apparently did receive Ativan earlier today and Xanax last night. She is currently on soft restraints. No further nausea or vomiting last night and her
abdominal pain is also improved. She also had a bowel movement last night. viral hepatitis serologies are negative. Continue supportive care and trend labs. Avoid hepatotoxic medications and hypotension. GI will sign off and will be available as
needed
Original Note:
Today's Communication / Plan
-
Etiology of onset of nausea with naidra done 01/22 then Acute liver injury unclear -- pt with also noted ascending and transverse colitis on imaging vs concern for gastroparesis, constipation vs other
pt with improved abdominal pain this am after stool last PM but now increased confusion requiring restraints this am
Pt completing nac protocol this am with marked improved LFT's and INR
will hold EGD at this time and continued diet
add hbg A1C with possible gastroparesis leading to nausea
hepatitis neg other liver serology pending
cont to Trend LFTs and INR q daily
vitamin K x 3 days but pt declined dose 01/30
Continue to maintain MAPs > 65, avoid periods of hypotension
Avoid all hepatotoxic medications
repeat electrolytes per medical team
cont nystatin for oral thrush
Assessment / Plan
-
Pt is a 79yo with hx dementia, Parkinson's, diabetes, CKD presenting on 01/21 with nausea, vomiting, diarrhea who had a CT scan on admission which shows distended gallbladder with gallstones, cannot rule out acute cholecystitis. Moderate
atherosclerotic vascular disease which was stable. She underwent ultrasound afterwards which again showed gallstones without evidence of acute cholecystitis. She was noted normal WBC and LFT's aon admission. It was felt she likely had acute
cholecystitis and underwent a cholecystectomy with Dr. Lucero on 01/22 and had chronic cholecystitis. She had ongoing nausea and vomiting noted prior to and after surgery and it was thought she perhaps had gastroparesis and initially consulted for
nausea. After consult pt had acute rise in transaminase with peak 01/28 AST 5577 and ALT 3411 and INR up to 3.47 with concern for ischemic hepatitis/shock liver although she was without any periods of documented hypotension on the floor. Recent
CT imaging and ultrasound Doppler ruled out any PVT, Budd-Chiari, or other vascular abnormalities along with patent hepatic artery given her recent lap nadira also noted non specific ascending and transverse colitis. . No other concern for
APAP-induced liver injury and seems much less likely related to viral hepatitis as prior LFTs were wnl. Would not be consistent with DILI.
#Acute Hepatocellular Liver Injury
#Transaminases in 1000s (AST > ALT)
# mild elevated lipase
# nausea/poor oral intakes ongoing since prior to admission
#Coagulopathy
#Cholecystitis (s/p lap nadira 01/22)
# electrolyte imbalance
#thrush
# CT 01/28 with non specific ascending and transverse colitis
other med problems:
dementia, Parkinson's, diabetes, CKD
- CT Abd/pelvis 01/28 (given c/f elevated LFTs) with intraperitoneal free air s/p recet lap-nadira and foci of gas in anterior abd wall, patent hepatic vasculature, mild ascites and non-specific bowel wall thickening of ascending and transverse colon
- US Doppler 01/28/25 with normal liver with patent hepatic and portal vasculature with normal flows, (-) PVT/Budd-Chiari, and patent hepatic artery
01/29/25 ECHO
1. Normal biventricular size and systolic function, with no regional wall motion abnormalities. Estimated LVEF 60-65%.
2. Mild/moderate aortic regurgitation.
3. No prior study for comparison.
Recommendations:
Etiology of onset of nausea with nadira done 01/22 then Acute liver injury unclear -- pt with also noted ascending and transverse colitis on imaging vs concern for gastroparesis, constipation vs other
pt with improved abdominal pain this am after stool last PM but now increased confusion requiring restraints this am
Pt completing nac protocol this am with marked improved LFT's and INR
will hold EGD at this time and continued diet
add hbg A1C with possible gastroparesis leading to nausea
hepatitis neg other liver serology pending
cont to Trend LFTs and INR q daily
vitamin K x 3 days but pt declined dose 01/30
Continue to maintain MAPs > 65, avoid periods of hypotension
Avoid all hepatotoxic medications
repeat electrolytes per medical team
cont nystatin for oral thrush
Subjective
Subjective
Date of Service: January 31, 2025
pt with confusion overnight. + stool 01/30, abdominal pain with some improvement
Objective
Data Reviewed
Laboratory Data:
Laboratory Results
01/31/25 04:17
01/31/25 04:17
Laboratory Results
PT 16.3 Sec (11.4-14.6) H 01/31/25 04:17
INR 1.30 01/31/25 04:17
Phosphorus 1.9 mg/dl (2.5-4.5) L 01/31/25 04:17
Magnesium 1.7 mg/dl (1.6-2.3) 01/31/25 04:17
Total Bilirubin 1.8 mg/dl (0.2-1.3) H 01/31/25 04:17
AST 441 U/L (14-36) H 01/31/25 04:17
ALT 1264 U/L (0-35) H* 01/31/25 04:17
Alkaline Phosphatase 97 U/L (38-126) 01/31/25 04:17
Lipase 450 U/L (23-300) H 01/30/25 04:38
Vital Signs and I&O:
Vital Signs
Temp Pulse Resp BP Pulse Ox
97.4 F 79 19 128/52 95
01/31/25 07:23 01/31/25 07:00 01/31/25 07:00 01/31/25 04:24 01/31/25 07:00
I&O
01/30/25 01/31/25 02/01/25
06:59 06:59 06:59
Intake Total 1895
Output Total 350 / 350
Balance 1895 -350 / -350
Physical Exam
Physical Exam
HEENT: Anicteric and Other (changes of some residual thrush on throat )
Cardiology: Normal Sinus Rhythm
Pulmonary: Clear
GI: Soft, Non Distended and Tender (minimal diffuse --improved from exam 01/30 )
Extremities: No Edema
Neuro: Other (confused now requiring restraints )
[2025-01-31] MEDS: MYCOSTATIN ORAL SUSPENSION PO ×4 (09:10→23:07)
[2025-01-31 10:54] LABS: Glycohemoglobin (HgbA1c) 6.5 % (4.0-5.9)
[2025-01-31] MEDS: HEPARIN 5000 UNITS SC ×2 (10:58→17:02)
[2025-01-31] MEDS: PROTONIX IV 40 MG IV ×2 (10:58→20:42)
[2025-01-31] MEDS: POTASSIUM PHOSPHATE 259.0909 MEQ IV (10:58)
[2025-01-31] MEDS: NSS (PRESERVATIVE FREE) 10 ML IV ×2 (10:59→20:42)
--- NOTE | 2025-01-31 11:20 | W.PN.HOSP.TC ---
Today's Communication/Plan
-
psych consult
replete and follow electrolytes
advance diet
Assessment / Plan
Assessment / Plan
79yo F with PMHX of dementia, HLD, CAD, DM, GERD, overactive bladder, Parkinson came with persistent nausea and vomiting and not getting out of bed for a week with poor oral intake, found secondary to cholelithiasis, s/p cholecystectomy on 01/22/25,
however symptoms persisted but to less degree, found rapidly worsened transaminitis, concerning for hepatic hypoperfusion. Developed worsening in-patient delirium
A/P:
#Parkinson with dementia with behavioral disturbances
known Hx of in-patient delirium
Xanax as needed
Pscyh consult
check TSH
#Transaminitis, most likely ischemic hepatitis
#Coagulopathy 2/2 transaminitis
LLQ abd tenderness - no significant abnormalities on CT in LLQ. However ascending and transverse mild colitis - will discuss with GI
S/P vit K
Acetylcysteine as per GI
CT and/pelvs with no obvious source for hepatitis
US portal with no signs of PVT
Echo pending
Acute hepatitis panel, autoimmune hepatitis w/u
LDH elevated pointing to direct hepatic cell damage
follow INR
Unlikely DILI
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
#Cholelithiasis
s/p cholecystectomy
PPI
Reglan
Might eventually need EGD, now deferred with transaminitis, and later - GI signed off with no plans to proceed with it
#Hypophosphatemia
#Hypomagnesemia
#Hypokalemia
2/2 poor intake
replete and follow
#Thrush
Nistatin
#DM type 2 with nephropathy
DM diet, AccuCheck and Insulin SS
#HLD
#CKD stage 3b
#Anxiety
#Overactive bladder
hold statin, myrbetriq
DVT ppx SCDs
DNR/DNI
I have spent at least 36min reviewing chart, test results, communication with consultants, family and providing direct patient care. Daughter updated over the phone. Discussed hospice approach since patient feeling uncomfortable with medical
interventions at this time. Daughter agreed that it might be a time for hospice. WIll inform CM that hospice service will be desired by family upon d/c
Anticipated Discharge: > 48 hours
Subjective/Interval History
-
Date of Service: January 31, 2025
Objective Data
-
Labs:
Laboratory Results
01/31/25
04:17
WBC 10.7
Hgb 10.9 L
Hct 31.3 L
Plt Count 183 D
PT 16.3 H
INR 1.30
Sodium 134 L
Potassium 3.3 L
Chloride 105
Carbon Dioxide 18 L
BUN 7
Creatinine 0.7
Glucose 109 H
Calcium 8.1 L
Total Bilirubin 1.8 H
AST 441 H
ALT 1264 H*
Alkaline Phosphatase 97
Vital Signs:
Vital Signs
Temp Pulse Resp BP Pulse Ox
97.8 F 79 19 128/52 96
01/31/25 11:11 01/31/25 07:00 01/31/25 07:00 01/31/25 04:24 01/31/25 08:50
I&O
01/30/25 01/31/25 02/01/25
06:59 06:59 06:59
Intake Total 1895
Output Total 350 / 350
Balance 1895 / 1895 -350 / -350
Review of Systems
-
Unable to obtain full review of systems at this time due to: Dementia
History Source: Patient
Physical Exam
-
General: No Apparent Distress
Respiratory: Clear to Auscultation
Cardiac: Regular Rhythm
Musculoskeletal: No Clubbing, No Cyanosis and No Edema
Neuro: Awake and Alert
Psych: Calm and Apparent Dementia
[2025-01-31] MEDS: ARICEPT PO (12:09)
[2025-01-31] MEDS: ASPIR LOW (ENTERIC COATED) PO (12:09)
[2025-01-31] MEDS: MEPHYTON PO (12:10)
[2025-01-31] MEDS: MIRALAX PO ×2 (12:10→20:41)
[2025-01-31] MEDS: SENOKOT-S PO ×2 (12:10→20:41)
[2025-01-31] MEDS: ZOLOFT PO (12:11)
[2025-01-31 12:15] LABS: Glucose - Point of Care 138 mg/dl (70-99)
--- NOTE | 2025-01-31 12:45 | CON.MD ---
Consultation - Medical
-
79 y/o woman who lives with a daughter and known to have mild dementia, CAD, HLD, GERD, Htn, and Parkinson's (untreated) presented with nausea and vomiting and diarrhea and found to require cholecystectomy which has been complicated by
elevated transaminases and delirium with agitation. She takes mirtazapine 15 mg. and sertraline 50 mg. for chronic depression and anxiety and is on Aricept 5 mg. for dementia. She was sedated from a benzodiazepine dose today, so daughter provided
history. Pt. was asleep in bed and could not be easily roused.
Daughter reports that dementia is mild -- sometimes word finding problems and forgetfulness. Not combative, has recall of both remote and recent events and is oriented. No dangerous behaviors. No longer drives. Depression exacerbated after
of her 3 years ago, but has always been depressed, tearful, etc. Antidepressants apparently were only started in past 3 years. Parkinson Disease symptoms include tremor, frequent falls (several fractures treated at including hip
replacement) and visual hallucinations of kittens, children, etc. Has had visual hallucination of a man in her room at the hospital recently.
Past History is significant for a suicide attempt many years ago with hospitalization. Daughter was a child so does not know details. No suicide attempts since.
Family history is significant for depression treated with Wellbutrin (in daughter visiting) and likely biopolar disorder in a sister who within the past year. No family history of suicide.
Social History: LIves in [place] with a daughter. Was a smoker until 11 years ago. No alcohol use; no drug abuse.
MSE: Elderly woman, asleep in bed. Breakfast tray untouched. Could not be roused by calling her name and rubbing her shoulder. In soft restraints.
LABS: ALT 1264 was 3411 on 01/28/25); AST 441; TBili 1.8, Direct Bili 0.9; A1c 6.5. GI has signed off.
Impression:
Delirium
Dementia, mild with exacerbation due to illness and hospitalization
Depressive Disorder, Chronic with history of suicide attempt in remote past
Parkinson Disease with visual hallucinations, tremor and balance problems
Plan: As Nuplazid (pimavanserin) is not available at , will add Seroquel (quetiapine) 12.5 mg. BID (8 AM and 5 PM). This should help agitation and hallucinations and may augment antidepressants. Mirtazapine has anti-nausea properties, so I
would not stop it, but it is also sedating.
When medically stabilized, should see a neurologist regarding Parkinson Disease (does not have to be during hospitalization). Psychiatric involvement would be appropriate as well.
Psychiatry will follow.
--- NOTE | 2025-01-31 16:40 | CM ---
F/U: Patient has some behavioral issues and so Hospice might come into play, but no decision has been made as we are continue to monitor this patient. Patient was a transfer to the IMU and last night needed restraint. PLAN: TBD.
[2025-01-31] MEDS: ACETADOTE 1038.6 MG IV (17:02)
[2025-01-31] MEDS: SEROQUEL PO (17:32)
[2025-01-31 18:29] LABS: Glucose - Point of Care 137 mg/dl (70-99)
--- NOTE | 2025-01-31 20:26 | PTCARENOTE ---
Assumed care of pt from dayshift. Pt oriented to self, drowsy, arousable to verbal. Pt without mention of hallucinations. Pt falls asleep soon after waking, unable to safely take oral meds. SB on tele 40s-50s. BPs 130s/50s. D5LR @ 75 infusing
through R FA. Pt incont of urine, PW in place. Bed alarm on.
[2025-02-01] VITALS (14 sets, daily range): BP systolic 81–155; BP diastolic 40–87; PULSE 94–121; O2SAT 96
[2025-02-01] MEDS: MYCOSTATIN ORAL SUSPENSION 5 ML PO ×4 (00:05→21:51)
[2025-02-01] MEDS: REMERON PO (00:20)
[2025-02-01] MEDS: HEPARIN 5000 UNITS SC ×3 (00:20→17:25)
[2025-02-01 00:32] LABS: Glucose - Point of Care 159 mg/dl (70-99)
[2025-02-01] MEDS: D5LR 1000 IV (01:39)
[2025-02-01 06:36] LABS: Hematocrit 33.5 % (37.0-47.0); Hemoglobin 11.5 g/dL (12.0-16.0); Mean Corp Hgb Conc. 34.3 g/dL (33.0-37.0); Mean Corpuscular Volume 83.1 fL (81.0-99.0); Platelet Count 254 10^3/uL (130-400); Red Cell Dist. Width 14.7 % (11.5-14.5)
[2025-02-01 06:39] LABS: INR 1.22; PT 15.1 Sec (11.4-14.6)
[2025-02-01 06:59] LABS: AST (SGOT) 163 U/L (14-36); Albumin 2.9 g/dl (3.5-5.0); Alkaline Phosphatase 87 U/L (38-126); Blood Urea Nitrogen 3 mg/dl (7-17); Calcium 8.3 mg/dl (8.4-10.2); Carbon Dioxide 24 mmol/L (22-30); Chloride 109 mmol/L (98-107); Estimated Creatinine Clearance 59 ml/min; Glucose 121 mg/dl (70-99); Magnesium 1.8 mg/dl (1.6-2.3); Potassium 3.5 mmol/L (3.5-5.1); Sodium 138 mmol/L (135-145); Total Protein 5.6 g/dl (6.3-8.2); eGFR > 60.00
[2025-02-01 07:10] LABS: ALT (SGPT) 804 U/L (0-35)
[2025-02-01] MEDS: MAGNESIUM SULFATE 100 IV (08:06)
[2025-02-01 08:07] LABS: Glucose - Point of Care 135 mg/dl (70-99)
[2025-02-01] MEDS: SEROQUEL 12.5 MG PO ×2 (08:07→17:25)
[2025-02-01] MEDS: NSS (PRESERVATIVE FREE) 10 ML IV ×2 (08:07→19:56)
[2025-02-01] MEDS: PROTONIX IV 40 MG IV ×2 (08:07→19:56)
[2025-02-01] MEDS: ARICEPT 5 MG PO (08:08)
[2025-02-01] MEDS: ASPIR LOW (ENTERIC COATED) 81 MG PO (08:08)
[2025-02-01] MEDS: MIRALAX 17 GRAMS PO (08:09)
[2025-02-01] MEDS: ZOLOFT 50 MG PO (08:10)
[2025-02-01 08:20] LABS: ANA, IgG Reflex to HEp-2 None Detected (None Detected)
[2025-02-01] MEDS: KCL 270 MEQ IV (09:53)
[2025-02-01] MEDS: NOVOLOG FLEXPEN-LOW RESISTANCE SC (09:54)
--- NOTE | 2025-02-01 11:10 | W.PN.HOSP.TC ---
Today's Communication/Plan
-
better behavior with adjustment of meds, seen eating today in good mood.
PT/OT and prep for D/C
Assessment / Plan
Assessment / Plan
79yo F with PMHX of dementia, HLD, CAD, DM, GERD, overactive bladder, Parkinson came with persistent nausea and vomiting and not getting out of bed for a week with poor oral intake, found secondary to cholelithiasis, s/p cholecystectomy on 01/22/25,
however symptoms persisted but to less degree, found rapidly worsened transaminitis, concerning for hepatic hypoperfusion. Developed worsening in-patient delirium
A/P:
#Parkinson with dementia with behavioral disturbances
known Hx of in-patient delirium
Xanax as needed
Pscyh consult
check TSH
#Transaminitis, most likely ischemic hepatitis
#Coagulopathy 2/2 transaminitis
LLQ abd tenderness - no significant abnormalities on CT in LLQ. However ascending and transverse mild colitis - will discuss with GI
S/P vit K
Acetylcysteine as per GI
CT and/pelvs with no obvious source for hepatitis
US portal with no signs of PVT
Echo: Normal biventricular size and systolic function, with no regional wall motion abnormalities. Estimated LVEF 60-65%. Mild/moderate aortic regurgitation.
Acute hepatitis panel, autoimmune hepatitis w/u neg
LDH elevated pointing to direct hepatic cell damage
follow INR
Unlikely DILI
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
#Cholelithiasis
s/p cholecystectomy
PPI
Reglan
Might eventually need EGD, now deferred with transaminitis, and later - GI signed off with no plans to proceed with it
#Hypophosphatemia
#Hypomagnesemia
#Hypokalemia
2/2 poor intake
replete and follow
#Thrush
Nystatin
#DM type 2 with nephropathy
DM diet, AccuCheck and Insulin SS
#HLD
#CKD stage 3b
#Anxiety
#Overactive bladder
hold statin, myrbetriq
DVT ppx SCDs
DNR/DNI
I have spent at least 36min reviewing chart, test results, communication with consultants, family and providing direct patient care. Unable to reach daughter
Anticipated Discharge: Within 24 hours
Subjective/Interval History
-
Date of Service: February 01, 2025
Objective Data
-
Labs:
Laboratory Results
02/01/25
05:59
WBC 7.6
Hgb 11.5 L
Hct 33.5 L
Plt Count 254 D
PT 15.1 H
INR 1.22
Sodium 138
Potassium 3.5
Chloride 109 H
Carbon Dioxide 24
BUN 3 L
Creatinine 0.7
Glucose 121 H
Calcium 8.3 L
Total Bilirubin 1.4 H
AST 163 H
ALT 804 H*
Alkaline Phosphatase 87
Vital Signs:
Vital Signs
Temp Pulse Resp BP Pulse Ox
98.0 F 58 16 155/45 98
02/01/25 07:00 02/01/25 08:00 02/01/25 08:00 02/01/25 06:35 02/01/25 08:00
I&O
01/31/25 02/01/25 02/02/25
06:59 06:59 06:59
Intake Total 1416 / 1416
Output Total 350 / 350 900 / 900
Balance -350 / -350 516 / 516
Review of Systems
-
Unable to obtain full review of systems at this time due to: Dementia
History Source: Patient
All other systems: Reviewed and negative
Physical Exam
-
General: No Apparent Distress
HEENT: Normocephalic
Cardiac: Regular Rhythm
GI: Soft, Nontender and Nondistended
Neuro: Awake, Alert and Oriented
Psych: Calm and Apparent Dementia
--- NOTE | 2025-02-01 11:30 | PTCARENOTE ---
Assumed care of patient this AM. Patient currently calm, pleasantly confused. OOB to chair with assistance x1. INC of urine. VS stable. SR on monitor. Call cabrera in reach.
[2025-02-01 12:19] LABS: Glucose - Point of Care 209 mg/dl (70-99)
[2025-02-01] MEDS: SENOKOT-S PO ×2 (15:09→19:57)
[2025-02-01] MEDS: NOVOLOG FLEXPEN-LOW RESISTANCE 2 UNITS SC (15:11)
--- NOTE | 2025-02-01 15:58 | W.PN.UPDATE ---
Addendum entered and electronically signed by Eugene Hernandez MD 02/01/25 16:09:
ALT, AST and PT are trending down, but still elevated.
Original Note:
Update Note
Progress Note Update
79 y/o woman seen yesterday for consultation who has dementia and Parkinson's Disease and underwent cholecystectomy on this admission. Today she is alert and oriented to being at [facility] and that it is [place]. However, she believes
she left the hospital yesterday to see her relative on leave from service and said she was in a lot of trouble when she returned. She admits she has had visual hallucinations, but seems to believe they are real. This includes a man in her
room and the 3 y/o girl next door bringing cats to her house. She became upset thinking she has young chlidren (likely confused with her grandchildren) and that they are not getting presents on [place]. She said she is turning 60 y/o next month
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 [facility]. She correctly said that she lives at the [facility] in [place] and that her daughter lives with
her.
I started her on quetiapine 12.5 mg. 8 AM and 5 PM yesterday (first dose this morning). The nurse reports she has not required restraints today and that her mental state has fluctuated. She shows no adverse effects from this small dose of
quetiapine. Is also on donepezil 5 mg., mirtazapine 15 mg. and sertraline 50 mg. which she had been taking before admission.
Psychiatry will follow.
[2025-02-01] MEDS: MYCOSTATIN ORAL SUSPENSION PO (17:25)
[2025-02-01 17:33] LABS: Glucose - Point of Care 184 mg/dl (70-99)
[2025-02-01] MEDS: NOVOLOG FLEXPEN-LOW RESISTANCE 1 UNITS SC (17:40)
--- NOTE | 2025-02-01 19:05 | PTCARENOTE ---
Assumed care from previous nurse. Pt is pleasantly confused, intermittently tearful. VSS. Comfort measures and reassurance provide. Plan of care reviewed with patient. Bed alarm in place for safety. Call cabrera within reach. Will continue to monitor
and follow plan of care.
[2025-02-01] MEDS: MIRALAX PO (19:56)
[2025-02-01] MEDS: REMERON 15 MG PO (21:51)
[2025-02-01 23:55] LABS: Soluble Liver Antigen Ab 2.2 U (0.0-24.9)
[2025-02-02] VITALS (11 sets, daily range): BP systolic 95–142; BP diastolic 27–67; O2SAT 100
[2025-02-02] MEDS: HEPARIN 5000 UNITS SC ×4 (00:20→23:05)
[2025-02-02 01:17] LABS: Glucose - Point of Care 108 mg/dl (70-99)
[2025-02-02 05:22] LABS: ALT (SGPT) 565 U/L (0-35); AST (SGOT) 88 U/L (14-36); Albumin 2.5 g/dl (3.5-5.0); Alkaline Phosphatase 92 U/L (38-126); Total Protein 5.1 g/dl (6.3-8.2)
--- NOTE | 2025-02-02 07:51 | PTCARENOTE ---
Captured VS for nightshift from 2309 - 0600.
[2025-02-02] MEDS: MIRALAX PO ×2 (08:11→20:18)
[2025-02-02] MEDS: NSS 500 IV (08:12)
[2025-02-02] MEDS: MYCOSTATIN ORAL SUSPENSION 5 ML PO ×4 (08:13→23:05)
[2025-02-02] MEDS: PROTONIX IV 40 MG IV ×2 (08:13→20:19)
[2025-02-02] MEDS: SEROQUEL 12.5 MG PO ×2 (08:13→16:31)
[2025-02-02] MEDS: NSS (PRESERVATIVE FREE) 10 ML IV ×2 (08:13→20:19)
[2025-02-02] MEDS: ASPIR LOW (ENTERIC COATED) 81 MG PO (08:14)
[2025-02-02] MEDS: SENOKOT-S PO ×2 (08:14→20:18)
[2025-02-02] MEDS: ZOLOFT 50 MG PO (08:14)
[2025-02-02 08:47] LABS: Glucose - Point of Care 90 mg/dl (70-99)
--- NOTE | 2025-02-02 09:49 | W.PN.HOSP.TC ---
Today's Communication/Plan
-
DC
Assessment / Plan
Assessment / Plan
79yo F with PMHX of R ASPEN, dementia, HLD, CAD, DM, GERD, overactive bladder, Parkinson came with persistent nausea and vomiting and not getting out of bed for a week with poor oral intake, found secondary to cholelithiasis, s/p cholecystectomy on
01/22/25, however symptoms persisted but to less degree, found rapidly worsened transaminitis, concerning for hepatic hypoperfusion as per GI. Developed worsening in-patient delirium. LFT started to improve and GI signed off. Delirium well managed
on new Quetiapine started by Psych. PT/OT recommended rehab.
A/P:
#Parkinson with dementia with behavioral disturbances
known Hx of in-patient delirium
Xanax as needed
Pscyh consult: Quetiapine
TSH WNL
#Transaminitis, most likely ischemic hepatitis
#Coagulopathy 2/2 transaminitis
LLQ abd tenderness - no significant abnormalities on CT in LLQ. However ascending and transverse mild colitis - will discuss with GI
S/P vit K
Acetylcysteine as per GI
CT and/pelvs with no obvious source for hepatitis
US portal with no signs of PVT
Echo: Normal biventricular size and systolic function, with no regional wall motion abnormalities. Estimated LVEF 60-65%. Mild/moderate aortic regurgitation.
Acute hepatitis panel, autoimmune hepatitis w/u neg
LDH elevated pointing to direct hepatic cell damage
follow INR
Unlikely DILI
#Orthostatic hypotension
#Asymptomatic yanni in 50bpm
low dose midodrine and stop Aricept as it can provoke
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
#Cholelithiasis
s/p cholecystectomy
PPI
Reglan
GI signed off with no plans to proceed with it
#Hypophosphatemia
#Hypomagnesemia
#Hypokalemia
2/2 poor intake
replete and follow
#Thrush
Nystatin complated
#DM type 2 with nephropathy
DM diet, AccuCheck and Insulin SS
#HLD
#CKD stage 3b
#Anxiety
#Overactive bladder
hold statin, myrbetriq
DVT ppx SCDs
DNR/DNI
I have spent at least 36min reviewing chart, test results, communication with consultants, family and providing direct patient care. Unable to reach daughter
Anticipated Discharge: Today
Subjective/Interval History
-
Date of Service: February 02, 2025
Objective Data
-
Labs:
Laboratory Results
02/02/25
03:43
Total Bilirubin 0.9
AST 88 H
ALT 565 H*
Alkaline Phosphatase 92
Vital Signs:
Vital Signs
Temp Pulse Resp BP Pulse Ox
98.5 F 55 14 116/43 96
02/02/25 03:00 02/02/25 08:14 02/02/25 04:00 02/02/25 08:14 02/02/25 08:00
I&O
02/01/25 02/02/25 02/03/25
06:59 06:59 06:59
Intake Total 1416 / 1416 2045 / 2045
Output Total 900 / 900 400 / 400
Balance 516 / 516 1645 / 1645
Review of Systems
-
History Source: Patient
All other systems: Reviewed and negative
Physical Exam
-
General: No Apparent Distress
HEENT: Normocephalic
Psych: Calm
--- NOTE | 2025-02-02 10:03 | W.DCSUMMARY ---
Addendum entered and electronically signed by Chris Abbasi MD 02/03/25 12:37:
Discharge date 02/03/25
Original Note:
Discharge Summary
Discharge Data
Date of Admission: 01/21/25
Date of Discharge: 02/02/25
-
Pending Results: No
Hospital Course
79yo F with PMHX of R ASPEN, dementia, HLD, CAD, DM, GERD, overactive bladder, Parkinson came with persistent nausea and vomiting and not getting out of bed for a week with poor oral intake, found secondary to cholelithiasis, s/p cholecystectomy on
01/22/25, however symptoms persisted but to less degree, found rapidly worsened transaminitis, concerning for hepatic hypoperfusion as per GI. Developed worsening in-patient delirium. LFT started to improve and GI signed off. Delirium well managed
on new Quetiapine started by Psych. PT/OT recommended rehab. Statin changed to Zetia with recent LFT elevation. DUe to orthostasis on PT - started on midodrine low dose and Aricept was stopped
I have spent at least 36min reviewing chart, test results, communication with consultants, family and providing direct patient care.
Patient was managed for:
#Parkinson with dementia with behavioral disturbances
#Transaminitis, most likely ischemic hepatitis
#Coagulopathy 2/2 transaminitis
#Orthostatic hypotension
#Asymptomatic yanni in 50bpm
low dose midodrine and stop Aricept as it can provoke
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
#Cholelithiasis
#Hypophosphatemia
#Hypomagnesemia
#Hypokalemia
#Thrush
#DM type 2 with nephropathy
#HLD
#CKD stage 3b
#Anxiety
#Overactive bladder
Discharge Plan
-
Patient Disposition: [facility]/SNF
Discharge Diagnosis/Procedures: cholelithiasis
Diet: As tolerated
Activity: No strenuous activity
Bathing Restrictions: OK to Shower
Blood Work: LFT in 1 week
Activity Restrictions/Additional Instructions:
Instructions following Laparoscopic cholecystectomy
Please call [phone] if you have any questions or concerns after your surgery.
Wound Care:
Your incisions are covered with skin glue which will come off on it�s own in 5-10 days.
It is ok to shower the day after your surgery. Do not scrub the incisions, let soap and water wash over them and pat dry.
� Bruising around your incisions is normal.
� Using ice packs will help minimize this swelling.
� No swimming or soaking incisions for 1 week.
� Your stitches will dissolve and do not need to be removed.
Urinary retention:
If you are unable to urinate 6-8 hours after your surgery, please call [phone] to discuss further management.
Activity:
No heavy lifting more than 15 pounds for the next 3 weeks, then you may gradually lift heavier objects as tolerated by discomfort. Otherwise activity as tolerated by your comfort level.
Pain Management:
Use Tylenol, ibuprofen and ice packs to treat your pain.
� You may take 650 milligrams of Tylenol (Max 3 grams per day) every 6 hours, and 600 mg of ibuprofen also every 6 hours. (you can alternate them every 3 hours)
� You may use an ice pack to your incision as needed.
� If you still have pain not controlled by these measures, take your prescription pain medication as prescribed.
Medications:
You may resume your home medications.
Bowel Medications:
Prescription pain medication can make you constipated. If you take this medication, also take colace 100 mg twice daily (this is over the counter). If this is not sufficient, you may take Miralax (polyethylene glycol) to help move your bowels.
Diet:
After your procedure, there are no dietary restrictions. You may notice loose stools for up to 4 weeks after surgery with fatty meals, if this is the case you may have to adjust your diet as needed.
Driving restrictions:
No driving if you are taking prescription pain medication or if you think your normal reaction time and attentiveness has been slowed by your surgery.
Things to Look out for:
Worsening Abdominal pain, redness or drainage from incision
Call Doctor for:
Please call if you notice worsening redness or drainage from incision(s) lasting longer than 5 days after your surgery, any foul-smelling drainage from the incision, pain not controlled by pain medications, persistent nausea and vomiting, or for any
fevers greater than 101.3 F. The number for questions/concerns is [phone]
Follow-up:
Follow-up appointment will be scheduled with your surgeon in 3-4 weeks. Please call prior to your appointment if you have any questions or concerns. [phone]
Referrals:
Keyshawn Torres DO [Primary Care Provider, [facility]]
Patrick Lucero MD [Active, Surgical] - in two to four weeks
Prescriptions:
New
midodrine 2.5 mg Tablet
2.5 mg PO TID@0800,1300,1800 Qty: 90 0RF
ezetimibe [Zetia] 10 mg tablet
10 mg PO DAILY Qty: 30 0RF
quetiapine 25 mg Tablet
12.5 mg PO BID@0800,1700 Qty: 30 0RF
Continued
aspirin 81 mg Tablet,Chewable
81 mg PO DAILY
mirabegron [Myrbetriq] 50 mg Tablet Extended Release 24 Hr
50 mg PO DAILY
pantoprazole 20 mg Tablet,Delayed Release (Dr/Ec)
20 mg PO DAILY
cyanocobalamin (vitamin B-12) 500 mcg Tablet
500 mcg PO DAILY
mirtazapine 15 mg Tablet
15 mg PO HSPRN PRN (Reason: sleep)
sertraline 25 mg tablet
50 mg PO DAILY
metformin 1,000 mg Tablet
1,000 mg PO BID
omega 9-voo-jli-fish oil [Fish Oil] 1,000 (120-180) mg Capsule
1 cap PO DAILY
ondansetron 8 mg Tablet,Disintegrating
8 mg PO Q8HPRN PRN (Reason: nausea)
ascorbic acid (vitamin C) [Vitamin C] 500 mg Tablet
500 mg PO DAILY
Discontinued
simvastatin [Zocor] 20 mg Tablet
20 mg PO DAILY
donepezil [Aricept] 5 mg tablet
5 mg PO DAILY Qty: 30 0RF
biotin 5,000 mcg Tablet,Chewable
5,000 mcg PO DAILY
Discharge Orders:
Discharge Patient (As Directed); Ordered 02/02/25
Ordered By: Chris Abbasi
Discharge Date and Time
Print Language: ITALIAN
[2025-02-02] MEDS: NOVOLOG FLEXPEN-LOW RESISTANCE SC ×3 (10:07→16:31)
[2025-02-02 12:53] LABS: Glucose - Point of Care 147 mg/dl (70-99)
--- NOTE | 2025-02-02 15:39 | CM ---
F/U: Hospitalist stated that patient is ready. Patient was restrained and had behaviors that are resolved. YVES Waggoner spoke to daughter Hanny, sent referral to 2 new places because no accepting facility, than daughter chose [facility]. PT has
not seen that patient since 01/26 so waited until mid afternoon for the note, then submitted to [facility].
Pending Ref: #[id number]- Clinical faxed (w/ confirmation) and on YVES Waggoner's desk
If authorization is obtain, please call Casper Slade (even on the weekend) @ #[phone].
[facility] INFO:
Report: #[phone]
Fax: #[phone]
--- NOTE | 2025-02-02 16:19 | W.PN.UPDATE ---
Update Note
Progress Note Update
79 y/o woman with dementia and Parkinson's who underwent cholecystectomy during this admission is awaiting half-way placement. She was experiencing visual hallucinations which is common in Parkinsons and I started her on very low dose
quetiapine which seems to have been of some benefit. Furthermore, she has not required restraints or PRN medication for several days.
On exam she is seated in chair by bed. Disoriented to date. Still believes she has small children of her own at home. She at first said she was turning 79 and then corrected herself to 80 (yesterday tolld me she was turning 60). Pleasant affect.
Could raise quetiapine if necessary, but could increase risk of falls.
Psychiatry will sign off; reconsult if needed.
[2025-02-02 16:41] LABS: Glucose - Point of Care 121 mg/dl (70-99)
[2025-02-02 22:20] LABS: Glucose - Point of Care 137 mg/dl (70-99)
[2025-02-02] MEDS: REMERON 15 MG PO (23:05)
[2025-02-03 07:00] VITALS: BP 120/49
[2025-02-03 07:37] LABS: Glucose - Point of Care 102 mg/dl (70-99)
[2025-02-03] MEDS: NOVOLOG FLEXPEN-LOW RESISTANCE SC ×2 (07:39→13:13)
[2025-02-03] MEDS: MYCOSTATIN ORAL SUSPENSION 5 ML PO (08:09)
[2025-02-03] MEDS: NSS (PRESERVATIVE FREE) 10 ML IV (08:09)
[2025-02-03] MEDS: PROTONIX IV 40 MG IV (08:10)
[2025-02-03] MEDS: SENOKOT-S 1 TABLET PO (08:11)
[2025-02-03] MEDS: ZOLOFT 50 MG PO (08:11)
[2025-02-03] MEDS: SEROQUEL 12.5 MG PO ×2 (08:11→15:16)
[2025-02-03] MEDS: HEPARIN 5000 UNITS SC ×2 (08:12→15:15)
[2025-02-03] MEDS: ASPIR LOW (ENTERIC COATED) 81 MG PO (08:12)
[2025-02-03] MEDS: MIRALAX 17 GRAMS PO (08:13)
--- NOTE | 2025-02-03 10:36 | W.PN.HOSP.TC ---
Today's Communication/Plan
-
delayed d/c 2/2 STR placement - CM aware that medically stable. As per note - pending [facility] as of 02/02/25
Assessment / Plan
Assessment / Plan
79yo F with PMHX of R ASPEN, dementia, HLD, CAD, DM, GERD, overactive bladder, Parkinson came with persistent nausea and vomiting and not getting out of bed for a week with poor oral intake, found secondary to cholelithiasis, s/p cholecystectomy on
01/22/25, however symptoms persisted but to less degree, found rapidly worsened transaminitis, concerning for hepatic hypoperfusion as per GI. Developed worsening in-patient delirium. LFT started to improve and GI signed off. Delirium well managed
on new Quetiapine started by Psych. PT/OT recommended rehab.
A/P:
#Parkinson with dementia with behavioral disturbances
known Hx of in-patient delirium
Xanax as needed
Pscy consult: Quetiapine
TSH WNL
#Transaminitis, most likely ischemic hepatitis
#Coagulopathy 2/2 transaminitis
LLQ abd tenderness - no significant abnormalities on CT in LLQ. However ascending and transverse mild colitis - will discuss with GI
S/P vit K
Acetylcysteine as per GI
CT and/pelvs with no obvious source for hepatitis
US portal with no signs of PVT
Echo: Normal biventricular size and systolic function, with no regional wall motion abnormalities. Estimated LVEF 60-65%. Mild/moderate aortic regurgitation.
Acute hepatitis panel, autoimmune hepatitis w/u neg
LDH elevated pointing to direct hepatic cell damage
follow INR
Unlikely DILI
#Orthostatic hypotension
#Asymptomatic yanni in 50bpm
low dose midodrine and stop Aricept as it can provoke
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
#Cholelithiasis
s/p cholecystectomy
PPI
Reglan
GI signed off with no plans to proceed with it
#Hypophosphatemia
#Hypomagnesemia
#Hypokalemia
2/2 poor intake
replete and follow
#Thrush
Nystatin complated
#DM type 2 with nephropathy
DM diet, AccuCheck and Insulin SS
#HLD
#CKD stage 3b
#Anxiety
#Overactive bladder
hold statin, myrbetriq
DVT ppx SCDs
DNR/DNI
I have spent at least 36min reviewing chart, test results, communication with consultants, family and providing direct patient care. Unable to reach daughter
Anticipated Discharge: Within 24 hours
Subjective/Interval History
-
Date of Service: February 03, 2025
Objective Data
-
Vital Signs:
Vital Signs
Temp Pulse Resp BP Pulse Ox
98.6 F 66 12 115/42 96
02/03/25 07:00 02/03/25 08:10 02/03/25 07:00 02/03/25 08:10 02/03/25 07:00
I&O
02/02/25 02/03/25 02/04/25
06:59 06:59 06:59
Intake Total 2044 / 2044 480 / 480
Output Total 400 / 400
Balance 1645 / 1645 480 / 480
Review of Systems
-
History Source: Patient
All other systems: Reviewed and negative
Physical Exam
-
General: No Apparent Distress
HEENT: Normocephalic
GI: Soft, Nontender and Nondistended
Neuro: Awake and Alert
Psych: Calm and Apparent Dementia
--- NOTE | 2025-02-03 12:42 | CM ---
sales development manager reached out to insurance and obtained Auth today, for skilled placement at [facility] today, ambulance transport.
[facility]
Report: #[phone]
Fax: #[phone]
[2025-02-03 13:13] LABS: Glucose - Point of Care 137 mg/dl (70-99)
[2025-02-03 13:25] VITALS: BP 132/45
[2025-02-03] MEDS: MYCOSTATIN ORAL SUSPENSION PO (13:27)
[2025-02-03 15:00] VITALS: BP 154/62
== END 2025-02-03 16:22 | DRG 417 ==
LOC: 2 SOUTH 23:51
PROVIDERS: Clinical Nurse Specialist Family Health; Emergency Medicine; Internal Medicine; Nurse Practitioner Adult Health; Nurse Practitioner Gerontology; Radiology Diagnostic Radiology; Student in an Organized Health Care Education/Training Program; ADMITTING PHYSICIAN Hospitalist; ATTENDING PHYSICIAN Internal Medicine; CONSULT PHYSICIAN Surgery; EMERGENCY PHYSICIAN Student in an Organized Health Care Education/Training Program; OTHER PHYSICIAN Internal Medicine Gastroenterology; OTHER PHYSICIAN Psychiatry & Neurology Psychiatry; PRIMARYCARE PHYSICIAN Family Medicine
PROC: BF131ZZ Fluoroscopy of Gallbladder and Bile Ducts using Low Osmolar Contrast (ICD-10-PCS; 2025-01-22)
PROC: 0FT44ZZ Resection of Gallbladder, Percutaneous Endoscopic Approach (ICD-10-PCS; 2025-01-22)
DX: K80.12 Calculus of gallbladder with acute and chronic cholecystitis without obstruction (principal); E43 Unspecified severe protein-calorie malnutrition; K72.00 Acute and subacute hepatic failure without coma; F02.A18 Dementia in other diseases classified elsewhere, mild, with other behavioral disturbance; F02.A4 Dementia in other diseases classified elsewhere, mild, with anxiety; F02.A3 Dementia in other diseases classified elsewhere, mild, with mood disturbance; Z68.1 Body mass index [BMI] 19.9 or less, adult; D68.9 Coagulation defect, unspecified; E11.22 Type 2 diabetes mellitus with diabetic chronic kidney disease; E11.42 Type 2 diabetes mellitus with diabetic polyneuropathy; E78.00 Pure hypercholesterolemia, unspecified; N18.32 Chronic kidney disease, stage 3b; I12.9 Hypertensive chronic kidney disease with stage 1 through stage 4 chronic kidney disease, or unspecified chronic kidney disease; G20.A1 Parkinson's disease without dyskinesia, without mention of fluctuations; N32.81 Overactive bladder; I25.10 Atherosclerotic heart disease of native coronary artery without angina pectoris; F32.A Depression, unspecified; K21.9 Gastro-esophageal reflux disease without esophagitis; K82.8 Other specified diseases of gallbladder; K66.0 Peritoneal adhesions (postprocedural) (postinfection); R26.2 Difficulty in walking, not elsewhere classified; G47.00 Insomnia, unspecified; B37.9 Candidiasis, unspecified; E11.43 Type 2 diabetes mellitus with diabetic autonomic (poly)neuropathy; K31.84 Gastroparesis; I35.1 Nonrheumatic aortic (valve) insufficiency; E87.6 Hypokalemia; E83.39 Other disorders of phosphorus metabolism; E83.42 Hypomagnesemia; I95.1 Orthostatic hypotension; Z66 Do not resuscitate; Z87.891 Personal history of nicotine dependence; Z91.0120 Allergy to eggs, unspecified; Z79.899 Other long term (current) drug therapy; Z79.84 Long term (current) use of oral hypoglycemic drugs; Z79.82 Long term (current) use of aspirin; Z91.81 History of falling; Z98.51 Tubal ligation status; Z11.52 Encounter for screening for COVID-19; Z78.1 Physical restraint status; Z91.51 Personal history of suicidal behavior
CPT/HCPCS: 74177; 74300; 76000; 76700; 80053; 80061; 80076; 80143; 82140; 82248; 82550; 82784; 82787; 82962; 83036; 83516; 83605; 83615; 83690; 83735; 84100; 84443; 84550; 85025; 85027; 85610; 86015; 86038; 86705; 86706; 86709; 86803; 87340; 87502; 87811; 88304; 93005; 93306; 93975; 96365; 96375; 96376; 97110; 97116; 97129; 97163; 97167; 97530; 97535; 99285; A4300; J0132; J2358; J7030; Q9967